=== PATIENT | male | born 1955 | race Caucasian/White ===

== ENCOUNTER 2016-09-02 10:42 | Inpatient (IN) | payer OTHER, MEDICAID ==
--- NOTE | 2016-09-02 11:25 | EDPHY ---
H & P Time Seen by Provider: 09/02/16 10:55 HPI/ROS: CHIEF COMPLAINT: Lower extremity swelling HISTORY OF PRESENT ILLNESS: The patient is a 60 year old male presenting with bilateral lower extremity swelling for the past 2 weeks. Over the past week he reports drainage from both lower extremities. The patient states the swelling in his legs is because he is being "poisoned with chloride" where he lives. He takes psychiatric medications. The patient also complains of sciatica. He denies chest pain, shortness of breath, palpitations. No known history of CHF. Patient denies known history of SC, CAD, DVT or PE. No fever, chills, vomiting, diarrhea, urinary complaints, headache, lightheadedness. REVIEW OF SYSTEMS: Aside from elements discussed in the HPI, a comprehensive 10-point review of systems was reviewed and is negative. PAST MEDICAL HISTORY: Schizoaffective, Atrial fibrillation, HTN, Gout, CKD, DVT , Nephritic syndrome SOCIAL HISTORY: Cigarette smoker. Resides at [place]. VITAL SIGNS: Reviewed by me GENERAL: Obese, resting comfortably in no respiratory distress. HEENT: Atraumatic. Eyes: No icterus, no injection. Mouth: dry mucous membranes. No erythema or lesions. Neck: supple with no adenopathy. LUNGS: Course breath sounds, scattered rhonchi. CARDIAC: Irregularly irregular, no rubs, or gallops. ABDOMEN: Obese, nondistended. Nontender. BACK: No CVA tenderness. EXTREMITIES: Massive amount of swelling to the knees bilaterally, with erythema , weeping and drainage, left worse than right. NEURO: Alert and oriented x3. NESBITT x 4, grossly nonfocal. SKIN: Warm, dry. PSYCHIATRIC: Normal mentation, no agitation. Portions of this note were transcribed by a medical secretary. I personally performed a history, physical exam, medical decision making, and confirmed accuracy of information the transcribed note. Source: Patient Constitutional: Initial Vital Signs Heart Rate 130 H 09/02/16 10:42 Respiratory Rate 18 09/02/16 10:42 Blood Pressure 120/87 H 09/02/16 10:42 O2 Sat (%) 91 L 09/02/16 10:42 O2 Delivery Mode Room Air Allergies/Adverse Reactions: amoxapine [From Asendin] Allergy (Verified 09/02/16 11:03) fluphenazine enanthate [From Prolixin] Allergy (Verified 09/02/16 11:03) fluphenazine HCl [From Prolixin] Allergy (Verified 09/02/16 11:03) haloperidol [From Haldol] Allergy (Verified 09/02/16 11:03) haloperidol lactate [From Haldol] Allergy (Verified 09/02/16 11:03) thioridazine HCl [From Mellaril] Allergy (Verified 09/02/16 11:03) trifluoperazine HCl [From Stelazine] Allergy (Verified 09/02/16 11:03) Home Medications: Medication Instructions Recorded Acetaminophen [Acetaminophen ER] 1,300 mg PO Q8 09/02/16 Acetaminophen [Tylenol 325mg (*)] 650 mg PO BID PRN 09/02/16 Albuterol Sulfate [ALBUTEROL 0.63 mg IH Q6HRS PRN 09/02/16 SULFATE] Allopurinol [Allopurinol 100 MG 100 mg PO BID 09/02/16 (*)] Bisacodyl [Dulcolax] 10 mg RC DAILY PRN 09/02/16 Cyanocobalamin [Vitamin B12 (*)] 1,000 mcg PO DAILY 09/02/16 Digoxin [Lanoxin 125 mcg (RX)] 125 mcg PO DAILY10 09/02/16 Diltiazem [Cardizem 60 MG (*)] 120 mg PO DAILY 09/02/16 Hydrocodone/Acetaminophen [Fitzpatrick 1 tab PO BID PRN 09/02/16 7.5-325 Tablet] Lactulose 20 gm PO DAILY PRN 09/02/16 Metoprolol Tartrate [Lopressor 50 50 mg PO BID 09/02/16 mg (*)] Morphine Sulfate [Morphine Sulfate 15 mg PO BID 09/02/16 ER] Sennosides/Docusate Sodium 2 each PO DAILY PRN 09/02/16 [Senna-Docusate Sodium Tablet] Warfarin Sodium [Coumadin 1MG (*)] 3.5 mg PO DAILY16 09/02/16 risperiDONE [Risperdal 1mg (*)] 4 mg PO DAILY 09/02/16 Medical Decision Making - Diagnostics EKG Interpretation: EKG interpreted by myself: atrial fibrillation. Rate: 89. See tracemaster for full report. Imaging: Study: X-ray of the chest was obtained. Results:Normal. No pneumonia. Images were interpreted by the radiologist, Dr. Lindsey. I viewed the images myself on the PACS system. ED Course/Re-evaluation: 61 year old with peripheral edema to the knees, weeping, and erythematous. Difficult to walk for several days. History hard to obtain from patient. Chart reveals afib, DVT history and coumadin use. Patient in afib. Denies CP or SOB. Lasix administered. Troponin neg but BNP 1810. Will need admission for treatment of his edema, potential cellulitis, and further treatment for CHF. 12:30 pm: I spoke to the hospitalist who accepts the patient for admission. Differential Diagnosis: Diff dx considered for patient presenting complaints included but was not limited to CHF, hyponatremia, lymphedema, cellulitis, DVT, deep space infection , hypoalbuminia, nephrotic syndrome, renal failure. Consult/Admit Bed Type: Dr Spencer, [facility] - Data Points Laboratory Results: Laboratory Results 09/02/16 11:10 09/02/16 11:10 Medications Given: Discontinued Medications Acetaminophen/Hydrocodone Bitart (Fitzpatrick 5/325) 1 tab PO EDNOW ONE Stop: 09/02/16 12:21 Last Admin: 09/02/16 12:24 Dose: 1 tab Diltiazem HCl (Cardizem Immediate Release) 30 mg PO ONCE ONE Stop: 09/03/16 00:24 Last Admin: 09/03/16 01:03 Dose: 30 mg Furosemide (Lasix Injection) 20 mg IVP EDNOW ONE Stop: 09/02/16 11:30 Last Admin: 09/02/16 12:15 Dose: 20 mg Hydromorphone HCl (Dilaudid) 0.4 mg IVP ONCE ONE Stop: 09/03/16 10:07 Last Admin: 09/03/16 10:19 Dose: 0.4 mg Hydromorphone HCl (Dilaudid) 0.5 mg IVP ONCE ONE Stop: 09/03/16 12:50 Last Admin: 09/03/16 17:20 Dose: 0.5 mg Hydromorphone HCl (Dilaudid) 0.5 mg IVP ONCE ONE Stop: 09/03/16 17:31 Last Admin: 09/03/16 20:10 Dose: Not Given Vancomycin HCl 1.25 gm/ (Dextrose) 250 mls @ 166.67 mls/hr IV Q12H KHALIDA PRN Reason: Protocol Stop: 10/02/16 15:59 Last Admin: 09/03/16 03:38 Dose: 250 mls Vancomycin HCl 1.5 gm/ (Dextrose) 250 mls @ 166.667 mls/hr IV Q12H [facility] Stop: 10/03/16 10:59 Last Admin: 09/04/16 10:53 Dose: 250 mls Departure - Departure Disposition: [facility] Acute Clinical Impression: Peripheral edema, CHF (congestive heart failure) Condition: Fair Report Scribed for: Wilma Anderson Report Scribed by: Ciara Ann Date of Report: 09/02/16 Time of Report: 11:27
[2016-09-02] MEDS ORDERED: FUROSEMIDE 20 MG/2 ML VIAL IVP ONE (11:29)
[2016-09-02 11:37] LABS: % IMMATURE GRANULYOCYTES 0.4 % (0.0-1.1); ABSOLUTE IMMATURE GRANULOCYTES 0.05 10^3/uL (0.00-0.10); ADD DIFF? NO; ADD MORPH? NO; ADD SCAN? NO; ATYPICAL LYMPHOCYTE FLAG 0 (0-99); FRAGMENT RBC FLAG 0 (0-99); HEMATOCRIT 40.8 % (40.0-51.0); HEMOGLOBIN 14.4 g/dL (13.7-17.5); LEFT SHIFT FLG 0 (0-99); LIPEMIA HEMOLYSIS FLAG 90 (0-99); MEAN CELL HEMOGLOBIN 33.8 pg (27.9-34.1); MEAN CELL HEMOGLOBIN CONCENTR. 35.3 g/dL (32.4-36.7); MEAN CELL VOLUME 95.8 fL (81.5-99.8); MEAN PLATELET VOLUME 9.2 fL (8.7-11.7); PLATELET CLUMPS FLAG 0 (0-99); PLATELET COUNT 315 10^3/uL (150-400); RED BLOOD CELL COUNT 4.26 10^6/uL (4.40-6.38); RED CELL DISTRIBUTION WIDTH 13.3 % (11.5-15.2)
[2016-09-02 11:45] LABS: ALANINE AMINOTRANSFERASE 27 IU/L (21-72); ALBUMIN 2.8 g/dL (3.5-5.0); ALKALINE PHOSPHATASE 79 IU/L (38-126); ANION GAP 10 mEq/L (8-16); ASPARTATE AMINOTRANSFERASE 17 IU/L (17-59); BILIRUBIN,TOTAL 0.7 mg/dL (0.1-1.4); BILIRUBIN-CONJUGATED 0.2 mg/dL (0.0-0.5); BILIRUBIN-UNCONJUGATED 0.5 mg/dL (0.0-1.1); CALCIUM 8.8 mg/dL (8.5-10.4); CARBON DIOXIDE 22 mEq/l (22-31); CHLORIDE 106 mEq/L (97-110); GLOMERULAR FILTRATION RATE > 60; GLUCOSE 139 mg/dL (70-100); POTASSIUM 4.4 mEq/L (3.5-5.2); SODIUM 138 mEq/L (134-144); TOTAL PROTEIN 6.2 g/dL (6.3-8.2)
[2016-09-02 11:57] LABS: TROPONIN I < 0.012 ng/mL (0-0.034)
--- NOTE | 2016-09-02 11:57 | DX ---
Chest, PA and Lateral History: Chest pain, leg edema COMPARISON: December 12, 2008, August 12, 2006 Findings: The patient is rotated toward the left. Patchy density overlying the medial right lower marybeth g, without a confirmatory abnormality on the lateral view could represent a lower lung zone infiltrat e or overlapping density related to soft tissue from the patient's breast. Heart size and pulmonary v ascularity are normal. The azygos vein is not dilated. There is no adenopathy or mass lesion. There i s no pleural effusion . Bones are unremarkable for age. Impression: 1. Equivocal right lower lobe infiltrate versus soft tissue overlap from the patient's ri ght breast. Consider obtaining a nonrotated PA chest or possibly chest CT for further evaluation. 2. No evidence for cardiac failure.
[2016-09-02] MEDS ORDERED: HYDROCODONE/APAP 5/325 TAB PO ONE (12:20)
--- NOTE | 2016-09-02 12:24 | DX ---
Portable Chest, 2 views, 12:10 History: Chest pain, leg edema, corrected for rotation Comparison: Prior PA exam at 11:13 earlier Findings: Prior right lower lung density has resolved and was consistent with overlapping density fro m the patient's right breast. There is no evidence for pneumonia. Impression: Normal. No pneumonia.
--- NOTE | 2016-09-02 13:03 | CPEKG ---
Heart Rate: 89 RR Interval: 674 QRSD Interval: 92 QT Interval: 360 QTC Interval: 439 QRS [place]: 76 T Wave [place]: -19 EKG Severity - ABNORMAL ECG - EKG Impression: ATRIAL FIBRILLATION, V-RATE 62-111 EKG Impression: LOW VOLTAGE IN FRONTAL LEADS EKG Impression: NONSPECIFIC T ABNORMALITIES, INFERIOR LEADS Electronically Signed By: Wilma Anderson 02-Sep-2016 15:10:35
[2016-09-02] MEDS ORDERED: ONDANSETRON DISINTEGRATING 4 MG TAB PO PRN (15:48)
[2016-09-02] MEDS ORDERED: ONDANSETRON 4 MG/2 ML VIAL IVP PRN (15:48)
[2016-09-02] MEDS ORDERED: SENNOSIDES/DOCUSATE SODIUM TAB PO PRN (15:50)
[2016-09-02] MEDS ORDERED: BISACODYL 10 MG SUPP PR PRN (15:50)
[2016-09-02] MEDS ORDERED: HYDROCODONE/APAP 10/325 TAB PO PRN (16:08)
[2016-09-02] MEDS ORDERED: ALBUTEROL 60 PUFFS/8 GM MDI IH PRN (16:30)
[2016-09-02] MEDS ORDERED: LACTULOSE 20 GM/30 ML UDCUP PO PRN (16:30)
[2016-09-02 16:33] LABS: INR 2.54 (0.83-1.16); PROTIME(PATIENT) 27.6 SEC (12.0-15.0)
[2016-09-02] MEDS: WARFARIN SODIUM 1 MG TAB PO SCH (16:50)
[2016-09-02] MEDS: VANCOMYCIN 1.25 GM in D5W 250 ML IV SCH (16:50)
[2016-09-02] MEDS: HYDROCODONE/APAP 5/325 TAB PO PRN (17:10)
--- NOTE | 2016-09-02 17:40 | GHP ---
[f rep st] HISTORY AND PHYSICAL DATE OF ADMISSION: 09/02/2016 CHIEF COMPLAINT: Lower extremity swelling. HISTORY OF PRESENT ILLNESS: Mr. Wilcox is a 60-year-old male, who presented to the emergency room wit h bilateral lower extremity swelling for the past 2 weeks. He normally resides at [place] and [facility] over the last several weeks his swelling has become worse with increasing pain and inability to walk. Over the past week, he reports drainage from both lower extremities. He does feel that his l egs are swollen because he is "being poisoned with chloride" where he lives. He states that he is no t sure that he is being taken care of properly at [place]. He also complains of some lumbar and s ciatic pain. He denies any nausea, vomiting, diarrhea. Denies any fever, sweats, or night chills. D enies any dyspnea, shortness of breath, or chest pain. REVIEW OF SYSTEMS: Comprehensive 10-point review of systems is negative, other than noted in the HPI . PAST MEDICAL HISTORY: Difficult to obtain from the patient however, noted from the chart: 1. Schizoaffective disorder. 2. Atrial fibrillation. 3. Hypertension. 4. Gout. 5. Chronic kidney disease. 6. History of DVT. 7. Nephrotic syndrome. PAST SURGICAL HISTORY: Per the patient is none. SOCIAL HISTORY: The patient resides at [place]. He states that he smokes tobacco on a daily basi s, but denies any alcohol use. PHYSICAL EXAM: GENERAL: The patient is alert, up in the chair. VITAL SIGNS: Afebrile 36.8, pulse is 75, respiratory rate is 18, blood pressure is 126/86. He is saturating 91% on room air. HEENT: Normocephalic, atraumatic. Mucosal membranes are moist. Pupils equally round, reactive to light. C ARDIOVASCULAR: Irregular irregular. No gallop or murmur noted. GASTROINTESTINAL: Abdomen: Bowel sounds are positive. Soft. the patient is obese, nontender. BACK: There is no CVA tenderness. EXT REMITIES: Massive amount of swelling in the bilateral lower extremities up to the knee, as well as e rythema and drainage. The left leg is significantly more erythematous than the right leg. SKIN: Wa rm and dry to the touch, other than bilateral lower extremities. NEUROLOGICALLY: The patient is gr ossly intact. ALLERGIES: 1. Amoxapine. 2. Prolixin. 3. Haldol. 4. Mellaril. 5. Stelazine. HOME MEDICATIONS: Tylenol, albuterol, allopurinol, Dulcolax, calcium, vitamin B, digoxin, Cardizem, Tichnor, lactulose, Lopressor, morphine, Senokot, Coumadin, Robitussin, Risperdal. FAMILY HISTORY: Reviewed, but noncontributory. The patient tells me it is his birthday tomorrow. LABORATORY EVALUATION: White count 11.1. INR of 2.54 with a BUN of 32. BNP of 1800. RADIOLOGICAL STUDIES: Chest x-ray is normal with no pneumonia noted. ASSESSMENT AND PLAN: Mr. Wilcox is a 60-year-old male, who has a history of schizoaffective disorder and resides at [place]. He presented emergency room with complaints of bilateral lower extremity swelling. He has been evaluated and diagnosed with: 1. Bilateral lower extremity swelling: This is an acute on chronic condition for Mr. Wilcox. He has received diuresis in the emergency room, but will require more aggressive IV diuresis during this ho spitalization. Wound Care will consult on the patient, as well as educating him to elevate his lower extremities whenever possible. We will continue to evaluate his underlying condition. 2. Left lower extremity cellulitis: I have initiated the patient on IV vancomycin at the time of ad mission. He does reside at a [facility] facility. Will continue his vancomycin with further in tervention and recommendations to be made. 3. History of atrial fibrillation: The patient does appear to be rate controlled. He is anticoagula irving with Coumadin. His INR is 2.54. We will continue his anticoagulation as previously prescribed. DISPOSITION: The patient will return to [place] once his condition has improved and he is able to ambulate with decreased edema. I have discussed the patient's care with Dr. aSlly Spencer. She sam l assume the patient's care on 09/03/2016 with further recommendations and treatment to be made. Mr. Wilcox has been admitted to inpatient status given the need for ongoing hospital care. /[id number]/MODL
[2016-09-02] MEDS: morphINE SR 15 MG TAB PO SCH (21:13)
[2016-09-02] MEDS: METOPROLOL TARTRATE 50 MG TAB PO SCH (21:14)
[2016-09-02] MEDS: ALLOPURINOL 100 MG TAB PO SCH (21:15)
[2016-09-02] MEDS ORDERED: NON-FORMULARY NEW DRUG (Acetaminophen [Acetaminophen Er] 1,300 MG) PO SCH (22:00)
[2016-09-03] MEDS: HYDROCODONE/APAP 5/325 TAB PO PRN ×3 (00:16→21:46)
[2016-09-03] MEDS ORDERED: DILTIAZEM 60 MG TAB PO ONE (00:23)
[2016-09-03] MEDS: VANCOMYCIN 1.25 GM in D5W 250 ML IV SCH (03:38)
[2016-09-03 05:46] LABS: % IMMATURE GRANULYOCYTES 0.4 % (0.0-1.1); ABSOLUTE IMMATURE GRANULOCYTES 0.05 10^3/uL (0.00-0.10); ADD DIFF? NO; ADD MORPH? NO; ADD SCAN? NO; ATYPICAL LYMPHOCYTE FLAG 20 (0-99); FRAGMENT RBC FLAG 0 (0-99); HEMATOCRIT 36.2 % (40.0-51.0); HEMOGLOBIN 12.9 g/dL (13.7-17.5); LEFT SHIFT FLG 0 (0-99); LIPEMIA HEMOLYSIS FLAG 90 (0-99); MEAN CELL HEMOGLOBIN 34.2 pg (27.9-34.1); MEAN CELL HEMOGLOBIN CONCENTR. 35.6 g/dL (32.4-36.7); MEAN PLATELET VOLUME 9.9 fL (8.7-11.7); PLATELET CLUMPS FLAG 10 (0-99); PLATELET COUNT 278 10^3/uL (150-400); RED BLOOD CELL COUNT 3.77 10^6/uL (4.40-6.38); RED CELL DISTRIBUTION WIDTH 13.1 % (11.5-15.2)
[2016-09-03 06:07] LABS: INR 2.9 (0.83-1.16); PROTIME(PATIENT) 30.7 SEC (12.0-15.0)
[2016-09-03 06:16] LABS: ANION GAP 8 mEq/L (8-16); CALCIUM 8.3 mg/dL (8.5-10.4); CARBON DIOXIDE 22 mEq/l (22-31); CHLORIDE 104 mEq/L (97-110); GLOMERULAR FILTRATION RATE > 60; GLUCOSE 131 mg/dL (70-100); MAGNESIUM 1.9 mg/dL (1.6-2.3); POTASSIUM 4.5 mEq/L (3.5-5.2); SODIUM 134 mEq/L (134-144)
[2016-09-03] MEDS: FUROSEMIDE 40 MG/4 ML VIAL IVP SCH (07:49)
[2016-09-03] MEDS: METOPROLOL TARTRATE 50 MG TAB PO SCH ×2 (07:49→20:15)
[2016-09-03] MEDS: DILTIAZEM CD 180 MG CAP PO SCH (07:49)
[2016-09-03] MEDS: CYANO/VITAMIN B12 1000 MCG TAB PO SCH (08:01)
[2016-09-03] MEDS: ALLOPURINOL 100 MG TAB PO SCH ×2 (08:01→20:16)
[2016-09-03] MEDS: morphINE SR 15 MG TAB PO SCH ×2 (08:01→20:16)
[2016-09-03] MEDS: risperiDONE 1 MG TAB PO SCH (08:03)
[2016-09-03] MEDS ORDERED: ENOXAPARIN 30 MG/0.3 ML SYR SC SCH (09:00)
[2016-09-03] MEDS ORDERED: DILTIAZEM 60 MG TAB PO SCH (09:00)
--- NOTE | 2016-09-03 10:04 | HOSPPROG ---
Hospitalist Progress Note Assessment/Plan: B/L LE edema - certainly some chronic, severe venous stasis issues, wound care following. PT/OT. LLE cellulitis - Certainly underlying venous stasis +/- superinfection. There are some areas of fluctuance on anterior tibial region and dorsal surface of his left foot. Will check ext CT to r/o abscess or hematoma, would culture sent. Add on CRP. Pharmacy to dose Vanc. Will request ID consult. A fib with RVR - Anticoagulated on coumadin, INR therapeutic. Will ask pharmacy to dose Coumadin. He required additional dose of Diltiazem overnight for rate control. Cont Cardizem, Metoprolol, Digoxin. Can add additional dilt dose if needed for rate control. Schizoaffective - mood stable. Cont risperdal. Hypertension - BP a bit elevated this am likely secondary to acute pain, cont home meds. Full code Dispo - cont inpt Subjective: Pt reported a lot of pain this am as we removed his LE dressings. It's [birth year] birthday. No fevers/chills. No CP or SOB. HR a bit rapid this am though denies palpitations. Objective: Vital Signs Temp Pulse Resp BP Pulse Ox 36.8 C 120 H 20 154/87 H 90 L 09/03/16 07:09 09/03/16 07:49 09/03/16 07:09 09/03/16 07:49 09/03/16 07:09 Laboratory Results 09/03/16 04:53 09/03/16 04:53 09/02/16 09/03/16 09/04/16 05:59 05:59 05:59 Intake Total 400 Balance 400 PT 30.7 SEC (12.0-15.0) H 09/03/16 04:53 INR 2.90 (0.83-1.16) H 09/03/16 04:53 - Physical Exam Constitutional: no apparent distress Eyes: PERRL Ears, Nose, Mouth, Throat: moist mucous membranes Cardiovascular: irregularly irregular Respiratory: no respiratory distress, clear to auscultation Gastrointestinal: normoactive bowel sounds, soft, non-tender abdomen Skin: other (b/l LE venous stasis changes with denuded skin LLE and large vesicle dorsal surface of left foot) Neurologic: AAOx3 Psychiatric: interacting appropriately ICD10 Worksheet Patient Problems: Problems Problem Status Diagnosed CHF (congestive heart failure) Acute Peripheral edema Acute
[2016-09-03] MEDS ORDERED: HYDROmorphONE/DILAUDID 1 MG/ML SYR IVP ONE ×3 (10:06→17:30)
[2016-09-03] MEDS ORDERED: HYDROmorphONE/DILAUDID 2 MG/ML SYR ONE (10:12)
[2016-09-03] MEDS: VANCOMYCIN 1.5 GM in D5W 250 ML IV SCH ×2 (11:03→23:14)
[2016-09-03] MEDS: DIGOXIN 125 MCG TAB PO SCH (11:06)
--- NOTE | 2016-09-03 13:34 | WOCRNPDOC ---
WOCRMaria Esther Advanced Assessment Note - Skin Integrity Problem, Advanced Assess Left Foot Venous Stasis Ulcer Dressing Type: Abdominal Pads, Kerlix Dressing Description: Saturated Exudate Amount: Moderate Exudate Characteristic(s): Serosanguinous Integumentary Issue Intervention: Dressing Changed Aria Wound Tissue: Macerated, Lipodermatosclerosis, Hemosiderin Staining, Venous Dermatitis, Hair Loss Site Odor: Slight, Pungent Site Measurement - Head-to-Toe Length X Width X Depth (cm): 7x10x0.1 Extremity Temperature: Warm Skin Integrity Problem Comment: Left dorsal foot: 1/2 intact serous filled blister, 1/2 de roofed partial thickness wound with smooth tissue. Dried yellow crust covers opening just proximal to the phalanges and then the blister extends proximally for several cm's. Cleaned with puracyn cleanser that was soaked on wound for 5 min. Covered with mepilex transfer, ABD and then wrapped with miguel. Right Foot Venous Stasis Ulcer Dressing Type: Open to Air Dressing Description: Intact Exudate Amount: Scant Exudate Characteristic(s): Serosanguinous Integumentary Issue Intervention: Dressing Applied, Conservative Sharp Bedside Debridement (of non viable de roofed blister skin.) Wound Bed Constitution: De-roofed Serous Blister Site Measurement - Head-to-Toe Length X Width X Depth (cm): 5.5x6.5x0.1 Extremity Temperature: Warm Skin Integrity Problem Comment: Right dorsal foot: 100% de roofed blister that reveals a partial thickness wound with smooth tissue. Cleaned with puracyn cleanser that was soaked on wound for 5 min. Covered with mepilex transfer, ABD and then wrapped with miguel. Tubigrip F applied for medium compression of calf circumference of 50 cm. Left Lower Leg Venous Stasis Ulcer Dressing Type: Abdominal Pads, Kerlix Dressing Description: Intact, Shadowed Exudate Amount: Excessive Exudate Characteristic(s): Serosanguinous Integumentary Issue Intervention: Dressing Changed Aria Wound Tissue: Swollen, Lipodermatosclerosis, Hemosiderin Staining, Venous Dermatitis, Hair Loss, Crusted, Painful/Tender Aria Wound Swelling: Severe Wound Bed Color: Red, Yellow, Simpson Wound Bed Constitution: Granulation Tissue (50%), Adhered Slough (25%), Loose Slough (25%) Wound Edges: Irregular Site Odor: Slight, Moderate Site Measurement - Head-to-Toe Length X Width X Depth (cm): Wound is circumferential: [id number] Extremity Temperature: Warm Skin Integrity Problem Comment: Tissue under wound is fluctuant. Calf circumference is 39 cm. Cleaned with puracyn cleanser that was soaked on wound for 5 min. Covered with Acticoat 3 contact layer (note this may make the wound bed appear more simpson), Mepilex Transfer, then ABD and then wrapped with miguel. Tubigrip E was applied for medium compression. Please remove bilateral tubigrips at night. Right Lower Leg Venous Stasis Ulcer Dressing Type: Open to Air Aria Wound Tissue: Hemosiderin Staining, Venous Dermatitis, Xerotic, Hair Loss, Crusted Aria Wound Swelling: Moderate Wound Bed Color: Carlin Wound Bed Constitution: Granulation Tissue Wound Edges: Irregular Site Measurement - Head-to-Toe Length X Width X Depth (cm): 2x1x0 x 3 Extremity Temperature: Warm Skin Integrity Problem Comment: Small partial thickness openings in posterior gaiter area. Covered with ABD and miguel and placed under compression with tubigrip.
[2016-09-03] MEDS: WARFARIN SODIUM 1 MG TAB PO SCH (15:55)
--- NOTE | 2016-09-03 16:00 | GCON ---
[f rep st] CONSULTATION INFECTIOUS DISEASE CONSULTATION DATE OF CONSULTATION: 09/03/2016 REFERRING PHYSICIAN: Sally Spencer MD REASON FOR CONSULTATION: Left lower extremity cellulitis. CHIEF COMPLAINT: Left lower extremity swelling and redness. HISTORY OF PRESENT ILLNESS: This is a 61-year-old male with a past medical history signifi cant for atrial fibrillation, schizoaffective disorder, hypertension, gout, who presented to the [facility] room with bilateral lower extremity swelling for the past 2 weeks. He apparently has had wounds to his lower extremities that have not had good attention to wound care. He does have complaints of pain involving the lower extremities bilaterally, more particularly so on the left side. He is also c omplaining of some sciatic pain down the right leg as well. He denies any fevers or shaking chills. Sherman perez is a poor historian, so history is mostly obtained from the medical records and the other providers in his care at this time. Low-grade temperature of 37.2. He has been in rapid atrial fibrillation si wae admission. He came in with an elevated white blood cell count with a left shift. He was started e mpirically on vancomycin for left lower extremity cellulitis. Infectious Disease is now consulted for further evaluation and opinion. REVIEW OF SYSTEMS: GENERAL: Denies any fever, shaking chills. HEAD: No headaches. EYES: No change in vision. ENT: No sore throat, difficulty swallowing, ear pain or ear drainage. CARDIOVASCULAR: Denies any chest pain or rapid heartbeat. RESPIRATORY: Denies any shortness of breath, cough or sputum prod uction. ABDOMEN: Denies any nausea, vomiting, abdominal pain, diarrhea. GENITOURINARY: Denies any dys uria. MUSCULOSKELETAL: Denies any joint pains, but does complain of sciatic pain down his right leg. He complains of left leg pain as well, and some chronic back pain. NEURO: Denies any numbness or ting ling of his lower extremities loss of bowel or bladder control. SKIN: As above. Rest of 10-point revi ew of systems essentially negative, except for above. PAST MEDICAL HISTORY: Significant for atrial fibrillation, hypertension, gout, chronic kidney diseas e, history of DVTs, nephrotic syndrome, schizoaffective disorder. PAST SURGICAL HISTORY: None. SOCIAL HISTORY: He resides at [place]. He is a smoker. Denies alcohol intake. ALLERGIES: Amoxapine, fluphenazine, haloperidol, thioridazine, trifluoperazine. FAMILY HISTORY: Patient could not recall. MEDICATIONS: Per MAR. PHYSICAL EXAMINATION: VITAL SIGNS: Temperature 37.2, pulse is 104, respiratory rate is 20, blood pre ssure 128/71, saturation 92% on room air. GENERAL: Patient is resting in bed, in no acute respiratory distress, awake and alert. He is occasionally disoriented and rambles on about feeling that somebody was trying to poison him. HEENT: Head is normocephalic, atraumatic. Eyes, no conjunctival injection. No petechiae noted. Oropharynx is clear. CARDIOVASCULAR: S1, S2. Regular rate and rhythm. No murmurs appreciated. RESPIRATORY: Clear to auscultation anteriorly. No obvious rhonchi or wheezing appreciat ed. ABDOMEN: Positive bowel sounds in all 4 quadrants. Soft, nontender, nondistended. No organomegaly appreciated. MUSCULOSKELETAL: No obvious joint effusions. EXTREMITIES/SKIN: He has lower extremity e alfredo bilaterally with good wrinkling effect at present. The nurses had put Phuc wraps on and apparentl y was much more swollen yesterday. He has bilateral venous stasis dermatitis appreciated. The left lo wer extremity shows much more erythema, more acute erythema, particularly over the foot and primarily of the lower leg. There is a large superficial skin wound located on the left lower extremity as wel l small blister-like area over the left dorsum of the foot. There is some overlying slough appreciate d. The skin is tender to the touch. The leg is tender to touch with palpation. There again is edema. The right lower extremity has a superficial skin tear with a clean base over the right dorsum of the foot. LABS: White blood cell count is 11.8, hemoglobin 12.9, platelets are 278, neutrophil count 79%. Coag s: INR 2.9. Sodium 134, potassium 4.5, chloride 104, bicarb 22, BUN 31, creatinine 1.3. LFTs done yes terday were within the normal range. C-reactive protein 156.6. Microbiology: Wound swabs, 2+ polys, n o organisms. No blood cultures done. Chest x-ray, no evidence of pneumonia. ASSESSMENT: Left lower extremity cellulitis with chronic wounds. PLAN: No previous microbiologic data to guide therapy. We agree with empiric treatment with vancomyc in for now. Needs ongoing elevation of the lower extremities or compression wraps to help reduce the lower extremity edema. Agree with wound care consultation for aggressive wound care management at thi s point in time. Agree with CT evaluation to rule out any fluid collections within the left lower ext remity that may be of benefit for an incision and drainage. Check vancomycin trough prior to the 4th dose. Thank you very much for providing this opportunity to care for your patient in consultation. /[id number]/MODL
[2016-09-03] MEDS: LORazepam 0.5 MG TAB PO PRN (17:12)
[2016-09-04] MEDS: HYDROCODONE/APAP 5/325 TAB PO PRN ×3 (04:45→17:03)
[2016-09-04 05:24] LABS: % IMMATURE GRANULYOCYTES 0.7 % (0.0-1.1); ADD DIFF? NO; ADD MORPH? NO; ADD SCAN? NO; ATYPICAL LYMPHOCYTE FLAG 40 (0-99); FRAGMENT RBC FLAG 0 (0-99); HEMATOCRIT 40.2 % (40.0-51.0); LEFT SHIFT FLG 10 (0-99); LIPEMIA HEMOLYSIS FLAG 90 (0-99); MEAN CELL HEMOGLOBIN 33.8 pg (27.9-34.1); MEAN CELL HEMOGLOBIN CONCENTR. 34.8 g/dL (32.4-36.7); MEAN CELL VOLUME 97.1 fL (81.5-99.8); MEAN PLATELET VOLUME 9.1 fL (8.7-11.7); PLATELET CLUMPS FLAG 0 (0-99); PLATELET COUNT 302 10^3/uL (150-400); RED BLOOD CELL COUNT 4.14 10^6/uL (4.40-6.38); RED CELL DISTRIBUTION WIDTH 13.3 % (11.5-15.2)
[2016-09-04] MEDS: risperiDONE 1 MG TAB PO SCH (08:01)
[2016-09-04] MEDS: morphINE SR 15 MG TAB PO SCH ×2 (08:02→21:11)
[2016-09-04] MEDS: CYANO/VITAMIN B12 1000 MCG TAB PO SCH (08:02)
[2016-09-04] MEDS: DILTIAZEM CD 180 MG CAP PO SCH (08:02)
[2016-09-04] MEDS: FUROSEMIDE 40 MG/4 ML VIAL IVP SCH (08:02)
[2016-09-04] MEDS: ALLOPURINOL 100 MG TAB PO SCH ×2 (08:02→21:11)
[2016-09-04] MEDS: METOPROLOL TARTRATE 50 MG TAB PO SCH ×2 (08:02→21:11)
--- NOTE | 2016-09-04 09:50 | HOSPPROG ---
Hospitalist Progress Note Assessment/Plan: B/L LE edema - certainly some chronic, severe venous stasis issues, wound care following. PT/OT. LLE cellulitis - Certainly underlying venous stasis +/- superinfection. There are some areas of fluctuance on anterior tibial region and dorsal surface of his left foot. Will check ext CT to r/o abscess or hematoma, would culture sent. Pharmacy to dose Vanc. ID following. A fib with RVR - Anticoagulated on coumadin, INR therapeutic. Will ask pharmacy to dose Coumadin. Cont Cardizem, Metoprolol, Digoxin. Schizoaffective - mood stable. Cont risperdal. Hypertension - cont home meds. Full code Dispo - cont inpt Subjective: Feels tired VSS Still in Afib, rate controlled Imaging pending O: - Physical Exam Constitutional: no apparent distress Eyes: PERRL Ears, Nose, Mouth, Throat: moist mucous membranes Cardiovascular: irregularly irregular Respiratory: no respiratory distress, clear to auscultation Gastrointestinal: normoactive bowel sounds, soft, non-tender abdomen Skin: other (b/l LE venous stasis changes with denuded skin LLE and large vesicle dorsal surface of left foot) Neurologic: AAOx3 Psychiatric: interacting appropriately Labs: Reviewed, ok Objective: Vital Signs Temp Pulse Resp BP Pulse Ox 36.6 C 108 H 20 130/79 H 92 09/04/16 08:00 09/04/16 08:00 09/04/16 08:00 09/04/16 08:00 09/04/16 08:00 Microbiology 09/03/16 10:45 Gram Stain - Final Leg - Swab Laboratory Results 09/04/16 04:52 09/03/16 04:53 09/03/16 09/04/16 09/05/16 05:59 05:59 05:59 Intake Total 400 1850 Output Total 400 Balance 400 1450 PT 30.7 SEC (12.0-15.0) H 09/03/16 04:53 INR 2.90 (0.83-1.16) H 09/03/16 04:53 ICD10 Worksheet Patient Problems: Problems Problem Status Diagnosed CHF (congestive heart failure) Acute Peripheral edema Acute
--- NOTE | 2016-09-04 10:35 | PCMIDPN ---
Assessment/Plan: Extensive wounds LE, L>R likely severe venous insufficiency with superimposed cellulitis, massive drainage and foul smell today, increased WBC, continued low grade temp --planning CT scan today --coordinate with wound care --Wound culture today showing non lactose fermenting and lactose fermenting gram -negative yasemin. Non lactose fermenting suggestive of Pseudomonas, will DC vancomycin and start high-dose cefepime for pseudomonal coverage at 2 g IV Q 8 --may need surgical consult Medications Vancomycin 1.5 g IV Q 12 Microbiology Wound culture: 2+ GNR NLF, 2+ GNR LF Subjective: This all started because they were poisoning me with chloride pain L leg slightly improved slightly less malaise today Objective: Vital Signs Temp Pulse Resp BP Pulse Ox 36.6 C 108 H 20 130/79 H 92 09/04/16 08:00 09/04/16 08:00 09/04/16 08:00 09/04/16 08:00 09/04/16 08:00 Microbiology 09/03/16 10:45 Gram Stain - Final Leg - Swab Laboratory Results 09/04/16 04:52 09/03/16 04:53 09/03/16 09/04/16 09/05/16 05:59 05:59 05:59 Intake Total 400 1850 Output Total 400 Balance 400 1450 C-Reactive Protein 156.6 mg/L (<10.0) H 09/03/16 04:53 - Physical Exam General Appearance: alert, no apparent distress EENT: pale conjunctiva, No scleral icterus Respiratory: No accessory muscle use Extremities: inflammation, swelling, necrosis, other (Lower extremity with marked drainage, foul odor, significant debris circumferentially, mild tenderness to palpation, underlying purplish erythema) Abdomen: soft Skin: other (See extremity exam) Neuro/Psych: alert, normal mood/affect, other (Odd affect) - Time Spent With Patient Time Spent with Patient: greater than 25 minutes Time Spent with Patient: Greater than 25 minutes spent on this patients care, greater than 50% of time spent counseling, educating, and coordinating care regarding the above mentioned plan. ICD10 Worksheet Patient Problems: Problems Problem Status Diagnosed CHF (congestive heart failure) Acute Peripheral edema Acute
[2016-09-04] MEDS: DIGOXIN 125 MCG TAB PO SCH (10:53)
[2016-09-04] MEDS: VANCOMYCIN 1.5 GM in D5W 250 ML IV SCH (10:53)
[2016-09-04 11:44] LABS: INR 2.63 (0.83-1.16); PROTIME(PATIENT) 28.4 SEC (12.0-15.0)
--- NOTE | 2016-09-04 12:49 | WOCRNPDOC ---
WOCRN Advanced Assessment Note - Skin Integrity Problem, Advanced Assess Left Foot Venous Stasis Ulcer Dressing Type: Open to Air Exudate Amount: Minimal Exudate Color: Clear Exudate Characteristic(s): Serous Integumentary Issue Intervention: Dressing Changed Aria Wound Tissue: Erythema, Swollen, Venous Dermatitis Aria Wound Swelling: Moderate Wound Bed Color: Yellow Wound Bed Constitution: Smooth Tissue, Adhered Slough, Intact Serous Filled Blister Skin Integrity Problem Comment: Blister on dorsal aspect of L foot remains intact. Distal to the blister is an area of dried, adhered slough. Entire LLE continues to be edematous, w/ erythema throughout, significant venous dermatitis noted. Continue w/ exisiting dressing changes, w/ Mepilex Transfer and ABD to help manage exudate. Left Lower Leg Venous Stasis Ulcer Dressing Type: Open to Air (Dressing removed prior to assesment) Exudate Amount: Moderate Exudate Color: Clear, Yellow Exudate Characteristic(s): Clear, Liquid, Serous Integumentary Issue Intervention: Dressing Changed, Mechanical Debridement Aria Wound Tissue: Erythema, Raw, Swollen, Weeping, Venous Dermatitis Aria Wound Swelling: Moderate Wound Bed Color: Red, Yellow Wound Bed Constitution: Smooth Tissue, Adhered Slough, Loose Slough Wound Edges: Irregular Site Odor: None Skin Integrity Problem Comment: Contacted by youth services librarianAMARIS Anand and Dr. Collins because existing dressing was saturated. Upon assessment, silver contact layer placed by on 09/03 w/ orders not to remove was no longer place. Patient's LLE continues to be highly exudative, consistent w/ venous stasis. I was able to remove a significant amount of loose slough from the wound, which was coming off in sheets. The remaining slough is well-adhered. Changed order to Therahoney sheet to help manage exudate and facilitate debridement. Continue w/ Transfer and Tegaderm Absorbent and ABDs to absorb exudate. Right Lower Leg Venous Stasis Ulcer Dressing Type: Open to Air Exudate Amount: Scant Exudate Color: Clear Exudate Characteristic(s): Serous Aria Wound Tissue: Erythema, Swollen, Venous Dermatitis Aria Wound Swelling: Moderate Wound Bed Color: Red, Yellow Wound Bed Constitution: Smooth Tissue, Adhered Slough Wound Edges: Irregular Site Odor: Slight Skin Integrity Problem Comment: Previously intact, scattered lesions on posterior aspect of RLE beginning to weep and become exudative. Venous dermatitis noted throughout aria-wound skin. Advised youth services librarianAMARIS Anand to apply the same dressing as the R foot.
[2016-09-04] MEDS ORDERED: IOPAMIDOL (ISOVUE-300) 100 ML BTL IV ONE (13:26)
[2016-09-04] MEDS: WARFARIN SODIUM 1 MG TAB PO SCH (15:12)
[2016-09-04] MEDS: CEFEPIME HCL 2 GM in D5W 100 ML IV SCH ×2 (15:13→21:11)
--- NOTE | 2016-09-04 15:25 | CT ---
CT left lower extremity with contrast 1431 hours. HISTORY: Left lower extremity cellulitis. Evaluate for abscess or hematoma. Purulent fluid near ankle joint with diffuse swelling. TECHNIQUE: Spiral imaging was obtained from the level of the distal femur through the foot following the administration of 90 mL Isovue-300 IV contrast. Images were reconstructed down to 1 mm slice thic kness and reviewed in multiple planes. This reduction techniques were utilized. FINDINGS: Along the posterior medial aspect of the left knee there is a fluid collection compatible w ith a English's cyst that measures 4.8 x 4.7 x 3 cm in longitudinal, AP, and transverse dimensions. There is moderate cutaneous edema as well as subcutaneous edema from the level of the proximal calf i nto the foot. This is greatest involving the anterior lateral aspect of the distal calf to the level of the ankle as well as involving the ventral aspect of the forefoot. There is a collection associate d with the dermis where there is focal bulging representing a dermal collection that measures about 3 x 2 cm along the skin by about 0.9 cm in thickness. No underlying abscess collection is seen. There is no evidence of edema or enhancement of the musculature. Osseous structures are intact withou t erosion. Moderate to marked degenerative joint disease is noted involving the medial knee joint wit h associated endplate sclerosis and osteophyte formation. There is a small effusion in the suprapatel lar bursa. IMPRESSION: 1. Moderate cellulitis involving the left calf and foot with focal dermal fluid collection along the ventral aspect of the forefoot overlying the proximal second and third metatarsals. 2. No evidence of underlying subcutaneous or muscular abscess. 3. Moderate to marked degenerative changes medial knee joint with small effusion suprapatellar bursa as well as English's cyst. 4. No evidence for underlying osseous erosion or osteomyelitis.
[2016-09-05] MEDS: HYDROCODONE/APAP 5/325 TAB PO PRN ×2 (02:08→12:51)
[2016-09-05] MEDS: ACETAMINOPHEN 325 MG TAB PO PRN ×2 (04:50→14:01)
[2016-09-05 05:23] LABS: ABSOLUTE IMMATURE GRANULOCYTES 0.14 10^3/uL (0.00-0.10); ADD DIFF? NO; ADD MORPH? NO; ADD SCAN? NO; ATYPICAL LYMPHOCYTE FLAG 10 (0-99); FRAGMENT RBC FLAG 0 (0-99); HEMATOCRIT 35.6 % (40.0-51.0); HEMOGLOBIN 12.6 g/dL (13.7-17.5); LEFT SHIFT FLG 0 (0-99); LIPEMIA HEMOLYSIS FLAG 90 (0-99); MEAN CELL HEMOGLOBIN 33.9 pg (27.9-34.1); MEAN CELL HEMOGLOBIN CONCENTR. 35.4 g/dL (32.4-36.7); MEAN CELL VOLUME 95.7 fL (81.5-99.8); MEAN PLATELET VOLUME 9.4 fL (8.7-11.7); PLATELET CLUMPS FLAG 10 (0-99); PLATELET COUNT 294 10^3/uL (150-400); RED BLOOD CELL COUNT 3.72 10^6/uL (4.40-6.38); RED CELL DISTRIBUTION WIDTH 13.2 % (11.5-15.2)
[2016-09-05 05:50] LABS: ANION GAP 9 mEq/L (8-16); CARBON DIOXIDE 22 mEq/l (22-31); CHLORIDE 101 mEq/L (97-110); CREATININE 1.4 mg/dL (0.7-1.3); GLOMERULAR FILTRATION RATE 51; GLUCOSE 129 mg/dL (70-100); POTASSIUM 4.5 mEq/L (3.5-5.2); SODIUM 132 mEq/L (134-144)
[2016-09-05] MEDS: CEFEPIME HCL 2 GM in D5W 100 ML IV SCH ×3 (06:05→21:13)
[2016-09-05] MEDS: DILTIAZEM CD 180 MG CAP PO SCH (09:03)
[2016-09-05] MEDS: risperiDONE 1 MG TAB PO SCH (09:03)
[2016-09-05] MEDS: METOPROLOL TARTRATE 50 MG TAB PO SCH ×2 (09:04→21:12)
[2016-09-05] MEDS: ALLOPURINOL 100 MG TAB PO SCH ×2 (09:04→21:12)
[2016-09-05] MEDS: CYANO/VITAMIN B12 1000 MCG TAB PO SCH (09:04)
[2016-09-05] MEDS: morphINE SR 15 MG TAB PO SCH ×2 (09:09→21:13)
--- NOTE | 2016-09-05 10:01 | HOSPPROG ---
Hospitalist Progress Note Assessment/Plan: B/L LE edema - certainly some chronic, severe venous stasis issues, wound care following. PT/OT. LLE cellulitis - Certainly underlying venous stasis +/- superinfection. There are some areas of fluctuance on anterior tibial region and dorsal surface of his left foot. -CT Left Leg/Foot: no abscess or Osteomyelitis -CX's c/w Klebsiellay Pneumoniae and Proteus Mirabalis -ID following. On Cefepime A fib with RVR - Anticoagulated on coumadin, INR therapeutic. -pharmacy to dose Coumadin. -Cont Cardizem, Metoprolol, Digoxin. Schizoaffective - mood stable. Cont risperdal. Hypertension - cont home meds. DEDE- Likely intravascular depletion. Hold Lasix. Provide gentle IVF Full code Dispo - cont inpt Subjective: Feels tired VSS Still in Afib, rate controlled Cr elevated Studies: CT c/w focal dermal fluid collection along the ventral aspect of the forefoot overlying the proximal 2nd and 3rd Metatarsals (correlates to exam on admission, large vesicle dorsal surface of left foot). No abcess. No OM. O: - Physical Exam Constitutional: no apparent distress Eyes: PERRL Ears, Nose, Mouth, Throat: moist mucous membranes Cardiovascular: irregularly irregular Respiratory: no respiratory distress, clear to auscultation Gastrointestinal: normoactive bowel sounds, soft, non-tender abdomen Skin: other (b/l LE venous stasis changes with denuded skin LLE. Dressings in place bilaterally. Neurologic: AAOx3 Psychiatric: interacting appropriately Labs: Reviewed, Cr elevated. Objective: Vital Signs Temp Pulse Resp BP Pulse Ox 36.6 C 98 18 127/67 H 91 L 09/05/16 08:00 09/05/16 09:04 09/05/16 08:00 09/05/16 09:04 09/05/16 08:00 Microbiology 09/03/16 10:45 Gram Stain - Final Leg - Swab Laboratory Results 09/05/16 04:50 09/05/16 04:50 09/04/16 09/05/16 09/06/16 05:59 05:59 05:59 Intake Total 1850 200 Output Total 400 200 Balance 1450 0 PT 28.4 SEC (12.0-15.0) H 09/04/16 10:50 INR 2.63 (0.83-1.16) H 09/04/16 10:50 ICD10 Worksheet Patient Problems: Problems Problem Status Diagnosed CHF (congestive heart failure) Acute Peripheral edema Acute
[2016-09-05] MEDS: DIGOXIN 125 MCG TAB PO SCH (10:45)
[2016-09-05] MEDS: NS 1,000 ML IV SCH (11:20)
--- NOTE | 2016-09-05 14:41 | PCMIDPN ---
Assessment/Plan: Assessment: Bilateral lower extremity cellulitis left greater than right. Secondary to underlying poorly managed venous insufficiency. Patient's underlying psychiatric disorder also complicates the management. Gram-negative rods found in wound culture. Currently covered with cefepime. Plan: 1. Continue empiric cefepime. 2. Reassess the appearance of the legs daily. Subjective: Patient resting comfortably in his hospital chair. Legs are wrapped. No fevers or chills. Objective: Cefepime #1 Vital Signs Temp Pulse Resp BP Pulse Ox 36.6 C 82 16 125/70 H 93 09/05/16 11:33 09/05/16 11:33 09/05/16 11:33 09/05/16 11:33 09/05/16 11:33 Microbiology 09/03/16 10:45 Gram Stain - Final Leg - Swab Laboratory Results 09/05/16 04:50 09/05/16 04:50 09/04/16 09/05/16 09/06/16 05:59 05:59 05:59 Intake Total 1850 200 Output Total 400 200 650 Balance 1450 0 -650 C-Reactive Protein 156.6 mg/L (<10.0) H 09/03/16 04:53 - Physical Exam General Appearance: WD/WN, alert, non-toxic Respiratory: lungs clear, normal breath sounds, No respiratory distress Cardiac/Chest: regular rate, rhythm, No tachycardia Extremities: non-tender, pedal edema, erythema, No normal inspection Skin: normal color, warm/dry, No rash Neuro/Psych: alert, normal mood/affect, oriented x 3 ICD10 Worksheet Patient Problems: Problems Problem Status Diagnosed CHF (congestive heart failure) Acute Peripheral edema Acute
[2016-09-05] MEDS: WARFARIN SODIUM 1 MG TAB PO SCH (17:07)
[2016-09-06] MEDS: HYDROCODONE/APAP 5/325 TAB PO PRN ×4 (01:23→23:40)
[2016-09-06] MEDS: NS 1,000 ML IV SCH ×2 (01:24→13:46)
[2016-09-06 05:04] LABS: ABSOLUTE IMMATURE GRANULOCYTES 0.09 10^3/uL (0.00-0.10); ADD DIFF? NO; ADD MORPH? NO; ADD SCAN? NO; ATYPICAL LYMPHOCYTE FLAG 40 (0-99); FRAGMENT RBC FLAG 0 (0-99); HEMATOCRIT 33.9 % (40.0-51.0); HEMOGLOBIN 11.4 g/dL (13.7-17.5); LEFT SHIFT FLG 0 (0-99); LIPEMIA HEMOLYSIS FLAG 80 (0-99); MEAN CELL HEMOGLOBIN CONCENTR. 33.6 g/dL (32.4-36.7); MEAN CELL VOLUME 98.3 fL (81.5-99.8); MEAN PLATELET VOLUME 8.9 fL (8.7-11.7); PLATELET CLUMPS FLAG 0 (0-99); PLATELET COUNT 291 10^3/uL (150-400); RED BLOOD CELL COUNT 3.45 10^6/uL (4.40-6.38); RED CELL DISTRIBUTION WIDTH 13.4 % (11.5-15.2)
[2016-09-06 05:16] LABS: INR 2.96 (0.83-1.16); PROTIME(PATIENT) 31.2 SEC (12.0-15.0)
[2016-09-06 05:19] LABS: ANION GAP 5 mEq/L (8-16); CARBON DIOXIDE 23 mEq/l (22-31); CHLORIDE 107 mEq/L (97-110); CREATININE 1.3 mg/dL (0.7-1.3); GLOMERULAR FILTRATION RATE 56; GLUCOSE 117 mg/dL (70-100); MAGNESIUM 2.2 mg/dL (1.6-2.3); POTASSIUM 4.6 mEq/L (3.5-5.2); SODIUM 135 mEq/L (134-144)
[2016-09-06] MEDS: CEFEPIME HCL 2 GM in D5W 100 ML IV SCH ×3 (06:06→22:42)
[2016-09-06] MEDS: METOPROLOL TARTRATE 50 MG TAB PO SCH ×2 (08:10→21:23)
[2016-09-06] MEDS: ALLOPURINOL 100 MG TAB PO SCH ×2 (08:10→21:22)
[2016-09-06] MEDS: risperiDONE 1 MG TAB PO SCH (08:11)
[2016-09-06] MEDS: CYANO/VITAMIN B12 1000 MCG TAB PO SCH (08:11)
[2016-09-06] MEDS: morphINE SR 15 MG TAB PO SCH ×2 (09:43→21:23)
[2016-09-06] MEDS: DIGOXIN 125 MCG TAB PO SCH (09:43)
[2016-09-06] MEDS: DILTIAZEM CD 180 MG CAP PO SCH (09:43)
--- NOTE | 2016-09-06 11:49 | HOSPPROG ---
Hospitalist Progress Note Assessment/Plan: B/L LE edema - certainly some chronic, severe venous stasis issues, wound care following. PT/OT. LLE cellulitis - Certainly underlying venous stasis +/- superinfection. There are some areas of fluctuance on anterior tibial region and dorsal surface of his left foot. -CT Left Leg/Foot: no abscess or Osteomyelitis -CX's c/w Klebsiellay Pneumoniae and Proteus Mirabalis -ID following. On Cefepime A fib with RVR - Anticoagulated on coumadin, INR therapeutic. -pharmacy to dose Coumadin. -Cont Cardizem, Metoprolol, Digoxin. Schizoaffective - mood stable. Cont risperdal. Hypertension - cont home meds. DEDE- improved. No Lasix. Full code Dispo - cont inpt PLAN: CONTINUE IV ABX ID FOLLOWING CONT WOUND CARE PT/OT Subjective: Feels better VSS Still in Afib, rate controlled Cr is better. O: - Physical Exam Constitutional: no apparent distress Eyes: PERRL Ears, Nose, Mouth, Throat: moist mucous membranes Cardiovascular: irregularly irregular Respiratory: no respiratory distress, clear to auscultation Gastrointestinal: normoactive bowel sounds, soft, non-tender abdomen Skin: other (b/l LE venous stasis changes with denuded skin LLE. Dressings in place bilaterally. Neurologic: AAOx3 Psychiatric: interacting appropriately Labs: Reviewed Objective: Vital Signs Temp Pulse Resp BP Pulse Ox 36.6 C 80 16 124/74 H 95 09/06/16 11:03 09/06/16 11:03 09/06/16 11:03 09/06/16 11:03 09/06/16 11:03 Microbiology 09/03/16 10:45 Gram Stain - Final Leg - Swab Laboratory Results 09/06/16 04:50 09/06/16 04:50 09/05/16 09/06/16 09/07/16 05:59 05:59 05:59 Intake Total 200 900 Output Total 200 880 150 Balance 0 20 -150 PT 31.2 SEC (12.0-15.0) H 09/06/16 04:50 INR 2.96 (0.83-1.16) H 09/06/16 04:50 ICD10 Worksheet Patient Problems: Problems Problem Status Diagnosed CHF (congestive heart failure) Acute Peripheral edema Acute
--- NOTE | 2016-09-06 16:16 | PCMIDPN ---
Assessment/Plan: Assessment: Bilateral lower extremity cellulitis left greater than right. Secondary to underlying poorly managed venous insufficiency. Patient's underlying psychiatric disorder also complicates the management. Klebsiella, Proteus and a non lactose fermenting gram-negative yasemin found in wound culture. Currently covered with cefepime which demonstrable E covers the Klebsiella and Proteus by sensitivity panel. The non lactose fermenting gram-negative yasemin is not identified as of today. Plan: 1. Continue empiric cefepime. 2. Reassess the appearance of the legs daily. Subjective: Patient is resting in his hospital room. He is sitting up in a chair. He has his legs elevated mildly. No new complaints. Objective: Cefepime #2 Vital Signs Temp Pulse Resp BP Pulse Ox 36.7 C 79 19 125/64 H 95 09/06/16 15:22 09/06/16 15:22 09/06/16 15:22 09/06/16 15:22 09/06/16 15:22 Microbiology 09/03/16 10:45 Gram Stain - Final Leg - Swab Laboratory Results 09/06/16 04:50 09/06/16 04:50 09/05/16 09/06/16 09/07/16 05:59 05:59 05:59 Intake Total 200 900 Output Total 200 880 150 Balance 0 20 -150 C-Reactive Protein 156.6 mg/L (<10.0) H 09/03/16 04:53 - Physical Exam General Appearance: WD/WN, alert, no apparent distress Respiratory: lungs clear, normal breath sounds, No respiratory distress Cardiac/Chest: regular rate, rhythm, No tachycardia Extremities: non-tender, swelling, No normal inspection (Significant brawny edema of bilateral lower extremities. No proximal erythema seen above the stockings.), No erythema Skin: normal color, warm/dry, No rash Neuro/Psych: alert, normal mood/affect, oriented x 3 ICD10 Worksheet Patient Problems: Problems Problem Status Diagnosed CHF (congestive heart failure) Acute Peripheral edema Acute
[2016-09-06] MEDS: WARFARIN SODIUM 1 MG TAB PO SCH (17:45)
[2016-09-07] MEDS: ACETAMINOPHEN 325 MG TAB PO PRN (02:11)
[2016-09-07] MEDS: LORazepam 0.5 MG TAB PO PRN (02:11)
[2016-09-07] MEDS: CEFEPIME HCL 2 GM in D5W 100 ML IV SCH ×3 (05:15→21:03)
[2016-09-07] MEDS: NS 1,000 ML IV SCH (05:16)
[2016-09-07 05:43] LABS: % IMMATURE GRANULYOCYTES 0.9 % (0.0-1.1); ABSOLUTE IMMATURE GRANULOCYTES 0.09 10^3/uL (0.00-0.10); ADD DIFF? NO; ADD MORPH? NO; ADD SCAN? NO; ATYPICAL LYMPHOCYTE FLAG 20 (0-99); FRAGMENT RBC FLAG 0 (0-99); HEMATOCRIT 32.5 % (40.0-51.0); HEMOGLOBIN 11.1 g/dL (13.7-17.5); LEFT SHIFT FLG 0 (0-99); LIPEMIA HEMOLYSIS FLAG 90 (0-99); MEAN CELL HEMOGLOBIN 33.4 pg (27.9-34.1); MEAN CELL HEMOGLOBIN CONCENTR. 34.2 g/dL (32.4-36.7); MEAN CELL VOLUME 97.9 fL (81.5-99.8); MEAN PLATELET VOLUME 9.3 fL (8.7-11.7); PLATELET CLUMPS FLAG 0 (0-99); PLATELET COUNT 284 10^3/uL (150-400); RED BLOOD CELL COUNT 3.32 10^6/uL (4.40-6.38); RED CELL DISTRIBUTION WIDTH 13.3 % (11.5-15.2)
[2016-09-07 05:54] LABS: INR 3.02 (0.83-1.16); PROTIME(PATIENT) 31.7 SEC (12.0-15.0)
[2016-09-07 06:08] LABS: ANION GAP 5 mEq/L (8-16); CALCIUM 7.9 mg/dL (8.5-10.4); CARBON DIOXIDE 23 mEq/l (22-31); CHLORIDE 106 mEq/L (97-110); CREATININE 1.3 mg/dL (0.7-1.3); GLOMERULAR FILTRATION RATE 56; GLUCOSE 106 mg/dL (70-100); SODIUM 134 mEq/L (134-144)
[2016-09-07] MEDS: HYDROCODONE/APAP 5/325 TAB PO PRN ×2 (06:48→13:57)
--- NOTE | 2016-09-07 07:49 | PCMIDPN ---
Assessment/Plan: 1. Bilateral lower extremity cellulitis, left greater than right: Patient states he will allow me to unwrap his legs tomorrow. Await identification and susceptibilities of non lactose fermenting Gram-negative yasemin , but in the meantime will continue high-dose cefepime as is. No new recommendations. Disposition unclear. Subjective: Tells me that he slept all night in the chair given difficulties with his sciatica. Prefers that I do not unwrap his legs today and tells me you can do it tomorrow. Denies diarrhea on antibiotics. No rash, nausea vomiting or other. Objective: Cefepime 2 g IV q.8 hours day 3. (Was on vancomycin) Afebrile Vital Signs Temp Pulse Resp BP Pulse Ox 36.6 C 86 19 126/72 H 95 09/07/16 04:37 09/07/16 04:00 09/07/16 04:00 09/07/16 04:00 09/07/16 04:00 Microbiology 09/03/16 10:45 Gram Stain - Final Leg - Swab Laboratory Results 09/07/16 04:32 09/07/16 04:32 09/06/16 09/07/16 09/08/16 05:59 05:59 05:59 Intake Total 900 Output Total 880 600 Balance 20 -600 C-Reactive Protein 156.6 mg/L (<10.0) H 09/03/16 04:53 September 03 le+ Klebsiella pneumoniae 2+ Proteus mirabilis 1+ non fermenting gram-negative yasemin - Physical Exam General Appearance: alert, no apparent distress Skin: other (Bilateral lower extremities are wrapped, but through the Kerlix I can see that he has significant venous stasis changes. He also has onychomycosis bilaterally. Would not allow me to unwrap them entirely. No other rashes. Peripheral IV right hand looks fine.) ICD10 Worksheet Patient Problems: Problems Problem Status Diagnosed CHF (congestive heart failure) Acute Peripheral edema Acute
[2016-09-07] MEDS: morphINE SR 15 MG TAB PO SCH ×2 (08:10→20:27)
[2016-09-07] MEDS: METOPROLOL TARTRATE 50 MG TAB PO SCH ×2 (08:11→20:27)
[2016-09-07] MEDS: ALLOPURINOL 100 MG TAB PO SCH ×2 (08:11→20:27)
[2016-09-07] MEDS: CYANO/VITAMIN B12 1000 MCG TAB PO SCH (08:11)
[2016-09-07] MEDS: DILTIAZEM CD 180 MG CAP PO SCH (08:11)
[2016-09-07] MEDS: risperiDONE 1 MG TAB PO SCH (08:15)
[2016-09-07] MEDS: DIGOXIN 125 MCG TAB PO SCH (10:07)
[2016-09-07] MEDS: WARFARIN SODIUM 3 MG TAB PO SCH (16:28)
--- NOTE | 2016-09-07 17:01 | HOSPPROG ---
Hospitalist Progress Note Assessment/Plan: Assessment: 59-year-old male presents with acute bilateral lower extremity cellulitis in the setting of severe venous stasis Plan 1. Bilateral lower extremity cellulitis. Acute, polymicrobial, culture demonstrating Klebsiella, Pseudomonas, Proteus with various resistance patterns -Infectious Disease consultation appreciated, continue IV cefepime given that this is the Wound agent which all the organisms have sensitivity -there continues to be weeping from the affected extremities -by lateral wound care appreciated 2. Chronic venous stasis. Severe, bilateral, holding Lasix given acute kidney injury 3. Permanent atrial fibrillation. Chronically systemically anticoagulated on Coumadin, INR therapeutic, remains in atrial fibrillation on EKG, personally interpreted -continue diltiazem, metoprolol, digoxin 4. Acute kidney injury. Most likely secondary to hypovolemia in the setting of acute infection, serum creatinine level improving -serum creatinine level currently not at baseline, continue holding diuretic 5. Chronic hypertension. Continue home medications minus his diuretic 6. Schizoaffective disorder. Chronic, continue on Risperdal, will require care at [facility] at time of discharge Diet. Regular Prophylaxis. High risk patient, currently on systemic anticoagulation Code. Full Disposition. Anticipated discharge is uncertain at this time, pending clinical stabilization of conditions outlined above Subjective: Patient is declining to have his bandages removed today Objective: Vital Signs Temp Pulse Resp BP Pulse Ox 36.7 C 78 18 119/76 91 L 09/07/16 15:46 09/07/16 15:46 09/07/16 15:46 09/07/16 15:46 09/07/16 15:46 Microbiology 09/03/16 10:45 Gram Stain - Final Leg - Swab Wound Culture - Final Klebsiella Pneumoniae Ssp Pneu Proteus Mirabilis Pseudomonas Aeruginosa Laboratory Results 09/07/16 04:32 09/07/16 04:32 09/06/16 09/07/16 09/08/16 05:59 05:59 05:59 Intake Total 900 450 Output Total 880 600 500 Balance 20 -600 -50 PT 31.7 SEC (12.0-15.0) H 09/07/16 04:32 INR 3.02 (0.83-1.16) H 09/07/16 04:32 - Physical Exam Constitutional: no apparent distress, not in pain, chronically ill appearing, No uncomfortable Cardiovascular: systolic murmur (1/6 systolic murmur at the sternum), irregularly irregular, edema (2+ bilateral lower extremity edema), No tachycardia Respiratory: no respiratory distress, no rales or rhonchi, clear to auscultation Gastrointestinal: normoactive bowel sounds, soft, non-tender abdomen, no palpable masses Skin: other (Flaking losing abrasions bilateral lower extremities with erythema) Neurologic: AAOx3, No sensation intact bilaterally Psychiatric: not anxious, not encephalopathic, thought process linear, flat affect, No agitated ICD10 Worksheet Patient Problems: Problems Problem Status Diagnosed CHF (congestive heart failure) Acute Peripheral edema Acute
[2016-09-08] MEDS: CEFEPIME HCL 2 GM in D5W 100 ML IV SCH ×3 (05:39→21:00)
[2016-09-08 05:42] LABS: % IMMATURE GRANULYOCYTES 1.1 % (0.0-1.1); ABSOLUTE IMMATURE GRANULOCYTES 0.11 10^3/uL (0.00-0.10); ADD DIFF? NO; ADD MORPH? NO; ADD SCAN? NO; ATYPICAL LYMPHOCYTE FLAG 20 (0-99); FRAGMENT RBC FLAG 0 (0-99); HEMOGLOBIN 11.5 g/dL (13.7-17.5); LEFT SHIFT FLG 10 (0-99); LIPEMIA HEMOLYSIS FLAG 90 (0-99); MEAN CELL HEMOGLOBIN 34.1 pg (27.9-34.1); MEAN CELL HEMOGLOBIN CONCENTR. 34.8 g/dL (32.4-36.7); MEAN CELL VOLUME 97.9 fL (81.5-99.8); MEAN PLATELET VOLUME 9.1 fL (8.7-11.7); PLATELET CLUMPS FLAG 0 (0-99); PLATELET COUNT 307 10^3/uL (150-400); RED BLOOD CELL COUNT 3.37 10^6/uL (4.40-6.38); RED CELL DISTRIBUTION WIDTH 13.3 % (11.5-15.2)
[2016-09-08 06:18] LABS: ANION GAP 4 mEq/L (8-16); CALCIUM 8.3 mg/dL (8.5-10.4); CARBON DIOXIDE 23 mEq/l (22-31); CHLORIDE 108 mEq/L (97-110); CREATININE 1.2 mg/dL (0.7-1.3); GLOMERULAR FILTRATION RATE > 60; GLUCOSE 109 mg/dL (70-100); POTASSIUM 4.9 mEq/L (3.5-5.2); SODIUM 135 mEq/L (134-144)
--- NOTE | 2016-09-08 08:15 | PCMIDPN ---
Assessment/Plan: 1. Bilateral lower extremity cellulitis, left greater than right: The patient was a bit irritable this morning, so I was still unable to see his legs without all of the dressings. I was able to peer underneath the gauze, and clearly there is some improvement. He will need a course of IV therapy, likely 10-14 days, and ongoing wound care will be paramount. Hopefully he will let me see his wounds later today when there unwrapped. 09/08/16 08:12 Subjective: Irritable this morning. Tells me I just woke up, I need a break. Is not ready to go back to [facility], and upset about the fact that someone told him he needed to leave the hospital. No diarrhea. Still difficult for him to ambulate. Objective: Cefepime 2 g IV q.8 hours day 4. T-max 37.1degrees Vital Signs Temp Pulse Resp BP Pulse Ox 37.1 C 90 14 128/78 H 90 L 09/08/16 04:00 09/08/16 04:00 09/08/16 04:00 09/08/16 04:00 09/08/16 04:00 Microbiology 09/03/16 10:45 Gram Stain - Final Leg - Swab Wound Culture - Final Klebsiella Pneumoniae Ssp Pneu Proteus Mirabilis Pseudomonas Aeruginosa Laboratory Results 09/08/16 04:44 09/08/16 04:44 09/07/16 09/08/16 09/09/16 05:59 05:59 05:59 Intake Total 450 Output Total 600 500 Balance -600 -50 C-Reactive Protein 156.6 mg/L (<10.0) H 09/03/16 04:53 Leg: Klebsiella pneumoniae, Proteus, and 1+ Pseudomonas aeruginosa sensitive to cefepime - Physical Exam General Appearance: no apparent distress, other EENT: poor dentition, other (Dry mucous membranes) Respiratory: coarse breath sounds Extremities: other (Both of his lower extremities are wrapped. Chronic venous stasis changes noted. Toes and feet are edematous, with onychomycosis, and skin sloughing throughout. I was able to view some of the wounds on the dorsum of his feet, which look okay.) ICD10 Worksheet Patient Problems: Problems Problem Status Diagnosed CHF (congestive heart failure) Acute Peripheral edema Acute
[2016-09-08] MEDS: morphINE SR 15 MG TAB PO SCH ×2 (09:18→20:59)
[2016-09-08] MEDS: DILTIAZEM CD 180 MG CAP PO SCH (09:18)
[2016-09-08] MEDS: ALLOPURINOL 100 MG TAB PO SCH ×2 (09:18→21:00)
[2016-09-08] MEDS: METOPROLOL TARTRATE 50 MG TAB PO SCH ×2 (09:18→21:02)
[2016-09-08] MEDS: risperiDONE 1 MG TAB PO SCH (09:18)
[2016-09-08] MEDS: FUROSEMIDE 20 MG TAB PO SCH ×2 (09:18→14:23)
[2016-09-08] MEDS: CYANO/VITAMIN B12 1000 MCG TAB PO SCH (09:19)
[2016-09-08] MEDS: DIGOXIN 125 MCG TAB PO SCH (10:50)
[2016-09-08] MEDS: HYDROCODONE/APAP 5/325 TAB PO PRN ×2 (14:22→20:59)
--- NOTE | 2016-09-08 14:53 | HOSPPROG ---
Hospitalist Progress Note Assessment/Plan: Assessment: 59-year-old male presents with acute bilateral lower extremity cellulitis in the setting of severe venous stasis Plan 1. Bilateral lower extremity cellulitis. Acute, polymicrobial, culture demonstrating Klebsiella, Pseudomonas, Proteus with various resistance patterns -Infectious Disease consultation appreciated, continue IV cefepime given that this is the one agent to which all the organisms have sensitivity -there continues to be weeping from the affected extremities -bilateral wound care appreciated -cont outpt IV Abx for 10-14 days, PICC line will be needed 2. Chronic venous stasis. Severe, bilateral, reinitiated lasix 3. Permanent atrial fibrillation. Chronically systemically anticoagulated on Coumadin, INR therapeutic, remains in atrial fibrillation on EKG, personally interpreted -continue diltiazem, metoprolol, digoxin 4. Acute kidney injury. Most likely secondary to hypovolemia in the setting of acute infection, serum creatinine level improving -reintroduced lasix 5. Chronic hypertension. Continue home medications 6. Schizoaffective disorder. Chronic, continue on Risperdal, will require care at [place] at time of discharge Diet. Regular Prophylaxis. High risk patient, currently on systemic anticoagulation Code. Full Disposition. Anticipated discharge is 09/09 vs. 09/10, pending clinical stabilization of conditions outlined above Subjective: Patient has yet to urinate since receiving dose of Lasix Objective: Vital Signs Temp Pulse Resp BP Pulse Ox 36.5 C 88 12 140/83 H 92 09/08/16 11:24 09/08/16 11:24 09/08/16 11:24 09/08/16 11:24 09/08/16 11:24 Microbiology 09/03/16 10:45 Gram Stain - Final Leg - Swab Wound Culture - Final Klebsiella Pneumoniae Ssp Pneu Proteus Mirabilis Pseudomonas Aeruginosa Laboratory Results 09/08/16 04:44 09/08/16 04:44 09/07/16 09/08/16 09/09/16 05:59 05:59 05:59 Intake Total 450 Output Total 600 500 Balance -600 -50 PT 31.7 SEC (12.0-15.0) H 09/07/16 04:32 INR 3.02 (0.83-1.16) H 09/07/16 04:32 - Pending Discharge Pending Discharge Within 24 Hours: Yes Pending Discharge Date: 09/09/16 Pending Discharge Time: 11:00 - Physical Exam Constitutional: no apparent distress, not in pain, chronically ill appearing, obese, No uncomfortable Cardiovascular: regular rate and rhythym, no murmur, rub, or gallop, edema (2+ bilateral lower extremities), No irregularly irregular, No tachycardia Respiratory: no respiratory distress, no rales or rhonchi, clear to auscultation Gastrointestinal: normoactive bowel sounds, soft, non-tender abdomen, no palpable masses Skin: other (Erythema over the bilateral distal feet around the dorsum with ulcerations and dry flaking skin as well as crusted lesions) Neurologic: AAOx3, No sensation intact bilaterally (Reduced sensation bilateral plantar surfaces of his feet), No weakness (Motor strength 5/5 bilateral lower extremities) Psychiatric: not anxious, not encephalopathic, flat affect, No agitated ICD10 Worksheet Patient Problems: Problems Problem Status Diagnosed CHF (congestive heart failure) Acute Peripheral edema Acute
[2016-09-08] MEDS: WARFARIN SODIUM 3 MG TAB PO SCH (16:01)
[2016-09-09] MEDS: CEFEPIME HCL 2 GM in D5W 100 ML IV SCH ×3 (05:13→22:34)
[2016-09-09 05:25] LABS: % IMMATURE GRANULYOCYTES 2.4 % (0.0-1.1); ABSOLUTE IMMATURE GRANULOCYTES 0.22 10^3/uL (0.00-0.10); ADD DIFF? NO; ADD MORPH? NO; ADD SCAN? NO; ATYPICAL LYMPHOCYTE FLAG 20 (0-99); FRAGMENT RBC FLAG 0 (0-99); HEMATOCRIT 36.6 % (40.0-51.0); HEMOGLOBIN 12.5 g/dL (13.7-17.5); LEFT SHIFT FLG 20 (0-99); LIPEMIA HEMOLYSIS FLAG 90 (0-99); MEAN CELL HEMOGLOBIN 33.4 pg (27.9-34.1); MEAN CELL HEMOGLOBIN CONCENTR. 34.2 g/dL (32.4-36.7); MEAN CELL VOLUME 97.9 fL (81.5-99.8); MEAN PLATELET VOLUME 9.2 fL (8.7-11.7); PLATELET CLUMPS FLAG 0 (0-99); PLATELET COUNT 342 10^3/uL (150-400); RED BLOOD CELL COUNT 3.74 10^6/uL (4.40-6.38); RED CELL DISTRIBUTION WIDTH 13.4 % (11.5-15.2)
[2016-09-09 05:42] LABS: ANION GAP 8 mEq/L (8-16); CALCIUM 8.5 mg/dL (8.5-10.4); CARBON DIOXIDE 22 mEq/l (22-31); CHLORIDE 105 mEq/L (97-110); CREATININE 1.2 mg/dL (0.7-1.3); GLOMERULAR FILTRATION RATE > 60; GLUCOSE 127 mg/dL (70-100); POTASSIUM 4.6 mEq/L (3.5-5.2); SODIUM 135 mEq/L (134-144)
[2016-09-09 05:47] LABS: INR 2.39 (0.83-1.16); PROTIME(PATIENT) 26.3 SEC (12.0-15.0)
[2016-09-09] MEDS: morphINE SR 15 MG TAB PO SCH ×2 (08:47→20:43)
[2016-09-09] MEDS: risperiDONE 1 MG TAB PO SCH (08:47)
[2016-09-09] MEDS: CYANO/VITAMIN B12 1000 MCG TAB PO SCH (08:47)
[2016-09-09] MEDS: DILTIAZEM CD 180 MG CAP PO SCH (08:48)
[2016-09-09] MEDS: METOPROLOL TARTRATE 50 MG TAB PO SCH ×2 (08:48→20:43)
[2016-09-09] MEDS: FUROSEMIDE 20 MG TAB PO SCH ×2 (08:48→14:29)
[2016-09-09] MEDS: ALLOPURINOL 100 MG TAB PO SCH ×2 (08:48→20:43)
--- NOTE | 2016-09-09 10:36 | WOCRNPDOC ---
WOCRN Advanced Assessment Note - Skin Integrity Problem, Advanced Assess Left Foot Venous Stasis Ulcer Dressing Type: Open to Air Skin Integrity Problem Comment: Blister and much of the erythema has resolved. No dressing necessary. Continue compression. Right Foot Venous Stasis Ulcer Dressing Type: Endoform Dressing Description: Clean/Dry, Intact Wound Edges: Epithelizing Site Measurement - Head-to-Toe Length X Width X Depth (cm): 5.5x6.5x0.1 Skin Integrity Problem Comment: Healing well. Covered endoform that was applied Friday with hydrofera blue ready and wrapped with miguel. Endoform is integrating well. Left Lower Leg Venous Stasis Ulcer Dressing Type: Honey Sheet Dressing Description: Intact, Shadowed Exudate Amount: Moderate Exudate Color: Yellow Exudate Characteristic(s): Serous Integumentary Issue Intervention: Dressing Removed Aria Wound Tissue: Erythema, Macerated (mild), Scaly, Hemosiderin Staining, Venous Dermatitis Wound Bed Color: [place], Yellow Wound Bed Constitution: Granulation Tissue, Smooth Tissue Wound Edges: Epithelizing, Attached Site Measurement - Head-to-Toe Length X Width X Depth (cm): [id number] Skin Integrity Problem Comment: Marked improvement since last week. Wound bed showing signs of epithelialization. Continue with compression. Will update dressing orders. Kika RN in room. She applied atractain aria wound and cleaned legs. Left calf cirucumference: 47.5, right: 47. Apply tubigrip E to bilateral lower legs during the day. Right Lower Leg Venous Stasis Ulcer Aria Wound Tissue: Hemosiderin Staining, Venous Dermatitis Skin Integrity Problem Comment: Not draining anymore. Mostly healed. Kika cleaned with waschloth bilateral lower legs and applied atractain. Continue with compression.
[2016-09-09] MEDS: DIGOXIN 125 MCG TAB PO SCH (11:37)
[2016-09-09] MEDS: HYDROCODONE/APAP 5/325 TAB PO PRN ×2 (11:37→20:43)
--- NOTE | 2016-09-09 11:47 | PCMIDPN ---
Assessment/Plan: Assessment/Plan: * Bilateral lower extremity cellulitis with underlying venous insufficiency: Polymicrobial cultures which may represent colonization rather than true pathogens. Clinically improved with cefepime and local wound care. Plan 10 days total of cefepime with anticipated stop date of 09/14/16. senior living facility would like PICC line rather than peripheral IV to complete therapy. Therefore will place PICC line today. 09/09/16 11:45 Subjective: Patient states legs are significantly improved. Plans for possible return to [place] tomorrow. Objective: Vital Signs Temp Pulse Resp BP Pulse Ox 36.5 C 100 16 151/91 H 93 09/09/16 07:47 09/09/16 07:47 09/09/16 07:47 09/09/16 07:47 09/09/16 07:47 Laboratory Results 09/09/16 04:30 09/09/16 04:30 09/08/16 09/09/16 09/10/16 05:59 05:59 05:59 Intake Total 450 Output Total 500 325 Balance -50 -325 C-Reactive Protein 156.6 mg/L (<10.0) H 09/03/16 04:53 Cefepime # 5 - Physical Exam General Appearance: alert, no apparent distress EENT: pharynx normal, No scleral icterus Cardiac/Chest: irregularly irregular Extremities: inflammation (Bilateral lower extremity venous insufficiency changes which are significantly worse on left versus right; mild erythema above venous insufficiency on left) Abdomen: non-tender, No distended Skin: rash (Small patch of irregular erythema mid left thigh) ICD10 Worksheet Patient Problems: Problems Problem Status Diagnosed CHF (congestive heart failure) Acute Peripheral edema Acute
[2016-09-09] MEDS ORDERED: ALTEPLASE 2 MG VIAL IVP PRN (11:52)
--- NOTE | 2016-09-09 11:52 | PDIAF ---
- Diagnosis Diagnosis: Bilateral lower extremity cellulitis Code Status: Full Code - Medication Management Discharge Medications: Medications to Continue on Transfer Acetaminophen [Acetaminophen ER] 1,300 mg PO Q8 09/02/16 [Last Taken Unknown] Acetaminophen [Tylenol 325mg (*)] 650 mg PO BID PRN 09/02/16 [Last Taken Unknown ] Albuterol Sulfate [ALBUTEROL SULFATE] 0.63 mg IH Q6HRS PRN 09/02/16 [Last Taken Unknown] Allopurinol [Allopurinol 100 MG (*)] 100 mg PO BID 09/02/16 [Last Taken Unknown] Bisacodyl [Dulcolax] 10 mg RC DAILY PRN 09/02/16 [Last Taken Unknown] Cyanocobalamin [Vitamin B12 (*)] 1,000 mcg PO DAILY 09/02/16 [Last Taken Unknown ] Digoxin [Lanoxin 125 mcg (RX)] 125 mcg PO DAILY10 09/02/16 [Last Taken Unknown] Diltiazem [Cardizem 60 MG (*)] 120 mg PO DAILY 09/02/16 [Last Taken Unknown] Hydrocodone/Acetaminophen [[place] 7.5-325 Tablet] 1 tab PO BID PRN 09/02/16 [ Last Taken Unknown] Lactulose 20 gm PO DAILY PRN 09/02/16 [Last Taken Unknown] Metoprolol Tartrate [Lopressor 50 mg (*)] 50 mg PO BID 09/02/16 [Last Taken Unknown] Morphine Sulfate [Morphine Sulfate ER] 15 mg PO BID 09/02/16 [Last Taken Unknown ] Sennosides/Docusate Sodium [Senna-Docusate Sodium Tablet] 2 each PO DAILY PRN [Last Taken Unknown] Warfarin Sodium [Coumadin 1MG (*)] 3.5 mg PO DAILY16 09/02/16 [Last Taken Unknown] risperiDONE [Risperdal 1mg (*)] 4 mg PO DAILY 09/02/16 [Last Taken Unknown] Correction Antibiotics: Cefepime 2 g IV q.8 hours Preflight Mechanic Antibiotic Stop Date: 09/14/16 Discharge Medications: Refer to the Discharge Home Medication list for PRN reason. PICC Care - Routine: Yes - Follow Up Care Current Providers and Referrals: NONE *PRIMARY CARE P,. [Primary Care Provider] - As per Instructions
--- NOTE | 2016-09-09 14:42 | HOSPPROG ---
Hospitalist Progress Note Assessment/Plan: Assessment: 59-year-old male presents with acute bilateral lower extremity cellulitis in the setting of severe venous stasis Plan 1. Bilateral lower extremity cellulitis. Acute, polymicrobial, culture demonstrating Klebsiella, Pseudomonas, Proteus with various resistance patterns -continue IV cefepime given that this is the one agent to which all the organisms have sensitivity -there continues to be weeping from the affected extremities, although the reported erythema seems to have improved -bilateral wound care appreciated -discussed with Dr. Ralph, recommended cont outpt IV Abx for 10 days, PICC line ordered 2. Chronic venous stasis. Severe, bilateral, increased Lasix to 40 mg twice daily 3. Permanent atrial fibrillation. Chronically systemically anticoagulated on Coumadin, INR therapeutic, remains in atrial fibrillation on EKG, personally interpreted -continue diltiazem, metoprolol, digoxin 4. Acute kidney injury. Most likely secondary to hypovolemia in the setting of acute infection, serum creatinine level improving -monitor serum creatinine level, urine output, daily weights with increased dosage of Lasix today 5. Chronic hypertension. Continue home medications 6. Schizoaffective disorder. Chronic, continue on Risperdal, will require care at [place] at time of discharge Diet. Regular Prophylaxis. High risk patient, currently on systemic anticoagulation Code. Full Disposition. Anticipated discharge is 09/10, pending no worsening of renal function with dose increase of Lasix Subjective: Patient reports that the people at [place] were trying to poison him Objective: Vital Signs Temp Pulse Resp BP Pulse Ox 36.4 C 98 16 134/71 H 94 09/09/16 12:00 09/09/16 12:00 09/09/16 12:00 09/09/16 12:00 09/09/16 12:00 Laboratory Results 09/09/16 04:30 09/09/16 04:30 09/08/16 09/09/16 09/10/16 05:59 05:59 05:59 Intake Total 450 500 Output Total 500 825 Balance -50 -325 PT 26.3 SEC (12.0-15.0) H 09/09/16 04:30 INR 2.39 (0.83-1.16) H 09/09/16 04:30 - Pending Discharge Pending Discharge Within 24 Hours: Yes Pending Discharge Date: 09/10/16 Pending Discharge Time: 11:00 - Physical Exam Constitutional: no apparent distress, not in pain, chronically ill appearing, obese Cardiovascular: no murmur, rub, or gallop, irregularly irregular, edema (2+ bilateral lower extremity edema), No tachycardia Respiratory: no respiratory distress, no rales or rhonchi, clear to auscultation Gastrointestinal: normoactive bowel sounds, soft, non-tender abdomen, no palpable masses, other (Obese abdomen) Skin: other (Non healed ulcerations on his bilateral lower extremities with weeping particular present on the anterior aspect of his left garza, very minimal erythema around the wounds, mostly stasis dermatitis and hyperpigmentation from chronic edema) Neurologic: AAOx3, No sensation intact bilaterally (Paresthesias in the bilateral plantar surfaces), No weakness (Motor 5/5 bilateral lower extremity) Psychiatric: interacting appropriately, not encephalopathic, anxious, No agitated ICD10 Worksheet Patient Problems: Problems Problem Status Diagnosed CHF (congestive heart failure) Acute Peripheral edema Acute
[2016-09-09] MEDS: WARFARIN SODIUM 3 MG TAB PO SCH (16:59)
--- NOTE | 2016-09-09 20:01 | IR ---
Imaging Guided Peripherally Inserted Central Catheter History: Cellulitis of the legs. Technique: Following informed consent, the right arm was prepped and draped in sterile fashion. All e lements of maximal sterile barrier technique including cap, mask, sterile gown, sterile gloves, large sterile sheet, hand hygiene, and 2% chlorhexidine for cutaneous antisepsis, followed. Ultrasound tra nsducer was placed in sterile sleeve and sterile coupling gel was used. Ultrasound evaluation of pote ntial access sites was performed. After successfully identifying a patent vessel of adequate size, 1% Xylocaine was used for local anesthetic. Ultrasound guidance was used to puncture the basilic vein with a 21-gauge needle. 0.018 measuring wire was passed centrally under fluoroscopic control. A skin dmitry with scalpel blade was followed by removing the access needle. A 4.5 Micronesian peel-away sheath was followed by a 4 Micronesian single-lumen central catheter, trimmed to 50 cm length. The tip of the cathet er was positioned centrally and the guidewire removed. AP fluoroscopic spot image was obtained in ins piration. The catheter irrigated easily. The hub of the catheter was secured to the skin using a Stat Lock adhesive device, and a sterile dressing was applied. Fluoroscopy time in minutes: 0.2 . Estimated exposure in mGy: 3.1 . Findings: The tip of the central catheter terminates at the junction of the superior vena cava and th e right atrium. Impression: 4 Micronesian single-lumen central catheter peripherally inserted central catheter is ready to use. - - - - - - - - - - - - - - - - - - - - - - - - - - - - - - - - - - - - - - - - - (Cross-cutting measures: Current medications were listed in the medical record, including all known prescriptions, [id number] medications, herbal medications, and nutritional supplements. The pat iemita is a current smoker. He was advised to quit. )
[2016-09-10] MEDS: CEFEPIME HCL 2 GM in D5W 100 ML IV SCH ×2 (05:10→13:46)
[2016-09-10 05:27] LABS: % IMMATURE GRANULYOCYTES 1.6 % (0.0-1.1); ABSOLUTE IMMATURE GRANULOCYTES 0.16 10^3/uL (0.00-0.10); ADD DIFF? NO; ADD MORPH? NO; ADD SCAN? NO; ATYPICAL LYMPHOCYTE FLAG 30 (0-99); FRAGMENT RBC FLAG 0 (0-99); HEMATOCRIT 35.2 % (40.0-51.0); LEFT SHIFT FLG 10 (0-99); LIPEMIA HEMOLYSIS FLAG 90 (0-99); MEAN CELL HEMOGLOBIN 33.3 pg (27.9-34.1); MEAN CELL HEMOGLOBIN CONCENTR. 34.1 g/dL (32.4-36.7); MEAN CELL VOLUME 97.8 fL (81.5-99.8); PLATELET CLUMPS FLAG 0 (0-99); PLATELET COUNT 327 10^3/uL (150-400); RED CELL DISTRIBUTION WIDTH 13.2 % (11.5-15.2)
[2016-09-10 05:32] LABS: INR 2.5 (0.83-1.16); PROTIME(PATIENT) 27.3 SEC (12.0-15.0)
[2016-09-10 05:47] LABS: ANION GAP 5 mEq/L (8-16); CALCIUM 8.5 mg/dL (8.5-10.4); CARBON DIOXIDE 28 mEq/l (22-31); CHLORIDE 105 mEq/L (97-110); CREATININE 1.3 mg/dL (0.7-1.3); GLOMERULAR FILTRATION RATE 56; GLUCOSE 109 mg/dL (70-100); POTASSIUM 4.5 mEq/L (3.5-5.2); SODIUM 138 mEq/L (134-144)
[2016-09-10 08:10] VITALS: BP 132/87; PULSE 91; RESP 19; TEMP 98.3; O2SAT 91
--- NOTE | 2016-09-10 08:47 | PDIAF ---
- Diagnosis Diagnosis: Bilateral lower extremity cellulitis Code Status: Full Code - Medication Management Discharge Medications: Medications to Continue on Transfer Acetaminophen [ACETAMINOPHEN ER] 1,300 mg PO Q8 09/02/16 [Last Taken Unknown] Acetaminophen [Tylenol 325mg (*)] 650 mg PO BID PRN 09/02/16 [Last Taken Unknown ] Albuterol Sulfate [ALBUTEROL SULFATE] 0.63 mg IH Q6HRS PRN 09/02/16 [Last Taken Unknown] Allopurinol [Allopurinol 100 MG (*)] 100 mg PO BID 09/02/16 [Last Taken Unknown] Bisacodyl [Dulcolax] 10 mg RC DAILY PRN 09/02/16 [Last Taken Unknown] Cyanocobalamin [Vitamin B12 (*)] 1,000 mcg PO DAILY 09/02/16 [Last Taken Unknown ] Digoxin [Lanoxin 125 mcg (RX)] 125 mcg PO DAILY10 09/02/16 [Last Taken Unknown] Hydrocodone/Acetaminophen [[place] 7.5-325 Tablet] 1 tab PO BID PRN 09/02/16 [ Last Taken Unknown] Lactulose 20 gm PO DAILY PRN 09/02/16 [Last Taken Unknown] Metoprolol Tartrate [Lopressor 50 mg (*)] 50 mg PO BID 09/02/16 [Last Taken Unknown] Morphine Sulfate [Morphine Sulfate ER] 15 mg PO BID 09/02/16 [Last Taken Unknown ] Sennosides/Docusate Sodium [Senna-Docusate Sodium Tablet] 2 each PO DAILY PRN [Last Taken Unknown] Warfarin Sodium [Coumadin 1MG (*)] 3.5 mg PO DAILY16 09/02/16 [Last Taken Unknown] risperiDONE [Risperdal 1mg (*)] 4 mg PO DAILY 09/02/16 [Last Taken Unknown] Cefepime HCl [Maxipime] 2 gm IV Q8HRS #14 vial 09/10/16 [Last Taken Unknown] Diltiazem Cd [Cardizem ER Q24hr] 180 mg PO DAILY cap 09/10/16 [Last Taken Unknown] Furosemide [Lasix 20 MG (*)] 20 mg PO BID@0900,1500 #60 tab 09/10/16 [Last Taken Unknown] Fpc Antibiotics: Cefepime 2 g IV q.8 hours Picking Machine Operator Antibiotic Stop Date: 09/14/16 Discharge Medications: Refer to the Discharge Home Medication list for PRN reason. PICC Care - Routine: Yes - Orders Services needed: Registered Nurse Diet Recommendation: cardiac -low fat low salt Weigh Patient: weekly Wood: Not applicable Wound Care Instructions: Please follow up within 1 week of discharge with outpatient wound healing center: [phone] for continued management of your wounds. Place tubigrips to bilateral lower legs. Remeasure at least once per week to ensure continued proper sizing. Remove bilateral tubigrips each NOC AND replace every morning from ball of foot to 1 inch below knee, before patient gets out of bed or lowers his legs. Tubigrip E to bilateral lower legs. Change OUTER dressings to left lower leg daily and PRN if saturated: Remove Kerlix and ABD. Leave on Mepilex transfer (white foamy sheet) and green contact layer on until 09/13. If it is totally soaked may replace transfer but definitely do not remove the very bottom green sheet until Friday. On Friday 2/ 3 take everything down. Clean lower legs (bilateral) with foaming soap and scrub clean with washcloth. Apply atractain lotion and then: 1. Cover lower leg wound with a contact layer and then a super absorbant like tegaderm absorbant. Wrap with kerlix and then apply tubigrip. Change dressings to right dorsal foot every 4 days and prn. 1. Clean with wound cleanser or ns and gauze. 2. Apply atractain cream pj wound and up to below the knee everywhere there isnt an open wound. 3. Cover with hydrofera blue ready placed writing side up. 4. Secure with [facility]. - Labs/Radiology BMP Date: 09/16/16 PT/INR Date: 09/16/16 Call or Fax Lab and Imaging Results to: Dr. Maier and PCP - Follow Up Care Current Providers and Referrals: NONE *PRIMARY CARE P,. [Primary Care Provider] - As per Instructions Wilfredo Maier MD [Medical Doctor] -
[2016-09-10] MEDS: ALLOPURINOL 100 MG TAB PO SCH (08:55)
[2016-09-10] MEDS: morphINE SR 15 MG TAB PO SCH (08:55)
[2016-09-10] MEDS: DILTIAZEM CD 180 MG CAP PO SCH (08:55)
[2016-09-10] MEDS: METOPROLOL TARTRATE 50 MG TAB PO SCH (08:55)
[2016-09-10] MEDS: FUROSEMIDE 20 MG TAB PO SCH ×2 (08:55→15:44)
[2016-09-10] MEDS: CYANO/VITAMIN B12 1000 MCG TAB PO SCH (08:55)
[2016-09-10] MEDS: risperiDONE 1 MG TAB PO SCH (08:55)
--- NOTE | 2016-09-10 10:11 | PDDCSUM ---
Discharge Summary Discharge Summary: DISCHARGE SUMMARY FOLLOW-UP ITEMS: Wound Care Clinic DATE OF ADMISSION: 09/02/16 DATE OF DISCHARGE: 09/10/16 DISCHARGE DIAGNOSES: 1. Acute polymicrobial bilateral lower extremity cellulitis 2. Severe chronic venous stasis 3. Permanent atrial fibrillation 4. Acute kidney injury 5. Chronic hypertension 6. Chronic schizoaffective disorder CONSULTATIONS: Infectious Disease PROCEDURES / IMAGING: Extremity CT demonstrating no evidence of soft tissue abscess, PICC line insertion CHIEF COMPLAINT: Bilateral lower extremity edema SUBJECTIVE: Patient reports he is feeling well and he would like to sleep PHYSICAL EXAM ON DISCHARGE: Systolic blood pressure 120, HR 90, Afeb, sat well on room air, bilat 2+ LE edema, stasis dermatitis, open wounds, AAOx3, crusting on legs, reduced sensation bilat plantar surfaces LABS ON DISCHARGE: White blood cell count 10,200, Cr 1.3, INR 2.5 HOSPITAL COURSE BY PROBLEM: 1. Acute polymicrobial bilateral lower extremity cellulitis. Culture demonstrating Klebsiella, Pseudomonas, Proteus with various resistant patterns. It is unclear whether these are colonizer or true stent of his lower extremity cellulitis, will treat empirically with cefepime. Patient will receive a total of 10 days of antibiotic therapy. He also received wound care for his lower extremities and will be seen in the Wound Care Clinic in the short term. 2. Severe chronic venous stasis. Bilateral lower extremity edema, placed on Lasix 20 mg twice daily with outpatient chemistry panel. 3. Permanent atrial fibrillation. Chronically systemically anticoagulated with Coumadin, INR therapeutic, continue diltiazem, metoprolol, digoxin. 4. Acute kidney injury. Most likely secondary to hypovolemia in the setting of acute infection. Patient's serum creatinine level peaked at 1.4, has down trended. Repeat level next week in the setting of ongoing Lasix use. 5. Chronic hypertension. Continue home patient medications. 6. Chronic schizoaffective disorder. Continue on Risperdal, continue care at [place]. DISCHARGE MEDICATIONS: Please see official discharge medication reconciliation sheet in chart , cefepime 2 g q.8 hours IV through 09/14/2016. DISCHARGE INSTRUCTIONS: Patient to follow up with the Wound Care Clinic TIME SPENT: Greater than 30 minutes were spent on direct patient care, as well as discharge planning and preparation.
[2016-09-10] MEDS: DIGOXIN 125 MCG TAB PO SCH (11:14)
[2016-09-10] MEDS: WARFARIN SODIUM 3 MG TAB PO SCH (15:44)
[2016-09-10] MEDS: HYDROCODONE/APAP 5/325 TAB PO PRN (15:46)
== END 2016-09-10 16:30 | DRG 603 ==
LOC: EDUNIT# → F3E 14:32
PROVIDERS: ADMIT Hospitalist; ATTEND Internal Medicine
PROC: 02HV33Z Insertion of Infusion Device into Superior Vena Cava, Percutaneous Approach (ICD-10-PCS; principal; 2016-09-09)
DX: L03.116 Cellulitis of left lower limb (principal); L03.115 Cellulitis of right lower limb; B96.1 Klebsiella pneumoniae [K. pneumoniae] as the cause of diseases classified elsewhere; B96.4 Proteus (mirabilis) (morganii) as the cause of diseases classified elsewhere; I87.2 Venous insufficiency (chronic) (peripheral); I48.2 Chronic atrial fibrillation; N17.9 Acute kidney failure, unspecified; I12.9 Hypertensive chronic kidney disease with stage 1 through stage 4 chronic kidney disease, or unspecified chronic kidney disease; N18.9 Chronic kidney disease, unspecified; M10.9 Gout, unspecified; F20.9 Schizophrenia, unspecified; F17.210 Nicotine dependence, cigarettes, uncomplicated
CPT/HCPCS: 96374; 97162-GP; 97166-GO; 97535-GO; C1751; G8978-GP-CK; G8979-GP-CI; G8987-GO-CJ; G8988-GO-CI; J0692; J1170; J3370; Q9967

== ENCOUNTER 2017-02-17 10:21 | Inpatient (IN) | payer OTHER, MEDICAID ==
--- NOTE | 2017-02-17 10:31 | EDPHY ---
H & P Time Seen by Provider: 02/17/17 10:30 - Medical/Surgical History Hx Asthma: No Hx Chronic Respiratory Disease: Yes Hx Diabetes: No Hx Cardiac Disease: Yes Hx Renal Disease: No Hx Cirrhosis: No Hx Alcoholism: No Hx HIV/AIDS: No Hx Splenectomy or Spleen Trauma: No Other PMH: Schizoaffective DO, Afib, HTN, Gout, Chronic Kidney Disease, DVT, Nephritic syndrome - Social History Smoking Status: Current every day smoker Constitutional: Initial Vital Signs Temperature (C) 36.3 C 02/17/17 10:31 Heart Rate 109 H 02/17/17 10:31 Respiratory Rate 18 02/17/17 10:31 Blood Pressure 134/75 H 02/17/17 10:31 O2 Sat (%) 93 02/17/17 10:31 O2 Delivery Mode Room Air Allergies/Adverse Reactions: amoxapine [From Asendin] Allergy (Verified 09/02/16 11:03) fluphenazine enanthate [From Prolixin] Allergy (Verified 09/02/16 11:03) fluphenazine HCl [From Prolixin] Allergy (Verified 09/02/16 11:03) haloperidol [From Haldol] Allergy (Verified 09/02/16 11:03) haloperidol lactate [From Haldol] Allergy (Verified 09/02/16 11:03) thioridazine HCl [From Mellaril] Allergy (Verified 09/02/16 11:03) trifluoperazine HCl [From Stelazine] Allergy (Verified 09/02/16 11:03) Home Medications: Medication Instructions Recorded Acetaminophen [Tylenol 325mg (*)] 650 mg PO Q8 PRN 09/02/16 Allopurinol [Allopurinol 100 MG 100 mg PO BID 09/02/16 (*)] Cyanocobalamin [Vitamin B12 (*)] 1,000 mcg PO DAILY 09/02/16 Digoxin [Lanoxin 125 mcg (RX)] 125 mcg PO DAILY10 09/02/16 Hydrocodone/Acetaminophen [[place] 1 tab PO BID PRN 09/02/16 7.5-325 Tablet] Metoprolol Tartrate [Lopressor 50 50 mg PO BID 09/02/16 mg (*)] Warfarin Sodium [Coumadin 1MG (*)] 3.5 mg PO MOWEFR@2100 09/02/16 Diltiazem Cd [Cardizem ER Q24hr] 180 mg PO DAILY cap 09/10/16 Furosemide [Lasix] 40 mg PO BID 02/17/17 Risperidone 2 mg PO DAILY 02/17/17 Sennosides [Senokot 8.6mg (OTC)] 1 each PO HS 02/17/17 Warfarin Sodium [Coumadin 3MG (*)] 3 mg PO SUTUTHSA@2100 02/17/17 morphINE SR [Ms Contin/Oramorph 15 15 mg PO BID 02/17/17 mg (*)] risperiDONE [Risperidone] 3 mg PO HS 02/17/17 Medical Decision Making - Diagnostics Imaging Results: Imaging Impressions Extremity Venous Study 02/17/17 10:37 Impression: 1. Technically limited evaluation of the lower extremities, as above-detailed. 2. There is "slow flow" seen throughout the visualized left leg veins, but no konstantin DVT is identified in either lower extremity. 3. There is a mildly complex 4.8 cm English's cyst in the posterior medial left popliteal fossa. Findings were discussed with Tory in the ED, who will convey the information to Wilfredo Reina MD at 12:09 PM, on 02/17/2017. Imaging: Discussed imaging studies w/ call center assistant Radiologist ED Course/Re-evaluation: CHIEF COMPLAINT: Leg edema and cramping HISTORY OF PRESENT ILLNESS: The patient is an anticoagulated 61 y/o male arriving via EMS complaining of worsening leg edema, redness, and cramping over the last two days. He is unable to tell me the cause of his underlying edema, but thinks he was "poisoned." Per [facility] paperwork, he has a history that incudes schizoaffective disorder, atrial fibrillation, kidney disease, hypertension, gout, peripheral vascular disease, DVT, cellulitis, and edema. EMS reported that staff has been attempting to get the patient to come into the hospital for months, but he has been resistant. He was admitted 09/02/16 for similar symptoms. He is a poor historian due to his schizophrenia. REVIEW OF SYSTEMS: A 10 point review of systems was performed and is negative with the exception of the elements mentioned in the history of present illness. PHYSICAL EXAM: HR, BP, O2 Sat, RR. Temp noted General Appearance: Alert, well hydrated, appropriate, and chronically-ill appearing. Head: Atraumatic without scalp tenderness or obvious injury Eyes: Pupils equal, round, reactive to light and accommodation, EOMI, no trauma , no injection. Nose: Atraumatic, no rhinorrhea, clear. Throat: Mucus membranes moist. Neck: Supple, nontender, no lymphadenopathy. Respiratory: No retractions, no distress, no wheezes, and no accessory muscle use. Lungs are clear to auscultation bilaterally. Cardiovascular: Regular rate and rhythm, no murmurs, rubs, or gallops. Gastrointestinal: Abdomen is soft, nontender, non-distended, no masses, no rebound, no guarding, no peritoneal signs. Musculoskeletal: Monstrously edematous and cellulitic legs bilaterally with weeping, blisters, skin sloughing. Normal active ROM of all extremities. Neurological: Alert, appropriate, and interactive. Nonfocal neuro exam. Skin: No rashes, good turgor, no nodules on palpation. Past medical history: schizoaffective disorder, atrial fibrillation (Coumadin), kidney disease, hypertension, gout, peripheral gout disease, DVT (4-5 years ago) , cellulitis, edema, dysphagia, weakness Past surgical history: denies Family history: noncontributory Social history: Lives at [facility]. Heavy smoker. Prior medical records reviewed including admission 09/02/16 for similar symptoms. DIAGNOSTICS/PROCEDURES/CRITICAL CARE TIME: Bilateral lower extremity US: very limited study due to cellulitis and edema, but no definitive DVT DIFFERENTIAL DIAGNOSIS: The differential diagnosis for the patient's leg swelling included but was not limited to hypoalbuminemia, congestive heart failure, cor pulmonale, venous stasis, trauma, and DVT. MEDICAL DECISION MAKING: This is a chronically-ill appearing 61 y/o male who presents with apparent chronic severe lower leg edema and peripheral vascular disease with overlying cellulitis. Plan for IV, labs, extremity ultrasounds, and antibiotics for cellulitis. 2mg IV Ancef administered. Patient will require admission for management. 1042: Spoke with hospitalist service. Dr. Workman accepts admission. US results are quite limited, but radiologist does not see definitive DVT. Patient is already anticoagulated on Coumadin. - Data Points Laboratory Results: Laboratory Results 02/17/17 10:28 02/17/17 10:28 07/10/17 07/10/17 07/10/17 10:36 10:28 10:28 WBC 38.16 10^3/uL H 10^3/uL (3.80-9.50) RBC 4.53 10^6/uL 10^6/uL (4.40-6.38) Hgb 15.3 g/dL g/dL (13.7-17.5) Hct 42.5 % % (40.0-51.0) MCV 93.8 fL fL (81.5-99.8) MCH 33.8 pg pg (27.9-34.1) MCHC 36.0 g/dL g/dL (32.4-36.7) RDW 14.4 % % (11.5-15.2) Plt Count 278 10^3/uL 10^3/uL (150-400) MPV 10.2 fL fL (8.7-11.7) Neut % (Auto) Not Reported Lymph % (Auto) Not Reported [place] % (Auto) Not Reported Eos % (Auto) Not Reported Baso % (Auto) Not Reported Nucleat RBC Rel Count 0.1 % % (0.0-0.2) Absolute Neuts (auto) Not Reported Absolute Lymphs (auto) Not Reported Absolute Monos (auto) Not Reported Absolute Eos (auto) Not Reported Absolute Basos (auto) Not Reported Absolute Nucleated RBC 0.05 10^3/uL H 10^3/uL (0-0.01) Immature Gran % Not Reported Seg Neutrophils % 91 % % Band Neutrophils % 5 % % Lymphocytes % 3 % % Monocytes % 1 % % Immature Gran # Not Reported Absolute Seg Neuts 34.73 10^/uL H 10^/uL (1.70-6.50) Absolute Band Neuts 1.91 10^3/uL H 10^3/uL (0.00-0.70) Absolute Lymphocytes 1.14 10^3/uL 10^3/uL (1.00-3.00) Absolute Monocytes 0.38 10^3/uL 10^3/uL (0.30-0.80) Nucleated RBCs 1 /100 WBC H /100 WBC (0-0) Platelet Estimate ADEQUATE (ADEQ) Polychromasia 1+ H Smear Review By Pending PT 31.0 SEC H SEC (12.0-15.0) INR 2.94 H (0.83-1.16) APTT 48.6 SEC H SEC (23.0-38.0) Sodium 125 mEq/L L mEq/L (134-144) Potassium 5.4 mEq/L H mEq/L (3.5-5.2) Chloride 89 mEq/L L mEq/L (97-110) Carbon Dioxide 13 mEq/l L mEq/l (22-31) Anion Gap 23 mEq/L H mEq/L (8-16) BUN 81 mg/dL H mg/dL (7-23) Creatinine 3.4 mg/dL H mg/dL (0.7-1.3) Estimated GFR 18 Glucose 152 mg/dL H mg/dL (70-100) Calcium 8.9 mg/dL mg/dL (8.5-10.4) TSH Specimen Hemolysis 137 Digoxin 02/17/17 10:06 WBC RBC Hgb Hct MCV MCH MCHC RDW Plt Count MPV Neut % (Auto) Lymph % (Auto) [place] % (Auto) Eos % (Auto) Baso % (Auto) Nucleat RBC Rel Count Absolute Neuts (auto) Absolute Lymphs (auto) Absolute Monos (auto) Absolute Eos (auto) Absolute Basos (auto) Absolute Nucleated RBC Immature Gran % Seg Neutrophils % Band Neutrophils % Lymphocytes % Monocytes % Immature Gran # Absolute Seg Neuts Absolute Band Neuts Absolute Lymphocytes Absolute Monocytes Nucleated RBCs Platelet Estimate Polychromasia Smear Review By PT INR APTT Sodium Potassium Chloride Carbon Dioxide Anion Gap BUN Creatinine Estimated GFR Glucose Calcium TSH 2.250 uIU/mL uIU/mL (0.465-4.680) Specimen Hemolysis Digoxin 1.5 ng/mL ng/mL (0.8-2.0) Medications Given: Discontinued Medications Hydrocodone Bitart/Acetaminophen ([place] 5/325) 2 tab PO EDNOW ONE Stop: 02/17/17 10:38 Last Admin: 02/17/17 10:50 Dose: 2 tab Cefazolin Sodium/Dextrose (Ancef 2 Gm (Premix)) 100 mls @ 200 mls/hr IV EDNOW ONE PRN Reason: Protocol Stop: 02/17/17 11:08 Last Admin: 02/17/17 10:54 Dose: 100 mls Departure - Departure Disposition: [facility] Acute Clinical Impression: Peripheral edema, Cellulitis and abscess of leg, bilateral Condition: Fair Report Scribed for: Wilfredo Reina Report Scribed by: Tory Jang Date of Report: 02/17/17 Time of Report: 10:43
[2017-02-17] MEDS ORDERED: HYDROCODONE/APAP 5/325 TAB PO ONE (10:37)
[2017-02-17] MEDS ORDERED: ceFAZolin 2 GM/DEXTROSE 100 ML IV ONE (10:39)
[2017-02-17 10:41] LABS: ABSOLUTE NRBC COUNT 0.05 10^3/uL (0-0.01); ADD DIFF? YES; ADD MORPH? NO; ATYPICAL LYMPHOCYTE FLAG 0 (0-99); FRAGMENT RBC FLAG 0 (0-99); HEMATOCRIT 42.5 % (40.0-51.0); HEMOGLOBIN 15.3 g/dL (13.7-17.5); LEFT SHIFT FLG 70 (0-99); LIPEMIA HEMOLYSIS FLAG 90 (0-99); MEAN CELL HEMOGLOBIN 33.8 pg (27.9-34.1); MEAN CELL VOLUME 93.8 fL (81.5-99.8); MEAN PLATELET VOLUME 10.2 fL (8.7-11.7); NRBC-AUTO% 0.1 % (0.0-0.2); PLATELET CLUMPS FLAG 0 (0-99); PLATELET COUNT 278 10^3/uL (150-400); RED BLOOD CELL COUNT 4.53 10^6/uL (4.40-6.38); RED CELL DISTRIBUTION WIDTH 14.4 % (11.5-15.2)
[2017-02-17 10:44] LABS: ADD SCAN? NO
[2017-02-17 10:51] LABS: ANION GAP 23 mEq/L (8-16); CALCIUM 8.9 mg/dL (8.5-10.4); CARBON DIOXIDE 13 mEq/l (22-31); CHLORIDE 89 mEq/L (97-110); CREATININE 3.4 mg/dL (0.7-1.3); GLOMERULAR FILTRATION RATE 18; GLUCOSE 152 mg/dL (70-100); POTASSIUM 5.4 mEq/L (3.5-5.2); SODIUM 125 mEq/L (134-144); SPECIMEN HEMOLYSIS 137
[2017-02-17 10:52] LABS: INR 2.94 (0.83-1.16)
[2017-02-17 10:53] LABS: APTT 48.6 SEC (23.0-38.0)
[2017-02-17] MEDS ORDERED: ONDANSETRON DISINTEGRATING 4 MG TAB PO PRN (11:31)
[2017-02-17] MEDS ORDERED: ONDANSETRON 4 MG/2 ML VIAL IVP PRN (11:31)
[2017-02-17] MEDS ORDERED: ACETAMINOPHEN 325 MG TAB PO PRN ×2 (11:31→12:40)
[2017-02-17 11:56] LABS: DIGOXIN 1.5 ng/mL (0.8-2.0)
[2017-02-17 12:15] LABS: PLATELET ESTIMATE ADEQUATE (ADEQ)
[2017-02-17 12:16] LABS: POLYCHROMASIA 1+
[2017-02-17] MEDS ORDERED: ACETAMINOPHEN PO PRN (12:40)
[2017-02-17] MEDS ORDERED: HYDROCODONE PO PRN (12:40)
[2017-02-17] MEDS ORDERED: ALTEPLASE 2 MG VIAL IVP PRN (12:53)
--- NOTE | 2017-02-17 13:58 | GHP ---
[f rep st] HISTORY AND PHYSICAL DATE OF ADMISSION: 02/17/2017 CHIEF COMPLAINT: Leg pain. HPI: Mr. Wilcox is a 61-year-old with chronic schizophrenia and long-term care at [facility]. He al so has chronic lymph edema, atrial fibrillation and chronic kidney disease with a history of nephrot ic syndrome. He was recently admitted to the hospital in August with severe cellulitis. This ende d up having polymicrobial cultures including Klebsiella, Proteus and Pseudomonas. He ended up compl eting a course of IV antibiotics on cefepime, and per his history he has done well with improvement in his erythema and pain in his left lower extremity. He did well up until a week ago. His Lasix w as discontinued. Two days ago he developed increasing swelling and erythema on his right lower extr emity. He had some blistering and resultant open sores since that time. He denies any significant fevers or chills. He has noted decreased urination recently. He denies any headache, vision, heari ng, or speech changes. He has had no chest pain, shortness of breath, or cough. No abdominal compl aints, nausea, vomiting. No changes in his BMs. He has had slightly worsening of his lower extremi ty edema, right greater than left. No other joint pains, although he does have some pain in his lef t hamstring that has been present for about 10 or 20 minutes. REVIEW OF SYSTEMS: A 10-point review of systems was done including constitutional, eyes, HEENT, pul monary, cardiovascular, abdomen, , musculoskeletal, neurologic, and psychiatric, with pertinent po sitives present in HPI. PAST MEDICAL HISTORY: 1. Schizoaffective disorder, on chronic long-term care at [facility]. 2. Atrial fibrillation, on anticoagulation with Coumadin, on digoxin and Cardizem for rate control. 3. Hypertension. 4. Gout. 5. Chronic kidney disease with baseline creatinine around 1.2-1.3. 6. History of DVT. 7. Nephrotic syndrome. 8. Chronic lymphedema. 9. Previous history of cellulitis in August of 2016. PAST SURGICAL HISTORY: Unremarkable. SOCIAL HISTORY: He is in long-term care at [facility]. He smokes 2-3 packs per day without any alc ohol or recreational drug use. FAMILY HISTORY: Patient does not know his parents currently. CURRENT MEDICATIONS: Tylenol every 6 hours, allopurinol 100 twice daily, vitamin B12, digoxin 125 m cg daily, diltiazem 180 daily, Lasix 40 twice daily. This was a 5-day course starting yesterday. N orco 1 tablet twice daily as needed, metoprolol 50 twice daily, morphine 15 mg of OxyContin twice a day, risperidone 2 mg in the morning 3 mg at night, Sennoside and Coumadin 3.5 mg Friday, Friday, Friday, with 3 mg Friday, Friday, , Friday. ALLERGIES: To amoxapine, fluphenazine, Haldol, Mellaril and Stelazine. PHYSICAL EXAMINATION: VITAL SIGNS: He has been afebrile, heart rate 109, blood pressure 134/75, re spirations 18, he is 92% on room air. GENERAL: He is an obese 61-year-old in no obvious distress. He is alert. HEENT: Atraumatic. Pupils are equal. Extraocular movements intact. Mucous membran es are moist. Oropharynx is clear. He does have a lot of crusties under his eyelids. NECK: Suppl e. HEART: Regular tachycardiac. No obvious murmur. LUNGS: Diminished bilaterally with occasiona l rhonchi. ABDOMEN: Positive bowel sounds. Soft. No obvious tenderness. EXTREMITIES: Bilateral lower extremity edema, right greater than left. Right lower extremity has increased erythema up to his knee with a large skin tear on his anterior garza and a smaller blister on his medial garza. MUS CULOSKELETAL: No obvious joint deformities. No effusions. NEUROLOGIC: His speech is fluent. He is alert. He is moving all 4 extremities. PSYCHIATRIC: His mood so far is appropriate, although h e is somewhat paranoid and admits that he is sick because [facility] is poisoning him. LABORATORY DATA: CBC shows a white count of 38.1, hemoglobin 15.3, with a platelet count of 278. I NR is 2.94. Chemistry shows a sodium 125, BUN 81, with a creatinine 3.4, potassium 5.4, with a CO2 of 13, digoxin level is 1.5. ASSESSMENT AND PLAN: 61-year-old presents with 2 days of increasing lower extremity swelling and pa in with erythema. Likely cellulitis of his right lower extremity. He also has a number of metaboli c abnormalities. 1. Cellulitis, right lower extremity. Cellulitis with sepsis complicated by leukocytosis and tachy cardia. Previous cellulitis noted in August of this year, at which time cultures were polymicrobia l and he ended up on a course of IV cefepime. We do not see an obvious abscess or exudates noted. However, he does have some open wounds from skin tears and blisters. Plan will be to admit him to [facility] for IV antibiotics. We will start with vanco for presumed strep or staph, get Wound Car e involved, and I also consulted Infectious Disease. Patient has a significant leukocytosis from se psis. Will continue to monitor this. I also kriss blood cultures because of his leukocytosis. I wi ll not do further imaging at this time unless felt necessary by ID. 2. Acute on chronic renal failure. Creatinine is 3.4, with a baseline of 1.2-1.3. He does have a history of nephrotic syndrome, but I do not have any information about that. The plan will be to do a renal ultrasound. Will also check a PVR and place Wood if necessary. Will check urinalysis, ur ine micro and urine electrolytes with urine protein. Monitor this closely and consider nephrology c onsult if he does not have an obvious cause like urinary retention. His digoxin level was checked a nd was reasonable at 1.5. No other nephrotoxins noted, although he has recently been on Lasix, alth ough not a significantly high dose. 3. Atrial fibrillation. Anticoagulated with Coumadin with a therapeutic INR. Rate controlled with Cardizem and digoxin. He is mildly tachycardic, likely from sepsis. Will continue his Cardizem, h old his digoxin until his level gets down to 1, and then resume that with close monitoring given his renal failure. 4. History of nephrotic syndrome. Will check urine protein. Consider 24-hour urine. 5. Chronic lymphedema, likely cause of his cellulitis. Will have him elevate his legs, consider Ac e wrapping after Wound Care sees him. 6. Hypertension, currently stable. Will continue medications as above. 7. History of gout. Currently on twice daily allopurinol given his renal failure. We will hold th at until creatinine is stable and then could resume that at 100 mg daily. 8. DVT prophylaxis. Patient is anticoagulated with Coumadin. Will continue daily INRs. Copy requested to: Mercedes Newman /[id number]/MODL
[2017-02-17 14:14] LABS: COLOR AMBER; LEUKOCYTE ESTERASE,URINE NEGATIVE (NEGATIVE); NITRITE,URINE NEGATIVE (NEGATIVE)
[2017-02-17 14:17] LABS: BACTERIA TRACE /hpf (NONE SEEN); HYALINE CASTS 15-25 /lpf (0-1); MUCUS TRACE /lpf (NONE-1+); RBC,URINE 50-182 /hpf (0-3)
[2017-02-17] MEDS ORDERED: VANCOMYCIN HCL/NORMAL SALINE 250 ML IV SCH (15:00)
--- NOTE | 2017-02-17 15:12 | PCMIDPN ---
Assessment/Plan: Assessment/Plan: * Sepsis due to right lower extremity cellulitis: Clinical appearance most suggestive of beta-hemolytic streptococci with ruptured bulla and sharp margins. Prior history however of cellulitis associated with polymicrobial gram -negative shira including Pseudomonas in August. Given severity of illness, will treat empirically with vancomycin, cefepime, and clindamycin (targeting toxin production). Dosing adjusted for underlying acute on chronic renal insufficiency. Follow clinical exam over time, particularly 2nd toe which may ultimately require debridement. Elevate right lower extremity. Follow-up blood cultures and creatinine over time. Time spent, greater than 35 minutes, of which greater than half was spent in coordination of care related to sepsis in the setting of right lower extremity cellulitis. 02/17/17 15:09 02/17/17 15:12 Subjective: Prior medical history reviewed including care by our service in August at which point in time patient had bilateral lower extremity cellulitis superimposed on bilateral lower extremity venous insufficiency. Cultures at that time showed Klebsiella pneumoniae, Pseudomonas aeruginosa, and Proteus. History difficult to obtain from patient regarding current symptomatology including duration of erythema and blistering. Complains of pain over right lower extremity. Past medical, surgical, social, medications and allergies all reviewed today. Objective: Vital Signs Temp Pulse Resp BP Pulse Ox 36.8 C 109 H 22 H 135/94 H 95 02/17/17 13:55 02/17/17 13:55 02/17/17 13:55 02/17/17 13:55 02/17/17 13:55 02/16/17 02/17/17 02/18/17 05:59 05:59 05:59 Intake Total 100 Balance 100 - Physical Exam General Appearance: alert, other (Mild rigors present) EENT: dry mucous membranes, other (Thick crust on over right eyelids) Respiratory: lungs clear, No respiratory distress Neck: supple Cardiac/Chest: tachycardia, irregularly irregular Extremities: inflammation (Right lower extremity with 3+ edema from knee to foot ; bright red erythema present superiorly with sharp margin; several denuded bulla present; occasional intact bulla with serous fluid; mild tenderness throughout with overlying warmth present; 2nd toe with open ulceration with some superficial purulence but no expressible purulence or fluctuance; maceration between web spaces; ulceration with clean base also over left 2nd toe ) Abdomen: non-tender, No distended Lymphatic: other (Tender in lymphatic distribution of right lower extremity but no lymphangitis visible) ICD10 Worksheet Patient Problems: Problems Problem Status Onset Cellulitis and abscess of leg Acute Peripheral edema Acute CHF (congestive heart failure) Acute Peripheral edema Acute
[2017-02-17] MEDS: CEFEPIME HCL 1 GM in D5W 50 ML IV SCH (16:25)
[2017-02-17 16:26] LABS: RANDOM URINE PROTEIN 247 mg/dL (0-11)
--- NOTE | 2017-02-17 17:05 | WOCRNPDOC ---
WOCRN Advanced Assessment Note - Skin Integrity Problem, Advanced Assess Right Second Toe Dressing Type: Open to Air Aria Wound Tissue: Erythema, Swollen Aria Wound Swelling: Severe Wound Bed Color: Red, Yellow Wound Bed Constitution: Granulation Tissue (20%), Loose Slough (80%) Wound Edges: Attached Site Measurement - Head-to-Toe Length X Width X Depth (cm): 1.5x1.8x0.2 Skin Integrity Problem Comment: Full thickness wound. Plantar toes have cracks from excessive moisture and swelling. Left Fourth Toe Dressing Type: Open to Air Exudate Amount: Scant Exudate Characteristic(s): Serosanguinous Aria Wound Tissue: Macerated Aria Wound Swelling: Moderate Wound Bed Constitution: Smooth Tissue (50%), Adhered Slough, Loose Slough Wound Edges: Attached Site Measurement - Head-to-Toe Length X Width X Depth (cm): 2.1x1.8x0.1 Extremity Temperature: Cool Peripheral Edema Location & Description: 2+ pitting Skin Integrity Problem Comment: May have also been a blister that has deroofed. Right Anterior Lower Leg Blister Dressing Type: Open to Air Exudate Amount: Scant Exudate Characteristic(s): Serosanguinous Aria Wound Tissue: Erythema, Swollen, Lipodermatosclerosis, Venous Dermatitis, Shiny, Taught Aria Wound Swelling: Severe Wound Bed Color: [place] Wound Bed Constitution: Smooth Tissue, De-roofed Serous Blister Site Measurement - Head-to-Toe Length X Width X Depth (cm): 5.2x5.5x0.1 Right Posterior Lower Leg Blister Dressing Type: Open to Air Exudate Amount: Minimal Exudate Characteristic(s): Serous Aria Wound Tissue: Erythema, Hot, Swollen, Lipodermatosclerosis, Venous Dermatitis, Shiny, Taught, Xerotic Aria Wound Swelling: Severe Wound Bed Constitution: Intact Serous Filled Blister (50%), De-roofed Serous Blister (50%) Site Measurement - Head-to-Toe Length X Width X Depth (cm): 4.5x12x0.1 (where roof has come off of blister is 0.1 in depth). Measurement is for entire wound. Extremity Temperature: Cool Peripheral Edema Location & Description: 2+ pitting Bilat LE Skin Integrity Problem Comment: Partially de roofed and partial thickness wound. Patient with positive stemmers sign. Left calf circumference: 44, Right calf: 50 cm. Tubigrip G provided to RN. Wound care will round again 02/19. Right Lower Lateral Leg Dressing Type: Open to Air Exudate Amount: Moderate Exudate Characteristic(s): Serous Aria Wound Tissue: Erythema, Lipodermatosclerosis, Venous Dermatitis, Shiny, Taught, Xerotic Wound Bed Constitution: Smooth Tissue (50% where there is deroofed blister), Adhered Slough (50%) Site Measurement - Head-to-Toe Length X Width X Depth (cm): 9x5.5x0.3 Right Posterior Thigh Dressing Type: Open to Air Wound Bed Constitution: Granulation Tissue (50%), Adhered Slough (50%) Site Measurement - Head-to-Toe Length X Width X Depth (cm): 1x1x0.3 Skin Integrity Problem Comment: Older full thickness wound of unknow etiology. Bilateral Distal Sacrum Pressure Injury Dressing Type: Open to Air Aria Wound Tissue: Blanching Wound Bed Constitution: Intact Sanguineous Blister (on right), De-roofed Sanguineous blister (on left ) Site Measurement - Head-to-Toe Length X Width X Depth (cm): 1x1x0 on left, 1x1x0 on left Pressure Injury Stage: Deep Tissue Injury (DTI) Pressure Injury Present on Admit: Yes Skin Integrity Problem Comment: Deep Tissue Injury within an area that is surrounded by incontinence/moisture associated dermatitis. Not typical DTI locations, however the wounds do appear to be most consistent with deep tissue injuries in their presentation. They are fairly symmetrical, one on each buttock /lower sacrum. Susannah applied by Elaine Marie who was in room for assessment.
[2017-02-17] MEDS: CLINDAMYCIN 600 MG/DEXTROSE 50 ML IV SCH ×2 (18:55→21:46)
[2017-02-17] MEDS ORDERED: NS 1,000 ML IV ONE (19:25)
[2017-02-17 20:21] LABS: ADD DIFF? YES; ADD MORPH? NO; ATYPICAL LYMPHOCYTE FLAG 0 (0-99); FRAGMENT RBC FLAG 0 (0-99); HEMATOCRIT 36.1 % (40.0-51.0); HEMOGLOBIN 13.1 g/dL (13.7-17.5); LEFT SHIFT FLG 50 (0-99); LIPEMIA HEMOLYSIS FLAG 90 (0-99); MEAN CELL HEMOGLOBIN 33.3 pg (27.9-34.1); MEAN CELL HEMOGLOBIN CONCENTR. 36.3 g/dL (32.4-36.7); MEAN CELL VOLUME 91.9 fL (81.5-99.8); MEAN PLATELET VOLUME 10.2 fL (8.7-11.7); PLATELET CLUMPS FLAG 0 (0-99); PLATELET COUNT 245 10^3/uL (150-400); RED BLOOD CELL COUNT 3.93 10^6/uL (4.40-6.38); RED CELL DISTRIBUTION WIDTH 13.9 % (11.5-15.2)
[2017-02-17 20:24] LABS: ADD SCAN? NO
[2017-02-17 20:40] LABS: ANION GAP 14 mEq/L (8-16); CARBON DIOXIDE 18 mEq/l (22-31); CHLORIDE 92 mEq/L (97-110); CREATININE 2.9 mg/dL (0.7-1.3); GLOMERULAR FILTRATION RATE 22; GLUCOSE 143 mg/dL (70-100); POTASSIUM 4.1 mEq/L (3.5-5.2); SODIUM 124 mEq/L (134-144)
[2017-02-17] MEDS ORDERED: RISPERIDONE 3 MG PO SCH (21:00)
[2017-02-17 21:04] LABS: HYPOCHROMIA 1+; MACROCYTES 2+; PLATELET ESTIMATE ADEQUATE (ADEQ)
[2017-02-17] MEDS: morphINE SR 15 MG TAB PO SCH (21:47)
[2017-02-17] MEDS: SENNOSIDES 1 TAB PO SCH (21:47)
[2017-02-17] MEDS: METOPROLOL TARTRATE 50 MG TAB PO SCH (21:48)
[2017-02-17] MEDS: risperiDONE 2 MG TAB PO SCH (21:50)
[2017-02-17] MEDS: WARFARIN SODIUM 1 MG TAB PO SCH (21:51)
[2017-02-18 04:59] LABS: ADD DIFF? YES; ADD MORPH? NO; ATYPICAL LYMPHOCYTE FLAG 0 (0-99); FRAGMENT RBC FLAG 0 (0-99); HEMATOCRIT 33.5 % (40.0-51.0); HEMOGLOBIN 12.1 g/dL (13.7-17.5); LEFT SHIFT FLG 80 (0-99); LIPEMIA HEMOLYSIS FLAG 90 (0-99); MEAN CELL HEMOGLOBIN 33.4 pg (27.9-34.1); MEAN CELL HEMOGLOBIN CONCENTR. 36.1 g/dL (32.4-36.7); MEAN CELL VOLUME 92.5 fL (81.5-99.8); MEAN PLATELET VOLUME 10.1 fL (8.7-11.7); PLATELET CLUMPS FLAG 10 (0-99); PLATELET COUNT 219 10^3/uL (150-400); RED BLOOD CELL COUNT 3.62 10^6/uL (4.40-6.38); RED CELL DISTRIBUTION WIDTH 13.8 % (11.5-15.2)
[2017-02-18 05:26] LABS: ANION GAP 13 mEq/L (8-16); CALCIUM 7.9 mg/dL (8.5-10.4); CARBON DIOXIDE 18 mEq/l (22-31); CHLORIDE 99 mEq/L (97-110); CREATININE 2.5 mg/dL (0.7-1.3); GLOMERULAR FILTRATION RATE 26; GLUCOSE 141 mg/dL (70-100); MAGNESIUM 2.2 mg/dL (1.6-2.3); POTASSIUM 3.9 mEq/L (3.5-5.2); SODIUM 130 mEq/L (134-144)
[2017-02-18 05:31] LABS: ADD SCAN? NO
[2017-02-18 06:29] LABS: PLATELET ESTIMATE ADEQUATE (ADEQ)
[2017-02-18] MEDS: CLINDAMYCIN 600 MG/DEXTROSE 50 ML IV SCH ×3 (06:29→21:45)
[2017-02-18 06:30] LABS: MACROCYTES 1+; POLYCHROMASIA 1+
[2017-02-18] MEDS ORDERED: PHYTONADIONE 2.5 MG/2.5 ML ORAL UDL PO ONE (07:47)
--- NOTE | 2017-02-18 07:53 | HOSPPROG ---
Hospitalist Progress Note Assessment/Plan: Called to see patient for increasing oxygen requirement patient is somnolent but arousable and answers questions appropriately. He is not complaining of any shortness of breath. vital signs reviewed - mild tachycardia and fever overnight right leg is dressed but erythema is not extending past lower leg labs reviewed continue leukocytosis creatinine is little bit better plan - will check chest x-ray Objective: Vital Signs Temp Pulse Resp BP Pulse Ox 36.6 C 110 H 20 112/71 89 L 02/18/17 07:37 02/18/17 07:37 02/18/17 07:37 02/18/17 07:37 02/18/17 07:37 Laboratory Results 02/18/17 04:45 02/18/17 04:45 02/17/17 02/18/17 02/19/17 05:59 05:59 05:59 Intake Total 100 Output Total 1999 Balance -1900 PT 47.9 SEC (12.0-15.0) H D 02/18/17 04:45 INR 5.06 (0.83-1.16) H* 02/18/17 04:45 ICD10 Worksheet Patient Problems: Problems Problem Status Onset Cellulitis and abscess of leg Acute Peripheral edema Acute CHF (congestive heart failure) Acute Peripheral edema Acute
[2017-02-18] MEDS: morphINE SR 15 MG TAB PO SCH ×2 (07:56→20:39)
[2017-02-18] MEDS: CEFEPIME HCL 1 GM in D5W 50 ML IV SCH (07:56)
[2017-02-18] MEDS: DILTIAZEM CD 180 MG CAP PO SCH (07:56)
[2017-02-18] MEDS: risperiDONE 2 MG TAB PO SCH ×2 (07:56→20:38)
[2017-02-18] MEDS: METOPROLOL TARTRATE 50 MG TAB PO SCH ×2 (07:57→20:39)
[2017-02-18] MEDS: CYANO/VITAMIN B12 1000 MCG TAB PO SCH (07:57)
[2017-02-18] MEDS: NS 1,000 ML IV SCH ×2 (08:06→20:36)
--- NOTE | 2017-02-18 10:13 | HOSPPROG ---
Hospitalist Progress Note Assessment/Plan: 61-year-old with chronic schizoaffective disorder in long-term care at [facility] is admitted with severe cellulitis and sepsis. Overnight he had some increased oxygen needs but his cellulitis looks fairly stable. He has no new complaints today. # severe cellulitis right lower extremity in the setting of chronic lymphedema complicated by sepsis with leukocytosis and tachycardia. He has a normal lactate. He has a history of polymicrobial infections. Currently on broad- spectrum antibiotics per Infectious Disease will continue to monitor I suspect this will take a long time to resolve given the lymphedema. * Appreciate Infectious Disease consult * Continue antibiotics * Continue to monitor CBC will check C diff with any evidence of diarrhea # chronic lymphedema with possible pulmonary hypertension. Will check echocardiogram today. # acute on chronic renal failure with evidence of urinary retention on admission. Some improvement with hydration and David placement. Renal ultrasound reviewed as well as urinalysis * Continue David drainage will eventually need urology follow-up will likely need to go home on catheter * Monitor creatinine consider Nephrology consult if it does not improve significantly over the next 2 days # atrial fibrillation on anticoagulation with Coumadin complicated by elevated INR and mild tachycardia * Digoxin on hold due to the increased level with renal failure with. Will continue to monitor digital level in the a.m. and resume if level goes below 1 with close follow-up * Continue diltiazem * Coumadin on hold until INR less than 3.2. # acute respiratory failure, chest x-ray reviewed and no pneumonia. Very low risk for PE given therapeutic INR I suspect this is likely from COPD and will start duo nebs * Duo nebs daily * Oxygen as needed * Could consider prednisone if develops wheezing or worsening shortness of breath * Will add nicotine patch # probable COPD with ongoing tobacco use, see above # hypertension # gout # schizoaffective disorder, chronic and stable will likely return to [facility] for long-term care after hospitalization Disposition: Patient will likely need several days of hospitalization for improvement in his severe cellulitis and renal failure. Plan is to eventually return to [facility] with for long-term care Subjective: No specific complaints. Says his leg does not particularly hurt although he does have some pain. His main issue is he needs to go to the bathroom and is focused on that Objective: Vital Signs Temp Pulse Resp BP Pulse Ox 36.6 C 110 H 20 112/71 89 L 02/18/17 07:37 02/18/17 07:57 02/18/17 07:37 02/18/17 07:57 02/18/17 07:37 Laboratory Results 02/18/17 04:45 02/18/17 04:45 02/17/17 02/18/17 02/19/17 05:59 05:59 05:59 Intake Total 100 Output Total 1999 Balance -1900 PT 47.9 SEC (12.0-15.0) H D 02/18/17 04:45 INR 5.06 (0.83-1.16) H* 02/18/17 04:45 - Physical Exam Constitutional: chronically ill appearing, obese, unkempt Eyes: PERRL, anicteric sclera, EOMI Ears, Nose, Mouth, Throat: moist mucous membranes, ears appear normal Cardiovascular: irregularly irregular, tachycardia, No systolic murmur Respiratory: no respiratory distress, reduced air movement, bronchial breath sounds Gastrointestinal: normoactive bowel sounds, soft, non-tender abdomen Genitourinary: no bladder fullness, david in urethra Skin: warm, other (Erythema right lower extremity up to the knee with significant edema) Musculoskeletal: no muscle tenderness, asymmetric calves Neurologic: No facial droop Psychiatric: interacting appropriately, anxious, poor insight ICD10 Worksheet Patient Problems: Problems Problem Status Onset CHF (congestive heart failure) Acute Peripheral edema Acute Peripheral edema Acute Cellulitis and abscess of leg Acute
[2017-02-18] MEDS: IPRATROPIUM/ALBUTEROL 3 ML DEYVIAL IH SCH ×2 (11:38→17:36)
--- NOTE | 2017-02-18 13:14 | ECHO ---
[id number] + + [address] : : [place] [address] : : [phone] + Adult Echocardiographic Report + ------+ :Name: BOONE FOLEY KStudy Date: 02/18/2017 11:54 AM : : Hospital Admission Number: [id number] Justoo n: 378: :: 1955 Gender: Male Height: 67 in : :Age: 61 yrs Race: WH Weight: 249 lb : :Reason For Study: CHF : : BSA: 2.2 meters 2 : :History: CHF : + ------+ MMode/2D Measurements \T\ Calculations IVSd: 0.99 cm RVDd: 3.6 cm FS: 36.3 % Ao root diam: LVPWd: 0.85 cm LVIDd: 5.2 cm EDV(Teich): 3.5 cm LVIDs: 3.3 cm 130.4 ml ESV(Teich): 44.8 ml EF(Teich): 65.6 % LVLd ap4: 8.5 cm SV(MOD-sp4): EDV(MOD-sp4): 70.0 ml 128.0 ml LVLs ap4: 7.2 cm ESV(MOD-sp4): 58.0 ml EF(MOD-sp4): 54.7 % Normal Measurement Values: + + :LVIDd (3.5-5.7cm) IVSd (0.6-1.1cm) LVPWd (0.6-1.1cm) Aortic Root (2.0-3.7cm)Left Atrium (1.5-4.0cm): :LV Vol(d) (76-115ml) LV Vol(s) (29-48ml) Ejec Fraction (50-65%)PV Parish (0.6- 1.2m/s) TV Parish (0.4-1.0m/s) : :MV E Parish (0.8-1.0m/s)MV A Parish (0.3-1.0m/s)LVOT Parish (0.7-1.2m/s) Asc Ao Parish ( 0.9-1.8m/s) : + + Doppler Measurements \T\ Calculations MV E max parish: Ao V2 max: LV V1 max: PA V2 max: 86.9 cm/sec 139.6 cm/sec 106.6 cm/sec 86.9 cm/sec Ao max PG: LV V1 max PG: PA max P.8 mmHg 4.5 mmHg 3.0 mmHg TR max parish: 247.2 cm/sec TR max P.5 mmHg RAP systole: 10.0 mmHg RVSP(TR): 34.5 mmHg Left Ventricle The left ventricle is normal in size. There is normal left ventricular wall thickness. Left ventricular systolic function is low normal. Ejection Fraction = 50-55%. The left ventricular wall motion is normal. Right Ventricle The right ventricle is normal in size and function. Atria The left atrium is mildly dilated. The Left Atrial Volume is 35 ml/m2. Right atrial size is normal. Mitral Valve The mitral valve leaflets appear thickened, but open well. There is no mitral valve stenosis. There is mild mitral regurgitation. Tricuspid Valve The tricuspid valve is normal in structure and function. There is no tricuspid stenosis. There is mild tricuspid regurgitation. Right ventricular systolic pressure is 35mmHg. There is Doppler evidence for mild pulmonary hypertension. Aortic Valve The aortic valve is trileaflet. There is mild aortic valve calcification. There is no aortic stenosis. There is no aortic insufficiency. Pulmonic Valve The pulmonic valve is normal in structure and function. There is no pulmonic valvular regurgitation. Great Vessels The aortic root is normal size. Pericardium/Pleural There is no pericardial effusion. Conclusion A two-dimensional transthoracic echocardiogram with M-mode and Doppler was performed. NLeft ventricular systolic function is low normal. Ejection Fraction = 50-55%. The left ventricular wall motion is normal. The left atrium is mildly dilated. The Left Atrial Volume is 35 ml/m2. There is mild mitral regurgitation. There is mild tricuspid regurgitation. Right ventricular systolic pressure is 35mmHg. There is Doppler evidence for mild pulmonary hypertension. No prior echo Final Reading Physician: Dr rEika Ho electronically signed on 02/18/2017 01:12 PM Ordering Physician: Elaine Workman Performed By: Ashley Brown
--- NOTE | 2017-02-18 14:29 | PCMIDPN ---
Assessment/Plan: Assessment/Plan: 1. Sepsis secondary to RLE cellulitis: - Currently on broad antbx with vanco, cefepime, clinda. - wound care following. - blood cx pending - TTE pending - wbc still quite elevated. Creatinine at 2.5 (down form 3.4) - may need imaging of RLE if doesn't show improvement. meds vanco 1.5gm daily cefpime 1g anika clinda 600mg q8 Subjective: afebrile. less discomfort involving legs. denies sob, abd pain or diarrhea. Objective: Vital Signs Temp Pulse Resp BP Pulse Ox 36.9 C 91 18 129/59 H 91 L 02/18/17 12:00 02/18/17 12:00 02/18/17 12:00 02/18/17 12:00 02/18/17 12:00 Laboratory Results 02/18/17 04:45 02/18/17 04:45 02/17/17 02/18/17 02/19/17 05:59 05:59 05:59 Intake Total 100 Output Total 1999 650 Balance -1900 -650 - Physical Exam General Appearance: alert, no apparent distress Respiratory: lungs clear Cardiac/Chest: regular rate, rhythm Extremities: swelling Abdomen: normal bowel sounds, non-tender, soft, No distended Skin: erythema (RLE : significant erythema involving leg up to knee. 2nd toe with wound, maceration noted. tender to palpate. ) ICD10 Worksheet Patient Problems: Problems Problem Status Onset Cellulitis and abscess of leg Acute Peripheral edema Acute CHF (congestive heart failure) Acute Peripheral edema Acute
[2017-02-18] MEDS: VANCOMYCIN 1.5 GM in D5W 250 ML IV SCH (17:08)
[2017-02-18] MEDS: SENNOSIDES 1 TAB PO SCH (20:37)
[2017-02-18 21:25] LABS: PROTIME(PATIENT) 47.9 SEC (12.0-15.0)
[2017-02-18 21:27] LABS: INR 5.06 (0.83-1.16)
[2017-02-18] MEDS: WARFARIN SODIUM 3 MG TAB PO SCH (21:46)
[2017-02-19] MEDS: CLINDAMYCIN 600 MG/DEXTROSE 50 ML IV SCH ×3 (05:30→21:45)
[2017-02-19 06:08] LABS: ADD DIFF? YES; ADD MORPH? NO; ATYPICAL LYMPHOCYTE FLAG 0 (0-99); FRAGMENT RBC FLAG 0 (0-99); HEMATOCRIT 29.6 % (40.0-51.0); HEMOGLOBIN 10.6 g/dL (13.7-17.5); LIPEMIA HEMOLYSIS FLAG 90 (0-99); MEAN CELL HEMOGLOBIN CONCENTR. 35.8 g/dL (32.4-36.7); MEAN CELL VOLUME 92.2 fL (81.5-99.8); MEAN PLATELET VOLUME 10.3 fL (8.7-11.7); PLATELET CLUMPS FLAG 0 (0-99); PLATELET COUNT 240 10^3/uL (150-400); RED BLOOD CELL COUNT 3.21 10^6/uL (4.40-6.38); RED CELL DISTRIBUTION WIDTH 14.3 % (11.5-15.2)
[2017-02-19 06:12] LABS: PROTIME(PATIENT) 59.8 SEC (12.0-15.0)
[2017-02-19 06:19] LABS: ALANINE AMINOTRANSFERASE 28 IU/L (21-72); ALBUMIN 2.1 g/dL (3.5-5.0); ALKALINE PHOSPHATASE 91 IU/L (38-126); ANION GAP 7 mEq/L (8-16); ASPARTATE AMINOTRANSFERASE 41 IU/L (17-59); BILIRUBIN,TOTAL 0.8 mg/dL (0.1-1.4); CALCIUM 7.9 mg/dL (8.5-10.4); CARBON DIOXIDE 20 mEq/l (22-31); CHLORIDE 103 mEq/L (97-110); CREATININE 1.8 mg/dL (0.7-1.3); GLOMERULAR FILTRATION RATE 38; GLUCOSE 103 mg/dL (70-100); POTASSIUM 3.8 mEq/L (3.5-5.2); SODIUM 130 mEq/L (134-144)
[2017-02-19 06:20] LABS: ADD SCAN? NO; INR 6.67 (0.83-1.16); LEFT SHIFT FLG 110 (0-99)
[2017-02-19] MEDS: IPRATROPIUM/ALBUTEROL 3 ML DEYVIAL IH SCH ×4 (06:26→16:13)
[2017-02-19 06:44] LABS: PLATELET ESTIMATE ADEQUATE (ADEQ)
[2017-02-19 06:46] LABS: MACROCYTES 1+; TOXIC GRANULATION PRESENT
[2017-02-19] MEDS: CEFEPIME HCL 1 GM in D5W 50 ML IV SCH (08:47)
[2017-02-19] MEDS: risperiDONE 2 MG TAB PO SCH ×2 (08:49→21:45)
[2017-02-19] MEDS: DILTIAZEM CD 180 MG CAP PO SCH (08:49)
[2017-02-19] MEDS: METOPROLOL TARTRATE 50 MG TAB PO SCH ×2 (08:49→21:47)
[2017-02-19] MEDS: morphINE SR 15 MG TAB PO SCH ×2 (08:50→21:47)
[2017-02-19] MEDS: CYANO/VITAMIN B12 1000 MCG TAB PO SCH (08:50)
--- NOTE | 2017-02-19 11:35 | PCMIDPN ---
Assessment/Plan: Assessment/Plan: * Sepsis due to right lower extremity cellulitis: Overall cellulitis without significant interval change other than slightly less intense erythema and decreased edema. Remains with profound leukocytosis. Will proceed with MRI of right lower extremity to assess for abscess or osteomyelitis (2nd toe of particular concern). Will need to be noncontrast study with elevated creatinine. Continue empiric antibiotic therapy with vancomycin, cefepime, and clindamycin (toxin production). Vancomycin trough level was obtained after 1st dose and does not represent true trough. May be able to narrow therapy over next 24-48 hours. Findings and plan discussed with Vanessa Contreras NP today. 02/19/17 11:32 02/19/17 11:35 02/19/17 11:36 Subjective: Patient with persistent but less prominent leg pain. Objective: Vital Signs Temp Pulse Resp BP Pulse Ox 37.3 C 102 H 18 110/68 91 L 02/19/17 07:23 02/19/17 07:23 02/19/17 07:23 02/19/17 07:23 02/19/17 07:23 Laboratory Results 02/19/17 05:40 02/19/17 05:40 02/18/17 02/19/17 02/20/17 05:59 05:59 05:59 Intake Total 100 1590 Output Total 2000 2150 Balance -1900 -560 Vancomycin # 2 Cefepime # 2 Clindamycin # 2 Blood cultures x2 no growth Laboratory Tests 02/18/17 02/19/17 16:00 05:40 INR 6.67 H* Vancomycin Trough < 5.0 L - Physical Exam General Appearance: alert, no apparent distress EENT: No scleral icterus Respiratory: lungs clear, No respiratory distress Cardiac/Chest: tachycardia, irregularly irregular Extremities: inflammation (Right lower extremity with persistent erythema in similar distribution to prior; superficial ulcerations at sites of prior bulla; edema has decreased; ulceration over 2nd toe without purulent drainage) Abdomen: non-tender, No distended - Line/s RUE PICC Lines: No drainage, No erythema ICD10 Worksheet Patient Problems: Problems Problem Status Onset Cellulitis and abscess of leg Acute Peripheral edema Acute CHF (congestive heart failure) Acute Peripheral edema Acute
--- NOTE | 2017-02-19 13:31 | HOSPPROG ---
Hospitalist Progress Note Assessment/Plan: 61-year-old with chronic schizoaffective disorder in long-term care at [facility] is admitted with severe cellulitis and sepsis. This is my first encounter , chart reviewed. D/W Dr Ralph. # severe cellulitis right lower extremity in the setting of chronic lymphedema complicated by sepsis with leukocytosis and tachycardia. He has a normal lactate. He has a history of polymicrobial infections. Currently on broad- spectrum antibiotics per Infectious Disease will continue to monitor I suspect this will take a long time to resolve given the lymphedema. * Appreciate Infectious Disease consult * MRI with out to assume no abscess * Continue antibiotics * Continue to monitor CBC will check C diff with any evidence of diarrhea #Leukocytosis * significant * trending down with treatment * cont to follow * consider other etiol besides cellulits # chronic lymphedema with possible pulmonary hypertension. * ECHO EF 50% # acute on chronic renal failure with evidence of urinary retention on admission. Some improvement with hydration and David placement. Renal ultrasound reviewed * Continue David drainage will eventually need urology follow-up will likely need to go home on catheter * Creatinine improved likely related to david placement. consider Nephrology consult if it does not cont to be stable # atrial fibrillation on anticoagulation with Coumadin complicated by elevated INR and mild tachycardia * Digoxin on hold due to the increased level with renal failure. Will restart dig today given improvement in renal function. Dig level 1 today. * Continue diltiazem * Coumadin on hold until INR less than 3.2. * may need to give some vit k if conts to climb # acute respiratory failure, Very low risk for PE given therapeutic INR I suspect this is likely from COPD and will start duo nebs * Duo nebs daily * Oxygen as needed * Could consider prednisone if develops wheezing or worsening shortness of breath * nicotine patch # probable COPD with ongoing tobacco use, see above # hypertension # gout # schizoaffective disorder, chronic and stable will likely return to [facility] for long-term care after hospitalization Disposition: Patient will likely need several days of hospitalization for improvement in his severe cellulitis and renal failure. Plan is to eventually return to [facility] with for long-term care Subjective: Some pain and discomfort in leg. Feeling tired. Objective: Vital Signs Temp Pulse Resp BP Pulse Ox 36.6 C 102 H 18 120/62 90 L 02/19/17 12:00 02/19/17 07:23 02/19/17 12:00 02/19/17 12:00 02/19/17 12:00 Laboratory Results 02/19/17 05:40 02/19/17 05:40 02/18/17 02/19/17 02/20/17 05:59 05:59 05:59 Intake Total 100 1590 Output Total 1999 2150 Balance -1900 -560 PT 59.8 SEC (12.0-15.0) H D 02/19/17 05:40 INR 6.67 (0.83-1.16) H* 02/19/17 05:40 - Physical Exam Constitutional: chronically ill appearing, obese, uncomfortable Eyes: PERRL, anicteric sclera, EOMI Ears, Nose, Mouth, Throat: moist mucous membranes, hearing normal, ears appear normal Cardiovascular: irregularly irregular, edema, No JVD Respiratory: no respiratory distress, no rales or rhonchi, reduced air movement Gastrointestinal: normoactive bowel sounds, No tenderness, No ascites Genitourinary: david in urethra Skin: warm, no fluctuance, erythema, No mottled Musculoskeletal: pain with ROM, muscular tenderness, generalized weakness Psychiatric: interacting appropriately, not anxious, poor insight, poor judgement, poor memory ICD10 Worksheet Patient Problems: Problems Problem Status Onset CHF (congestive heart failure) Acute Peripheral edema Acute Peripheral edema Acute Cellulitis and abscess of leg Acute
[2017-02-19] MEDS: VANCOMYCIN 1.5 GM in D5W 250 ML IV SCH (15:36)
[2017-02-19] MEDS: DIGOXIN 125 MCG TAB PO SCH (15:41)
[2017-02-19 16:18] LABS: ANION GAP 11 mEq/L (8-16); CALCIUM 7.6 mg/dL (8.5-10.4); CARBON DIOXIDE 18 mEq/l (22-31); CHLORIDE 103 mEq/L (97-110); CREATININE 1.6 mg/dL (0.7-1.3); GLOMERULAR FILTRATION RATE 44; GLUCOSE 121 mg/dL (70-100); POTASSIUM 3.8 mEq/L (3.5-5.2); SODIUM 132 mEq/L (134-144)
[2017-02-19] MEDS: SENNOSIDES 1 TAB PO SCH (21:46)
[2017-02-19] MEDS ORDERED: IPRATROPIUM/ALBUTEROL 3 ML DEYVIAL IH PRN (22:03)
[2017-02-20] MEDS: CLINDAMYCIN 600 MG/DEXTROSE 50 ML IV SCH ×3 (06:00→21:28)
[2017-02-20 06:11] LABS: HEMOGLOBIN 10.3 g/dL (13.7-17.5); MEAN CELL HEMOGLOBIN 33.4 pg (27.9-34.1); MEAN CELL HEMOGLOBIN CONCENTR. 35.5 g/dL (32.4-36.7); MEAN CELL VOLUME 94.2 fL (81.5-99.8); RED BLOOD CELL COUNT 3.08 10^6/uL (4.40-6.38); RED CELL DISTRIBUTION WIDTH 14.6 % (11.5-15.2)
[2017-02-20 06:20] LABS: PROTIME(PATIENT) 56.7 SEC (12.0-15.0)
[2017-02-20 06:46] LABS: INR 6.32 (0.83-1.16)
[2017-02-20] MEDS: CEFEPIME HCL 1 GM in D5W 50 ML IV SCH (09:14)
[2017-02-20] MEDS: morphINE SR 15 MG TAB PO SCH ×2 (09:15→20:06)
[2017-02-20] MEDS: DIGOXIN 125 MCG TAB PO SCH (09:15)
[2017-02-20] MEDS: risperiDONE 2 MG TAB PO SCH ×2 (09:16→20:06)
[2017-02-20] MEDS: DILTIAZEM CD 180 MG CAP PO SCH (09:16)
[2017-02-20] MEDS: METOPROLOL TARTRATE 50 MG TAB PO SCH ×2 (09:16→20:05)
[2017-02-20] MEDS: CYANO/VITAMIN B12 1000 MCG TAB PO SCH (09:16)
--- NOTE | 2017-02-20 09:54 | WOCRNPDOC ---
WOCRN Advanced Assessment Note - Skin Integrity Problem, Advanced Assess Right Fourth Toe Dressing Type: Allevyn Life Aria Wound Tissue: Swollen Skin Integrity Problem Comment: Base of toe with small area of necrosis. This was mechanically debrided to clean tissue: 0.5x0.5x0.2. Soaked with puracyn antimicrobial wound irrigation. Left Fourth Toe Dressing Type: Iodoflex, Open to Air Exudate Amount: None Integumentary Issue Intervention: Dressing Changed Aria Wound Swelling: Moderate Wound Bed Constitution: Smooth Tissue Skin Integrity Problem Comment: Iodoflex that had been applied last night had turned white. It was adhered to a layer of necrosis over the wound. This was mechanically debrided to healthy tissue, with moderate sangenous drainage. Soaked with puracyn wound irrigation for 6 min. Puracyn wound gel applied to wound bed along with stimulen collagen. Covered with Enluxtra dressing and secured with tape. Mariya GLEZ in room for care. Wound care will round tomorrow. Right Anterior Lower Leg Blister Dressing Type: Open to Air Exudate Amount: Moderate Exudate Characteristic(s): Serous Integumentary Issue Intervention: Dressing Applied Aria Wound Tissue: Erythema, Hot, Scaly, Venous Dermatitis, Shiny Aria Wound Swelling: Severe Wound Bed Color: [place], Yellow Wound Bed Constitution: Smooth Tissue (60%), Adhered Slough (thin layer 40%), De -roofed Serous Blister Wound Edges: Attached Skin Integrity Problem Comment: Wound bed shiny and dry. Soaked with puracyn wound irrigation for 6 min. Puracyn wound gel applied to wound bed. Covered with mepilex transfer and then 1/2 of a chux. This was secured with kerlix. Mariya GLEZ in room for care. Wound care will round tomorrow. Optilock dressings that were ordered were getting overwhelmed and were being changed more than daily. Right Posterior Lower Leg Blister Dressing Type: Mepilex Transfer Dressing Description: Intact, Shadowed Exudate Amount: Moderate Exudate Characteristic(s): Serous Integumentary Issue Intervention: Dressing Changed Aria Wound Tissue: Erythema, Hot, Venous Dermatitis Aria Wound Swelling: Severe Wound Bed Color: [place] Wound Bed Constitution: Smooth Tissue, De-roofed Serous Blister Wound Edges: Attached Skin Integrity Problem Comment: Wound bed shiny and dry. Soaked with puracyn wound irrigation for 6 min. Puracyn wound gel applied to wound bed. Covered with mepilex transfer and then 1/2 of a chux. This was secured with kerlix. Mariya RN in room for care. Wound care will round tomorrow. Right Second Toe Dressing Type: Allevyn Life, Iodoflex Dressing Description: Clean/Dry, Intact Exudate Amount: Minimal Exudate Characteristic(s): Bloody Integumentary Issue Intervention: Dressing Changed Aria Wound Tissue: Erythema, Macerated, Scaly Wound Bed Color: Red Wound Bed Constitution: Granulation Tissue, Undermining (0.2 cm circumferentially) Wound Edges: Not Attached, Thick Skin Integrity Problem Comment: Wound edges mildly necrotic with slight undermining circumferentially. Iodoflex that was applied last night had turned white and also was adhered to a layer of necrosis. Wound mechanically debrided to granulation tissue, although it is non healthy friable granulation. Soaked with puracyn wound irrigation for 6 min. Puracyn wound gel applied to wound bed along with stimulen collagen. Covered with Enluxtra dressing and secured with tape. Mariya GLEZ in room for care. Wound care will round tomorrow. Right Lower Lateral Leg Dressing Type: Open to Air Exudate Amount: Moderate Exudate Characteristic(s): Serous Integumentary Issue Intervention: Dressing Applied Aria Wound Tissue: Erythema, Hot, Swollen, Venous Dermatitis, Shiny Aria Wound Swelling: Severe Wound Bed Constitution: Granulation Tissue (30%), Smooth Tissue (40%), Adhered Slough (thin layer 30%), De-roofed Serous Blister Skin Integrity Problem Comment: Deepest of right lower leg wounds. Full thickness in some areas. Wound bed shiny and dry. Soaked with puracyn wound irrigation for 6 min. Puracyn wound gel applied to wound bed. Covered with mepilex transfer and then 1/2 of a chux. This was secured with kerlix. Mariya GLEZ in room for care. Wound care will round tomorrow. Right Posterior Thigh Dressing Type: Allevyn Life Dressing Description: Clean/Dry, Intact Exudate Amount: None Integumentary Issue Intervention: Visualized Under Dressing Wound Bed Color: Black, Brown, Yellow Wound Bed Constitution: Mixed Loose & Adhered Slough/Eschar Skin Integrity Problem Comment: No concerns. Wound bed dry. Needs more moisture. Will update orders.
--- NOTE | 2017-02-20 12:43 | HOSPPROG ---
Hospitalist Progress Note Assessment/Plan: 61-year-old with chronic schizoaffective disorder in long-term care at [facility] is admitted with severe cellulitis and sepsis. # severe cellulitis right lower extremity in the setting of chronic lymphedema complicated by sepsis with leukocytosis and tachycardia. He has a normal lactate. He has a history of polymicrobial infections. Currently on broad- spectrum antibiotics per Infectious Disease will continue to monitor I suspect this will take a long time to resolve given the lymphedema. * Appreciate Infectious Disease consult * MRI shows fluid without abscess * Continue antibiotics * Continue to monitor CBC will check C diff with any evidence of diarrhea #Leukocytosis * significant * trending down with treatment * cont to follow * consider other etiol besides cellulitis # chronic lymphedema with possible pulmonary hypertension. * ECHO EF 50% # acute on chronic renal failure with evidence of urinary retention on admission. Some improvement with hydration and David placement. Renal ultrasound reviewed * Continue David drainage will eventually need urology follow-up will likely need to go home on catheter * Creatinine improved likely related to david placement. consider Nephrology consult if it does not cont to be stable # atrial fibrillation on anticoagulation with Coumadin complicated by elevated INR and mild tachycardia * Digoxin on hold due to the increased level with renal failure. Will restart dig today given improvement in renal function. Dig level 1 today. * Continue diltiazem * Coumadin on hold until INR less than 3.2. * may need to give some vit k if conts to climb # acute respiratory failure, Very low risk for PE given therapeutic INR I suspect this is likely from COPD and will start duo nebs * Duo nebs daily * Oxygen as needed * Could consider prednisone if develops wheezing or worsening shortness of breath * nicotine patch # probable COPD with ongoing tobacco use, see above # hypertension # gout # schizoaffective disorder, chronic and stable will likely return to [place] [facility] for long-term care after hospitalization Disposition: Patient will likely need several days of hospitalization for improvement in his severe cellulitis and renal failure. Plan is to eventually return to [place] with for long-term care Subjective: Tired. Some pain. Objective: Vital Signs Temp Pulse Resp BP Pulse Ox 36.8 C 74 20 120/70 89 L 02/20/17 08:00 02/20/17 08:00 02/20/17 08:00 02/20/17 08:00 02/20/17 08:00 Microbiology 02/17/17 13:59 Urine Culture - Final Urine,Clean Catch Laboratory Results 02/20/17 06:00 02/19/17 14:35 02/19/17 02/20/17 02/21/17 05:59 05:59 05:59 Intake Total 1590 550 Output Total 2150 1050 600 Balance -560 -500 -600 PT 56.7 SEC (12.0-15.0) H 02/20/17 06:00 INR 6.32 (0.83-1.16) H* 02/20/17 06:00 - Physical Exam Constitutional: chronically ill appearing, obese Eyes: PERRL, anicteric sclera Ears, Nose, Mouth, Throat: moist mucous membranes, hearing normal Cardiovascular: regular rate and rhythym, edema Respiratory: no respiratory distress, reduced air movement Gastrointestinal: No tenderness, No ascites Skin: warm, erythema Musculoskeletal: muscular tenderness, generalized weakness Psychiatric: not anxious, poor insight, poor judgement, poor memory ICD10 Worksheet Patient Problems: Problems Problem Status Onset CHF (congestive heart failure) Acute Peripheral edema Acute Peripheral edema Acute Cellulitis and abscess of leg Acute
[2017-02-20] MEDS: VANCOMYCIN 1.5 GM in D5W 250 ML IV SCH (15:50)
--- NOTE | 2017-02-20 18:39 | PCMIDPN ---
Assessment/Plan: Assessment: Sepsis secondary to right lower extremity cellulitis. Blood cultures remain negative. Leukocytosis persists however. Patient currently empirically managed on cefepime, clindamycin and vancomycin. Will continue this regimen until see signs of improvement. Plan: 1. Continue vancomycin, cefepime and clindamycin. 2. Upcoming vancomycin trough prior to next dose. 3. Follow laboratory values including leukocytosis. 4. Follow clinical appearance of right lower extremity. 02/20/17 19:24 02/20/17 19:24 02/20/17 19:25 Subjective: Patient is resting in his chair in his hospital room. He states he is doing horribly. He does not note any new fevers or chills however. He also appears to be tolerating his 3 antibiotics without issue. Objective: Vancomycin # 3 Cefepime # 3 Clindamycin # 3 Vital Signs Temp Pulse Resp BP Pulse Ox 37.1 C 94 20 108/65 96 02/20/17 16:00 02/20/17 16:00 02/20/17 16:00 02/20/17 16:00 02/20/17 16:00 Microbiology 02/17/17 13:59 Urine Culture - Final Urine,Clean Catch Laboratory Results 02/20/17 06:00 02/19/17 14:35 02/19/17 02/20/17 02/21/17 05:59 05:59 05:59 Intake Total 1590 550 Output Total 2150 1050 600 Balance -560 -500 -600 - Physical Exam General Appearance: WD/WN, alert, no apparent distress, toxic (Mild to moderate) Respiratory: crackles, coarse breath sounds, No lungs clear, No respiratory distress, No wheezing Cardiac/Chest: regular rate, rhythm, No tachycardia Extremities: calf tenderness, inflammation, swelling (Right lower extremity), erythema, No non-tender, No normal inspection Skin: normal color, warm/dry, No rash Neuro/Psych: alert, normal mood/affect, oriented x 3 ICD10 Worksheet Patient Problems: Problems Problem Status Onset Cellulitis and abscess of leg Acute Peripheral edema Acute CHF (congestive heart failure) Acute Peripheral edema Acute
[2017-02-20] MEDS: NS 1,000 ML IV SCH (20:40)
[2017-02-20] MEDS: SENNOSIDES 1 TAB PO SCH (20:40)
[2017-02-21] MEDS: CLINDAMYCIN 600 MG/DEXTROSE 50 ML IV SCH ×3 (05:06→22:05)
[2017-02-21 05:55] LABS: PROTIME(PATIENT) 55.8 SEC (12.0-15.0)
[2017-02-21 06:07] LABS: INR 6.12 (0.83-1.16)
[2017-02-21] MEDS: NS 1,000 ML IV SCH (07:04)
[2017-02-21] MEDS: CEFEPIME HCL 1 GM in D5W 50 ML IV SCH (09:26)
[2017-02-21] MEDS: risperiDONE 2 MG TAB PO SCH ×2 (09:37→22:05)
[2017-02-21] MEDS: CYANO/VITAMIN B12 1000 MCG TAB PO SCH (09:37)
[2017-02-21] MEDS: morphINE SR 15 MG TAB PO SCH ×2 (09:37→22:06)
[2017-02-21] MEDS: DILTIAZEM CD 180 MG CAP PO SCH (09:38)
[2017-02-21] MEDS: DIGOXIN 125 MCG TAB PO SCH (09:38)
[2017-02-21] MEDS: METOPROLOL TARTRATE 50 MG TAB PO SCH ×2 (09:38→22:06)
--- NOTE | 2017-02-21 13:28 | HOSPPROG ---
Hospitalist Progress Note Assessment/Plan: 61-year-old with chronic schizoaffective disorder in long-term care at [place] is admitted with severe cellulitis and sepsis. # severe cellulitis right lower extremity in the setting of chronic lymphedema complicated by sepsis with leukocytosis and tachycardia. He has a normal lactate. He has a history of polymicrobial infections. Currently on broad- spectrum antibiotics per Infectious Disease will continue to monitor I suspect this will take a long time to resolve given the lymphedema. * Appreciate Infectious Disease consult * MRI shows fluid without abscess * Continue antibiotics * Continue to monitor CBC will check C diff with any evidence of diarrhea #Leukocytosis * significant * trending down with treatment * cont to follow * consider other etiol besides cellulitis # chronic lymphedema with possible pulmonary hypertension. * ECHO EF 50% # acute on chronic renal failure with evidence of urinary retention on admission. Some improvement with hydration and David placement. Renal ultrasound reviewed * Continue David drainage will eventually need urology follow-up will likely need to go home on catheter * Creatinine improved likely related to david placement. consider Nephrology consult if it does not cont to be stable # atrial fibrillation on anticoagulation with Coumadin complicated by elevated INR and mild tachycardia * Digoxin on hold due to the increased level with renal failure. Will restart dig today given improvement in renal function. Dig level 1 today. * Continue diltiazem * Coumadin on hold until INR less than 3.2. * may need to give some vit k if conts to climb # acute respiratory failure, Very low risk for PE given therapeutic INR I suspect this is likely from COPD and will start duo nebs * Duo nebs daily * Oxygen as needed * Could consider prednisone if develops wheezing or worsening shortness of breath * nicotine patch # probable COPD with ongoing tobacco use, see above # hypertension # gout # schizoaffective disorder, chronic and stable will likely return to [place] for long-term care after hospitalization Disposition: Plan is to eventually return to [place] with for long-term care Subjective: No pain currently. Alert in bed. Objective: Vital Signs Temp Pulse Resp BP Pulse Ox 36.9 C 88 18 114/72 85 L 02/21/17 11:39 02/21/17 11:39 02/21/17 11:39 02/21/17 11:39 02/21/17 11:39 Laboratory Results 02/20/17 06:00 07/12/17 14:35 02/20/17 02/21/17 02/22/17 05:59 05:59 05:59 Intake Total 550 1243 Output Total 1050 2200 650 Balance -500 -957 -650 PT 55.8 SEC (12.0-15.0) H 02/21/17 04:35 INR 6.12 (0.83-1.16) H* 02/21/17 04:35 - Physical Exam Constitutional: chronically ill appearing, obese Eyes: PERRL, anicteric sclera Ears, Nose, Mouth, Throat: ears appear normal, dry mucous membranes Cardiovascular: edema, No JVD Respiratory: no respiratory distress, reduced air movement Gastrointestinal: No tenderness, No guarding Skin: warm, erythema, induration, pressure ulcer Musculoskeletal: pain with ROM, muscular tenderness, generalized weakness Neurologic: No AAOx3 Psychiatric: not anxious, poor insight, poor judgement, poor memory ICD10 Worksheet Patient Problems: Problems Problem Status Onset CHF (congestive heart failure) Acute Peripheral edema Acute Peripheral edema Acute Cellulitis and abscess of leg Acute
--- NOTE | 2017-02-21 14:27 | WOCRNPDOC ---
JESS Advanced Assessment Note - Skin Integrity Problem, Advanced Assess Left Heel Pressure Injury Dressing Type: Open to Air Exudate Amount: None Exudate Characteristic(s): None Aria Wound Tissue: Dry, Calloused Aria Wound Swelling: None Wound Bed Constitution: Intact Serous Filled Blister Site Odor: None Site Measurement - Head-to-Toe Length X Width X Depth (cm): 4.1cmx3.9cmx 0.4 cm (raised above skin level) Pressure Injury Stage: Stage 2 Pressure Injury Present on Admit: No Skin Integrity Problem Comment: Large, intact serous-filled blister noted to patient's L heel, consistent in appearance w/ a stage 2 pressure injury. While patient does have extensive edema to his bilateral lower extremities, as well as other blisters on his lower legs, the location of this blister over a bony prominence is indicative of an injury r/t pressure. Due to the highly exudative wounds on his lower extremities, placing him in an off-loading heel boot would most likely trap exudate and necessitate frequent cleaning of the boot. Instead , order placed to float patient's heels on a pillow at all times while in bed. Right Heel Pressure Injury Dressing Type: Open to Air Exudate Amount: None Exudate Characteristic(s): None Integumentary Issue Intervention: Dressing Applied Aria Wound Tissue: Dry, Calloused Aria Wound Swelling: None Wound Bed Constitution: Intact Serous Filled Blister Site Odor: None Site Measurement - Head-to-Toe Length X Width X Depth (cm): 4.2jhh5emj6.4cm ( raised above skin level) Pressure Injury Stage: Stage 2 Pressure Injury Present on Admit: No Skin Integrity Problem Comment: Large, intact blister noted to R heel, over a bony prominence, consistent in appearance with a stage 2 pressure injury. Patient is already on a low air loss, pressure-relieving support surface, but has had significant edema to his BLE which may be exacerbating and increasing the amount of pressure over this site. Will initiate protective foam dressing, as well as complete off-loading of heels using pillows. Report given to autocad designer Nina. Right Fourth Toe Other Dressing Type: Enluxtra dressing and Medipore Dressing Description: Clean/Dry, Intact Exudate Amount: Minimal Exudate Color: Reddish/Yellow Exudate Characteristic(s): Serosanguinous Integumentary Issue Intervention: Dressing Changed, Non-Silver Antimicrobial Gel Applied (Puracyn) Aria Wound Tissue: Erythema, Raw, Swollen Aria Wound Swelling: Moderate Wound Bed Color: Red Wound Bed Constitution: Smooth Tissue, Mixed Loose & Adhered Slough/Eschar Site Odor: None Skin Integrity Problem Comment: Thin rim of eschar on margins of wound, w/ mixed granulation/smooth tissue medially. Aria-wound tissues remain edematous and weepy. Will continue w/ current tx, and Enluxtra appears to be managing exudate well. Left Fourth Toe Other Dressing Type: Enluxtra foam dressing and Medipore Dressing Description: Intact Exudate Amount: Moderate Exudate Color: Reddish/Yellow Exudate Characteristic(s): Serosanguinous Integumentary Issue Intervention: Dressing Changed Aria Wound Tissue: Erythema, Raw, Swollen Aria Wound Swelling: Moderate Wound Bed Color: Red Wound Bed Constitution: Granulation Tissue Site Odor: None Skin Integrity Problem Comment: Granulation tissue noted throughout, w/ no apparent residual necrosis. Site cleansed w/ 5 minute Puracyn wound cleanser soak, followed by Puracyn gel and Enluxtra foam dressing. autocad designer Nina present and assisting. Right Anterior Lower Leg Blister Dressing Type: Mepilex Transfer Other Dressing Type: Chux wrapped around leg and secured Dressing Description: Saturated Exudate Amount: Excessive Exudate Color: Reddish/Yellow Exudate Characteristic(s): Liquid, Serosanguinous Integumentary Issue Intervention: Dressing Changed, Non-Silver Antimicrobial Gel Applied (Puracyn) Aria Wound Tissue: Erythema, Raw, Swollen, Weeping, Denuded, Venous Dermatitis Aria Wound Swelling: Severe Wound Bed Color: Red Wound Bed Constitution: Smooth Tissue, De-roofed Serous Blister Skin Integrity Problem Comment: Large de-roofed blister w/ loose yellow slough noted. This was easily removed w/ gauze and Puracyn cleanser during dressing change, revealing wound bed comprised of smooth, non-granulating tissue underneath. Aria-wound skin has +4 pitting edema, w/ significant venous dermatitis. Entire leg remains weepy and exudative, necessitating changes of the outer chux 2x/day. Will continue with current plan, as Transfer and chux are wicking the exudate away from skin. autocad designer Nina present and assisting. Right Posterior Lower Leg Blister Dressing Type: Mepilex Transfer Other Dressing Type: Chux Exudate Amount: Excessive Exudate Color: Reddish/Yellow Exudate Characteristic(s): Serosanguinous Integumentary Issue Intervention: Dressing Changed, Non-Silver Antimicrobial Gel Applied (Puracyn) Aria Wound Tissue: Erythema, Raw, Swollen, Weeping, Venous Dermatitis Aria Wound Swelling: Severe Wound Bed Color: Red, Yellow Wound Bed Constitution: Smooth Tissue, Mixed Loose & Adhered Slough/Eschar Wound Edges: Irregular Skin Integrity Problem Comment: Much more diffuse, poorly-defined wound margins on the posterior aspect of the leg, w/ adhered slough along the posterior edge and non-granulating smooth tissue throughout. Aria-wound skin is friable and peeling. Uncertain why patient continues to have such severely edematous extremity since admission. Will continue w/ highly absorptive dressings, and also w/ instructions to keep legs elevated when up in chair. Patient's legs are too heavy for recliner, and remain dependent when he is up in the chair. Discussed plan with autocad designer Nina to prop the recliner extension up using a chair or trash can, so that the extremities are elevated. Right Second Toe Dressing Type: Other Other Dressing Type: Enluxtra foam dressing and Medipore Dressing Description: Intact Exudate Amount: Minimal Exudate Color: Reddish/Yellow Exudate Characteristic(s): Serosanguinous Integumentary Issue Intervention: Dressing Changed, Non-Silver Antimicrobial Gel Applied (Puracyn) Aria Wound Tissue: Erythema, Swollen Aria Wound Swelling: Moderate Wound Bed Color: Red, Yellow Wound Bed Constitution: Smooth Tissue, Mixed Loose & Adhered Slough/Eschar Skin Integrity Problem Comment: Wound w/ slough medially, and non-granulating smooth tissue along margins. Aria-wound is both edematous and denuded. Applied skin prep x2 aria-wound to protect skin from moisture, and reapplied Enluxtra dressing, which is managing exudate well. Right Lower Lateral Leg Dressing Type: Mepilex Transfer, Other Other Dressing Type: Chux Dressing Description: Saturated Exudate Amount: Excessive Exudate Color: Reddish/Yellow Exudate Characteristic(s): Serosanguinous Integumentary Issue Intervention: Dressing Changed, Non-Silver Antimicrobial Gel Applied (Puracyn) Aria Wound Tissue: Erythema, Raw, Swollen, Weeping, Venous Dermatitis Aria Wound Swelling: Severe Wound Bed Color: Red Wound Bed Constitution: Smooth Tissue Wound Edges: Irregular Skin Integrity Problem Comment: Non-granulating smooth tissue throughout wound, w/ friable, irregular margins. Exudate managment continues to be an issue, w/ nursing changing chux x2 during the day. Trying to manage edema better by having patient elevate legs when up in chair, which he has not been doing due to their combined weight. Discussed plan of care w/ autocad designer Mariya.
[2017-02-21] MEDS: HYDROCODONE/APAP 10/325 TAB PO PRN ×2 (14:41→18:27)
[2017-02-21] MEDS: VANCOMYCIN 1.5 GM in D5W 250 ML IV SCH (14:43)
--- NOTE | 2017-02-21 19:07 | PCMIDPN ---
Assessment/Plan: Assessment/Plan: * Sepsis due to right lower extremity cellulitis: Slow improvement in cellulitis. Blood cultures remain no growth. Continue vancomycin, cefepime and clindamycin. Anticipate may be able to discontinue clindamycin tomorrow. Continue local wound care and elevation as feasible. Follow up CBC and BMP in a.m.. 02/21/17 19:06 Subjective: Patient complains of right lower extremity pain. Objective: Vital Signs Temp Pulse Resp BP Pulse Ox 36.8 C 74 16 106/56 L 95 02/21/17 15:55 02/21/17 15:55 02/21/17 15:55 02/21/17 15:55 02/21/17 15:55 Laboratory Results 02/20/17 06:00 02/19/17 14:35 02/20/17 02/21/17 02/22/17 05:59 05:59 05:59 Intake Total 550 1243 Output Total 1050 2200 650 Balance -500 -957 -650 Blood cultures x2 no growth Laboratory Tests 02/21/17 13:45 Vancomycin Trough 14.0 - Physical Exam General Appearance: alert, no apparent distress EENT: No scleral icterus, No thrush Extremities: inflammation (Right lower extremity with decreased edema and less intense erythema; multiple ulcerations present; tender and warm throughout) Abdomen: non-tender, No distended ICD10 Worksheet Patient Problems: Problems Problem Status Onset Cellulitis and abscess of leg Acute Peripheral edema Acute CHF (congestive heart failure) Acute Peripheral edema Acute
[2017-02-21] MEDS: SENNOSIDES 1 TAB PO SCH (22:05)
[2017-02-22] MEDS: HYDROCODONE/APAP 10/325 TAB PO PRN ×2 (05:14→09:27)
[2017-02-22] MEDS: CLINDAMYCIN 600 MG/DEXTROSE 50 ML IV SCH (05:14)
[2017-02-22 05:36] LABS: ANION GAP 7 mEq/L (8-16); CALCIUM 7.7 mg/dL (8.5-10.4); CARBON DIOXIDE 18 mEq/l (22-31); CHLORIDE 110 mEq/L (97-110); CREATININE 1.4 mg/dL (0.7-1.3); GLOMERULAR FILTRATION RATE 51; GLUCOSE 101 mg/dL (70-100); POTASSIUM 4.2 mEq/L (3.5-5.2); SODIUM 135 mEq/L (134-144)
[2017-02-22 05:42] LABS: ADD DIFF? YES; ADD MORPH? NO; ADD SCAN? NO; ATYPICAL LYMPHOCYTE FLAG 20 (0-99); FRAGMENT RBC FLAG 0 (0-99); HEMOGLOBIN 10.2 g/dL (13.7-17.5); LEFT SHIFT FLG 90 (0-99); LIPEMIA HEMOLYSIS FLAG 90 (0-99); MEAN CELL HEMOGLOBIN 33.4 pg (27.9-34.1); MEAN CELL HEMOGLOBIN CONCENTR. 35.2 g/dL (32.4-36.7); MEAN CELL VOLUME 95.1 fL (81.5-99.8); MEAN PLATELET VOLUME 10.2 fL (8.7-11.7); PLATELET CLUMPS FLAG 0 (0-99); PLATELET COUNT 287 10^3/uL (150-400); RED BLOOD CELL COUNT 3.05 10^6/uL (4.40-6.38); RED CELL DISTRIBUTION WIDTH 15.2 % (11.5-15.2)
[2017-02-22 05:52] LABS: PROTIME(PATIENT) 48.1 SEC (12.0-15.0)
[2017-02-22 06:00] LABS: INR 5.08 (0.83-1.16)
[2017-02-22 07:13] LABS: MACROCYTES 2+; PLATELET ESTIMATE ADEQUATE (ADEQ)
--- NOTE | 2017-02-22 09:02 | HOSPPROG ---
Hospitalist Progress Note Assessment/Plan: # LE cellulitis, severe - hx polymicrobial - cont vanc/cefepime/clinda (december dc soon) per ID - aggressive wound care # chronic lymphedema # mild pulm htn # severe sepsis (leukocytosis, fever) d/t cellulitis, resolving # acute on chronic renal failure - suspect pre-renal although had urinary retention but no hydronephrosis - almost resolved, baseline 1.2 # acute urinary retention - will attempt to dc david today; follow closely for retention, especially with DEDE on presentation # acute hypoxic resp failure - possible d/t COPD - cont nebs # suspected COPD # permanent a-fib with supratherapeutic INR - hold warfarin - cont metop, dilt and digoxin # hypertension # gout # schizoaffective disorder, chronic and stable will likely return to [place] for long-term care after hospitalization - risperdal Subjective: no N/V/D Objective: Vital Signs Temp Pulse Resp BP Pulse Ox 36.9 C 80 16 104/59 L 95 02/22/17 08:00 02/22/17 08:00 02/22/17 08:00 02/22/17 08:00 02/22/17 08:00 Laboratory Results 02/22/17 05:10 02/22/17 05:10 02/21/17 02/22/17 02/23/17 05:59 05:59 05:59 Intake Total 1243 Output Total 2200 1900 Balance -957 -1900 PT 48.1 SEC (12.0-15.0) H 02/22/17 05:10 INR 5.08 (0.83-1.16) H* 02/22/17 05:10 chart reviewed MRI reviewed US reviewed old ECG reviewed - Physical Exam Constitutional: chronically ill appearing Ears, Nose, Mouth, Throat: other (multiple pj-oral ulcers) Cardiovascular: regular rate and rhythym, no murmur, rub, or gallop Respiratory: no respiratory distress, no rales or rhonchi Gastrointestinal: normoactive bowel sounds, soft, non-tender abdomen, no palpable masses Musculoskeletal: other (R leg with edema, erythema, open blisters) ICD10 Worksheet Patient Problems: Problems Problem Status Onset Cellulitis and abscess of leg Acute Peripheral edema Acute CHF (congestive heart failure) Acute Peripheral edema Acute
[2017-02-22] MEDS: CEFEPIME HCL 1 GM in D5W 50 ML IV SCH (09:11)
[2017-02-22] MEDS: morphINE SR 15 MG TAB PO SCH ×2 (09:11→21:05)
[2017-02-22] MEDS: METOPROLOL TARTRATE 50 MG TAB PO SCH ×2 (09:11→21:05)
[2017-02-22] MEDS: DILTIAZEM CD 180 MG CAP PO SCH (09:24)
[2017-02-22] MEDS: risperiDONE 2 MG TAB PO SCH ×2 (09:24→21:06)
[2017-02-22] MEDS: CYANO/VITAMIN B12 1000 MCG TAB PO SCH (09:24)
[2017-02-22] MEDS: DIGOXIN 125 MCG TAB PO SCH (09:24)
--- NOTE | 2017-02-22 11:39 | PCMIDPN ---
Assessment/Plan: Assessment/Plan: * Sepsis due to right lower extremity cellulitis: Continued slow improvement in cellulitis with continued need for ongoing wound care. White blood cell count decreased today. Will discontinue clindamycin as likely have achieve maximal benefit. Continue vancomycin and cefepime. Increase cefepime to q.12 hours dosing based on improved renal function. 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 Will start oral acyclovir. 02/22/17 11:39 02/22/17 11:42 Subjective: Patient with persistent leg pain although less prominent. Objective: Vital Signs Temp Pulse Resp BP Pulse Ox 36.9 C 80 16 104/59 L 95 02/22/17 08:00 02/22/17 08:00 02/22/17 08:00 02/22/17 08:00 02/22/17 08:00 Laboratory Results 02/22/17 05:10 02/22/17 05:10 02/21/17 02/22/17 02/23/17 05:59 05:59 05:59 Intake Total 1243 240 Output Total 2200 1900 250 Balance -957 -1900 -10 Laboratory Tests 02/21/17 13:45 Vancomycin Trough 14.0 Vancomycin # 5 Cefepime # 5 Clindamycin # 5 Blood cultures x2 no growth - Physical Exam General Appearance: alert, no apparent distress EENT: other (Oral ulcerations over lower lip) Extremities: inflammation (Overall erythema more park in appearance; edema slightly decreased) Abdomen: non-tender, No distended ICD10 Worksheet Patient Problems: Problems Problem Status Onset Cellulitis and abscess of leg Acute Peripheral edema Acute CHF (congestive heart failure) Acute Peripheral edema Acute
[2017-02-22] MEDS: ACYCLOVIR 400 MG TAB PO SCH ×2 (12:36→21:05)
[2017-02-22] MEDS: VANCOMYCIN 1.5 GM in D5W 250 ML IV SCH (15:46)
[2017-02-22] MEDS: SENNOSIDES 1 TAB PO SCH (21:06)
[2017-02-23 06:38] LABS: INR 3.07 (0.83-1.16); PROTIME(PATIENT) 32.1 SEC (12.0-15.0)
[2017-02-23 06:57] LABS: ANION GAP 7 mEq/L (8-16); CALCIUM 7.6 mg/dL (8.5-10.4); CARBON DIOXIDE 18 mEq/l (22-31); CHLORIDE 110 mEq/L (97-110); CREATININE 1.4 mg/dL (0.7-1.3); GLOMERULAR FILTRATION RATE 51; GLUCOSE 99 mg/dL (70-100); POTASSIUM 4.3 mEq/L (3.5-5.2); SODIUM 135 mEq/L (134-144)
[2017-02-23] MEDS: CYANO/VITAMIN B12 1000 MCG TAB PO SCH (10:16)
[2017-02-23] MEDS: DILTIAZEM CD 180 MG CAP PO SCH (10:16)
[2017-02-23] MEDS: risperiDONE 2 MG TAB PO SCH ×2 (10:16→21:47)
[2017-02-23] MEDS: ACYCLOVIR 400 MG TAB PO SCH ×2 (10:16→21:47)
[2017-02-23] MEDS: METOPROLOL TARTRATE 50 MG TAB PO SCH ×2 (10:17→21:47)
[2017-02-23] MEDS: morphINE SR 15 MG TAB PO SCH ×2 (10:17→21:47)
[2017-02-23] MEDS: DIGOXIN 125 MCG TAB PO SCH (10:17)
--- NOTE | 2017-02-23 13:14 | HOSPPROG ---
Hospitalist Progress Note Assessment/Plan: # LE cellulitis, severe - hx polymicrobial cellulitis - cont vanc (cefepime and clinda dc'd) - aggressive wound care # chronic lymphedema - restart lasix today, follow renal function closely # mild pulm htn # severe sepsis (leukocytosis, fever) d/t cellulitis, resolving # acute on chronic renal failure - suspect pre-renal although had urinary retention but no hydronephrosis - almost resolved, baseline 1.2 # acute urinary retention - attempted to remove david, but replaced overnight - will likely have to dc with david and f/u urology # acute hypoxic resp failure - possible d/t COPD - cont nebs # suspected COPD # permanent a-fib with supratherapeutic INR - hold warfarin - cont metop, dilt and digoxin # hypertension # hyponatremia - reaolved # gout # schizoaffective disorder, chronic and stable will likely return to [place] for long-term care after hospitalization - risperdal Subjective: says his legs were painful earlier but better now Objective: Vital Signs Temp Pulse Resp BP Pulse Ox 36.9 C 79 14 99/58 L 97 02/23/17 12:00 02/23/17 12:00 02/23/17 12:00 02/23/17 12:00 02/23/17 12:00 Microbiology 02/17/17 14:00 Blood Culture - Final Blood 02/17/17 12:20 Blood Culture - Final Blood Laboratory Results 02/22/17 05:10 02/23/17 06:21 02/22/17 02/23/17 02/24/17 05:59 05:59 05:59 Intake Total 1190 Output Total 1900 355 Balance -1900 835 PT 32.1 SEC (12.0-15.0) H D 02/23/17 06:21 INR 3.07 (0.83-1.16) H 02/23/17 06:21 - Physical Exam Constitutional: no apparent distress, appears nourished Cardiovascular: regular rate and rhythym, no murmur, rub, or gallop, systolic murmur Respiratory: no respiratory distress, no rales or rhonchi, reduced air movement Musculoskeletal: other (R LE with gauze dressing, marked edema and erythema) ICD10 Worksheet Patient Problems: Problems Problem Status Onset CHF (congestive heart failure) Acute Peripheral edema Acute Peripheral edema Acute Cellulitis and abscess of leg Acute
[2017-02-23] MEDS: HYDROCODONE/APAP 10/325 TAB PO PRN (15:38)
[2017-02-23] MEDS: VANCOMYCIN 1.5 GM in D5W 250 ML IV SCH (15:38)
--- NOTE | 2017-02-23 16:07 | PCMIDPN ---
Assessment/Plan: Assessment/Plan: * Sepsis due to right lower extremity cellulitis: Cellulitis gradually resolving with slow course given extensive involvement and diffuse skin ulcerations as well as chronic venous insufficiency changes. Continue vancomycin and cefepime. Follow vancomycin levels over time in the setting of persistent renal insufficiency. 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 Improved with oral acyclovir. 02/23/17 16:03 Subjective: Patient with less right lower extremity pain. Oral ulcerations less painful. Objective: Vital Signs Temp Pulse Resp BP Pulse Ox 36.9 C 79 14 99/58 L 97 02/23/17 12:00 02/23/17 12:00 02/23/17 12:00 02/23/17 12:00 02/23/17 12:00 Microbiology 02/17/17 14:00 Blood Culture - Final Blood 02/17/17 12:20 Blood Culture - Final Blood Laboratory Results 02/22/17 05:10 02/23/17 06:21 02/22/17 02/23/17 02/24/17 05:59 05:59 05:59 Intake Total 1190 Output Total 1900 355 Balance -1900 835 Vancomycin # 6 Cefepime # 6 Acyclovir # 2 - Physical Exam General Appearance: alert, no apparent distress EENT: other (Oral ulcerations diffusely but less prominent) Extremities: inflammation (Right lower extremity with decreasing edema and less prominent erythema; extensive ulcerations at sites of prior bulla present; ulceration over dorsal aspect of 2nd toe without palpable bone) Abdomen: non-tender, No distended ICD10 Worksheet Patient Problems: Problems Problem Status Onset Cellulitis and abscess of leg Acute Peripheral edema Acute CHF (congestive heart failure) Acute Peripheral edema Acute
[2017-02-23] MEDS: CEFEPIME HCL 1 GM in D5W 50 ML IV SCH (21:45)
[2017-02-23] MEDS: WARFARIN SODIUM 3 MG TAB PO SCH (21:47)
[2017-02-23] MEDS: FUROSEMIDE 40 MG TAB PO SCH (21:48)
[2017-02-23] MEDS: SENNOSIDES 1 TAB PO SCH (21:48)
[2017-02-24 05:07] LABS: ADD DIFF? YES; ADD MORPH? NO; ADD SCAN? NO; ATYPICAL LYMPHOCYTE FLAG 20 (0-99); FRAGMENT RBC FLAG 0 (0-99); HEMATOCRIT 27.2 % (40.0-51.0); HEMOGLOBIN 9.3 g/dL (13.7-17.5); LEFT SHIFT FLG 40 (0-99); LIPEMIA HEMOLYSIS FLAG 90 (0-99); MEAN CELL HEMOGLOBIN CONCENTR. 34.2 g/dL (32.4-36.7); MEAN CELL VOLUME 96.5 fL (81.5-99.8); PLATELET CLUMPS FLAG 0 (0-99); PLATELET COUNT 324 10^3/uL (150-400); RED BLOOD CELL COUNT 2.82 10^6/uL (4.40-6.38); RED CELL DISTRIBUTION WIDTH 15.6 % (11.5-15.2)
[2017-02-24 05:17] LABS: INR 2.57 (0.83-1.16); PROTIME(PATIENT) 27.9 SEC (12.0-15.0)
[2017-02-24 05:21] LABS: ANION GAP 5 mEq/L (8-16); CALCIUM 7.4 mg/dL (8.5-10.4); CARBON DIOXIDE 19 mEq/l (22-31); CHLORIDE 110 mEq/L (97-110); CREATININE 1.3 mg/dL (0.7-1.3); GLOMERULAR FILTRATION RATE 56; GLUCOSE 98 mg/dL (70-100); POTASSIUM 4.5 mEq/L (3.5-5.2); SODIUM 134 mEq/L (134-144)
[2017-02-24 06:23] LABS: PLATELET ESTIMATE ADEQUATE (ADEQ)
[2017-02-24] MEDS: CEFEPIME HCL 1 GM in D5W 50 ML IV SCH ×2 (07:54→22:12)
[2017-02-24] MEDS: CYANO/VITAMIN B12 1000 MCG TAB PO SCH (07:54)
[2017-02-24] MEDS: METOPROLOL TARTRATE 50 MG TAB PO SCH ×2 (07:55→22:15)
[2017-02-24] MEDS: risperiDONE 2 MG TAB PO SCH ×2 (07:55→22:14)
[2017-02-24] MEDS: DILTIAZEM CD 180 MG CAP PO SCH (07:55)
[2017-02-24] MEDS: FUROSEMIDE 40 MG TAB PO SCH ×2 (07:55→22:15)
[2017-02-24] MEDS: ACYCLOVIR 400 MG TAB PO SCH ×2 (07:55→22:15)
[2017-02-24] MEDS: morphINE SR 15 MG TAB PO SCH ×2 (07:55→22:12)
--- NOTE | 2017-02-24 08:44 | HOSPPROG ---
Hospitalist Progress Note Assessment/Plan: Mr. Wilcox is a 61-year-old male with a history of chronic schizophrenia, chronic lymphedema, atrial fibrillation and chronic kidney disease. He presented to the emergency room due to increased swelling and erythema on his right lower extremity in. Today is my 1st encounter with the patient. Chart reviewed. # LE cellulitis, severe - hx polymicrobial cellulitis - cont vanc 02/18(cefepime and clinda dc'd) - aggressive wound care - has ongoing leukocytosis # chronic lymphedema/venous insufficiency - Lasix resumed - creatinine is 1.3 #oral HSV -on acyclovir # mild pulmonary htn # severe sepsis (leukocytosis, fever) d/t cellulitis, resolving # acute on chronic renal failure - suspect pre-renal although had urinary retention but no hydronephrosis - almost resolved, baseline 1.2 # acute urinary retention - attempted to remove david, but replaced overnight - will likely have to dc with david and f/u urology # acute hypoxic resp failure - possible d/t COPD - cont nebs # suspected COPD # permanent a-fib with supratherapeutic INR (elevated INR has resolved) _ Coumadin restarted yesterday. INR is 2.57 - cont metop, dilt and digoxin # hypertension -blood pressure is 112/52 # hyponatremia - resolved # gout # schizoaffective disorder, chronic and stable will likely return to [place] for long-term care after hospitalization - Risperdal Subjective: Marco Antonio wants to be left alone/ says his scrotum hurts, but doesn't want me to evaluate. Objective: Vital Signs Temp Pulse Resp BP Pulse Ox 36.6 C 88 18 112/52 L 96 02/24/17 07:31 02/24/17 07:31 02/24/17 07:31 02/24/17 07:31 02/24/17 07:31 Laboratory Results 02/24/17 04:40 02/24/17 04:40 02/23/17 02/24/17 02/25/17 05:59 05:59 05:59 Intake Total 1190 1810 Output Total 355 1675 Balance 835 135 PT 27.9 SEC (12.0-15.0) H 02/24/17 04:40 INR 2.57 (0.83-1.16) H 02/24/17 04:40 - Physical Exam Constitutional: chronically ill appearing, uncomfortable, unkempt Eyes: PERRL Ears, Nose, Mouth, Throat: hearing normal Cardiovascular: regular rate and rhythym Respiratory: no respiratory distress Gastrointestinal: normoactive bowel sounds Skin: warm, other (severe lower ext swelling/ right leg with dressings/ with some seepage of serous drainage) Neurologic: other (alert, slightly anxious) Psychiatric: not encephalopathic ICD10 Worksheet Patient Problems: Problems Problem Status Onset Cellulitis and abscess of leg Acute Peripheral edema Acute CHF (congestive heart failure) Acute Peripheral edema Acute
[2017-02-24] MEDS: DIGOXIN 125 MCG TAB PO SCH (09:20)
[2017-02-24] MEDS: HYDROCODONE/APAP 10/325 TAB PO PRN (09:20)
--- NOTE | 2017-02-24 12:51 | WOCRNPDOC ---
[facility] Advanced Assessment Note - Skin Integrity Problem, Advanced Assess Left Heel Pressure Injury Dressing Type: Allevyn Life Dressing Description: Not Intact Exudate Amount: None Exudate Characteristic(s): None Aria Wound Tissue: Dry, Calloused Aria Wound Swelling: None Wound Bed Color: Purple Wound Bed Constitution: Intact Sanguineous Blister Pressure Injury Stage: Deep Tissue Injury (DTI) Skin Integrity Problem Comment: Previously serous-filled blister is now sanguinous, indicating that wound is worsening and has evolved from a stage 2 to a suspected deep tissue injury. Due to patient's heavy lower extremities, off -loading heels continuously using pillows is proving ineffective. Order for off- loading heel boots initiated. Right Heel Pressure Injury Dressing Type: Allevyn Life Dressing Description: Not Intact Exudate Amount: None Exudate Characteristic(s): None Integumentary Issue Intervention: Dressing Applied Aria Wound Tissue: Dry, Calloused Aria Wound Swelling: None Wound Bed Color: Purple Wound Bed Constitution: Intact Sanguineous Blister Pressure Injury Stage: Deep Tissue Injury (DTI) Skin Integrity Problem Comment: Previously serous-filled blister is now sanguinous, indicating that wound is worsening and has evolved from a stage 2 to a suspected deep tissue injury. Due to patient's heavy lower extremities, off -loading heels continuously using pillows is proving ineffective. Order for off- loading heel boots initiated today, with special instructions to nursing to line the boot w/ a chux to help better manage exudate from lower leg. rv mechanic Anna present and assisting w/ assessment and dressing change. Right Posterior Thigh Dressing Type: Allevyn Life Dressing Description: Clean/Dry, Intact Exudate Amount: Scant Exudate Color: Reddish/Yellow Exudate Characteristic(s): Serosanguinous Integumentary Issue Intervention: Dressing Changed, Non-Silver Antimicrobial Gel Applied (Puracyn) Aria Wound Tissue: Blanching, Intact Aria Wound Swelling: None Wound Bed Color: Driggs, Red Wound Edges: Epithelizing Site Odor: None Site Measurement - Head-to-Toe Length X Width X Depth (cm): 0.5cmx0.4cmx0.1cm Skin Integrity Problem Comment: Driggs, epithelialized margins noted w/ small patch of red smooth tissue medially. Site almost completely healed. Aira-wound skin intact and blanching. Dressing reapplied per order by rv mechanic. Bilateral Distal Sacrum Pressure Injury Dressing Type: Allevyn Life Dressing Description: Intact Exudate Amount: None Exudate Characteristic(s): None Integumentary Issue Intervention: Dressing Changed Aria Wound Tissue: Blanching, Intact Aria Wound Swelling: None Site Measurement - Head-to-Toe Length X Width X Depth (cm): R: 0.8cmx0.4ppp3zv. L: 1cmx0.6zcj1hs Pressure Injury Stage: Deep Tissue Injury (DTI) (resolving) Skin Integrity Problem Comment: Two, discrete, purple/brown lesions on either side of patient's lower sacrum/upper buttocks, previously noted as suspected deep tissue injuries. Presently, both wounds are flat in appearance w/ no exudate noted. Blister documented previously has reabsorbed, and no fluctuance was noted. Dressings reapplied, and nursing should continue to off-load site using TAPS. rv mechanic Colette present and assisting.
[2017-02-24] MEDS: VANCOMYCIN 1.5 GM in D5W 250 ML IV SCH (15:16)
--- NOTE | 2017-02-24 16:27 | PCMIDPN ---
Assessment/Plan: Assessment: Sepsis secondary to right lower extremity cellulitis. Blood cultures remain negative. Leukocytosis much improved from admission. Patient currently empirically managed on cefepime and vancomycin. Clinical signs of improvement are evident. Will continue both antibiotics at this time. Plan: 1. Continue vancomycin and clindamycin. 2. Follow clinical appearance of right lower extremity. 3. 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 Subjective: Patient is resting in his hospital bed. He notes that his right lower extremity is less painful. He states he feels somewhat better although not normal yet. No fevers or chills. Objective: Vancomycin # 7 Cefepime # 7 Acyclovir # 3 Vital Signs Temp Pulse Resp BP Pulse Ox 36.9 C 80 18 89/42 L 91 L 02/24/17 11:57 02/24/17 11:57 02/24/17 11:57 02/24/17 11:57 02/24/17 11:57 Laboratory Results 02/24/17 04:40 02/24/17 04:40 02/23/17 02/24/17 02/25/17 05:59 05:59 05:59 Intake Total 1190 1810 320 Output Total 355 1675 850 Balance 835 135 -530 - Physical Exam General Appearance: WD/WN, alert, no apparent distress, obese, toxic (Mildly) Respiratory: lungs clear, normal breath sounds, No respiratory distress Cardiac/Chest: regular rate, rhythm, No tachycardia Extremities: inflammation, swelling, erythema, No non-tender, No normal inspection Skin: normal color, warm/dry, No rash Neuro/Psych: alert, normal mood/affect, oriented x 3 ICD10 Worksheet Patient Problems: Problems Problem Status Onset Cellulitis and abscess of leg Acute Peripheral edema Acute CHF (congestive heart failure) Acute Peripheral edema Acute
[2017-02-24] MEDS: SENNOSIDES 1 TAB PO SCH (22:13)
[2017-02-24] MEDS: WARFARIN SODIUM 1 MG TAB PO SCH (22:13)
[2017-02-25 06:06] LABS: INR 2.78 (0.83-1.16); PROTIME(PATIENT) 29.7 SEC (12.0-15.0)
[2017-02-25 06:24] LABS: ANION GAP 6 mEq/L (8-16); CALCIUM 7.6 mg/dL (8.5-10.4); CARBON DIOXIDE 21 mEq/l (22-31); CHLORIDE 109 mEq/L (97-110); CREATININE 1.4 mg/dL (0.7-1.3); GLOMERULAR FILTRATION RATE 51; GLUCOSE 93 mg/dL (70-100); POTASSIUM 4.4 mEq/L (3.5-5.2); SODIUM 136 mEq/L (134-144)
[2017-02-25] MEDS: CYANO/VITAMIN B12 1000 MCG TAB PO SCH (08:37)
[2017-02-25] MEDS: DILTIAZEM CD 180 MG CAP PO SCH (08:37)
[2017-02-25] MEDS: METOPROLOL TARTRATE 50 MG TAB PO SCH ×2 (08:37→20:29)
[2017-02-25] MEDS: ACYCLOVIR 400 MG TAB PO SCH ×2 (08:37→20:26)
[2017-02-25] MEDS: morphINE SR 15 MG TAB PO SCH ×2 (08:38→20:26)
[2017-02-25] MEDS: risperiDONE 2 MG TAB PO SCH ×2 (08:38→20:26)
[2017-02-25] MEDS: FUROSEMIDE 40 MG TAB PO SCH ×2 (08:38→20:26)
[2017-02-25] MEDS: CEFEPIME HCL 1 GM in D5W 50 ML IV SCH ×2 (08:41→20:30)
[2017-02-25] MEDS: DIGOXIN 125 MCG TAB PO SCH (10:56)
--- NOTE | 2017-02-25 12:11 | PCMIDPN ---
Assessment/Plan: Assessment/Plan: 1. Sepsis secondary to RLE cellulitis: - Currently on broad antbx with vanco, cefepime - wound care following. - blood cx ngtd. TTE: noted -MRI of LE noted - wbc trending down. creatinine at 1.4 noq - Clinically improving. -Vanco trough yesterday 18. Vanco dose recently changed from 1.5gm to 1.25gm daily. -Recheck labs in am. -Recheck vanco trough on Friday. 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 cefpime 1g q12- s/p clinda 600mg q8- 02/17-02/22/17 Subjective: Afebrile. less pain involving legs. denies sob. having some cough. denies abd pain. mouth sores with discomfort but improving. Objective: Vital Signs Temp Pulse Resp BP Pulse Ox 37.3 C 68 18 99/56 L 94 02/25/17 11:45 02/25/17 11:45 02/25/17 11:45 02/25/17 11:45 02/25/17 11:45 Laboratory Results 02/24/17 04:40 02/25/17 05:48 02/24/17 02/25/17 02/26/17 05:59 05:59 05:59 Intake Total 1810 920 Output Total 1675 2350 Balance 135 -1430 - Physical Exam General Appearance: alert, no apparent distress Respiratory: coarse breath sounds (mild) Cardiac/Chest: regular rate, rhythm Extremities: swelling Abdomen: normal bowel sounds, non-tender, soft, No distended Skin: other (LLE: marked improvement compared to last week. far less erythema overall. several superfical ulcerations noted on leg. 2nd toe ulceration present. ) ICD10 Worksheet Patient Problems: Problems Problem Status Onset Cellulitis and abscess of leg Acute Peripheral edema Acute CHF (congestive heart failure) Acute Peripheral edema Acute
--- NOTE | 2017-02-25 12:19 | HOSPPROG ---
Hospitalist Progress Note Assessment/Plan: Mr. Wilcox is a 61-year-old male with a history of chronic schizophrenia, chronic lymphedema, atrial fibrillation and chronic kidney disease. He presented to the emergency room due to increased swelling and erythema on his right lower extremity in. 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 INR is 2.78 - cont metop, dilt and digoxin -will ask pharmacy to dose since his #'s have been labile # hypertension -blood pressure is 141/69 # hyponatremia - Na is 130 # gout # schizoaffective disorder, chronic and stable will likely return to [place] for long-term care after hospitalization - Risperdal #LMWH: on coumadin Subjective: Marco Antonio says he has chronic pain/ wants to sleep. Objective: Vital Signs Temp Pulse Resp BP Pulse Ox 36.6 C 62 18 141/69 H 94 02/25/17 12:08 02/25/17 12:08 02/25/17 12:08 02/25/17 12:08 02/25/17 12:08 Laboratory Results 02/24/17 04:40 02/25/17 05:48 02/24/17 02/25/17 02/26/17 05:59 05:59 05:59 Intake Total 1810 920 Output Total 1675 2350 Balance 135 -1430 PT 29.7 SEC (12.0-15.0) H 02/25/17 05:48 INR 2.78 (0.83-1.16) H 02/25/17 05:48 - Physical Exam Constitutional: chronically ill appearing, obese, No not in pain Eyes: PERRL Ears, Nose, Mouth, Throat: hearing normal Cardiovascular: regular rate and rhythym Respiratory: no respiratory distress Gastrointestinal: normoactive bowel sounds Skin: other (PICC site clear, r lower ext with multiple skin breakdowns, red, warm,pitting edema. left leg with less swelling, has a few wrinkles on his foot area but cont to be very edematous) Musculoskeletal: generalized weakness Neurologic: AAOx3 Psychiatric: flat affect ICD10 Worksheet Patient Problems: Problems Problem Status Onset Cellulitis and abscess of leg Acute Peripheral edema Acute CHF (congestive heart failure) Acute Peripheral edema Acute
[2017-02-25] MEDS: HYDROCODONE/APAP 10/325 TAB PO PRN (13:06)
[2017-02-25] MEDS ORDERED: VANCOMYCIN 1.25 GM in D5W 250 ML IV SCH (15:00)
[2017-02-25] MEDS ORDERED: WARFARIN SODIUM 3 MG TAB PO ONE (16:00)
[2017-02-25] MEDS: SENNOSIDES 1 TAB PO SCH (20:26)
[2017-02-26 05:24] LABS: INR 2.76 (0.83-1.16); PROTIME(PATIENT) 29.5 SEC (12.0-15.0)
[2017-02-26 05:35] LABS: % IMMATURE GRANULYOCYTES 1.8 % (0.0-1.1); ABSOLUTE IMMATURE GRANULOCYTES 0.18 10^3/uL (0.00-0.10); ADD DIFF? NO; ADD MORPH? NO; ADD SCAN? NO; ATYPICAL LYMPHOCYTE FLAG 40 (0-99); FRAGMENT RBC FLAG 0 (0-99); HEMATOCRIT 25.7 % (40.0-51.0); HEMOGLOBIN 8.8 g/dL (13.7-17.5); LEFT SHIFT FLG 10 (0-99); LIPEMIA HEMOLYSIS FLAG 90 (0-99); MEAN CELL HEMOGLOBIN 33.5 pg (27.9-34.1); MEAN CELL HEMOGLOBIN CONCENTR. 34.2 g/dL (32.4-36.7); MEAN CELL VOLUME 97.7 fL (81.5-99.8); MEAN PLATELET VOLUME 9.7 fL (8.7-11.7); PLATELET CLUMPS FLAG 10 (0-99); PLATELET COUNT 318 10^3/uL (150-400); RED BLOOD CELL COUNT 2.63 10^6/uL (4.40-6.38); RED CELL DISTRIBUTION WIDTH 15.2 % (11.5-15.2)
[2017-02-26 06:03] LABS: ALANINE AMINOTRANSFERASE 36 IU/L (21-72); ALBUMIN 2.1 g/dL (3.5-5.0); ALKALINE PHOSPHATASE 69 IU/L (38-126); ANION GAP 7 mEq/L (8-16); ASPARTATE AMINOTRANSFERASE 31 IU/L (17-59); BILIRUBIN,TOTAL 0.7 mg/dL (0.1-1.4); CALCIUM 7.5 mg/dL (8.5-10.4); CARBON DIOXIDE 21 mEq/l (22-31); CHLORIDE 108 mEq/L (97-110); CREATININE 1.5 mg/dL (0.7-1.3); GLOMERULAR FILTRATION RATE 47; GLUCOSE 98 mg/dL (70-100); POTASSIUM 4.4 mEq/L (3.5-5.2); SODIUM 136 mEq/L (134-144); TOTAL PROTEIN 5.7 g/dL (6.3-8.2)
[2017-02-26] MEDS: HYDROCODONE/APAP 10/325 TAB PO PRN (06:43)
[2017-02-26] MEDS: CEFEPIME HCL 1 GM in D5W 50 ML IV SCH ×2 (09:47→20:11)
[2017-02-26] MEDS: DILTIAZEM CD 180 MG CAP PO SCH (09:48)
[2017-02-26] MEDS: METOPROLOL TARTRATE 50 MG TAB PO SCH ×2 (09:48→20:07)
[2017-02-26] MEDS: morphINE SR 15 MG TAB PO SCH ×2 (09:48→20:08)
[2017-02-26] MEDS: ACYCLOVIR 400 MG TAB PO SCH ×2 (09:48→20:07)
[2017-02-26] MEDS: CYANO/VITAMIN B12 1000 MCG TAB PO SCH (09:48)
[2017-02-26] MEDS: risperiDONE 2 MG TAB PO SCH ×2 (09:49→20:08)
[2017-02-26] MEDS: DIGOXIN 125 MCG TAB PO SCH (11:48)
--- NOTE | 2017-02-26 14:55 | PCMIDPN ---
Assessment/Plan: Assessment/Plan: * Sepsis due to right lower extremity cellulitis: Continues to show resolving cellulitis. Given elevated creatinine and now has received 9 days of vancomycin as well as overall appearance more suggestive of streptococci, will discontinue vancomycin ( likely to remain therapeutic for another day) and continue cefepime with anticipated 14 day course total of therapy ( 5 more days) . 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 Significantly improved with acyclovir. 02/26/17 14:52 02/26/17 14:55 Subjective: Less pain in lips and left leg. Objective: Vital Signs Temp Pulse Resp BP Pulse Ox 36.6 C 82 16 120/59 L 96 02/26/17 11:45 02/26/17 11:48 02/26/17 11:45 02/26/17 11:45 02/26/17 11:45 Laboratory Results 02/26/17 05:25 02/26/17 05:25 02/25/17 02/26/17 02/27/17 05:59 05:59 05:59 Intake Total 920 300 Output Total 2350 2500 Balance -1430 -2200 Vancomycin # 9 cefepime # 9 acyclovir # 4 Laboratory Tests 02/26/17 14:07 Vancomycin Trough 21.2 H* - Physical Exam General Appearance: alert, no apparent distress EENT: other (decreasing ulcerations over lips), No scleral icterus Cardiac/Chest: regular rate, rhythm Extremities: inflammation ( right lower extremity with significant decrease in intensity of erythema; ulcers with clean base; edema significantly decreased) - Line/s RUE PICC Lines: No drainage, No erythema ICD10 Worksheet Patient Problems: Problems Problem Status Onset Cellulitis and abscess of leg Acute Peripheral edema Acute CHF (congestive heart failure) Acute Peripheral edema Acute
--- NOTE | 2017-02-26 14:57 | PDIAF ---
- Diagnosis Diagnosis: right lower extremity cellulitis Code Status: Full Code - Medication Management Discharge Medications: Medications to Continue on Transfer Acetaminophen [Tylenol 325mg (*)] 650 mg PO Q8 PRN 09/02/16 [Last Taken 06:00] Allopurinol [Allopurinol 100 MG (*)] 100 mg PO BID 09/02/16 [Last Taken 09:00] Cyanocobalamin [Vitamin B12 (*)] 1,000 mcg PO DAILY 09/02/16 [Last Taken 08:00] Digoxin [Lanoxin 125 mcg (RX)] 125 mcg PO DAILY10 09/02/16 [Last Taken 02/17/17 10:00] Hydrocodone/Acetaminophen [[place] 7.5-325 Tablet] 1 tab PO BID PRN 09/02/16 [ Last Taken 02/15/17] Metoprolol Tartrate [Lopressor 50 mg (*)] 50 mg PO BID 09/02/16 [Last Taken 05/27 09:00] Warfarin Sodium [Coumadin 1MG (*)] 3.5 mg PO MOWEFR@209909/02/16 [Last Taken 21:00] Diltiazem Cd [Cardizem ER Q24hr] 180 mg PO DAILY cap 09/10/16 [Last Taken 02/17 08:00] Furosemide [Lasix] 40 mg PO BID 02/17/17 [Last Taken 02/17/17 09:00] Risperidone 2 mg PO DAILY 02/17/17 [Last Taken 02/17/17 08:00] Sennosides [Senokot 8.6mg (OTC)] 1 each PO HS 02/17/17 [Last Taken 02/16/17] Warfarin Sodium [Coumadin 3MG (*)] 3 mg PO SUTUTHSA@209902/17/17 [Last Taken 21:00] morphINE SR [Ms Contin/Oramorph 15 mg (*)] 15 mg PO BID 02/17/17 [Last Taken 05/27 09:00] risperiDONE [Risperidone] 3 mg PO HS 02/17/17 [Last Taken 02/16/17] Snf Antibiotics: cefepime 1 g IV q.12 hours [employer] Antibiotic Stop Date: 03/03/17 Discharge Medications: Refer to the Discharge Home Medication list for PRN reason. PICC Care - Routine: Yes - Labs/Radiology Creatinine Date: 03/03/17 Call or Fax Lab and Imaging Results to: Dr. Ralph, - Follow Up Care Current Providers and Referrals: Patient,NotPresent [Unknown] - As per Instructions
--- NOTE | 2017-02-26 15:32 | HOSPPROG ---
Hospitalist Progress Note Assessment/Plan: Mr. Wilcox is a 61-year-old male with a history of chronic schizophrenia, chronic lymphedema, atrial fibrillation and chronic kidney disease. He presented to the emergency room due to increased swelling and erythema on his right lower extremity in. Reviewed his care with Dr Ralph and will aim to dc tomorrow. 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 # mild pulmonary htn # severe sepsis (leukocytosis, fever) d/t cellulitis, resolving # acute on chronic renal failure - suspect pre-renal although had urinary retention but no hydronephrosis - creat is 1.5/ will hold lasix # acute urinary retention - attempted to remove david, but replaced - will likely have to dc with david and f/u urology # acute hypoxic resp failure - possible d/t COPD - resolved # suspected COPD # permanent a-fib with supratherapeutic INR (elevated INR has resolved) _ Coumadin restarted /INR is 2.76 - cont metop, dilt and digoxin -appreciate pharmacy dosing # hypertension -blood pressure is 120/59 # hyponatremia - Na is 136 # gout # schizoaffective disorder, chronic and stable will likely return to [place] for long-term care after hospitalization - Risperdal #LMWH: on coumadin #. dc likely tomorrow if holding stable/updated CM. Subjective: Marco Antonio is feeling better today, is tired. Objective: Vital Signs Temp Pulse Resp BP Pulse Ox 36.6 C 82 16 120/59 L 96 02/26/17 11:45 02/26/17 11:48 02/26/17 11:45 02/26/17 11:45 02/26/17 11:45 Laboratory Results 02/26/17 05:25 02/26/17 05:25 02/25/17 02/26/17 02/27/17 05:59 05:59 05:59 Intake Total 920 300 Output Total 2350 2500 Balance -1430 -2200 PT 29.5 SEC (12.0-15.0) H 02/26/17 04:32 INR 2.76 (0.83-1.16) H 02/26/17 04:32 - Physical Exam Constitutional: chronically ill appearing, obese, uncomfortable Eyes: PERRL Ears, Nose, Mouth, Throat: hearing normal Cardiovascular: regular rate and rhythym, edema (severe lower extremity edema/ ) Respiratory: no respiratory distress Gastrointestinal: normoactive bowel sounds Genitourinary: david in urethra Skin: other (less erythema and redness to right lower extremity), No warm (pale) Neurologic: AAOx3 Psychiatric: interacting appropriately, flat affect ICD10 Worksheet Patient Problems: Problems Problem Status Onset Cellulitis and abscess of leg Acute Peripheral edema Acute CHF (congestive heart failure) Acute Peripheral edema Acute
[2017-02-26] MEDS ORDERED: WARFARIN SODIUM 3 MG TAB PO ONE (16:00)
--- NOTE | 2017-02-26 16:58 | WOCRNPDOC ---
[facility]CR[facility] Advanced Assessment Note - Skin Integrity Problem, Advanced Assess Right Heel Pressure Injury Wound Bed Constitution: Granulation Tissue (15%), Smooth Tissue (35%), Unstable Eschar (40%) Site Measurement - Head-to-Toe Length X Width X Depth (cm): 10.5x7.5x0.2 Pressure Injury Stage: Unstageable (open area), Deep Tissue Injury (DTI) Pressure Injury Present on Admit: No Skin Integrity Problem Comment: Wound continues to worsen. Large open area on heel is surrounded proximally and laterally by a large DTI. Open area is evolving to eschar and now is an unstagable pressure injury. Surrounding intact skin is a deep tissue injury. Patient needs heel offloaded at all times aggressively. Offloading boots are to be on whether patient is in the chair or in the bed and must be strapped on so the foot does not migrate out. Heel needs to rest in the pocket of the boot so that there is no pressure on the heel. Reported to Adelaide arciniega rn, Layne GLEZ and Azeem GLEZ. Right Fourth Toe Dressing Type: Open to Air Exudate Amount: None Wound Bed Constitution: Granulation Tissue (50%), Adhered Slough (50%) Wound Edges: Attached Skin Integrity Problem Comment: Dry open wound. No concerns. Left Fourth Toe Other Dressing Type: Enluxtra Dressing Description: Clean/Dry, Intact Exudate Amount: Scant Exudate Characteristic(s): Bloody (initiated by dressing removal ) Integumentary Issue Intervention: Dressing Removed Wound Bed Constitution: Smooth Tissue (under the small open area of the wound which was not dried out), Dried Exudate (most of wound) Skin Integrity Problem Comment: Wound bed dry and adhered to enluxtra dressing. Wound orders updated and altered accordingly. Right Second Toe Dressing Type: Open to Air Exudate Amount: None Wound Bed Color: Black Wound Bed Constitution: Dried Exudate Skin Integrity Problem Comment: Wound completely dried out. No wound bed visible. Azeem GLEZ in room for care.
[2017-02-26] MEDS: SENNOSIDES 1 TAB PO SCH (20:07)
[2017-02-27 05:47] LABS: INR 2.85 (0.83-1.16); PROTIME(PATIENT) 30.3 SEC (12.0-15.0)
[2017-02-27 05:57] LABS: ANION GAP 7 mEq/L (8-16); CALCIUM 7.5 mg/dL (8.5-10.4); CARBON DIOXIDE 22 mEq/l (22-31); CHLORIDE 106 mEq/L (97-110); CREATININE 1.4 mg/dL (0.7-1.3); GLOMERULAR FILTRATION RATE 51; GLUCOSE 121 mg/dL (70-100); POTASSIUM 4.4 mEq/L (3.5-5.2); SODIUM 135 mEq/L (134-144)
[2017-02-27] MEDS: CYANO/VITAMIN B12 1000 MCG TAB PO SCH (08:14)
[2017-02-27] MEDS: DILTIAZEM CD 180 MG CAP PO SCH (08:14)
[2017-02-27] MEDS: ACYCLOVIR 400 MG TAB PO SCH (08:14)
[2017-02-27] MEDS: METOPROLOL TARTRATE 50 MG TAB PO SCH (08:14)
[2017-02-27] MEDS: risperiDONE 2 MG TAB PO SCH (08:14)
[2017-02-27] MEDS: morphINE SR 15 MG TAB PO SCH (08:14)
[2017-02-27] MEDS: CEFEPIME HCL 1 GM in D5W 50 ML IV SCH (08:15)
--- NOTE | 2017-02-27 09:23 | HOSPPROG ---
Hospitalist Progress Note Assessment/Plan: Mr. Wilcox is a 61-year-old male with a history of chronic schizophrenia, chronic lymphedema, atrial fibrillation and chronic kidney disease. He presented to the emergency room due to increased swelling and erythema on his right lower extremity in. Reviewed his care with Dr Ralph and will aim to dc tomorrow. 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 # mild pulmonary htn # severe sepsis (leukocytosis, fever) d/t cellulitis, resolving # acute on chronic renal failure - suspect pre-renal although had urinary retention but no hydronephrosis - creat is 1.4/ resume lasix # acute urinary retention - attempted to remove david, but replaced - will likely have to dc with david and f/u urology # acute hypoxic resp failure - possible d/t COPD - resolved # suspected COPD # permanent a-fib with supratherapeutic INR (elevated INR has resolved) _ Coumadin restarted /INR is 2.85 - cont metop, dilt and digoxin -appreciate pharmacy dosing # hypertension -blood pressure is 120/59 # hyponatremia - Na is 136 # gout # schizoaffective disorder, chronic and stable will likely return to [place] for long-term care after hospitalization - Risperdal #LMWH: on coumadin #. dc Subjective: Marco Antonio says he is feeling better today. Objective: Vital Signs Temp Pulse Resp BP Pulse Ox 37.6 C 85 18 112/72 98 02/27/17 07:44 02/27/17 07:44 02/27/17 07:44 02/27/17 07:44 02/27/17 07:44 Laboratory Results 02/26/17 05:25 02/27/17 05:25 02/26/17 02/27/17 02/28/17 05:59 05:59 05:59 Intake Total 300 1275 Output Total 2500 1950 Balance -2200 -675 PT 30.3 SEC (12.0-15.0) H 02/27/17 05:25 INR 2.85 (0.83-1.16) H 02/27/17 05:25 - Physical Exam Constitutional: chronically ill appearing, obese Eyes: PERRL Ears, Nose, Mouth, Throat: hearing normal, other (hsv on lower lip) Cardiovascular: edema (bilateral lower extremity) Respiratory: no respiratory distress Gastrointestinal: normoactive bowel sounds Genitourinary: david in urethra Skin: warm Musculoskeletal: generalized weakness Neurologic: AAOx3 Psychiatric: interacting appropriately, flat affect ICD10 Worksheet Patient Problems: Problems Problem Status Onset Cellulitis and abscess of leg Acute Peripheral edema Acute CHF (congestive heart failure) Acute Peripheral edema Acute
--- NOTE | 2017-02-27 09:31 | PDIAF ---
- Diagnosis Diagnosis: right lower extremity cellulitis, renal insufficiency Code Status: Full Code - Medication Management Discharge Medications: Medications to Continue on Transfer Acetaminophen [Tylenol 325mg (*)] 650 mg PO Q8 PRN 09/02/16 [Last Taken 06:00] Allopurinol [Allopurinol 100 MG (*)] 100 mg PO BID 09/02/16 [Last Taken 09:00] Cyanocobalamin [Vitamin B12 (*)] 1,000 mcg PO DAILY 09/02/16 [Last Taken 08:00] Digoxin [Lanoxin 125 mcg (RX)] 125 mcg PO DAILY10 09/02/16 [Last Taken 02/17/17 10:00] Hydrocodone/Acetaminophen [[place] 7.5-325 Tablet] 1 tab PO BID PRN 09/02/16 [ Last Taken 02/15/17] Metoprolol Tartrate [Lopressor 50 mg (*)] 50 mg PO BID 09/02/16 [Last Taken 05/27 09:00] Diltiazem Cd [Cardizem ER Q24hr] 180 mg PO DAILY cap 09/10/16 [Last Taken 02/17 08:00] Furosemide [Lasix 40 MG (*)] 40 mg PO BID 02/17/17 [Last Taken 02/17/17 09:00] Risperidone 2 mg PO DAILY 02/17/17 [Last Taken 02/17/17 08:00] Sennosides [Senokot] 1 each PO HS 02/17/17 [Last Taken 02/16/17] morphINE SR [Ms Contin/Oramorph 15 mg (*)] 15 mg PO BID 02/17/17 [Last Taken 05/27 09:00] risperiDONE [Risperidone] 3 mg PO HS 02/17/17 [Last Taken 02/16/17] Acyclovir [Zovirax 400 mg (*)] 400 mg PO BID tab 02/27/17 [Last Taken Unknown] Warfarin Sodium [Coumadin 1MG (*)] 1.5 mg PO DAILY16 #30 tab 02/27/17 [Last Taken Unknown] [facility]fp Antibiotics: cefepime 1 g IV q.12 hours [facility]fp Antibiotic Stop Date: 03/03/17 Discharge Medications: Refer to the Discharge Home Medication list for PRN reason. PICC Care - Routine: Yes - Orders Services needed: Registered Nurse, Physical Therapy, Occupational Therapy Diet Recommendation: no restrictions on diet Diet Texture: Regular Texture Diet David: Yes Wound Care Instructions: Please follow up within 3- 4 weeks of discharge with outpatient wound healing center if you continue to have issues with your wounds : You may reach them at [phone] for an appointment and continued management of your wounds. Please call them [email or web address] to schedule your appointment as they fill up quickly. If before that time you have any issues please follow up with your PCP. You have 2 pressure injuries (also known as a bedsore) on the very lowest part of your back (the sacrum.) To help heal these wounds and avoid further injury please do the followin.Reposition yourself frequently , at least every 15 minutes when sitting. We recommend sitting on an air cushion. Please never use a doughnut. 2.When youre in bed, try to rest on your side as much as possible, and change position every two hours (for example , turn or tilt from your right side toward your left).~ If you sleep on a sleep number or medical bed, keep the head of the bed below 30 degrees and keep all pressure off your low back for at least 5 minutes at least every two hours.~. 3.As needed, you may use Calazime, dimethicone moisture barrier cream , or any [id number] diaper rash cream to help prevent or treat a moisture- related rash to your bottom area and buttocks. Change dressings to right posterior thigh, left 4th toe and right second toe every MWF days and prn. 1. Clean with ns and gauze. 2. Skin prep pj wound. 3. Cut a piece of iodoflex to fit in wound bed. Remove the netting from one side of the iodoflex and place that side onto the wound bed. 4. Cover with Allevyn Life Additional: please note, Marco Antonio's coumadin dose has been decreased to 1.5 mg daily/ his INR has fluctuated with the antibiotics/his dose will need to be adjusted daily. Current INR is 2.85. Had some renal insufficiency and lasix had been held intermittently. In addition, david was left in due to retention. Needs f/u with urologist. - Labs/Radiology Creatinine Date: 07/24/17 (weekly) PT/INR Date: 02/28/17 (every 3 days till stable) Call or Fax Lab and Imaging Results to: Dr. Ralph, - Follow Up Care Current Providers and Referrals: Patient,NotPresent [Unknown] - As per Instructions
--- NOTE | 2017-02-27 10:28 | WOCRNPDOC ---
WOCRN Advanced Assessment Note - Skin Integrity Problem, Advanced Assess Left Heel Pressure Injury Dressing Type: Alginate, Tegaderm Film Dressing Description: Clean/Dry, Intact Exudate Amount: None Wound Bed Constitution: Intact Sanguineous Blister Site Measurement - Head-to-Toe Length X Width X Depth (cm): 9.5x8.5xraised blister Pressure Injury Stage: Deep Tissue Injury (DTI) Skin Integrity Problem Comment: Wound measures larger than previous assessment. Recovered with tegaderm absorbant after applying skin prep to blister. Offload aggressively. AMARIS Anand in room for care.
[2017-02-27] MEDS: DIGOXIN 125 MCG TAB PO SCH (11:09)
[2017-02-27 11:18] VITALS: BP 110/62; PULSE 73; RESP 16; TEMP 98.3; O2SAT 91
--- NOTE | 2017-02-27 20:50 | GDS ---
[f rep st] DISCHARGE SUMMARY DISCHARGE DIAGNOSES: 1. Right lower extremity cellulitis, severe. 2. Chronic lymphedema with venous insufficiency. 3. Oral herpes simplex virus. 4. Mild pulmonary hypertension. 5. Severe sepsis due to cellulitis, resolving. 6. Ykmxr-yx-rremauo renal failure. 7. Acute urinary retention. 8. Acute hypoxemic respiratory failure. 9. Suspected chronic obstructive pulmonary disease. 10. Permanent atrial fibrillation with a supratherapeutic INR on admission. 11. Hypertension. 12. Hyponatremia. 13. Gout. 14. Schizoaffective disorder. CONSULTATIONS: Dr. Christiano Ralph. BRIEF HISTORY: The patient is a 61-year-old gentleman with chronic schizophrenia in long-term care [place]. He has chronic lymphedema, atrial fibrillation, chronic kidney disease with a history of nephrotic syndrome. He had been admitted in this past August with severe cellulitis. This ended up being polymicrobial. He did well prior to his admission until approximately a week. His Lasix was discontinued and he developed increased swelling. He came into the emergency room for further evaluation. It was noted that he had significant cellulitis in his right lower extremity. He had sepsis with associated leukocytosis and tachycardia. He also had some renal failure. Creatinine was 3.4 with a baseline of 1.2 to 1.3. He was treated with fluids. He slowly improved throughout his stay. Today, he will be discharged back to [facility] [place] and his labs will be monitored. HOSPITAL COURSE: 1. Right lower extremity cellulitis that has been severe. He was treated with vancomycin and cefepime. He will be discharged on cefepime solo therapy. He will follow up with Dr. Ralph in the outpatient setting. Wound care as written out, detailed instructions for the care of his wound. 2. Chronic lymph edema, venous insufficiency. This improved with resuming his Lasix. It had been held intermittently during his stay because of his renal failure. This is improved. 3. Oral HSV, on acyclovir. 4. Mild pulmonary hypertension. 5. Severe sepsis, resolved. 6. [id number]-[id number] renal failure. His creatinine is 1.4, steadily improving. 7. Acute urinary retention. His Wood had to be replaced because he was unable to void. He will need followup with Urology. 8. Acute hypoxemic respiratory failure, likely due to COPD, resolved. 9. Suspected COPD. 10. Atrial fibrillation with a supratherapeutic INR on admission. His Coumadin had been held. On discharge, INR is 2.85. He is on a much lower dose than his baseline Coumadin. INR will need close monitoring. 11. Hypertension, stable. 12. Hyponatremia, most recent sodium is 135. 13. Gout, no complaints. 14. Schizoaffective disorder. Stable. He is on Risperdal. PENDING LABS AND TESTS: None. CONDITION AT DISCHARGE: Stable. Blood pressure is 112/72, heart rate is 85, respiratory rate is 18, O2 sats on 3 L are 98%, temperature 37.6 Celsius. MEDICATIONS AT DISCHARGE: Please see the EMR. DISCHARGE INSTRUCTIONS: This has been written out in detail on the inner agency form. Return to the hospital if he develops fever, chills, chest pain, or shortness of breath. Greater than 30 minutes discharging and coordinating care. /[id number]/MODL MTDD
== END 2017-02-27 14:02 | DRG 871 ==
LOC: EDUNIT# → F3E 13:13
PROVIDERS: ADMIT Internal Medicine; ATTEND Internal Medicine
PROC: 02HV33Z Insertion of Infusion Device into Superior Vena Cava, Percutaneous Approach (ICD-10-PCS; principal; 2017-02-17)
DX: A41.9 Sepsis, unspecified organism (principal); R65.20 Severe sepsis without septic shock; L03.115 Cellulitis of right lower limb; N17.9 Acute kidney failure, unspecified; J96.01 Acute respiratory failure with hypoxia; I89.0 Lymphedema, not elsewhere classified; I87.2 Venous insufficiency (chronic) (peripheral); J44.9 Chronic obstructive pulmonary disease, unspecified; F17.210 Nicotine dependence, cigarettes, uncomplicated; B00.2 Herpesviral gingivostomatitis and pharyngotonsillitis; I27.2 Other secondary pulmonary hypertension; N18.9 Chronic kidney disease, unspecified; L89.159 Pressure ulcer of sacral region, unspecified stage; L89.612 Pressure ulcer of right heel, stage 2; R33.9 Retention of urine, unspecified; E87.1 Hypo-osmolality and hyponatremia; I48.2 Chronic atrial fibrillation; I12.9 Hypertensive chronic kidney disease with stage 1 through stage 4 chronic kidney disease, or unspecified chronic kidney disease; M10.9 Gout, unspecified; F25.9 Schizoaffective disorder, unspecified; Z79.01 Long term (current) use of anticoagulants
CPT/HCPCS: 96365; 97116-GP; 97162-GP; 97166-GO; 97530-GO; 97530-GP; 97535-GO; C1751; G8978-GP-CM; G8979-GP-CJ; G8987-GO-CL; G8988-GO-CK; J0690; J0692; J2997; J3370

== ENCOUNTER 2017-03-23 19:44 | Inpatient (IN) | payer OTHER, MEDICAID ==
[2017-03-23] MEDS ORDERED: NS 1,000 ML IV ONE (20:22)
--- NOTE | 2017-03-23 20:30 | EDPHY ---
H & P Stated Complaint: Bed Sores Time Seen by Provider: 03/23/17 19:55 HPI/ROS: CHIEF COMPLAINT: Sacral decubitus ulcer HISTORY OF PRESENT ILLNESS: The patient is referred to the ED for evaluation of a sacral decubitus ulcer. The patient is stain at [facility]. He has a history of schizophrenia. The patient is being treated for bilateral lower extremity ulcers and cellulitis. The patient was hospitalized approximately 1 month ago at our institution. At that point time it does not appear the patient had a sacral decubitus ulcer. The patient has a history of chronic paranoid schizophrenia. He is a somewhat unreliable historian. The patient complains of chronic pain in his bilateral lower extremities from his chronic infection. The patient does complain of sacral and gluteal pain. He denies fever or vomiting. The patient does have a history of atrial fibrillation and is anticoagulated with Coumadin. He also has a history of nephrotic syndrome. The patient also has a history of Clostridium difficile REVIEW OF SYSTEMS: A comprehensive 10 point review of systems is otherwise negative aside from elements mentioned in the history of present illness. Source: Patient - Personal History Current Tetanus Diphtheria and Acellular Pertussis (TDAP): Unsure - Medical/Surgical History Hx Asthma: No Hx Chronic Respiratory Disease: Yes Hx Diabetes: No Hx Cardiac Disease: Yes Hx Renal Disease: No Hx Cirrhosis: No Hx Alcoholism: No Hx HIV/AIDS: No Hx Splenectomy or Spleen Trauma: No Other PMH: Schizoaffective DO, Afib, HTN, Gout, Chronic Kidney Disease, DVT, Nephritic syndrome - Social History Smoking Status: Current every day smoker - Physical Exam Exam: General Appearance: Deconditioned slightly obese male, disheveled Eyes: Pupils equal and round no pallor or injection ENT, Mouth: Poor dentition, dry mucous membranes Respiratory: There are no retractions, lungs are clear to auscultation Cardiovascular: Regular rate and rhythm Gastrointestinal: Abdomen is soft and nontender, no masses, bowel sounds normal Neurological: Alert and oriented x2, patient is able to move all 4 extremities , decreased strength noted in the bilateral lower extremities symmetric in nature Skin: Sacral decubiti ulcer with large central dark eschar, surrounding erythema and foul discharge Musculoskeletal: Neck is supple nontender Extremities: Bilateral lower extremities with significant edema, chronic wounds to right and left leg noted. Wound dressings were not taken down on his right left leg. Psychiatric: Flat affect, mental status consistent with his known schizophrenia Constitutional: Initial Vital Signs Temperature (C) 36.6 C 03/23/17 19:44 Heart Rate 90 03/23/17 19:44 Respiratory Rate 14 03/23/17 19:44 Blood Pressure 115/77 03/23/17 19:44 O2 Sat (%) 93 03/23/17 19:44 O2 Delivery Mode Room Air Allergies/Adverse Reactions: amoxapine [From Asendin] Allergy (Verified 09/02/16 11:03) fluphenazine enanthate [From Prolixin] Allergy (Verified 09/02/16 11:03) fluphenazine HCl [From Prolixin] Allergy (Verified 09/02/16 11:03) haloperidol [From Haldol] Allergy (Verified 09/02/16 11:03) haloperidol lactate [From Haldol] Allergy (Verified 09/02/16 11:03) thioridazine HCl [From Mellaril] Allergy (Verified 09/02/16 11:03) trifluoperazine HCl [From Stelazine] Allergy (Verified 09/02/16 11:03) Home Medications: Medication Instructions Recorded Hydrocodone/Acetaminophen [Colora 1 tab PO BID PRN 09/02/16 7.5-325 Tablet] Diltiazem Cd [Cardizem ER Q24hr] 180 mg PO DAILY cap 09/10/16 Furosemide [Lasix 40 MG (*)] 40 mg PO BID 02/17/17 Risperidone 2 mg PO DAILY 02/17/17 Sennosides [Senokot] 2 tab PO HS 02/17/17 morphINE SR [Ms Contin/Oramorph 15 15 mg PO BID 02/17/17 mg (*)] Acyclovir [Zovirax 400 mg (*)] 400 mg PO BID tab 02/27/17 Acetaminophen [Tylenol 325mg (*)] 650 mg PO Q8 PRN 03/23/17 Collagenase [Santyl (*)] 1 myrna TP DAILY 03/23/17 Herbals/Supplements -Info Only 1 ea PO DAILY 03/23/17 Magnesium Hydroxide/Al Hydrox 30 ml PO Q4H PRN 03/23/17 [Mylanta Liquid] Metoprolol Succinate Xr [Toprol Xl 100 mg PO DAILY 03/23/17 100 mg (*)] Metoprolol Succinate Xr [Toprol Xl 25 mg PO DAILY 03/23/17 25 mg (*)] Vancomycin [Vancomycin (*)] 125 mg PO QID 03/23/17 Warfarin Sodium [Coumadin 1MG (*)] 1.5 mg PO MWF@16 03/23/17 Warfarin Sodium [Coumadin 2.5MG 2.5 mg PO SUTUTHSA@16 03/23/17 (*)] guaiFENesin/DEXTROMETHORPHAN 10 ml PO Q4 PRN 03/23/17 [Robitussin Dm Oral Liquid (*)] risperiDONE [Risperdal] 4 mg PO HS 03/23/17 Medical Decision Making - Diagnostics EKG Interpretation: EKG: Complete interpretation has been separately recorded in the [facility] archive. Summary impression: Atrial fibrillation, rate 98 ED Course/Re-evaluation: The patient presents to the ED with a large sacral decubitus ulcer which he developed at his alf. The patient has chronic lower extremity edema and bilateral lower extremity cellulitis from his nephrotic syndrome. The patient is not febrile, tachypneic or hypotensive. Patient's sacral decubitus ulcer was inspected with Dr. Ethan Norman from General surgery. We were unable to obtain an IV secondary to the patient's nephrotic syndrome. A PICC line has been ordered. The patient will require admission to the hospital. The patient will require surgical debridement and admission to the hospital. Consultation was made with Dr. Neumann from the hospitalist service. He will admit the patient primarily. - Data Points Medications Given: Discontinued Medications Sodium Chloride (Ns) 1,000 mls @ 0 mls/hr IV EDNOW ONE; Wide Open PRN Reason: Protocol Stop: 03/23/17 20:23 Last Admin: 03/23/17 22:11 Dose: 1,000 mls Departure - Departure Disposition: [facility] Inpatient Acute Clinical Impression: Peripheral edema, Cellulitis and abscess of leg, Sacral decubitus ulcer, stage III, Schizophrenia, Atrial fibrillation Condition: Fair
--- NOTE | 2017-03-23 20:45 | CPEKG ---
Heart Rate: 98 RR Interval: 612 QRSD Interval: 86 QT Interval: 340 QTC Interval: 435 QRS Rosalie: 33 T Wave Rosalie: -46 EKG Severity - ABNORMAL ECG - EKG Impression: ATRIAL FIBRILLATION, V-RATE 64-134 EKG Impression: VENTRICULAR PREMATURE COMPLEX EKG Impression: CONSIDER POSTERIOR INFARCT Electronically Signed By: Scott Cabrera 23-Mar-2017 22:00:52
[2017-03-23] MEDS ORDERED: ONDANSETRON 4 MG/2 ML VIAL IVP PRN (21:00)
[2017-03-23] MEDS ORDERED: ONDANSETRON DISINTEGRATING 4 MG TAB PO PRN (21:00)
[2017-03-23] MEDS ORDERED: ACETAMINOPHEN 325 MG TAB PO PRN (21:00)
--- NOTE | 2017-03-23 21:13 | GCON ---
[f rep st] CONSULTATION Asked to see the patient by the emergency room physician in regard to a sacral decubitus ulcer. HISTORY OF PRESENT ILLNESS: This unfortunate 61-year-old male [facility]. He apparently was in the hospital approximately 4 weeks ago for heel ulcers. No evidence of a sacr al decubitus at that time. [facility] to a [facility]. Now presents with an eschar across the buttocks and sacral area the size of 2 hands, purulence emanating from the edge of the eschar and draining l iquid stool over and around this wound. PAST MEDICAL HISTORY: The patient has multiple medical problems including atrial fibrillation, for which he is on Coumadin. INR is pending at this time. Also, nephrotic syndrome and schizophrenia. ASSESSMENT: Large sacral decubitus ulcer with eschar. This will need operative debridement. He is not n.p.o. and INR is likely prolonged. It is not appropriate nor necessary to do this tonight veena rgently. He also has no IV access and apparently will need a PICC line. We will make him n.p.o. after midnight, and depending on his INR status, try to reverse him for debr idement of this large ulcer and then assessment for wound management. /[id number]/MODL
[2017-03-23] MEDS ORDERED: MAG HYDROX/AL HYDROX/SIMETH 30 ML UDCUP PO PRN (21:25)
[2017-03-23] MEDS ORDERED: GUAIFENESIN/DM 10 ML UDCUP PO PRN (21:25)
[2017-03-23] MEDS ORDERED: morphINE SR 15 MG TAB PO SCH (21:30)
--- NOTE | 2017-03-23 21:31 | PDGENHP ---
History and Physical - Chief Complaint Acute skin breakdown - History of Present Illness Primary Surgeon: Dr. Bolanos Primary ID: Dr. Ralph HPI: 61 yo M p/w acute worsening of chronic skin breakdown, located on his sacrum, characterized as deep pressure injury extending through multiple tissue layers. Onset of breakdown is reportedly (per SNF) is several weeks ago, and worsening was noted on date of presentation. Patient denies any pain in sacral area, thinks that the staff are overreacting and is paranoid that they are maliciously plotting against him. He launches into paranoid, rapid speech rather easily, but redirects just as quickly. He does endorse some associated pain located in his bilateral lower extremities with concomitant edema and weakness. His legs regularly receive pressure wrappings, and he has a david in place. He reports he has been taking all of his meds. He denies any changes in his abdominal symptoms, but these are challenging to elicit, as he reports that his insides have been poisoned. History Information - Allergies/Home Medication List Allergies/Adverse Reactions: amoxapine [From Asendin] Allergy (Verified 09/02/16 11:03) fluphenazine enanthate [From Prolixin] Allergy (Verified 09/02/16 11:03) fluphenazine HCl [From Prolixin] Allergy (Verified 09/02/16 11:03) haloperidol [From Haldol] Allergy (Verified 09/02/16 11:03) haloperidol lactate [From Haldol] Allergy (Verified 09/02/16 11:03) thioridazine HCl [From Mellaril] Allergy (Verified 09/02/16 11:03) trifluoperazine HCl [From Stelazine] Allergy (Verified 09/02/16 11:03) Home Medications: Hydrocodone/Acetaminophen [Shaniko 7.5-325 Tablet] 1 tab PO BID PRN 09/02/16 [ Last Taken 02/15/17] Furosemide [Lasix 40 MG (*)] 40 mg PO BID 02/17/17 [Last Taken 03/23/17 08:00] Risperidone 2 mg PO DAILY 02/17/17 [Last Taken 03/23/17 08:00] Sennosides [Senokot] 2 tab PO HS 02/17/17 [Last Taken 02/16/17] morphINE SR [Ms Contin/Oramorph 15 mg (*)] 15 mg PO BID 02/17/17 [Last Taken 08:00] Acetaminophen [Tylenol 325mg (*)] 650 mg PO Q8 PRN 03/23/17 [Last Taken Unknown] Collagenase [Santyl (*)] 1 myrna TP DAILY 03/23/17 [Last Taken 03/23/17 08:00] Herbals/Supplements -Info Only 1 ea PO DAILY 03/23/17 [Last Taken Unknown] Magnesium Hydroxide/Al Hydrox [Mylanta Liquid] 30 ml PO Q4H PRN 03/23/17 [Last Taken Unknown] Metoprolol Succinate Xr [Toprol Xl 100 mg (*)] 100 mg PO DAILY 03/23/17 [Last Taken 03/23/17 08:00] Metoprolol Succinate Xr [Toprol Xl 25 mg (*)] 25 mg PO DAILY 03/23/17 [Last Taken 03/23/17 08:00] Vancomycin [Vancomycin (*)] 125 mg PO QID 03/23/17 [Last Taken Unknown] Warfarin Sodium [Coumadin 1MG (*)] 1.5 mg PO MWF@16 03/23/17 [Last Taken Unknown ] Warfarin Sodium [Coumadin 2.5MG (*)] 2.5 mg PO SUTUTHSA@16 03/23/17 [Last Taken Unknown] guaiFENesin/DEXTROMETHORPHAN [Robitussin Dm Oral Liquid (*)] 10 ml PO Q4 PRN [Last Taken Unknown] risperiDONE [Risperdal] 4 mg PO DAILY 03/23/17 [Last Taken 03/23/17 08:00] I have personally reviewed and updated: family history, medical history, social history, surgical history - Past Medical History Additional medical history: Schizophrenia, paranoid. Chronic lower extremitis wounds w/ hx of polymicrobial cellulitis. CDiff, unknown dx date. Nephrotic Syndrome w/ CKD stage III. Gout. Anemia of CKD. Permanent Afib. HTN. Hx DVT - Surgical History Reports: no pertinent surgical hx - Family History Additional family history: Patient does not know his family's medical hx - Social History Smoking Status: Current every day smoker Alcohol Use: None Drug Use: None Additional social history: Resident of [facility] Review of Systems ROS: 10pt was reviewed & negative except for what was stated in HPI & below Cardiac: Reports: edema Genitourinary: Reports: other (retention) Skin: Reports: other (sacral skin breakdown) Physical Exam Temp Pulse Resp BP Pulse Ox 36.3 C 98 14 105/74 96 03/23/17 21:01 03/23/17 21:01 03/23/17 21:01 03/23/17 21:01 03/23/17 21:01 Constitutional: no apparent distress, not in pain, chronically ill appearing, obese, unkempt, No uncomfortable Eyes: PERRL, anicteric sclera, EOMI Ears, Nose, Mouth, Throat: moist mucous membranes, hearing normal, ears appear normal, no oral mucosal ulcers Cardiovascular: irregularly irregular, tachycardia (intermittently), edema (2+ bilat LE), No systolic murmur Respiratory: no rales or rhonchi, clear to auscultation, other (intermittently coughing s/p eating turkey sandwich) Gastrointestinal: normoactive bowel sounds, tenderness (mild to mod depth palpation diffusely throughout), No guarding, No distension Genitourinary: david in urethra (with keith urine) Skin: other (scattered abrasions on bilat hands/upper ext, no erythema extending beyond leg wrappings) Neurologic: AAOx3, weakness (motor 4/5 bilat LE), facial droop (mild L mouth), No sensation intact bilaterally (paresthesias bilat toes) Psychiatric: not anxious, not encephalopathic, flat affect, other (easily weaves into delusional, paranoid thought process, but redirectible), No agitated Lab Data & Imaging Review Visualized and Interpreted EKG results: Yes EKG additional interpertation: Afib w/o STD Assessment & Plan Assessment: 61 yo M p/w acute worsening of sacral pressure injury Plan: # Pressure Injury. Acute, sacral, further w/u indicated. D/w Dr. Cabrera, who reports it erodes through several tissue layers and is likely unstageable, and reports that Dr. 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 Monitor for RVR on tele, cont dilt/metop in AM - hold warfarin pre-op - no bridging indicated - repeat INR in AM, and post-op restart # Cdiff. Unclear infxn date, cont qid dosing Vanco PO until further information obtained # Schizophrenia. Chronic, paranoid, not decompensated - brother Toney is [facility] ([phone]) and should be contacted for all medical decisions - cont home Rx # Chronic pain w/ continuous opiate dependency. Cont home pain Rx # CKD Stage III. Nephrotic syndrome w/ chronic edema - get Cr / lytes - monitor I/O/weights - cont home lasix to avoid worsening edema # Anemia. Chronic, 2/2 CKD - check Hgb, monitor post-op Diet. Cardiac, then NPO PPx. High risk, hold pharm, check INR, restart coumadin post-op Code. Full Dispo. ADD uncertain, anticipated LOS > 48hrs warranting inpatient admission status for reasonable medical necessity including deep tissue wound requiring surgical debridement and assessment in setting of high-risk co-morbid conditions.
[2017-03-23 22:42] LABS: % IMMATURE GRANULYOCYTES 1.2 % (0.0-1.1); ABSOLUTE IMMATURE GRANULOCYTES 0.18 10^3/uL (0.00-0.10); ADD DIFF? NO; ADD MORPH? NO; ADD SCAN? NO; ATYPICAL LYMPHOCYTE FLAG 0 (0-99); FRAGMENT RBC FLAG 0 (0-99); HEMATOCRIT 26.7 % (40.0-51.0); HEMOGLOBIN 8.6 g/dL (13.7-17.5); LEFT SHIFT FLG 10 (0-99); LIPEMIA HEMOLYSIS FLAG 80 (0-99); MEAN CELL HEMOGLOBIN 30.4 pg (27.9-34.1); MEAN CELL HEMOGLOBIN CONCENTR. 32.2 g/dL (32.4-36.7); MEAN CELL VOLUME 94.3 fL (81.5-99.8); MEAN PLATELET VOLUME 9.2 fL (8.7-11.7); PLATELET CLUMPS FLAG 30 (0-99); PLATELET COUNT 390 10^3/uL (150-400); RED BLOOD CELL COUNT 2.83 10^6/uL (4.40-6.38); RED CELL DISTRIBUTION WIDTH 14.5 % (11.5-15.2)
[2017-03-23 22:52] LABS: APTT 65.6 SEC (23.0-38.0)
[2017-03-23 22:53] LABS: ANION GAP 7 mEq/L (8-16); CALCIUM 7.6 mg/dL (8.5-10.4); CARBON DIOXIDE 26 mEq/l (22-31); CHLORIDE 95 mEq/L (97-110); CREATININE 1.3 mg/dL (0.7-1.3); GLOMERULAR FILTRATION RATE 56; GLUCOSE 167 mg/dL (70-100); POTASSIUM 3.4 mEq/L (3.5-5.2); SODIUM 128 mEq/L (134-144)
[2017-03-23 23:16] LABS: PROTIME(PATIENT) 48.3 SEC (12.0-15.0)
[2017-03-23 23:32] LABS: INR 5.11 (0.83-1.16)
[2017-03-24] MEDS: VANCOMYCIN 125 MG/2.5 ML UDL PO SCH ×5 (00:56→22:03)
[2017-03-24] MEDS: morphINE SR 15 MG TAB PO SCH ×3 (00:56→22:02)
[2017-03-24] MEDS: risperiDONE 2 MG TAB PO SCH ×2 (00:56→09:12)
[2017-03-24 05:15] LABS: % IMMATURE GRANULYOCYTES 1.4 % (0.0-1.1); ABSOLUTE IMMATURE GRANULOCYTES 0.17 10^3/uL (0.00-0.10); ADD DIFF? NO; ADD MORPH? NO; ADD SCAN? NO; ATYPICAL LYMPHOCYTE FLAG 0 (0-99); FRAGMENT RBC FLAG 0 (0-99); HEMATOCRIT 22.2 % (40.0-51.0); HEMOGLOBIN 7.4 g/dL (13.7-17.5); LEFT SHIFT FLG 10 (0-99); LIPEMIA HEMOLYSIS FLAG 80 (0-99); MEAN CELL HEMOGLOBIN 31.4 pg (27.9-34.1); MEAN CELL HEMOGLOBIN CONCENTR. 33.3 g/dL (32.4-36.7); MEAN CELL VOLUME 94.1 fL (81.5-99.8); MEAN PLATELET VOLUME 8.9 fL (8.7-11.7); PLATELET CLUMPS FLAG 0 (0-99); PLATELET COUNT 335 10^3/uL (150-400); RED BLOOD CELL COUNT 2.36 10^6/uL (4.40-6.38); RED CELL DISTRIBUTION WIDTH 14.6 % (11.5-15.2)
[2017-03-24 05:32] LABS: INR 4.6 (0.83-1.16); PROTIME(PATIENT) 44.4 SEC (12.0-15.0)
[2017-03-24 05:35] LABS: ALANINE AMINOTRANSFERASE 28 IU/L (21-72); ALKALINE PHOSPHATASE 68 IU/L (38-126); ANION GAP 4 mEq/L (8-16); ASPARTATE AMINOTRANSFERASE 34 IU/L (17-59); BILIRUBIN,TOTAL 0.5 mg/dL (0.1-1.4); CALCIUM 7.1 mg/dL (8.5-10.4); CARBON DIOXIDE 27 mEq/l (22-31); CHLORIDE 98 mEq/L (97-110); CREATININE 1.3 mg/dL (0.7-1.3); GLOMERULAR FILTRATION RATE 56; GLUCOSE 95 mg/dL (70-100); MAGNESIUM 1.7 mg/dL (1.6-2.3); POTASSIUM 3.1 mEq/L (3.5-5.2); SODIUM 129 mEq/L (134-144); TOTAL PROTEIN 5.6 g/dL (6.3-8.2)
[2017-03-24] MEDS ORDERED: PROTOCOL POTASSIUM 1 DOSE MISC PRN (08:47)
[2017-03-24] MEDS ORDERED: FUROSEMIDE 40 MG TAB PO SCH (09:00)
[2017-03-24] MEDS ORDERED: Herbals/Supplements -Info Only PO SCH (09:00)
[2017-03-24] MEDS ORDERED: POTASSIUM CL 10 MEQ TAB PO ONE (09:03)
[2017-03-24] MEDS: ACYCLOVIR 400 MG TAB PO SCH ×2 (09:12→22:02)
--- NOTE | 2017-03-24 09:22 | HOSPPROG ---
Hospitalist Progress Note Assessment/Plan: Chronic pressure ulcer - Unstageable, will require debridement. Discussed with surgery, will do bedside debridement of eschar and when INR drifts down, proceed with deeper debridement in OR. FFP ordered to keep on hold in the event he bleeds during bedside debridement. Temp of 101 last night, ?infection. -I&D per surgery, obtain deep cultures when he goes to OR -ID consulted regarding initiation of atbx -wound care following A fib - Rate controlled on Metoprolol and Dilt. Supratherapeutic INR, still 4.6 this am. No bleeding. Letting INR drift down, FFP on hold as above. H/O C diff - Pos C diff / per [facility] -cont po vanc Hyponatremia - ?hypovolemia, checking urine Na and urine osm for further evaluation -NS at 75 / hr for now Chronic lymphedema - holding Lasix for now as appears a bit dry, favoring gentle IVF's, monitor. Chronic LE wounds with h/o polymicrobial cellulitis - completed 14 days of Cefepime earlier this month. -ID to see -cont wound care CKD with nephrotic syndrome - Cr at baseline Anemia of CKD - normocytic. hgb trended down to 7.4 from 8.6 after IVF's on admission -with elevated INR, check hemoccult stool and iron studies Hypertension - BP lowish this am, holding BP meds Schizophrenia - behaviorally controlled, cont outpt meds DVT PPLX - pharm c/i 2/2 elevated INR, SCD's Full code Dispo - cont inpt Subjective: Pt doing okay. Denies pain. States he is non-ambulatory at baseline. Up in wheelchair occassionally. +temp 101 overnight. Objective: Vital Signs Temp Pulse Resp BP Pulse Ox 36.7 C 91 18 100/50 L 94 03/24/17 09:11 03/24/17 09:11 03/24/17 09:11 03/24/17 09:11 03/24/17 09:11 Laboratory Results 03/24/17 05:00 03/24/17 05:00 03/23/17 03/24/17 03/25/17 05:59 05:59 05:59 Intake Total 2200 Output Total 1300 Balance 900 PT 44.4 SEC (12.0-15.0) H 03/24/17 05:00 INR 4.60 (0.83-1.16) H 03/24/17 05:00 - Physical Exam Constitutional: no apparent distress Eyes: PERRL Ears, Nose, Mouth, Throat: moist mucous membranes Cardiovascular: regular rate and rhythym Respiratory: no respiratory distress, clear to auscultation Gastrointestinal: normoactive bowel sounds, soft, non-tender abdomen Skin: other (multiple LE wounds with black eschar, deep sacral wound with black eschar and surrounding erythema) Musculoskeletal: generalized weakness Psychiatric: other (delusional) ICD10 Worksheet Patient Problems: Problems Problem Status Onset Atrial fibrillation Acute Cellulitis and abscess of leg Acute Peripheral edema Acute Sacral decubitus ulcer, stage III Acute Schizophrenia Acute CHF (congestive heart failure) Acute Peripheral edema Acute
[2017-03-24] MEDS: METOPROLOL SUCCINATE XR 100 MG TAB PO SCH (09:35)
[2017-03-24] MEDS: DILTIAZEM CD 180 MG CAP PO SCH ×2 (09:35→10:26)
[2017-03-24] MEDS: METOPROLOL SUCCINATE XR 25 MG TAB PO SCH ×2 (09:36→13:14)
[2017-03-24] MEDS ORDERED: NS W/ 20 KCl/L 1,000 ML IV SCH (09:45)
--- NOTE | 2017-03-24 10:17 | SOAPPROG ---
SOAP Progress Note Assessment/Plan: Assessment:no buttock complaints. large, mature eschar noted without erythema. large portion elevated centrally. will plan for eschar excision at bedside - ok with elevated INR. if bleeding occurs, can reverse. further deep debridement can be completed later as warranted. Plan: 03/24/17 10:15 Objective: Vital Signs Temp Pulse Resp BP Pulse Ox 36.7 C 91 18 100/50 L 94 03/24/17 09:11 03/24/17 09:11 03/24/17 09:11 03/24/17 09:11 03/24/17 09:11 Laboratory Results 03/24/17 05:00 03/24/17 05:00 03/23/17 03/24/17 03/25/17 05:59 05:59 05:59 Intake Total 2200 Output Total 1300 Balance 900 PT 44.4 SEC (12.0-15.0) H 03/24/17 05:00 INR 4.60 (0.83-1.16) H 03/24/17 05:00 ICD10 Worksheet Patient Problems: Problems Problem Status Onset Atrial fibrillation Acute Cellulitis and abscess of leg Acute Peripheral edema Acute Sacral decubitus ulcer, stage III Acute Schizophrenia Acute CHF (congestive heart failure) Acute Peripheral edema Acute
[2017-03-24] MEDS: HYDROCODONE/APAP 5/325 TAB PO PRN (10:30)
[2017-03-24 13:03] LABS: % SATURATION 7 % (20-55); TOTAL IRON BINDING CAPACITY 175 ug/dL (260-490)
--- NOTE | 2017-03-24 13:05 | WOCRNPDOC ---
JESS Advanced Assessment Note - Skin Integrity Problem, Advanced Assess Sacrum Pressure Injury Dressing Type: Open to Air Exudate Amount: Moderate Exudate Characteristic(s): Purulent Aria Wound Tissue: Erythema (circumferential to wound to 2 cm ) Wound Bed Color: Black, Brown, [place], Yellow Wound Bed Constitution: Smooth Tissue (5%), Tunneling, Undermining, Subcutaneous Fat, Loose Slough (10%), Unstable Eschar (85%) Site Odor: Very Strong, Foul Site Measurement - Head-to-Toe Length X Width X Depth (cm): L Ischial Tuberosity /Sacrum: [id number], Right Ischial Tuberosity/Sacrum: 14.7x12x5.5 Pressure Injury Stage: Stage 4 Pressure Injury Present on Admit: Yes Skin Integrity Problem Comment: Large necrotic areas on bilateral ischium/ sacrum. Stage 4. Recommend OR debridement and vac placement. Dr. Saleh to consult. Suggest packing with kelix moistended in 1/4 strength Dakins BID. Would benefit from referral to [facility] for Advanced Tissue wound closure with Dr. Denis for discharge planning purposes. Discussed with RNailyn Landis. AMARIS Monkie in room and assisted with care. Please note that wound care will sign off at this time. Please consult Dr. Saleh for wound care orders and recommendations. Please reconsult prn per Dr. Saleh's request. Thank you for your consultation. Left Posterior Lower Leg Dressing Type: Coban, Kerlix Dressing Description: Clean/Dry, Intact Exudate Amount: Scant Exudate Characteristic(s): Bloody Integumentary Issue Intervention: Dressing Removed Aria Wound Tissue: Hemosiderin Staining, Venous Dermatitis, Xerotic Aria Wound Swelling: None Wound Bed Color: Black, Red Wound Bed Constitution: Smooth Tissue (50% Blood blister), Unstable Eschar (50%) Site Measurement - Head-to-Toe Length X Width X Depth (cm): 3.2x2.x0.1 Left Heel Pressure Injury Dressing Type: Coban, Kerlix Wound Bed Constitution: Stable Eschar Site Measurement - Head-to-Toe Length X Width X Depth (cm): 1.5x2.5xeschar Pressure Injury Stage: Unstageable Pressure Injury Present on Admit: Yes Skin Integrity Problem Comment: [place] with betadine BID. Keep heels offloaded at all times in offloading boots. Right Heel Pressure Injury Dressing Type: Coban, Kerlix Wound Bed Constitution: Stable Eschar Site Measurement - Head-to-Toe Length X Width X Depth (cm): [id number] Pressure Injury Stage: Unstageable Pressure Injury Present on Admit: Yes Skin Integrity Problem Comment: [place] with betadine BID. Keep heels offloaded at all times in offloading boots. Right Posterior Lower Leg Dressing Type: Coban, Kerlix Dressing Description: Clean/Dry, Intact Integumentary Issue Intervention: Dressing Removed Aria Wound Tissue: Hemosiderin Staining, Venous Dermatitis Wound Bed Constitution: Smooth Tissue Site Measurement - Head-to-Toe Length X Width X Depth (cm): 3x2.5x0.1 Skin Integrity Problem Comment: Area with raised smooth tissue in the middle. Asked RN to bring to the attention of Dr. Saleh. Right Lower Lateral Leg Dressing Type: Coban, Kerlix Dressing Description: Clean/Dry, Intact Integumentary Issue Intervention: Dressing Removed Aria Wound Tissue: Hemosiderin Staining, Venous Dermatitis Wound Bed Constitution: Smooth Tissue (25%), Unstable Eschar (25%) Pressure Injury Stage: Deep Tissue Injury (DTI) (50% of the middle of this wound is a deep tissue injury. ) Pressure Injury Present on Admit: Yes Skin Integrity Problem Comment: Deep Tissue injury that is evolving. Right 3rd and 4th toes Dressing Type: Open to Air Wound Bed Constitution: Dried Exudate Site Measurement - Head-to-Toe Length X Width X Depth (cm): 4th: 1.1x0.9xdried drainage, 3rd: 1.2x0.5xdried drainage. Right Lateral Ankle Dressing Type: Coban, Kerlix Wound Bed Constitution: Unstable Eschar Site Measurement - Head-to-Toe Length X Width X Depth (cm): 0.5x0.5x0 Skin Integrity Problem Comment: Overlying unstable eschar mechanically removed exposing a clean partial thickness wound. No concerns.
[2017-03-24] MEDS: COLLAGENASE 30 GM OINTMENT TP SCH (13:19)
--- NOTE | 2017-03-24 14:23 | PCMIDPN ---
Assessment/Plan: Assessment: Sacral and bilateral buttock decubitus ulcers-severe necrosis. This is likely due to underlying schizoaffective disorder and inability or unwillingness to move. Patient does need to go to the operative theater for debridement. Will plan on covering with broad-spectrum antibiotics following deep cultures. At this point the patient does not appear toxic and will not empirically cover until debridement is complete. Plan: 1. Hold off on antibiotics until deep tissue samples are taken and surgery. 2. Once tissue samples are taken suspect empiric Zosyn coverage is reasonable. 03/24/17 18:46 03/24/17 18:47 Subjective: Patient is resting in his hospital bed. He is covered head-to-toe by a blanket. He removes the blanket to discuss with me when I enter the room and identify myself. He explains in detail about his body guards and his need to stay at [facility] for over a year. He also explains that Mercedes Newman is giving him "queer medicine". He then states he does not feel that Mercedes Newman is taking very good care of him. Objective: P.o. Vanco #2 Vital Signs Temp Pulse Resp BP Pulse Ox 36.7 C 99 18 105/84 H 94 03/24/17 09:11 03/24/17 13:14 03/24/17 09:11 03/24/17 13:14 03/24/17 09:11 Laboratory Results 03/24/17 05:00 03/24/17 05:00 03/23/17 03/24/17 03/25/17 05:59 05:59 05:59 Intake Total 2200 Output Total 1300 Balance 900 - Physical Exam General Appearance: WD/WN, alert, no apparent distress, non-toxic Respiratory: lungs clear, normal breath sounds, No respiratory distress Cardiac/Chest: regular rate, rhythm, No tachycardia Skin: normal color, warm/dry, decubitus Neuro/Psych: alert, oriented x 3, No normal mood/affect (Slightly elevated with abnormal thoughts) ICD10 Worksheet Patient Problems: Problems Problem Status Onset Atrial fibrillation Acute Cellulitis and abscess of leg Acute Clostridium difficile infection Acute ~03/19/17 Peripheral edema Acute Sacral decubitus ulcer, stage III Acute Schizophrenia Acute CHF (congestive heart failure) Acute Peripheral edema Acute
[2017-03-24] MEDS: oxyCODONE IR 5 MG TAB PO PRN (17:30)
[2017-03-24 18:12] LABS: POTASSIUM 3.7 mEq/L (3.5-5.2)
[2017-03-24] MEDS: SENNOSIDES 1 TAB PO SCH (22:02)
[2017-03-25] MEDS ORDERED: POTASSIUM CL 10 MEQ TAB PO ONE ×2 (01:14→07:51)
[2017-03-25] MEDS: risperiDONE 2 MG TAB PO SCH ×3 (02:07→21:36)
[2017-03-25] MEDS: VANCOMYCIN 125 MG/2.5 ML UDL PO SCH ×4 (05:14→21:36)
[2017-03-25 05:21] LABS: % IMMATURE GRANULYOCYTES 1.4 % (0.0-1.1); ABSOLUTE IMMATURE GRANULOCYTES 0.15 10^3/uL (0.00-0.10); ADD DIFF? NO; ADD MORPH? NO; ADD SCAN? NO; ATYPICAL LYMPHOCYTE FLAG 0 (0-99); FRAGMENT RBC FLAG 0 (0-99); HEMATOCRIT 21.9 % (40.0-51.0); HEMOGLOBIN 7.1 g/dL (13.7-17.5); LEFT SHIFT FLG 10 (0-99); LIPEMIA HEMOLYSIS FLAG 80 (0-99); MEAN CELL HEMOGLOBIN CONCENTR. 32.4 g/dL (32.4-36.7); MEAN CELL VOLUME 95.6 fL (81.5-99.8); MEAN PLATELET VOLUME 8.5 fL (8.7-11.7); PLATELET CLUMPS FLAG 0 (0-99); PLATELET COUNT 304 10^3/uL (150-400); RED BLOOD CELL COUNT 2.29 10^6/uL (4.40-6.38); RED CELL DISTRIBUTION WIDTH 14.8 % (11.5-15.2)
[2017-03-25 05:36] LABS: ANION GAP 4 mEq/L (8-16); CALCIUM 7.3 mg/dL (8.5-10.4); CARBON DIOXIDE 27 mEq/l (22-31); CHLORIDE 102 mEq/L (97-110); CREATININE 1.1 mg/dL (0.7-1.3); GLOMERULAR FILTRATION RATE > 60; GLUCOSE 109 mg/dL (70-100); POTASSIUM 3.8 mEq/L (3.5-5.2); SODIUM 133 mEq/L (134-144)
[2017-03-25 05:37] LABS: INR 3.64 (0.83-1.16); PROTIME(PATIENT) 36.8 SEC (12.0-15.0)
[2017-03-25] MEDS: METOPROLOL SUCCINATE XR 25 MG TAB PO SCH (08:53)
[2017-03-25] MEDS: DILTIAZEM CD 180 MG CAP PO SCH (08:53)
[2017-03-25] MEDS: ACYCLOVIR 400 MG TAB PO SCH ×2 (08:53→23:21)
[2017-03-25] MEDS: METOPROLOL SUCCINATE XR 100 MG TAB PO SCH (08:53)
[2017-03-25] MEDS: morphINE SR 15 MG TAB PO SCH ×2 (08:54→21:23)
[2017-03-25] MEDS: SODIUM HYPOCHLORITE (DAKINS 1/4 STR) 120 ML BTL TP SCH (11:00)
--- NOTE | 2017-03-25 11:23 | HOSPPROG ---
Hospitalist Progress Note Assessment/Plan: Chronic sacral pressure ulcer - Unstageable, eschar debrided yesterday by Dr. Saleh at bedside, wound now saturated with stool. Needs operative debridement and wound vac. Will re-consult surgery. Needs INR reversed. NPO now for probable operative intervention later today. I'm concerned he'll develop sepsis with stool contamination in wound. Stool is formed, likely not amenable to rectal tube. -I&D per surgery, obtain deep cultures when he goes to OR -ID following, awaiting cultures prior to initiating atbx as he remains clinically stable -If he spikes fever or decompensates, start broad spectrum atbx -wound care following A fib - Rate controlled on Metoprolol and Dilt. Supratherapeutic INR, still >3 this am. No bleeding. Had been letting INR drift down, but will give FFP today prior to OR intervention, recheck INR this afternoon, needs to be <2. He is in NSR now. Likely doesn't need bridging therapy. Will resume Coumadin 24 hrs post-op when ok with surgery. H/O C diff - Pos C diff 8/9 per [place] -cont po vanc Hyponatremia - Likely hypovolemic with low urine Na. Improved with NS overnight. Chronic lymphedema - holding Lasix for now as appears a bit dry, favoring gentle IVF's, monitor. Chronic LE wounds with h/o polymicrobial cellulitis - completed 14 days of Cefepime earlier this month. -ID on board -cont wound care CKD with nephrotic syndrome - Cr at baseline Anemia of CKD - normocytic, Fe studies c/w ACD, serum iron low. hgb trended down to 7.1 from 8.6, possibly some dilutional component with IVF's on admission. No e/o bleeding. -will start oral iron -heme stools pending -at some point he'll warrant a colonoscopy, outpt Hypertension - BP stable, cont current regimen. Schizophrenia - behaviorally controlled, cont outpt meds DVT PPLX - pharm c/i 2/2 elevated INR, SCD's Full code Dispo - cont inpt Subjective: Pt resting comfortably. He is mostly bed-bound. No fevers. No pain. Objective: Vital Signs Temp Pulse Resp BP Pulse Ox 36.5 C 75 20 114/61 95 03/25/17 07:24 03/25/17 07:24 03/25/17 07:24 03/25/17 07:24 03/25/17 07:24 Laboratory Results 03/25/17 05:06 03/25/17 05:06 03/24/17 03/25/17 03/26/17 05:59 05:59 05:59 Intake Total 2200 400 240 Output Total 1300 1000 Balance 900 -600 240 PT 36.8 SEC (12.0-15.0) H 03/25/17 05:06 INR 3.64 (0.83-1.16) H 03/25/17 05:06 - Physical Exam Constitutional: no apparent distress Eyes: PERRL Ears, Nose, Mouth, Throat: moist mucous membranes Cardiovascular: regular rate and rhythym Respiratory: no respiratory distress Skin: other (very deep, extensive sacral pressure ulcer palpates to bone, with some erythema and induration surrounding residual eschar) Musculoskeletal: full muscle strength Neurologic: AAOx3 Psychiatric: poor insight ICD10 Worksheet Patient Problems: Problems Problem Status Onset Atrial fibrillation Acute Cellulitis and abscess of leg Acute Clostridium difficile infection Acute ~03/19/17 Peripheral edema Acute Sacral decubitus ulcer, stage III Acute Schizophrenia Acute CHF (congestive heart failure) Acute Peripheral edema Acute
--- NOTE | 2017-03-25 11:30 | PCMIDPN ---
Assessment/Plan: Assessment/Plan: 1. Sacral decubitus, bl buttocks ulcers with eschar: - s/p bedside debridement yesterday. now area is covered in stool - REcommend OR debridement with obtaining of cultures. pt will need wound vac given risk for ongoing stool contamination. -wbc down, afebrile. blood cx ngtd -Will continue to hold antbx until debridement/cultures done. - CAre coordinated with hospitalist team who has coordinated with surgery - care coordinated with wound care team Subjective: Afebrile. . c/o pain involving legs. only mild pain involving sacrum.. loose mushy stools Objective: Vital Signs Temp Pulse Resp BP Pulse Ox 36.5 C 75 20 114/61 95 03/25/17 07:24 03/25/17 07:24 03/25/17 07:24 03/25/17 07:24 03/25/17 07:24 Laboratory Results 03/25/17 05:06 03/25/17 05:06 03/24/17 03/25/17 03/26/17 05:59 05:59 05:59 Intake Total 2200 400 240 Output Total 1300 1000 Balance 900 -600 240 - Physical Exam General Appearance: alert, no apparent distress Extremities: swelling (LE) Skin: other (chronic venous stasis dermatitis of bilateral LE's. sacrum: moderate sized debrided area covered in stool. other moderate aera of eschar with surrounding induration/erythema. large area of involvement overall) ICD10 Worksheet Patient Problems: Problems Problem Status Onset Atrial fibrillation Acute Cellulitis and abscess of leg Acute Clostridium difficile infection Acute ~03/19/17 Peripheral edema Acute Sacral decubitus ulcer, stage III Acute Schizophrenia Acute CHF (congestive heart failure) Acute Peripheral edema Acute
[2017-03-25] MEDS: NS W/ 20 KCl/L 1,000 ML IV SCH (11:58)
[2017-03-25] MEDS: COLLAGENASE 30 GM OINTMENT TP SCH (12:08)
--- NOTE | 2017-03-25 12:32 | GOP ---
[f rep st] OPERATIVE REPORT DATE OF OPERATION: 03/24/2017 SURGEON: Eron Saleh MD ANESTHESIA: None. PREOPERATIVE DIAGNOSIS: Full-thickness sacral decubitus ulcer. POSTOPERATIVE DIAGNOSIS: Full-thickness sacral decubitus ulcer. PROCEDURE PERFORMED: Debridement of sacral decubitus ulcer. DESCRIPTION OF PROCEDURE: Bilateral buttocks were noted to have large foul smelling eschars coursing toward the rectal canal. The right buttock measured approximately 15 cm x 10 cm. The left buttock measured approximately 13 cm x 8 cm. Using sharp dissection, the mature eschar was completely debrided through the subcutaneous tissues down to the areas of goopy subcutaneous residual tissue. No abscess cavities were identified. Minimal bleeding occurred. The remaining wound was left open to allow for further granulation to take place. Patient will require future debridement as this wound continues to declare itself. /[id number]/MODL MTDD
[2017-03-25] MEDS: FERROUS SULFATE 325 MG TAB PO SCH ×2 (12:54→23:22)
[2017-03-25 14:40] LABS: INR 3.15 (0.83-1.16); PROTIME(PATIENT) 32.8 SEC (12.0-15.0)
--- NOTE | 2017-03-25 14:41 | WOCRNPDOC ---
WOCRN Advanced Assessment Note - Skin Integrity Problem, Advanced Assess Sacrum Pressure Injury Dressing Type: ABD Pad, Kerlix (packing) Dressing Description: Soiled (w/ stool) Exudate Amount: Moderate Exudate Characteristic(s): Serosanguinous Integumentary Issue Intervention: Dressing Changed Aria Wound Tissue: Erythema, Indurated Aria Wound Swelling: Moderate Wound Bed Color: Black, Red, Yellow Wound Bed Constitution: Tunneling, Undermining, Subcutaneous Fat (20%), Adhered Slough (20%), Unstable Eschar (60%) Wound Edges: Irregular Site Odor: Foul Site Measurement - Head-to-Toe Length X Width X Depth (cm): L Ischial Tuberosity /Sacrum: [id number], Right Ischial Tuberosity/Sacrum: 14.7x12x5.5 Pressure Injury Present on Admit: Yes (Documented in H&P) Skin Integrity Problem Comment: Large, full-thickness stage 4 pressure injury noted, extending from sacrum down across bilateral buttocks and ischium. Upon assessment today, dressing was soiled and stool was observed in the wound. Dr. Saleh debrided this wound at the bedside on 03/24. Eschar/slough remains extensive throughout the wound bed, with areas of tunneling noted in the subcutaneous fat , particularly on the R buttock/ischium. Induration and erythema observed in the immediate aria-wound tissues, much more pronounced on the proximal L sacrum. Site assessed w/ Drs. Spencer and Dean, as well as wound RN Roselyn Agustin. Concensus was that, given the size and extent of this wound, patient would benefit from debridement in the OR. On-call trauma surgeon Brayan Collado was contacted and updated about the situation. In the interim, patient's wound was cleansed w/ wound cleanser, wounds were filled w/ Kerlix rolled gauze moistened w/ 1/4 strength Daikins solution, and covered w/ ABD pads. Staff RNs Lesli and Edith present and assisting. Wound care will continue to follow patient, and round again on Monday 03/26.
[2017-03-25] MEDS: oxyCODONE IR 5 MG TAB PO PRN (16:23)
[2017-03-25 18:20] LABS: INR 2.68 (0.83-1.16); PROTIME(PATIENT) 28.8 SEC (12.0-15.0)
[2017-03-25] MEDS ORDERED: PHYTONADIONE 2.5 MG/2.5 ML ORAL UDL PO ONE (18:28)
--- NOTE | 2017-03-25 18:28 | SOAPPROG ---
SOAP Progress Note Assessment/Plan: Assessment/Plan: - 61yo M c schizoaffective disorder and large curt sacral decub - After assessing patients ulcer this AM feel that he needs debridement. Attempted to lower INR to reasonable level throughout the day but was unsuccessful. Discussed with Dr Spencer, will give addl 2.5 vit K tonight in addition to previous FFP. Will hopefully have more reasonable INR tomorrow to proceed safely as the patient is not currently displaying signs of sepsis and is medically stable. OK to eat tonight, NPO at [place]. Discussed with Dr Spencer 03/25/17 18:26 Subjective: Denies pain Objective: Vital Signs Temp Pulse Resp BP Pulse Ox 36.6 C 86 18 100/55 L 96 03/25/17 17:34 03/25/17 17:34 03/25/17 17:34 03/25/17 17:34 03/25/17 17:34 Laboratory Results 03/25/17 05:06 03/25/17 05:06 03/24/17 03/25/17 03/26/17 05:59 05:59 05:59 Intake Total 2200 400 240 Output Total 1300 1000 500 Balance 900 -600 -260 PT 28.8 SEC (12.0-15.0) H 03/25/17 17:55 INR 2.68 (0.83-1.16) H 03/25/17 17:55 ICD10 Worksheet Patient Problems: Problems Problem Status Onset Atrial fibrillation Acute Cellulitis and abscess of leg Acute Clostridium difficile infection Acute ~03/19/17 Peripheral edema Acute Sacral decubitus ulcer, stage III Acute Schizophrenia Acute CHF (congestive heart failure) Acute Peripheral edema Acute
[2017-03-25] MEDS: SENNOSIDES 1 TAB PO SCH (23:22)
[2017-03-26] MEDS: HYDROCODONE/APAP 5/325 TAB PO PRN (01:09)
[2017-03-26] MEDS: VANCOMYCIN 125 MG/2.5 ML UDL PO SCH ×4 (05:26→21:46)
[2017-03-26] MEDS: NS W/ 20 KCl/L 1,000 ML IV SCH (05:26)
[2017-03-26] MEDS: oxyCODONE IR 5 MG TAB PO PRN ×3 (05:43→21:49)
[2017-03-26 06:10] LABS: ANION GAP 8 mEq/L (8-16); CALCIUM 7.4 mg/dL (8.5-10.4); CARBON DIOXIDE 25 mEq/l (22-31); CHLORIDE 104 mEq/L (97-110); GLOMERULAR FILTRATION RATE > 60; GLUCOSE 97 mg/dL (70-100); POTASSIUM 4.1 mEq/L (3.5-5.2); SODIUM 137 mEq/L (134-144)
[2017-03-26 06:29] LABS: % IMMATURE GRANULYOCYTES 0.7 % (0.0-1.1); ABSOLUTE IMMATURE GRANULOCYTES 0.04 10^3/uL (0.00-0.10); ADD DIFF? NO; ADD MORPH? NO; ADD SCAN? NO; ATYPICAL LYMPHOCYTE FLAG 0 (0-99); FRAGMENT RBC FLAG 0 (0-99); HEMATOCRIT 36.3 % (40.0-51.0); HEMOGLOBIN 11.8 g/dL (13.7-17.5); LEFT SHIFT FLG 0 (0-99); LIPEMIA HEMOLYSIS FLAG 80 (0-99); MEAN CELL HEMOGLOBIN 30.6 pg (27.9-34.1); MEAN CELL HEMOGLOBIN CONCENTR. 32.5 g/dL (32.4-36.7); MEAN PLATELET VOLUME 8.5 fL (8.7-11.7); PLATELET CLUMPS FLAG 20 (0-99); PLATELET COUNT 194 10^3/uL (150-400); RED BLOOD CELL COUNT 3.86 10^6/uL (4.40-6.38); RED CELL DISTRIBUTION WIDTH 14.7 % (11.5-15.2)
[2017-03-26 06:42] LABS: APTT 29.2 SEC (23.0-38.0); INR 1.94 (0.83-1.16); PROTIME(PATIENT) 22.3 SEC (12.0-15.0)
[2017-03-26 08:22] LABS: HEMATOCRIT 21.7 % (40.0-51.0); HEMOGLOBIN 7.1 g/dL (13.7-17.5)
[2017-03-26] MEDS ORDERED: IOPAMIDOL (ISOVUE-300) 100 ML BTL ONE (08:49)
--- NOTE | 2017-03-26 08:53 | HOSPPROG ---
Hospitalist Progress Note Assessment/Plan: Chronic sacral pressure ulcer - Stage 4. No signs of sepsis. Excisional debridement today in OR by Dr. Higgins. INR down to 1.9, further FFP per surgery. May need rectal tube vs ostomy. Some concern we won't be able to obtain seal on wound vac. -CT pelvis today -Operative debridement per surgery, obtain deep cultures when he goes to OR -ID following, awaiting cultures prior to initiating atbx as he remains clinically stable -If he spikes fever or decompensates, start broad spectrum atbx -wound care following A fib - Rate controlled on Metoprolol and Dilt. INR 1.9 this am s/p 2 u FFP and 5 mg po Vit K. No bleeding. Does not need bridging therapy. -Resume Coumadin 24 hrs post-op when ok with surgery. H/O C diff - Pos C diff 03/19 per [place] -cont po vanc Hyponatremia - Likely hypovolemic, normalized with NS Chronic lymphedema - holding Lasix for now as has appeared dry, favoring gentle IVF's, monitor. -Likely resume Lasix post-op as anticipate more IVF's pj-operatively Chronic LE wounds with h/o polymicrobial cellulitis - completed 14 days of Cefepime earlier this month. -ID on board -cont wound care CKD with nephrotic syndrome - Cr at baseline Anemia of CKD - normocytic, Fe studies c/w ACD, serum iron low. hgb trending down to 7.1 from 8.6 in setting of elevated INR. No obvious bleeding, though heme positive stool -will start oral iron -may require further GI evaluation / c-scope Hypertension - BP stable, cont current regimen. Schizophrenia - paranoid though behaviorally controlled, cont outpt meds DVT PPLX - pharm c/i 2/2 elevated INR, SCD's Full code Dispo - cont inpt Subjective: Pt feels well this am. No pain. No CP or SOB. No fevers. He is NPO for the OR. Objective: Vital Signs Temp Pulse Resp BP Pulse Ox 37 C 88 14 125/63 H 95 03/26/17 00:00 03/26/17 08:00 03/26/17 08:00 03/26/17 08:00 03/26/17 08:00 Laboratory Results 03/26/17 08:13 03/26/17 05:36 03/25/17 03/26/17 03/27/17 05:59 05:59 05:59 Intake Total 400 740 Output Total 1000 1150 Balance -600 -410 PT 22.3 SEC (12.0-15.0) H 03/26/17 06:05 INR 1.94 (0.83-1.16) H 03/26/17 06:05 - Physical Exam Constitutional: no apparent distress Eyes: PERRL Ears, Nose, Mouth, Throat: moist mucous membranes Cardiovascular: regular rate and rhythym Respiratory: no respiratory distress Gastrointestinal: normoactive bowel sounds, soft, non-tender abdomen Skin: warm, other (chronic b/l LE wounds with eschar, sacral ulcer visualized yesterday) Neurologic: AAOx3 Psychiatric: interacting appropriately, poor insight, poor judgement ICD10 Worksheet Patient Problems: Problems Problem Status Onset Atrial fibrillation Acute Cellulitis and abscess of leg Acute Clostridium difficile infection Acute ~03/19/17 Peripheral edema Acute Sacral decubitus ulcer, stage III Acute Schizophrenia Acute CHF (congestive heart failure) Acute Peripheral edema Acute
--- NOTE | 2017-03-26 09:15 | PDCONSULT ---
[employer] Technician Note: Trauma/Acute Care Surgical Consult-FU Mr. Wilcox is currently being transported to CT for a pelvic CT to assess the deep soft tissues/bone prior to surgery. His Hgb is 7.1 and his INR is >1.9. I have recommended transfusing 2 units PRBC and 2 units FFP prior to surgery and he is agreeable. He does not appear to be in distress. He has multiple medical problems per Dr. Spencer's note/ ASA III-IV and is at higher risk of surgical/anesthetic complications, but needs debridement of necrotic tissue from his chronic gluteal/sacral decubiti. Kavitha Higgins MD, FACS
[2017-03-26] MEDS: METOPROLOL SUCCINATE XR 25 MG TAB PO SCH (10:52)
[2017-03-26] MEDS: METOPROLOL SUCCINATE XR 100 MG TAB PO SCH (10:52)
[2017-03-26] MEDS: morphINE SR 15 MG TAB PO SCH ×2 (10:53→21:06)
[2017-03-26] MEDS: DILTIAZEM CD 180 MG CAP PO SCH (10:53)
[2017-03-26] MEDS ORDERED: BACITRACIN 50,000 UNITS/10 ML SYR IRR ONE (13:52)
[2017-03-26] MEDS ORDERED: BUPIVACAINE 0.5% 30 ML SDV ONE (13:52)
[2017-03-26] MEDS ORDERED: POLYMYXIN B SULFATE 500,000 UNIT/10 ML SYR IRR ONE (13:52)
[2017-03-26] MEDS ORDERED: LIDOCAINE 1% 2 ML INJ ONE (13:56)
[2017-03-26] MEDS ORDERED: fentaNYL 100 MCG/2 ML INJ ONE ×4 (14:03→18:30)
[2017-03-26] MEDS ORDERED: PROPOFOL/EMULSION 500 MG/50 ML BOTTLE IV ONE (14:03)
--- NOTE | 2017-03-26 14:07 | PDANEPAE ---
ANE History of Present Illness here for I and D sacral decub ANE Past Medical History - Cardiovascular History Hx Hypertension: Yes Hx Arrhythmias: Yes Hx Chest Pain: No Hx Coronary Artery / Peripheral Vascular Disease: No Hx CHF / Valvular Disease: No Hx Palpitations: No Cardiovascular History Comment: perm afib rate controlled - Pulmonary History Hx COPD: No Hx Asthma/Reactive Airway Disease: No Hx Recent Upper Respiratory Infection: No Hx Oxygen in Use at Home: No Hx Sleep Apnea: No Sleep Apnea Screening Result - Last Documented: Positive - Endocrine History Hx Diabetes: No Hypothyroid: No Hyperthyroid: No Obesity: no - Renal History Hx Renal Disorders: Yes Renal History Comment: CKD - Neurological & Psychiatric Hx Hx Neurological and Psychiatric Disorders: Yes Neurological / Psychiatric History Comment: schizophrenia - Other Health History Other Health History: DVT - Chronic Pain History Chronic Pain: No ANE Review of Systems Review of systems is: negative - Exercise capacity Exercise capacity: <4 METS ANE Patient History - Allergies Allergies/Adverse Reactions: amoxapine [From Asendin] Allergy (Verified 09/02/16 11:03) fluphenazine enanthate [From Prolixin] Allergy (Verified 09/02/16 11:03) fluphenazine HCl [From Prolixin] Allergy (Verified 09/02/16 11:03) haloperidol [From Haldol] Allergy (Verified 09/02/16 11:03) haloperidol lactate [From Haldol] Allergy (Verified 09/02/16 11:03) thioridazine HCl [From Mellaril] Allergy (Verified 09/02/16 11:03) trifluoperazine HCl [From Stelazine] Allergy (Verified 09/02/16 11:03) - Home Medications Home Medications: Hydrocodone/Acetaminophen [[place] 7.5-325 Tablet] 1 tab PO BID PRN 09/02/16 [ Last Taken 02/15/17] Furosemide [Lasix 40 MG (*)] 40 mg PO BID 02/17/17 [Last Taken 03/23/17 17:00] Risperidone 2 mg PO DAILY 02/17/17 [Last Taken 03/23/17 08:00] Sennosides [Senokot] 2 tab PO HS 02/17/17 [Last Taken 02/16/17] morphINE SR [Ms Contin/Oramorph 15 mg (*)] 15 mg PO BID 02/17/17 [Last Taken 08:00] Acetaminophen [Tylenol 325mg (*)] 650 mg PO Q8 PRN 03/23/17 [Last Taken 14:00] Collagenase [Santyl (*)] 1 myrna TP DAILY 03/23/17 [Last Taken 03/23/17 08:00] Herbals/Supplements -Info Only 1 ea PO DAILY 03/23/17 [Last Taken Unknown] Magnesium Hydroxide/Al Hydrox [Mylanta Liquid] 30 ml PO Q4H PRN 03/23/17 [Last Taken Unknown] Metoprolol Succinate Xr [Toprol Xl 100 mg (*)] 100 mg PO DAILY 03/23/17 [Last Taken 03/23/17 08:00] Metoprolol Succinate Xr [Toprol Xl 25 mg (*)] 25 mg PO DAILY 03/23/17 [Last Taken 03/23/17 08:00] Vancomycin [Vancomycin (*)] 125 mg PO QID 03/23/17 [Last Taken 03/23/17 17:00] Warfarin Sodium [Coumadin 1MG (*)] 1.5 mg PO MWF@16 03/23/17 [Last Taken 16:00] Warfarin Sodium [Coumadin 2.5MG (*)] 2.5 mg PO SUTUTHSA@16 03/23/17 [Last Taken 03/22/17 16:00] guaiFENesin/DEXTROMETHORPHAN [Robitussin Dm Oral Liquid (*)] 10 ml PO Q4 PRN [Last Taken Unknown] risperiDONE [Risperdal] 4 mg PO HS 03/23/17 [Last Taken 03/22/17 21:00] - NPO status NPO Since - Liquids (Date): 03/25/17 NPO Since - Liquids (Time): 10:00 NPO Since - Solids (Date): 03/25/17 NPO Since - Solids (Time): 10:00 - Smoking Hx Smoking Status: Current every day smoker - Alcohol Use Alcohol Use: None ANE Labs/Vital Signs - Labs Result Diagrams: 03/26/17 08:13 03/26/17 05:36 - Vital Signs Blood Pressure: 125/63 Heart Rate: 88 Respiratory Rate: 14 O2 Sat (%): 95 Height: 195.58 cm Weight: 108 kg ANE Physical Exam - Airway Neck exam: FROM Mallampati Score: Class 2 Mouth exam: normal dental/mouth exam, poor dentition - Pulmonary Pulmonary: no respiratory distress - Cardiovascular Cardiovascular: irregularly irregular - ASA Status ASA Status: III ANE Anesthesia Plan Anesthesia Plan: general endotracheal anesthesia
--- NOTE | 2017-03-26 14:26 | GCON ---
[f rep st] CONSULTATION CRITICAL CARE CONSULT DATE OF CONSULTATION: 03/26/2017 HISTORY OF PRESENT ILLNESS: The patient is a 61-year-old male with a history of significant psychia tric disorders, including paranoid schizophrenia and bipolar disorder, who is a permanent resident a [facility]. He also has a history of nephrotic syndrome with substantial lower extremity edema, and multiple episodes of cellulitis and decubitus ulcers. He was admitted o n 03/23 with worsening ulcer after several weeks of antibiotics. He was found to have a very large decubitus and sacral ulcer that underwent debridement by Dr. Saleh on 03/24. He was seen by wound car e on 03/25, where the wound itself was in various stages, but mostly stage IV, and was quite soiled with stool, that has been sometimes liquid and sometimes pasty. Earlier today he had a second debri tom by Dr. Higgins. A CT scan was performed that did not show any involvement of the bone. Antibio tics have been held under infectious disease guideline, since he has not really been septic over thi s period of time. He appears to be fairly stable at the time my evaluation, had few, if any complai nts. REVIEW OF SYSTEMS: Otherwise negative. PAST MEDICAL HISTORY: 1. Chronic lower extremity cellulitis with severe venous stasis changes, chronic lower extremity ed garcia. 2. Sacral decubiti, as described above. 3. Recent C difficile colitis. 4. Necrotic syndrome. 5. Chronic kidney disease stage 3. 6. Gout. 7. Anemia of chronic disease. 8. Atrial fibrillation. 9. Hypertension. 10. Deep vein thrombosis. 11. Paranoid schizophrenia. 12. Bipolar disorder. PAST SURGICAL HISTORY: No previous past surgical history that I am aware of. SOCIAL HISTORY: He is a chronic and ongoing smoker. No alcohol or recreational drug use. FAMILY HISTORY: Includes bipolar disorder and diabetes. MEDICATIONS: At this time include Wrens, acyclovir, Cardizem, iron, Lasix, Robitussin, metoprolol, MS Contin, Zofran, Risperdal, Senokot, oral vancomycin for presumed C difficile. PHYSICAL EXAMINATION: VITAL SIGNS: He was afebrile. His blood pressure 125/63, heart rate of 88, respirations 14, oxygen saturation 95% on 2 L. GENERAL: He was awake and able to speak in full sen tences without using accessory muscles for breathing, and no apparent distress. HEENT: Pupils equa lly round, reactive to light. Nonicteric and noninjected. Mucous membranes are moist without eryth garcia or exudate. NECK: Supple without adenopathy or jugular vein distention. LUNGS: Breath sounds were clear to auscultation bilaterally without wheezes, rubs, or rales. HEART: Had an irregular r hythm, but no obvious murmur. ABDOMEN: Soft, nontender, nondistended, without hepatosplenomegaly. EXTREMITIES: Showed 3+ bilateral edema with severe venous stasis changes in both lower extremities , but they were both warm. His large wound on his buttocks was not evaluated by me today. NEUROLOG ICAL: Nonfocal, including cranial nerves, deep tendon reflexes. OBJECTIVE DATA: Includes a white count of 11.9, and hematocrit of 22, and platelets of 335, that wa s 2 days ago. Sodium was 129 two days ago, and is 137 now. Basic metabolic panel is otherwise unre markable, save for creatinine 1.0. /[id number]/MODL
[2017-03-26] MEDS ORDERED: NALOXONE HCL 0.4 MG/ML INJ IVP PRN (14:56)
[2017-03-26] MEDS ORDERED: cefOXitin SODIUM 1 GM in D5W 50 ML IV ONE (15:15)
[2017-03-26] MEDS: FERROUS SULFATE 325 MG TAB PO SCH ×2 (15:46→21:06)
[2017-03-26] MEDS: ACYCLOVIR 400 MG TAB PO SCH ×2 (15:46→21:05)
[2017-03-26] MEDS: risperiDONE 2 MG TAB PO SCH ×2 (15:46→21:05)
[2017-03-26] MEDS: SODIUM HYPOCHLORITE (DAKINS 1/4 STR) 120 ML BTL TP SCH ×3 (15:46→21:40)
[2017-03-26] MEDS ORDERED: BUPIVACAINE 0.25% 30 ML SDV ONE (16:36)
[2017-03-26] MEDS ORDERED: SUGAMMADEX SODIUM 200 MG/2 ML VIAL IVP ONE ×3 (17:00)
--- NOTE | 2017-03-26 17:22 | PCMIDPN ---
Assessment/Plan: Assessment: Sacral and bilateral buttock decubitus ulcers-severe necrosis. This is likely due to underlying schizoaffective disorder and inability or unwillingness to move. Patient has been to the operating room for debridement once and will go again later. Holding off antimicrobial therapy at present although will start treatment empirically today. Will use Zosyn 4.5 g IV q.8 hours. Leukocytosis resolved after debridement. Plan: 1. Start Zosyn 4.5 g IV q.8 hours. 2. Follow results from 2nd visit to the operating room. 3. Follow clinical course. 03/26/17 17:22 Subjective: Patient is resting in his hospital bed. No new issues. No fevers or chills. Objective: No antibiotics Vital Signs Temp Pulse Resp BP Pulse Ox 37 C 88 14 125/63 H 95 03/26/17 00:00 03/26/17 14:13 03/26/17 14:13 03/26/17 14:13 03/26/17 14:13 Laboratory Results 03/26/17 08:13 03/26/17 05:36 03/25/17 03/26/17 03/27/17 05:59 05:59 05:59 Intake Total 400 740 Output Total 1000 1150 Balance -600 -410 - Physical Exam General Appearance: WD/WN, alert, no apparent distress, non-toxic Respiratory: lungs clear, normal breath sounds Cardiac/Chest: regular rate, rhythm, No tachycardia Skin: normal color, warm/dry, other (Sacral area not visualized.), No rash Neuro/Psych: alert, normal mood/affect ICD10 Worksheet Patient Problems: Problems Problem Status Onset Clostridium difficile infection Acute ~03/19/17 CHF (congestive heart failure) Acute Peripheral edema Acute Peripheral edema Acute Cellulitis and abscess of leg Acute Sacral decubitus ulcer, stage III Acute Schizophrenia Acute Atrial fibrillation Acute
--- NOTE | 2017-03-26 17:37 | POSTOPPROG ---
Post Op Note Date of Operation: 03/26/17 Surgeon: Stuart Higgins (, FACS) Anesthesiologist: Aldo Garber MD Anesthesia: GET(General Endotracheal) Pre-op Diagnosis: bilateral stage III gluteal decubiti with deep intramuscular abscesses Procedure: debridement skin, subutaneous fat, muscle + drainage bilateral deep gluteal Inf/Abcess present in the surg proc area at time of surgery?: Yes Depth: Deep Incisional (Fascial) EBL: 200ml Specimen(s): culture deep right gluteal abscess/bilateral decubitus ulcer resection submitted for permanent section.
[2017-03-26] MEDS ORDERED: PIPERACILLIN/TAZO 4.5 GM/DEX 100 ML IV SCH (18:00)
[2017-03-26] MEDS ORDERED: oxyCODONE IR 5 MG TAB ONE (18:15)
[2017-03-26] MEDS ORDERED: HYDROmorphONE/DILAUDID 1 MG/ML SYR ONE (18:30)
[2017-03-26] MEDS: HYDROmorphONE/DILAUDID 1 MG/ML SYR IVP PRN ×4 (18:32→19:25)
[2017-03-26] MEDS: fentaNYL 100 MCG/2 ML INJ IVP PRN ×2 (18:33→19:00)
[2017-03-26] MEDS: COLLAGENASE 30 GM OINTMENT TP SCH (20:34)
[2017-03-26] MEDS: SENNOSIDES 1 TAB PO SCH (21:06)
[2017-03-26] MEDS: PIPERACILLIN/TAZO 4.5 GM/DEX 100 ML IV SCH (21:10)
[2017-03-26 21:43] LABS: HEMOGLOBIN 9.2 g/dL (13.7-17.5)
[2017-03-26 21:48] LABS: POTASSIUM 4.2 mEq/L (3.5-5.2)
[2017-03-27] MEDS: HYDROmorphONE/DILAUDID 1 MG/ML SYR IVP PRN ×5 (00:41→11:35)
--- NOTE | 2017-03-27 02:48 | GOP ---
[f rep st] OPERATIVE REPORT DATE OF OPERATION: 03/26/2017 SURGEON: Stuart Higgins MD, [facility] ANESTHESIOLOGIST: Aldo Garber MD. PREOPERATIVE DIAGNOSIS: 1. Bilateral, stage III, gluteal decubital ulcers. 2. Bilateral, deep gluteal, intramuscular abscesses. 3. Fecal incontinence with Clostridium difficile colitis. 4. Chronic schizoaffective disorder. POSTOPERATIVE DIAGNOSIS: 1. Bilateral, stage III, gluteal decubital ulcers. 2. Bilateral, deep gluteal, intramuscular abscesses. 3. Fecal incontinence with Clostridium difficile colitis. 4. Chronic schizoaffective disorder. PROCEDURE PERFORMED: 1. Full-thickness excision of skin, subcutaneous tissue, and muscle, bilateral gluteal decubitus ulcers. 2. Bilateral, deep, intramuscular, gluteal abscess drainage. 3. Diverting loop colostomy (sigmoid). FINDINGS: Large, bilateral, gluteal, decubitus ulcers measuring approximately 20 x 30 cm on either side, surrounding the anus anteriorly and posteriorly. Intact midline sacral skin. No evidence of osteomyelitis on preoperative CT or obvious extension into the periosteum of the coccyx or sacrum. Uncomplicated loop colostomy creation. INDICATIONS: Patient is a 61-year-old male, who has a chronic schizoaffective disorder, was admitted on 03/23/2017, to [facility] for management of bilateral, gluteal, decubitus ulcers that have been developing over the past month. The patient was chronically anticoagulated for atrial fibrillation and came in with a high INR, and this took several days to correct with vitamin K and fresh frozen plasma. Prior to surgery, he had 2 units of packed red blood cells for a hemoglobin of 7.1, and a pelvic CT was performed to rule out extension into the coccyx, sacrum, or osseous pelvis. The patient had moderate fecal incontinence and soilage of his wound on a daily basis, and a diverting colostomy was recommended on a temporary basis until the decubitus ulcers were healed. DESCRIPTION OF PROCEDURE: After informed consent was obtained, the patient was brought to the operating room and placed under general anesthesia, and positioned prone, carefully padding all pressure points. Before proceeding, a time-out and identification of the patient was performed. The perigluteal area was prepped with Betadine and draped in a sterile fashion. The right side was excised first. A full-thickness excision was performed, primarily with electrocautery. Larger vessels were cauterized for hemostasis. The skin was necrotic on both sides of the midline, over the gluteus area, and extending down to the ischial area, but sparing the perianal skin and the midline sacral skin. As the excision was deepened, it was clear that the inferomedial aspect of the gluteus muscle was ischemic, and this was excised, draining multiple small microabscesses in the process. A culture was obtained from the right side and submitted for aerobes and anaerobes. After the tissue was excised to healthy, viable-appearing tissue, the specimen was submitted for permanent section. The wound was packed with a lap sponge while we proceeded with the opposite side. The patient's left side was somewhat larger than the right side, but extended approximately to the same depth into the deep medial and inferior gluteus musculature, with multiple microabscesses drained in the subfascial plane. There was no particularly foul odor associated with this, interestingly. After the tissue was excised full thickness and submitted for permanent section, the wounds were inspected for hemostasis, which was secured with cautery. The skin edges appeared viable, and the midline sacral skin and perianal skin were intact. The wound was then packed with 0.25% Dakin solution- soaked Kerlix sponges and ABD pads, and the patient was then returned to a supine position in preparation for diverting colostomy. The arms were extended to approximately 45 degrees, limited by the patient's shoulders, and the abdomen was prepped and draped in usual fashion. A second time-out was performed, and we proceeded with diverting colostomy as follows. The planned surgical site was infiltrated with 0.25% Marcaine plain, 22 cc. A transverse incision was made in the left lower quadrant. Dissection was carried out through skin, subcutaneous tissues, and anterior fascia. A plane of dissection was entered slightly lateral to the rectus sheath, and the lateral third of the rectus muscle was incised. The posterior sheath was incised, perineum was incised, peritoneal cavity was entered. The sigmoid colon was brought up as a loop, and a small defect created in the mesentery. A 16-Tajik red rubber Rodríguez catheter was used as a bridge. The colon was sutured to the peritoneum and fascia with interrupted 2-0 Vicryl sutures, closing off the defect at the fascia level with 0 PDS suture. The medial and lateral aspects of the incisions were closed with 2-0 Vicryl sutures, again, supporting the edge of the colon to prevent retraction. The skin was then closed on either side with domitila for a distance of approximately 1.5 cm. The colostomy was matured by incising the colon transversely and suturing the mucosa to the subdermal tissues circumferentially with interrupted 3-0 chromic suture. The bridge was left intact, and a stomal appliance was fashioned and placed around the newly created ostomy. The patient was returned extubated to the recovery room in satisfactory condition. Needle, sponge, and instrument counts were correct. Estimated blood loss 200 mL, primarily from the gluteal resection site. FINDINGS: Approximately 20 x 30 x 6 to 8 cm deep decubitus ulcers on both gluteal areas. Sparing of the midline sacral skin and perianal skin. Extension anteriorly to just below the base of the scrotum, but without evidence of Rick gangrene or extension into the anterior pelvis. Excision of the skin, subcutaneous tissues in medial and inferior aspects of the gluteus muscles to healthy bleeding tissue. Evidence of ischemic necrosis of the deep muscle. Multiple small micro-abscesses drained bilaterally in the submuscular plane. Culture submitted from the right side for aerobes and anaerobes to direct subsequent antimicrobial therapy. Wound packed with Kerlix soaked with 0.25% Dakin solution. Inability to apply wound VAC due to anatomic constraints. Diverting colostomy performed to prevent ongoing fecal soilage of these large, complex, wounds. COMPLICATIONS: None. /[id number]/MODL MTDD
[2017-03-27] MEDS: oxyCODONE IR 5 MG TAB PO PRN ×2 (03:31→21:00)
[2017-03-27] MEDS: VANCOMYCIN 125 MG/2.5 ML UDL PO SCH ×4 (06:19→21:04)
[2017-03-27] MEDS: PIPERACILLIN/TAZO 4.5 GM/DEX 100 ML IV SCH ×3 (06:20→17:46)
[2017-03-27 06:44] LABS: % IMMATURE GRANULYOCYTES 0.7 % (0.0-1.1); ABSOLUTE IMMATURE GRANULOCYTES 0.09 10^3/uL (0.00-0.10); ADD DIFF? NO; ADD MORPH? NO; ADD SCAN? NO; ATYPICAL LYMPHOCYTE FLAG 20 (0-99); FRAGMENT RBC FLAG 0 (0-99); HEMATOCRIT 25.4 % (40.0-51.0); HEMOGLOBIN 8.2 g/dL (13.7-17.5); LEFT SHIFT FLG 0 (0-99); LIPEMIA HEMOLYSIS FLAG 80 (0-99); MEAN CELL HEMOGLOBIN 30.6 pg (27.9-34.1); MEAN CELL HEMOGLOBIN CONCENTR. 32.3 g/dL (32.4-36.7); MEAN CELL VOLUME 94.8 fL (81.5-99.8); MEAN PLATELET VOLUME 8.7 fL (8.7-11.7); PLATELET CLUMPS FLAG 0 (0-99); PLATELET COUNT 320 10^3/uL (150-400); RED BLOOD CELL COUNT 2.68 10^6/uL (4.40-6.38); RED CELL DISTRIBUTION WIDTH 15.4 % (11.5-15.2)
[2017-03-27 06:53] LABS: INR 1.53 (0.83-1.16); PROTIME(PATIENT) 18.4 SEC (12.0-15.0)
[2017-03-27 07:09] LABS: ANION GAP 7 mEq/L (8-16); CALCIUM 7.7 mg/dL (8.5-10.4); CARBON DIOXIDE 26 mEq/l (22-31); CHLORIDE 104 mEq/L (97-110); GLOMERULAR FILTRATION RATE > 60; GLUCOSE 113 mg/dL (70-100); POTASSIUM 4.6 mEq/L (3.5-5.2); SODIUM 137 mEq/L (134-144)
--- NOTE | 2017-03-27 09:16 | HOSPPROG ---
Hospitalist Progress Note Assessment/Plan: Chronic sacral pressure ulcer - Stage 4. No signs of sepsis. Excisional debridement at bedside 03/[address] Saleh followed by OR 03/[address] Higgins. Diverting colostomy placed as unlikely to maintain wound vac seal with pj- anal extension of large ulcer and concern for fecal contamination. No e/o osteo on pelvic CT. BCx's NGTD. Intra-operative Cx's pending. This will be difficult to fully resolve as pt mostly bed bound, suspect secondary to chronic lymphedema and mental health issues. -Cont Zosyn per ID -follow culture data -wound care following -Appreciate surgical assistance A fib - Rate controlled on Metoprolol and Dilt. Presented with INR of 5 without bleeding. INR 1.5 this am s/p 5 mg oral Vit K and 4 u FFP. -Resume Coumadin 24 hrs post-op / when ok with surgery -closely follow hgb with resumption of anti-coagulation, some concern for slow blood loss, see below -He does not need bridging with Chads-vasc of 1 C diff - Positive C diff 03/19 per [place] -cont po vanc Hyponatremia - Likely hypovolemic, possibly related to high Lasix dosing as outpt, normalized with NS -follow Chronic lymphedema - Lasix held for several days as pt appeared dry. Volume status better today. IVF's stopped. -resume Lasix at lower dose (home dose 40 mg BID) Chronic LE wounds with h/o polymicrobial cellulitis - completed 14 days of Cefepime earlier this month. -ID on board -cont wound care CKD with nephrotic syndrome - Cr at baseline Anemia - ?blood loss. Normocytic. Fe studies c/w ACD, serum iron low. Hgb trended down to 7.1 from 8.6 in setting of elevated INR. No vomiting, BRBPR or melena, though heme positive stool. S/P 2 units prbc's, hgb >8 this am. Note hgb was 11-12 in 08/2016 and has been down-trending. -started oral iron -may require further GI evaluation though now has diverting colostomy -discussed with GI, could do EGD if hgb continues to trend down with resumption of coumadin -will add PPI for now Hypertension - BP stable, cont current regimen. Schizophrenia - paranoid though behaviorally controlled, cont outpt meds DVT PPLX - pharm c/i 2/2 elevated INR on arrival and SCD's placed. INR now sub- therapeutic. Consider pplx Lovenox tomorrow if INR still low but defer today given <24 hrs post-op. Cont SCD's for now. Full code Dispo - cont inpt Subjective: Pt c/o abdominal discomfort around ostomy site. He will not allow me to touch his abdomen. He is eating and drinking, no N/V. No melena or BRBPR. No fevers. Objective: Vital Signs Temp Pulse Resp BP Pulse Ox 37.3 C 89 16 102/58 L 97 03/27/17 06:00 03/27/17 08:00 03/27/17 08:00 03/27/17 08:00 03/27/17 08:00 Microbiology 03/26/17 15:30 Gram Stain - Final Buttock - Tissue 03/26/17 15:30 Gram Stain - Final Buttock - Tissue 03/26/17 15:30 Gram Stain - Final Buttock - Tissue Laboratory Results 03/27/17 06:20 03/27/17 06:20 03/26/17 03/27/17 03/28/17 05:59 05:59 05:59 Intake Total 740 3095 Output Total 1150 1350 Balance -410 1745 PT 18.4 SEC (12.0-15.0) H 03/27/17 06:20 INR 1.53 (0.83-1.16) H 03/27/17 06:20 - Physical Exam Constitutional: no apparent distress Eyes: PERRL Ears, Nose, Mouth, Throat: moist mucous membranes Cardiovascular: irregularly irregular Respiratory: no respiratory distress, reduced air movement Gastrointestinal: other (pt refused abdominal exam, though no distention on visualization) Skin: warm, other (sacral pressure injury s/p debridement not visualized today, mult b/l LE wounds with eschar) Musculoskeletal: generalized weakness Neurologic: AAOx3 Psychiatric: interacting appropriately, poor insight ICD10 Worksheet Patient Problems: Problems Problem Status Onset Atrial fibrillation Acute Cellulitis and abscess of leg Acute Clostridium difficile infection Acute ~03/19/17 Peripheral edema Acute Sacral decubitus ulcer, stage III Acute Schizophrenia Acute CHF (congestive heart failure) Acute Peripheral edema Acute
--- NOTE | 2017-03-27 09:52 | PCMIDPN ---
Assessment/Plan: # Sacral and bilateral buttock decubitus ulcers-severe necrosis s/p debridement yesterday as well as diverting colostomy. Deep cultures were taken and Gram stain positive for GPRs and GNRs. Difficult assessment due to limited exam. WBC slightly elevated postoperatively which is not entirely unexpected. -- continue high dose Zosyn for Pseudomonas coverage and await cultures , creatinine stable today at 1.0 -- unclear duration of therapy at this point medications zosyn 4.5gm IV q6h microbiology 03/23 blood cultures ( 2) no growth today OR cultures as above Subjective: patient is screaming "do not touch me" throughout exam with multiple expletives Objective: Vital Signs Temp Pulse Resp BP Pulse Ox 37.3 C 89 16 102/58 L 97 03/27/17 06:00 03/27/17 08:00 03/27/17 08:00 03/27/17 08:00 03/27/17 08:00 Microbiology 03/26/17 15:30 Gram Stain - Final Buttock - Tissue 03/26/17 15:30 Gram Stain - Final Buttock - Tissue 03/26/17 15:30 Gram Stain - Final Buttock - Tissue Laboratory Results 03/27/17 06:20 03/27/17 06:20 03/26/17 03/27/17 03/28/17 05:59 05:59 05:59 Intake Total 740 3095 Output Total 1150 1350 Balance -410 1745 - Physical Exam General Appearance: alert, no apparent distress, other (poor hygeine) Respiratory: No accessory muscle use Abdomen: other (ostomy LLQ appears healthy with small amount stool in bag) Skin: No rash Neuro/Psych: alert, other (aggitated) - Line/s RUE PICC Lines: No drainage, No erythema ICD10 Worksheet Patient Problems: Problems Problem Status Onset Atrial fibrillation Acute Cellulitis and abscess of leg Acute Clostridium difficile infection Acute ~03/19/17 Peripheral edema Acute Sacral decubitus ulcer, stage III Acute Schizophrenia Acute CHF (congestive heart failure) Acute Peripheral edema Acute
[2017-03-27] MEDS: DILTIAZEM CD 180 MG CAP PO SCH (10:38)
[2017-03-27] MEDS: METOPROLOL SUCCINATE XR 25 MG TAB PO SCH (10:38)
--- NOTE | 2017-03-27 10:38 | SOAPPROG ---
SOAP Progress Note Assessment/Plan: Assessment: Plan: Subjective: pod 1 debridement of buttock necrosis and diverting colostomy.vss,af alert abd soft. colostomy pink with some stool dressings on sacral ad buttock wounds. wound eval today. Objective: Vital Signs Temp Pulse Resp BP Pulse Ox 37.3 C 89 16 102/58 L 97 03/27/17 06:00 03/27/17 08:00 03/27/17 08:00 03/27/17 08:00 03/27/17 08:00 Microbiology 03/26/17 15:30 Gram Stain - Final Buttock - Tissue 03/26/17 15:30 Gram Stain - Final Buttock - Tissue 03/26/17 15:30 Gram Stain - Final Buttock - Tissue Laboratory Results 03/27/17 06:20 03/27/17 06:20 03/26/17 03/27/17 03/28/17 05:59 05:59 05:59 Intake Total 740 3095 Output Total 1150 1350 Balance -410 1745 PT 18.4 SEC (12.0-15.0) H 03/27/17 06:20 INR 1.53 (0.83-1.16) H 03/27/17 06:20 ICD10 Worksheet Patient Problems: Problems Problem Status Onset Atrial fibrillation Acute Cellulitis and abscess of leg Acute Clostridium difficile infection Acute ~03/19/17 Peripheral edema Acute Sacral decubitus ulcer, stage III Acute Schizophrenia Acute CHF (congestive heart failure) Acute Peripheral edema Acute
[2017-03-27] MEDS: morphINE SR 15 MG TAB PO SCH ×2 (10:40→20:59)
[2017-03-27] MEDS: ACYCLOVIR 400 MG TAB PO SCH ×2 (10:42→20:59)
[2017-03-27] MEDS: HYDROCODONE/APAP 5/325 TAB PO PRN ×2 (10:59→16:01)
[2017-03-27] MEDS: risperiDONE 2 MG TAB PO SCH ×2 (11:01→21:00)
[2017-03-27] MEDS: METOPROLOL SUCCINATE XR 50 MG TAB PO SCH (11:03)
[2017-03-27] MEDS: FERROUS SULFATE 325 MG TAB PO SCH ×2 (11:03→20:59)
[2017-03-27] MEDS: SODIUM HYPOCHLORITE (DAKINS 1/4 STR) 120 ML BTL TP SCH (11:30)
--- NOTE | 2017-03-27 12:01 | HOSPPROG ---
Hospitalist Progress Note Assessment/Plan: B/L Gluteal pressure ulcers - Deep and extensive, stage 3 per surgery. No signs of sepsis. Excisional debridement at bedside 03/[address] Saleh followed by deeper debridement in OR 03/[address] Higgins. Diverting colostomy placed as unlikely to maintain wound vac seal with pj-anal extension of large ulcer and concern for fecal contamination. No e/o osteo on pelvic CT. BCx's NGTD. Intra -operative Cx's pending. This will be difficult to fully resolve as pt mostly bed bound, suspect secondary to chronic lymphedema and mental health issues. -Cont Zosyn per ID -follow culture data -wound care following -Appreciate surgical assistance A fib - Rate controlled on Metoprolol and Dilt. Presented with INR of 5 without bleeding. INR 1.5 this am s/p 5 mg oral Vit K and 4 u FFP. -Resume Coumadin this afternoon, ok with surgery -closely follow hgb with resumption of anti-coagulation, some concern for slow blood loss, see below -He does not need bridging with Chads-vasc of 1 C diff - Positive C diff 03/19 per [place] -cont po vanc Hyponatremia - Likely hypovolemic, possibly related to high Lasix dosing as outpt, normalized with NS -follow Chronic lymphedema - Lasix held for several days as pt appeared dry. Volume status better today. IVF's stopped. -resume Lasix at a lower dose (home dose 40 mg BID) Chronic LE wounds with h/o polymicrobial cellulitis - completed 14 days of Cefepime earlier this month. -ID on board -cont wound care CKD with nephrotic syndrome - Cr at baseline Anemia - ?blood loss. Normocytic. Fe studies c/w ACD, serum iron low. Hgb trended down to 7.1 from 8.6 in setting of elevated INR. No vomiting, BRBPR or melena, though heme positive stool. S/P 2 units prbc's, hgb >8 this am. Note hgb was 11-12 in 08/2016 and has been down-trending. -started oral iron -may require further GI evaluation though now has diverting colostomy -discussed with GI, could do EGD if hgb continues to trend down with resumption of coumadin -will add PPI for now Hypertension - BP stable, cont current regimen. Schizophrenia - paranoid though behaviorally controlled, cont outpt meds DVT PPLX - pharm c/i 2/2 elevated INR on arrival. INR now sub-therapeutic. Will give PPLX Lovenox until INR therapeutic, then dc. Full code Dispo - cont inpt Objective: Vital Signs Temp Pulse Resp BP Pulse Ox 37.6 C 102 H 24 H 115/75 91 L 03/27/17 10:24 03/27/17 10:24 03/27/17 10:24 03/27/17 10:24 03/27/17 10:24 Microbiology 03/26/17 15:30 Gram Stain - Final Buttock - Tissue 03/26/17 15:30 Gram Stain - Final Buttock - Tissue 03/26/17 15:30 Gram Stain - Final Buttock - Tissue Laboratory Results 03/27/17 06:20 03/27/17 06:20 03/26/17 03/27/17 03/28/17 05:59 05:59 05:59 Intake Total 740 3095 Output Total 1150 1350 Balance -410 1745 PT 18.4 SEC (12.0-15.0) H 03/27/17 06:20 INR 1.53 (0.83-1.16) H 03/27/17 06:20 ICD10 Worksheet Patient Problems: Problems Problem Status Onset Atrial fibrillation Acute Cellulitis and abscess of leg Acute Clostridium difficile infection Acute ~03/19/17 Peripheral edema Acute Sacral decubitus ulcer, stage III Acute Schizophrenia Acute CHF (congestive heart failure) Acute Peripheral edema Acute
[2017-03-27] MEDS: PANTOPRAZOLE SODIUM 40 MG TAB PO SCH (12:48)
[2017-03-27] MEDS: COLLAGENASE 30 GM OINTMENT TP SCH (12:51)
[2017-03-27] MEDS: METOPROLOL SUCCINATE XR 100 MG TAB PO SCH (12:53)
[2017-03-27] MEDS ORDERED: FUROSEMIDE 40 MG TAB PO SCH (15:00)
[2017-03-27 16:05] LABS: HEMATOCRIT 23.9 % (40.0-51.0); HEMOGLOBIN 7.9 g/dL (13.7-17.5)
--- NOTE | 2017-03-27 16:52 | WOCRNPDOC ---
[facility] Advanced Assessment Note - Skin Integrity Problem, Advanced Assess Right Ischial Tuberosity Pressure Injury Dressing Type: ABD Pad, Kerlix Dressing Description: Saturated Exudate Amount: Moderate Exudate Characteristic(s): Serosanguinous Integumentary Issue Intervention: Dressing Changed, Dressing Initialed & Dated Pj Wound Tissue: Erythema Pj Wound Swelling: None Wound Bed Color: Brown, Red, Yellow Wound Bed Constitution: Smooth Tissue, Muscle, Subcutaneous Fat Wound Edges: Attached Site Odor: None Site Measurement - Head-to-Toe Length X Width X Depth (cm): 16.5x11.4x7.9 ( right side lying) Pressure Injury Stage: Stage 4 Pressure Injury Present on Admit: Yes Skin Integrity Problem Comment: First dressing change post surgery. Extent and depth of wounds are remarkable and will require mutliple surgical interventions to repair. Of note technology trainer saw this patient on 02/24/17 and there were no open wounds on his sacrum/buttocks, however he did have a small resolving DTI. It took only 25 days for patient to develop these massive pressure injuries. Removed one piece of kerlix packing that had some greenish staining on it as well as the serosanguenous drainage. Wound was explored and no tunnels nor pockets were discovered. This wound is discrete from other wound and seperated by small amount of pj anal skin and tissue. Wound edges were prepped with skin prep, wound was packed with 1/4 strength Dakins soaked kerlix and then covered and secured with ABD's. Keila Faust and two student RN's were in room for care. This wound is a stage 4 pressure injury per NPAUP definitions with excision of ischemic gluteal muscle performed in OR. Left Ischial Tuberosity Pressure Injury Dressing Type: ABD Pad, Kerlix Dressing Description: Intact, Saturated Exudate Amount: Moderate Exudate Characteristic(s): Bloody, Serosanguinous Integumentary Issue Intervention: Dressing Changed, Dressing Initialed & Dated Pj Wound Tissue: Erythema Wound Bed Color: Red, Yellow Wound Bed Constitution: Tunneling (6 cm at 6 oclock - fascia/muscle directly palpable), Muscle, Subcutaneous Fat Site Odor: None Site Measurement - Head-to-Toe Length X Width X Depth (cm): [id number] (left side lying) Pressure Injury Stage: Stage 4 Pressure Injury Present on Admit: Yes Skin Integrity Problem Comment: Patient cooperative and kind during entire proceedure. Tolerated proceedure well with premedication with IV dilaudid. Removed one roll of kerlix packing from wound bed. Wound bed palpated and noted to extend toward the midline several cm with bone closely palpable but covered by a thin layer of tissue. The remainder of the wound bed is mostly firm, however there are some softer areas of fat present. Kerlix was moistened with 1/ 4 strength dakins and packed into tunnel and into wound bed. This was covered with ABD and then secured with tape after skin prep was applied pj wound. In the OR this wound had muscle debridement, with abcesses in the subfascial plane , and wound RN is able to feel bone close to the surface of the wound which also qualify this wound as a Stage 4 pressure injury.
[2017-03-27] MEDS ORDERED: WARFARIN SODIUM 5 MG TAB PO ONE (17:15)
[2017-03-27 18:30] LABS: POTASSIUM 4.5 mEq/L (3.5-5.2)
[2017-03-27] MEDS: SENNOSIDES 1 TAB PO SCH (20:58)
[2017-03-28] MEDS: HYDROmorphONE/DILAUDID 1 MG/ML SYR IVP PRN ×2 (00:12→01:32)
[2017-03-28] MEDS: SODIUM HYPOCHLORITE (DAKINS 1/4 STR) 120 ML BTL TP SCH ×2 (00:18→10:43)
[2017-03-28] MEDS: PIPERACILLIN/TAZO 4.5 GM/DEX 100 ML IV SCH ×4 (01:36→17:35)
[2017-03-28] MEDS: oxyCODONE IR 5 MG TAB PO PRN ×2 (01:39→17:53)
[2017-03-28 05:06] LABS: % IMMATURE GRANULYOCYTES 0.9 % (0.0-1.1); ABSOLUTE IMMATURE GRANULOCYTES 0.12 10^3/uL (0.00-0.10); ADD DIFF? NO; ADD MORPH? NO; ADD SCAN? NO; ATYPICAL LYMPHOCYTE FLAG 0 (0-99); FRAGMENT RBC FLAG 0 (0-99); HEMATOCRIT 23.6 % (40.0-51.0); HEMOGLOBIN 7.6 g/dL (13.7-17.5); LEFT SHIFT FLG 0 (0-99); LIPEMIA HEMOLYSIS FLAG 80 (0-99); MEAN CELL HEMOGLOBIN 30.5 pg (27.9-34.1); MEAN CELL HEMOGLOBIN CONCENTR. 32.2 g/dL (32.4-36.7); MEAN CELL VOLUME 94.8 fL (81.5-99.8); MEAN PLATELET VOLUME 8.8 fL (8.7-11.7); PLATELET CLUMPS FLAG 0 (0-99); PLATELET COUNT 303 10^3/uL (150-400); RED BLOOD CELL COUNT 2.49 10^6/uL (4.40-6.38); RED CELL DISTRIBUTION WIDTH 15.1 % (11.5-15.2)
[2017-03-28 05:18] LABS: INR 1.63 (0.83-1.16); PROTIME(PATIENT) 19.4 SEC (12.0-15.0)
[2017-03-28 05:22] LABS: ANION GAP 5 mEq/L (8-16); CALCIUM 7.7 mg/dL (8.5-10.4); CARBON DIOXIDE 27 mEq/l (22-31); CHLORIDE 102 mEq/L (97-110); CREATININE 1.3 mg/dL (0.7-1.3); GLOMERULAR FILTRATION RATE 56; GLUCOSE 101 mg/dL (70-100); POTASSIUM 4.3 mEq/L (3.5-5.2); SODIUM 134 mEq/L (134-144)
[2017-03-28] MEDS: VANCOMYCIN 125 MG/2.5 ML UDL PO SCH ×4 (05:58→20:16)
[2017-03-28] MEDS: HYDROCODONE/APAP 5/325 TAB PO PRN (06:10)
[2017-03-28] MEDS: morphINE SR 15 MG TAB PO SCH ×2 (09:42→20:16)
[2017-03-28] MEDS: METOPROLOL SUCCINATE XR 25 MG TAB PO SCH (09:42)
[2017-03-28] MEDS: METOPROLOL SUCCINATE XR 50 MG TAB PO SCH (09:43)
[2017-03-28] MEDS: PANTOPRAZOLE SODIUM 40 MG TAB PO SCH (09:44)
[2017-03-28] MEDS: FERROUS SULFATE 325 MG TAB PO SCH ×2 (09:44→20:16)
[2017-03-28] MEDS: ACYCLOVIR 400 MG TAB PO SCH ×2 (09:45→20:16)
[2017-03-28] MEDS: DILTIAZEM CD 180 MG CAP PO SCH (09:45)
[2017-03-28] MEDS: risperiDONE 2 MG TAB PO SCH ×2 (09:46→20:16)
[2017-03-28] MEDS: FUROSEMIDE 40 MG TAB PO SCH (11:29)
--- NOTE | 2017-03-28 13:02 | HOSPPROG ---
Hospitalist Progress Note Assessment/Plan: Hospitalist Progress Note Assessment/Plan: 61y male with wounds. First encounter, chart reviewed. D/W Dr Maier and Tj. Chronic B/L gluteal pressure ulcer - Stage 3. No signs of sepsis. Excisional debridement at bedside 03/[address] Saleh followed by OR 03/[address] Higgins. Diverting colostomy placed as unlikely to maintain wound vac seal with pj- anal extension of large ulcer and concern for fecal contamination. No e/o osteo on pelvic CT. BCx's NGTD. Intra-operative Cx's pending. This will be difficult to fully resolve as pt mostly bed bound, suspect secondary to chronic lymphedema and mental health issues. -Cont Zosyn per ID -follow culture data -wound care following -Appreciate surgical assistance A fib - Rate controlled on Metoprolol and Dilt. Presented with INR of 5 without bleeding. INR 1.63 this am s/p 5 mg oral Vit K and 4 u FFP. -Resumed Coumadin 24 hrs post-op -closely follow hgb with resumption of anti-coagulation, some concern for slow blood loss, see below -He does not need bridging with Chads-vasc of 1 C diff - Positive C diff 03/19 per [place] -cont po vanc Hyponatremia - Likely hypovolemic, possibly related to high Lasix dosing as outpt, normalized with NS -follow Chronic lymphedema - Lasix held for several days as pt appeared dry. Volume status better today. IVF's stopped. -resume Lasix at lower dose (home dose 40 mg BID) Chronic LE wounds with h/o polymicrobial cellulitis - completed 14 days of Cefepime earlier this month. -ID on board -cont wound care PNA -post op -decreased mobility -increased O2 needs -D/W Dr Maier, defer abx to ID CKD with nephrotic syndrome - Cr at baseline Anemia - ?blood loss. Normocytic. Fe studies c/w ACD, serum iron low. Hgb trended down to 7.1 from 8.6 in setting of elevated INR. No vomiting, BRBPR or melena, though heme positive stool. S/P 2 units prbc's, hgb >8 this am. Note hgb was 11-12 in 08/2016 and has been down-trending. -oral iron -may require further GI evaluation though now has diverting colostomy -GI, could do EGD if hgb continues to trend down with resumption of coumadin -PPI for now Hypertension - BP stable, cont current regimen. Schizophrenia - paranoid though behaviorally controlled, cont outpt meds DVT PPLX - pharm c/i 2/2 elevated INR on arrival and SCD's placed. INR now sub- therapeutic. Cont SCD's for now. Full code Dispo - cont inpt Subjective: Not feeling well. Having some pain. Objective: Vital Signs Temp Pulse Resp BP Pulse Ox 36.9 C 90 20 105/60 89 L 03/28/17 12:00 03/28/17 12:00 03/28/17 12:00 03/28/17 12:00 03/28/17 12:00 Microbiology 03/26/17 15:30 Gram Stain - Final Buttock - Tissue 03/26/17 15:30 Mycobacterial Smear (LEESA) - Final Buttock - Tissue 03/26/17 15:30 Gram Stain - Final Buttock - Tissue 03/26/17 15:30 Gram Stain - Final Buttock - Tissue 03/26/17 15:30 Mycobacterial Smear (LEESA) - Final Buttock - Tissue 03/26/17 15:30 Mycobacterial Smear (LEESA) - Final Buttock - Tissue Laboratory Results 03/28/17 04:50 03/28/17 04:50 03/27/17 03/28/17 03/29/17 05:59 05:59 05:59 Intake Total 3095 985 Output Total 1350 850 225 Balance 1745 135 -225 PT 19.4 SEC (12.0-15.0) H 03/28/17 04:50 INR 1.63 (0.83-1.16) H 03/28/17 04:50 - Physical Exam Constitutional: appears nourished, chronically ill appearing, uncomfortable Eyes: PERRL, anicteric sclera, EOMI Ears, Nose, Mouth, Throat: moist mucous membranes, hearing normal, ears appear normal Cardiovascular: No JVD, No tachycardia, No edema Respiratory: no respiratory distress, reduced air movement, rhonchi Gastrointestinal: tenderness, No ascites, No distension Skin: warm, erythema, pressure ulcer Musculoskeletal: no joint effusions, muscular tenderness, generalized weakness Psychiatric: not anxious, not encephalopathic, poor insight, poor judgement, poor memory ICD10 Worksheet Patient Problems: Problems Problem Status Onset Clostridium difficile infection Acute ~03/19/17 CHF (congestive heart failure) Acute Peripheral edema Acute Peripheral edema Acute Cellulitis and abscess of leg Acute Sacral decubitus ulcer, stage III Acute Schizophrenia Acute Atrial fibrillation Acute
[2017-03-28] MEDS: COLLAGENASE 30 GM OINTMENT TP SCH (14:43)
[2017-03-28] MEDS ORDERED: WARFARIN SODIUM 2.5 MG TAB PO ONE (16:00)
--- NOTE | 2017-03-28 16:06 | WOCRNPDOC ---
[facility] Advanced Assessment Note - Skin Integrity Problem, Advanced Assess Bilateral Lower Heel Pressure Injury Dressing Type: Open to Air (Betadine noted over both wounds) Exudate Amount: None Exudate Characteristic(s): None Aria Wound Tissue: Dry, Calloused Aria Wound Swelling: Mild Wound Bed Color: Black Wound Bed Constitution: Stable Eschar Pressure Injury Stage: Unstageable Pressure Injury Present on Admit: Yes Skin Integrity Problem Comment: Stable eschar noted over both heels, currently dry and intact. Aria-wound skin remains dry and calloused, w/ no additional breakdown. Nursing advised to continue painting heels w/ Povidone-Iodime BID to keep tissues dry. Off-loading continues w/ DAVID heels boots, and patient remains on Clinitron air-fluidized bed. Right Ischial Tuberosity Pressure Injury Dressing Type: ABD Pad, Kerlix (wet w/ Dakins) Dressing Description: Intact Exudate Amount: Minimal Exudate Color: Reddish/Yellow Exudate Characteristic(s): Serosanguinous Integumentary Issue Intervention: Dressing Changed Aria Wound Tissue: Blanching, Erythema, Indurated Aria Wound Swelling: Mild Wound Bed Color: Black, Red, Yellow Wound Bed Constitution: Granulation Tissue, Tunneling, Muscle, Subcutaneous Fat , Adhered Slough, Unstable Eschar Site Odor: None Site Measurement - Head-to-Toe Length X Width X Depth (cm): 16.5cmx11.4cmx7.9cm Pressure Injury Stage: Stage 4 Pressure Injury Present on Admit: Yes Skin Integrity Problem Comment: Wound assessed at bedside w/ ID physician and surgeon. This is a large, extensive pressure injury w/ exposed muscle and subcutaneous fat. The wound was surgically debrided on 03/26, and has since had [id number] dressing of Kerlix and Dakins, covered by ABDs. There remains some necrotic tissue in the wound bed, approximately 40%. Despite the size of this wound, there is very little aria-wound erythema or induration, and Dakins is managing odor well. At the time of surgical debridement, a diverting loop colostomy was placed, which has helped immensely to keep wounds clean. Given the extent of remaining necrosis and anatomical location of wound, current recommendation is to continue w/ Dakins [id number] BID. Wound vac may be an option down the line, but currently this author has concerns about remaining necrosis and maintaining an adequate seal on the vac. Wounds cleansed and re- packed w/ Kerlix and Dakins, folowed by ABD. Staff RNs Chante and Delfino assisting throughout. Left Ischial Tuberosity Pressure Injury Dressing Type: ABD Pad, Kerlix (w/ Dakins) Dressing Description: Intact Exudate Amount: Minimal Exudate Color: Reddish/Yellow Exudate Characteristic(s): Serosanguinous Integumentary Issue Intervention: Dressing Changed Aria Wound Tissue: Blanching, Erythema, Indurated Aria Wound Swelling: Mild Wound Bed Color: Black, Red, Yellow Wound Bed Constitution: Granulation Tissue, Tunneling, Undermining, Subcutaneous Fat, Adhered Slough, Unstable Eschar Site Odor: None Site Measurement - Head-to-Toe Length X Width X Depth (cm): [id number] Pressure Injury Stage: Stage 4 Pressure Injury Present on Admit: Yes Skin Integrity Problem Comment: Large, extensive stage 4 pressure injury extending from L sacrum to L ischium, w/ exposed muscle and subcutaneous fat. Wound comprised of approximately 50% necrotic tissue (mix of slough and eschar) , w/ granualtion noted medially and distally. There is undermining at 12 o'clock , 4cm, and there are small tunnels evident throughout wound bed down into fat. Recommend continuing w/ Dakins [id number] dressing to facilitate ongoing debridement of necrotic tissue and manage odor/infection. Site cleansed, and dressings reapplied. - Colostomy Assessment, Advanced Colostomy Stoma Colostomy Appliance Intact: No (stool leaking out of lateral aspect, under barrier.) Colostomy Appliance Currently in Use: Two Piece Flat, 2 3/4, Moldable Stoma Color: Red Stoma Turgor: Moist Stoma Shape: Irregular Stoma Height: Protruding Slightly Mucocutaneus Junction: Intact (intact domitila aria-stoma at 3 and 9 o'clock) Colostomy Effluent: Fecal, Pasty Colostomy Details: Loop (diverting) Peristomal Skin: Intact Colostomy Comment/Treatment Details: Ostomy appliance not intact, leaking stool under barrier during assessment. Appliance removed, and site cleansed w/ water and washcloth. The red rubber catheter serving as the bridge for the loop of bowel had come out the distal aspect and was sticking out. Dr. Collado was paged, and he returned to push the bridge back into place. Stoma is irregularly shaped, presently protruding minimally above skin level. Stool noted in bag, and from stomal os during appliance change. There are intact domitila securing aria-stomal skin at 3 and 9 o'clock, w/ no denudment or breakdown observed. New 2-piece pouching system applied. Nursing should continue to follow protocol for appliance changes q3 days. Patient verbalized awareness of ostomy, but c/o pain and said he did not want to look at the site at this time. Staff RNs Delfino and Chante geller.
--- NOTE | 2017-03-28 16:54 | PCMIDPN ---
Assessment/Plan: Assessment: Sacral and bilateral buttock decubitus ulcers-severe necrosis. This is likely due to underlying schizoaffective disorder and inability or unwillingness to move. Patient has been to the operating room for debridement once and will go again later. Holding off antimicrobial therapy at present although will start treatment empirically today. Will use Zosyn 4.5 g IV q. 6 hours. Leukocytosis resolved after debridement. Pneumonia on chest x-ray. Will also be covered by Zosyn. Plan: 1. Continue Zosyn 4.5 g IV q. 6 hours. 2. Follow clinical course. 03/26/17 17:22 03/28/17 17:07 Subjective: Patient is resting in his hospital bed. He has no new complaint. Getting wound dressings changed during this visit this morning. No fevers or chills. Objective: Zosyn #2 Vital Signs Temp Pulse Resp BP Pulse Ox 37.2 C 74 22 H 104/69 88 L 03/28/17 14:57 03/28/17 14:57 03/28/17 14:57 03/28/17 14:57 03/28/17 14:57 Microbiology 03/26/17 15:30 Gram Stain - Final Buttock - Tissue 03/26/17 15:30 Mycobacterial Smear (LEESA) - Final Buttock - Tissue 03/26/17 15:30 Gram Stain - Final Buttock - Tissue 03/26/17 15:30 Gram Stain - Final Buttock - Tissue 03/26/17 15:30 Mycobacterial Smear (LEESA) - Final Buttock - Tissue 03/26/17 15:30 Mycobacterial Smear (LEESA) - Final Buttock - Tissue Laboratory Results 03/28/17 04:50 03/28/17 04:50 03/27/17 03/28/17 03/29/17 05:59 05:59 05:59 Intake Total 3095 985 Output Total 2748 114 625 Balance 5389 135 -725 - Physical Exam General Appearance: WD/WN, alert, no apparent distress, non-toxic Respiratory: lungs clear, normal breath sounds, No respiratory distress Cardiac/Chest: regular rate, rhythm, No tachycardia Skin: normal color, warm/dry, other (Bilateral buttocks decubitus I. Deep. No bone showing.), No rash Neuro/Psych: alert, normal mood/affect, oriented x 3 ICD10 Worksheet Patient Problems: Problems Problem Status Onset Atrial fibrillation Acute Cellulitis and abscess of leg Acute Clostridium difficile infection Acute ~03/19/17 Peripheral edema Acute Sacral decubitus ulcer, stage III Acute Schizophrenia Acute CHF (congestive heart failure) Acute Peripheral edema Acute
[2017-03-28 19:17] LABS: POTASSIUM 4.2 mEq/L (3.5-5.2)
[2017-03-28] MEDS: SENNOSIDES 1 TAB PO SCH (20:15)
[2017-03-29] MEDS: HYDROmorphONE/DILAUDID 1 MG/ML SYR IVP PRN ×2 (00:40→19:32)
[2017-03-29] MEDS: PIPERACILLIN/TAZO 4.5 GM/DEX 100 ML IV SCH ×4 (00:41→19:27)
[2017-03-29] MEDS: SODIUM HYPOCHLORITE (DAKINS 1/4 STR) 120 ML BTL TP SCH ×2 (00:45→12:00)
[2017-03-29] MEDS: HYDROCODONE/APAP 5/325 TAB PO PRN (01:50)
[2017-03-29] MEDS: VANCOMYCIN 125 MG/2.5 ML UDL PO SCH ×4 (05:39→20:14)
[2017-03-29] MEDS: oxyCODONE IR 5 MG TAB PO PRN ×4 (05:41→22:31)
[2017-03-29 06:01] LABS: INR 1.89 (0.83-1.16); PROTIME(PATIENT) 21.8 SEC (12.0-15.0)
[2017-03-29 06:25] LABS: POTASSIUM 3.8 mEq/L (3.5-5.2)
--- NOTE | 2017-03-29 09:03 | SOAPPROG ---
[facility] Progress Note Assessment/Plan: Assessment/Plan: Mr Wilcox is a 61-year-old gentleman with baseline schizoaffective disorder with minimal ability/desire for ambulation. He remains bedbound on a Clinitron bed. He has multiple issues requiring inpatient hospitalization including bilateral stage IV decubitus/ischial ulcers. Diverting colostomy. C diff colitis precautions, pneumonia on chest x-ray being currently treated with Zosyn. Bilateral lower extremity edema with heels off loaded and treatment with Betadine paint. The patient complains of pain around his ostomy which is productive of brown stool. Overall unchanged in his clinical picture. Abdomen soft ostomy pink patent productive of stool Decubitus ulcers will be re-evaluated later on today with dressing changes Alert oriented to person, place and time Bilateral lower extremities with 2+ edema Continue Zosyn. Ongoing inpatient wound care. Will evaluate decubitus ulcers with dressing change later on today maintain on Clinitron bed for pressure offloading 03/29/17 09:00 Objective: Vital Signs Temp Pulse Resp BP Pulse Ox 36.8 C 104 H 16 115/70 92 03/29/17 08:00 03/29/17 08:00 03/29/17 08:00 03/29/17 08:00 03/29/17 08:00 Microbiology 03/26/17 15:30 Gram Stain - Final Buttock - Tissue 03/23/17 22:30 Blood Culture - Final Blood 03/23/17 22:15 Blood Culture - Final Blood 03/26/17 15:30 Gram Stain - Final Buttock - Tissue 03/26/17 15:30 Gram Stain - Final Buttock - Tissue 03/26/17 15:30 Mycobacterial Smear (LEESA) - Final Buttock - Tissue 03/26/17 15:30 Mycobacterial Smear (LEESA) - Final Buttock - Tissue 03/26/17 15:30 Mycobacterial Smear (LEESA) - Final Buttock - Tissue Laboratory Results 03/28/17 04:50 03/29/17 05:40 03/28/17 03/29/17 03/30/17 05:59 05:59 05:59 Intake Total 985 987 Output Total 191 2075 Balance 135 -1088 PT 21.8 SEC (12.0-15.0) H 03/29/17 05:40 INR 1.89 (0.83-1.16) H 03/29/17 05:40 ICD10 Worksheet Patient Problems: Problems Problem Status Onset Atrial fibrillation Acute Cellulitis and abscess of leg Acute Clostridium difficile infection Acute ~03/19/17 Peripheral edema Acute Sacral decubitus ulcer, stage III Acute Schizophrenia Acute CHF (congestive heart failure) Acute Peripheral edema Acute
--- NOTE | 2017-03-29 09:49 | HOSPPROG ---
Hospitalist Progress Note Assessment/Plan: 61y male admitted from [place] with wounds. PMH chronic skin wounds, recent hospital admit February for polymicrobial cellulitis, schizoaffective d/o. First encounter. Reviewed chart. Chronic B/L gluteal pressure ulcer - Stage 3. No signs of sepsis. Excisional debridement at bedside 03/[address] Saleh followed by OR 03/[address] Higgins. Diverting colostomy placed as unlikely to maintain wound vac seal with pj- anal extension of large ulcer and concern for fecal contamination. No e/o osteo on pelvic CT. BCx's NGTD. Intra-operative Cx showing multiple organisms. This will be difficult to fully resolve as pt mostly bed bound, suspect secondary to chronic lymphedema and mental health issues. -Cont Zosyn per ID -follow culture data -wound care following -Appreciate surgical assistance A fib - Rate controlled on Metoprolol and Dilt. Presented with INR of 5 without bleeding. INR 1.89 this am s/p 5 mg oral Vit K and 4 u FFP. -Resumed Coumadin 24 hrs post-op -H/H cont to decrease/ i U PRBC ordered for today -He does not need bridging with Chads-vasc of 1 (HTN) C diff - Positive C diff 03/19 per [place] -cont po vanc Hyponatremia - Likely hypovolemic, possibly related to high Lasix dosing as outpt, normalized with NS -follow Chronic lymphedema - Lasix held for several days as pt appeared dry. Volume status better today. IVF's stopped. -resume Lasix at lower dose (home dose 40 mg BID) now on 20 daily/ appears euvolemic in his feet Chronic LE wounds with h/o polymicrobial cellulitis - completed 14 days of Cefepime earlier this month. -ID on board -cont wound care PNA -post op -decreased mobility -increased O2 needs -D/W Dr Maier, defer abx to ID CKD with nephrotic syndrome - Cr at baseline Anemia - ?blood loss. Normocytic. Fe studies c/w ACD, serum iron low. Hgb trended down to 7.1 from 8.6 in setting of elevated INR. No vomiting, BRBPR or melena, though heme positive stool. S/P 2 units prbc's, hgb >8 this am. Note hgb was 11-12 in 08/2016 and has been down-trending. -oral iron -may require further GI evaluation though now has diverting colostomy -GI, could do EGD if hgb continues to trend down with resumption of coumadin -PPI for now Hypertension - BP stable, cont current regimen. Schizophrenia - paranoid though behaviorally controlled, cont outpt meds DVT PPLX - pharm c/i 2/2 elevated INR on arrival and SCD's placed. Full code Subjective: Reports abdominal pain. feels breathing is OK. Objective: Vital Signs Temp Pulse Resp BP Pulse Ox 98.3 F 104 H 16 115/70 92 03/29/17 08:00 03/29/17 08:00 03/29/17 08:00 03/29/17 08:00 03/29/17 08:00 Microbiology 03/26/17 15:30 Gram Stain - Final Buttock - Tissue 03/23/17 22:30 Blood Culture - Final Blood 03/23/17 22:15 Blood Culture - Final Blood 03/26/17 15:30 Gram Stain - Final Buttock - Tissue 03/26/17 15:30 Gram Stain - Final Buttock - Tissue 03/26/17 15:30 Mycobacterial Smear (LEESA) - Final Buttock - Tissue 03/26/17 15:30 Mycobacterial Smear (LEESA) - Final Buttock - Tissue 03/26/17 15:30 Mycobacterial Smear (LEESA) - Final Buttock - Tissue Laboratory Results 03/28/17 04:50 03/29/17 05:40 03/28/17 03/29/17 03/30/17 05:59 05:59 05:59 Intake Total 985 987 Output Total 850 2075 Balance 135 -1088 PT 21.8 SEC (12.0-15.0) H 03/29/17 05:40 INR 1.89 (0.83-1.16) H 03/29/17 05:40 - Physical Exam Constitutional: no apparent distress Eyes: anicteric sclera Cardiovascular: regular rate and rhythym, no murmur, rub, or gallop Respiratory: no respiratory distress Gastrointestinal: soft, non-tender abdomen Genitourinary: david in urethra Skin: other (wearing SCD/feet have healed eschar/appears euvolemic to dry) ICD10 Worksheet Patient Problems: Problems Problem Status Onset Atrial fibrillation Acute Cellulitis and abscess of leg Acute Clostridium difficile infection Acute ~03/19/17 Peripheral edema Acute Sacral decubitus ulcer, stage III Acute Schizophrenia Acute CHF (congestive heart failure) Acute Peripheral edema Acute
[2017-03-29] MEDS: risperiDONE 2 MG TAB PO SCH ×2 (09:53→20:14)
[2017-03-29] MEDS: ACYCLOVIR 400 MG TAB PO SCH ×2 (09:53→20:14)
[2017-03-29] MEDS: DILTIAZEM CD 180 MG CAP PO SCH ×2 (09:56→12:22)
[2017-03-29] MEDS: FERROUS SULFATE 325 MG TAB PO SCH ×2 (09:57→20:13)
[2017-03-29] MEDS: morphINE SR 15 MG TAB PO SCH ×2 (09:57→20:13)
[2017-03-29] MEDS: PANTOPRAZOLE SODIUM 40 MG TAB PO SCH (09:57)
[2017-03-29] MEDS ORDERED: POTASSIUM CL 10 MEQ TAB PO ONE (10:20)
[2017-03-29] MEDS: METOPROLOL SUCCINATE XR 50 MG TAB PO SCH (10:28)
[2017-03-29] MEDS: FUROSEMIDE 40 MG TAB PO SCH (10:28)
[2017-03-29] MEDS: METOPROLOL SUCCINATE XR 25 MG TAB PO SCH (10:44)
--- NOTE | 2017-03-29 10:46 | PCMIDPN ---
Assessment/Plan: Assessment: Sacral and bilateral buttock decubitus ulcers-severe necrosis. This is likely due to underlying schizoaffective disorder and inability or unwillingness to move. Patient has been to the operating room for debridement once and will go again later. Will continue to use Zosyn 4.5 g IV q. 6 hours. Leukocytosis resolved after debridement. Pneumonia on chest x-ray. Will also be covered by Zosyn. Plan: 1. Continue Zosyn 4.5 g IV q. 6 hours. 2. Follow clinical course. Subjective: Patient is resting in his hospital bed. Patient feels generally unwell. More complaints due to colostomy rather than large necrotic defects in the buttock area. Objective: Zosyn # 3 P.o. Vanco Vital Signs Temp Pulse Resp BP Pulse Ox 36.8 C 100 16 99/64 L 92 03/29/17 08:00 03/29/17 10:28 03/29/17 08:00 03/29/17 10:28 03/29/17 08:00 Microbiology 03/26/17 15:30 Gram Stain - Final Buttock - Tissue 03/23/17 22:30 Blood Culture - Final Blood 03/23/17 22:15 Blood Culture - Final Blood 03/26/17 15:30 Gram Stain - Final Buttock - Tissue 03/26/17 15:30 Gram Stain - Final Buttock - Tissue 03/26/17 15:30 Mycobacterial Smear (LEESA) - Final Buttock - Tissue 03/26/17 15:30 Mycobacterial Smear (LEESA) - Final Buttock - Tissue 03/26/17 15:30 Mycobacterial Smear (LEESA) - Final Buttock - Tissue Laboratory Results 03/28/17 04:50 03/29/17 05:40 03/28/17 03/29/17 03/30/17 05:59 05:59 05:59 Intake Total 98 987 Output Total 729 3845 Balance 135 -1088 - Physical Exam General Appearance: WD/WN, alert, no apparent distress, non-toxic Respiratory: lungs clear, normal breath sounds, No respiratory distress Cardiac/Chest: regular rate, rhythm, No tachycardia Skin: normal color, warm/dry, other (2 large nearly symmetric open wounds bilateral buttock area. Minimal surrounding erythema.), No rash Neuro/Psych: alert, oriented x 3 ICD10 Worksheet Patient Problems: Problems Problem Status Onset Atrial fibrillation Acute Cellulitis and abscess of leg Acute Clostridium difficile infection Acute ~03/19/17 Peripheral edema Acute Sacral decubitus ulcer, stage III Acute Schizophrenia Acute CHF (congestive heart failure) Acute Peripheral edema Acute
[2017-03-29] MEDS: COLLAGENASE 30 GM OINTMENT TP SCH (12:00)
[2017-03-29] MEDS ORDERED: WARFARIN SODIUM 2.5 MG TAB PO ONE (16:00)
[2017-03-29 18:29] LABS: POTASSIUM 4.2 mEq/L (3.5-5.2)
[2017-03-29] MEDS: SENNOSIDES 1 TAB PO SCH (20:14)
[2017-03-30] MEDS: PIPERACILLIN/TAZO 4.5 GM/DEX 100 ML IV SCH ×3 (00:02→11:08)
[2017-03-30] MEDS: HYDROmorphONE/DILAUDID 1 MG/ML SYR IVP PRN ×2 (00:02→11:09)
[2017-03-30] MEDS: SODIUM HYPOCHLORITE (DAKINS 1/4 STR) 120 ML BTL TP SCH ×2 (00:03→12:00)
[2017-03-30] MEDS: oxyCODONE IR 5 MG TAB PO PRN ×4 (02:23→17:05)
[2017-03-30 04:57] LABS: % IMMATURE GRANULYOCYTES 0.6 % (0.0-1.1); ABSOLUTE IMMATURE GRANULOCYTES 0.06 10^3/uL (0.00-0.10); ADD DIFF? NO; ADD MORPH? NO; ADD SCAN? NO; ATYPICAL LYMPHOCYTE FLAG 0 (0-99); FRAGMENT RBC FLAG 0 (0-99); HEMATOCRIT 22.9 % (40.0-51.0); HEMOGLOBIN 7.3 g/dL (13.7-17.5); LEFT SHIFT FLG 0 (0-99); LIPEMIA HEMOLYSIS FLAG 80 (0-99); MEAN CELL HEMOGLOBIN CONCENTR. 31.9 g/dL (32.4-36.7); MEAN CELL VOLUME 94.2 fL (81.5-99.8); MEAN PLATELET VOLUME 8.7 fL (8.7-11.7); PLATELET CLUMPS FLAG 10 (0-99); PLATELET COUNT 258 10^3/uL (150-400); RED BLOOD CELL COUNT 2.43 10^6/uL (4.40-6.38); RED CELL DISTRIBUTION WIDTH 15.1 % (11.5-15.2)
[2017-03-30 05:05] LABS: INR 2.42 (0.83-1.16); PROTIME(PATIENT) 26.6 SEC (12.0-15.0)
[2017-03-30 05:23] LABS: POTASSIUM 3.9 mEq/L (3.5-5.2)
[2017-03-30] MEDS: VANCOMYCIN 125 MG/2.5 ML UDL PO SCH ×4 (06:08→20:40)
[2017-03-30] MEDS: ALTEPLASE 2 MG VIAL IVP PRN ×2 (08:52→11:23)
--- NOTE | 2017-03-30 09:16 | PCMIDPN ---
Assessment/Plan: Assessment: Sacral and bilateral buttock decubitus ulcers-severe necrosis. This is likely due to underlying schizoaffective disorder and inability or unwillingness to move. Patient has been to the operating room for debridement once and will go again later. Given the polymicrobial culture showing ESBL E coli, Zosyn and carbapenem resistant Pseudomonas as well as VRE will discontinue Zosyn and start daptomycin and Levaquin empirically. Plan: 1. Discontinue Zosyn. 2. Start daptomycin 500 mg IV Q 24 hours. 3. Start Levaquin 750 mg IV Q 24 hours. 4.. Follow clinical course. 03/30/17 16:03 Subjective: Patient is resting in his [place] bed. He notes no new complaint. His ongoing complaint is abdominal pain at the site of his colostomy. No fevers or chills. Objective: Zosyn # 4 Vital Signs Temp Pulse Resp BP Pulse Ox 36.0 C 98 20 107/79 98 03/30/17 08:00 03/30/17 08:00 03/30/17 08:00 03/30/17 08:00 03/30/17 08:00 Microbiology 03/26/17 15:30 Gram Stain - Final Buttock - Tissue 03/26/17 15:30 Gram Stain - Final Buttock - Tissue 03/26/17 15:30 Mycobacterial Smear (LEESA) - Final Buttock - Tissue 03/26/17 15:30 Gram Stain - Final Buttock - Tissue 03/23/17 22:30 Blood Culture - Final Blood 03/23/17 22:15 Blood Culture - Final Blood Laboratory Results 03/30/17 04:45 03/30/17 04:45 03/29/17 03/30/17 03/31/17 05:59 05:59 05:59 Intake Total 987 900 Output Total 8633 2140 Balance -1088 -800 ICD10 Worksheet Patient Problems: Problems Problem Status Onset Clostridium difficile infection Acute ~03/19/17 CHF (congestive heart failure) Acute Peripheral edema Acute Peripheral edema Acute Cellulitis and abscess of leg Acute Sacral decubitus ulcer, stage III Acute Schizophrenia Acute Atrial fibrillation Acute
[2017-03-30] MEDS: DILTIAZEM CD 180 MG CAP PO SCH (09:28)
[2017-03-30] MEDS: morphINE SR 15 MG TAB PO SCH ×2 (09:28→20:39)
[2017-03-30] MEDS: FERROUS SULFATE 325 MG TAB PO SCH ×2 (09:29→20:40)
[2017-03-30] MEDS: ACYCLOVIR 400 MG TAB PO SCH ×2 (09:29→20:39)
[2017-03-30] MEDS: risperiDONE 2 MG TAB PO SCH ×2 (09:29→20:39)
[2017-03-30] MEDS: METOPROLOL SUCCINATE XR 25 MG TAB PO SCH (09:29)
--- NOTE | 2017-03-30 11:13 | HOSPPROG ---
Hospitalist Progress Note Assessment/Plan: 61y male admitted from [place] with wounds. PMH chronic skin wounds, recent hospital admit February for polymicrobial cellulitis, schizoaffective d/o. First encounter. Reviewed chart. Chronic B/L gluteal pressure ulcer - Stage 4. No signs of sepsis. Excisional debridement at bedside 03/[address] Saleh followed by OR 03/[address] Higgins. Diverting colostomy placed as unlikely to maintain wound vac seal with pj- anal extension of large ulcer and concern for fecal contamination. No e/o osteo on pelvic CT. BCx's NGTD. Intra-operative Cx showing multiple organisms. This will be difficult to fully resolve as pt mostly bed bound due to schizoaffective d/o suspect secondary to chronic lymphedema and mental health issues. -Cont Zosyn per ID -follow culture data -wound care following -Appreciate surgical assistance A fib - Rate controlled on Metoprolol and Dilt. -Resumed Coumadin 24 hrs post-op but will stop now as H/H continue to decrease -H/H cont to decrease/ will follow -[id number] of 1/ likely could just be on ASA once H/H stabilize C diff - Positive C diff 03/19 per [place] -cont po vanc Hyponatremia - Likely hypovolemic, possibly related to high Lasix dosing as outpt, normalized with NS -follow Chronic lymphedema - Lasix held for several days as pt appeared dry. Volume status better today. IVF's stopped. -holding in setting of hypotension and actually appears dry/euvolemic Chronic LE wounds with h/o polymicrobial cellulitis - completed 14 days of Cefepime earlier this month. -ID on board -cont wound care PNA -post op -decreased mobility -increased O2 needs -D/W Dr Maier, defer abx to ID CKD with nephrotic syndrome - Cr at baseline Anemia - ?blood loss. Normocytic. Fe studies c/w ACD, serum iron low. Hgb trended down to 7.1 from 8.6 in setting of elevated INR. No vomiting, BRBPR or melena, though heme positive stool. S/P 2 units prbc's, hgb >8 this am. Note hgb was 11-12 in 08/2016 and has been down-trending. -oral iron -may require further GI evaluation though now has diverting colostomy -GI, may need EGD if hgb continues to trend down/coumadin on hold for now -PPI for now Hypertension - BP stable, cont current regimen. - changed Metoprolol to 25 daily and holding 100 of Metoprolol/ bp looks ok Schizophrenia - paranoid though behaviorally controlled, cont outpt meds DVT PPLX - currently in stockings/warfarin being held Full code Subjective: Reports that he does not want to be touched as he is resting. Objective: Vital Signs Temp Pulse Resp BP Pulse Ox 96.8 F 98 20 107/79 98 03/30/17 08:00 03/30/17 08:00 03/30/17 08:00 03/30/17 08:00 03/30/17 08:00 Microbiology 03/26/17 15:30 Gram Stain - Final Buttock - Tissue 03/26/17 15:30 Gram Stain - Final Buttock - Tissue 03/26/17 15:30 Mycobacterial Smear (LEESA) - Final Buttock - Tissue 03/26/17 15:30 Gram Stain - Final Buttock - Tissue 03/23/17 22:30 Blood Culture - Final Blood 03/23/17 22:15 Blood Culture - Final Blood Laboratory Results 03/30/17 04:45 03/30/17 04:45 03/29/17 03/30/17 03/31/17 05:59 05:59 05:59 Intake Total 987 900 Output Total 2075 1700 Balance -1088 -800 PT 26.6 SEC (12.0-15.0) H 03/30/17 04:45 INR 2.42 (0.83-1.16) H 03/30/17 04:45 - Physical Exam Constitutional: no apparent distress, appears nourished Eyes: PERRL, anicteric sclera Ears, Nose, Mouth, Throat: moist mucous membranes, hearing normal Cardiovascular: regular rate and rhythym Skin: other (in SCD/feet appear dry/ no open wounds) ICD10 Worksheet Patient Problems: Problems Problem Status Onset Atrial fibrillation Acute Cellulitis and abscess of leg Acute Clostridium difficile infection Acute ~03/19/17 Peripheral edema Acute Sacral decubitus ulcer, stage III Acute Schizophrenia Acute CHF (congestive heart failure) Acute Peripheral edema Acute
[2017-03-30] MEDS: PANTOPRAZOLE SODIUM 40 MG TAB PO SCH (12:48)
[2017-03-30] MEDS ORDERED: POTASSIUM CL 10 MEQ TAB PO ONE (12:50)
[2017-03-30] MEDS: COLLAGENASE 30 GM OINTMENT TP SCH (12:52)
--- NOTE | 2017-03-30 15:16 | SOAPPROG ---
SOAP Progress Note Assessment/Plan: Assessment/Plan: - 61yo M c schizoaffective disorder and large curt sacral decub - Stoma beefy red, stool in appliance. red rubber in place - was present and assisted with the wound dressing change today; sacral decub wounds overall look about the same as they did on Friday, there are small areas on each side where there is some necrotic fat but this is fairly minimal given the size of the wounds. - Agree with Dr Stevens that we need a gameplan of what his intermediate goals are and what ultimately we are going to do with that area as going to the OR for a "simple debridement" with this patient requires a lot of pre-planning for work given his multiple medical issues and the fact that his INR will need to be addressed. 03/25/17 18:26 03/30/17 15:13 03/30/17 15:16 Subjective: c/o pain around the stoma, otherwise doing well Objective: Vital Signs Temp Pulse Resp BP Pulse Ox 36.4 C 91 18 119/89 H 98 03/30/17 11:55 03/30/17 11:55 03/30/17 11:55 03/30/17 11:55 03/30/17 11:55 Microbiology 03/26/17 15:30 Gram Stain - Final Buttock - Tissue 03/26/17 15:30 Gram Stain - Final Buttock - Tissue 03/26/17 15:30 Mycobacterial Smear (LEESA) - Final Buttock - Tissue 03/26/17 15:30 Gram Stain - Final Buttock - Tissue Laboratory Results 03/30/17 04:45 03/30/17 04:45 03/29/17 03/30/17 03/31/17 05:59 05:59 05:59 Intake Total 987 900 Output Total 4393 1700 Balance -1088 -800 PT 26.6 SEC (12.0-15.0) H 03/30/17 04:45 INR 2.42 (0.83-1.16) H 03/30/17 04:45 ICD10 Worksheet Patient Problems: Problems Problem Status Onset Atrial fibrillation Acute Cellulitis and abscess of leg Acute Clostridium difficile infection Acute ~03/19/17 Peripheral edema Acute Sacral decubitus ulcer, stage III Acute Schizophrenia Acute CHF (congestive heart failure) Acute Peripheral edema Acute
[2017-03-30] MEDS ORDERED: WARFARIN SODIUM 1 MG TAB PO ONE (16:00)
[2017-03-30] MEDS: DAPTOmycin 500 MG in NS 100 ML IV SCH (18:40)
[2017-03-30 18:42] LABS: POTASSIUM 4.1 mEq/L (3.5-5.2)
[2017-03-30] MEDS: SENNOSIDES 1 TAB PO SCH (20:40)
[2017-03-31] MEDS: oxyCODONE IR 5 MG TAB PO PRN ×2 (01:16→16:42)
[2017-03-31] MEDS: SODIUM HYPOCHLORITE (DAKINS 1/4 STR) 120 ML BTL TP SCH ×2 (01:17→09:08)
[2017-03-31] MEDS: VANCOMYCIN 125 MG/2.5 ML UDL PO SCH ×4 (05:58→20:22)
[2017-03-31 06:13] LABS: % IMMATURE GRANULYOCYTES 0.4 % (0.0-1.1); ABSOLUTE IMMATURE GRANULOCYTES 0.03 10^3/uL (0.00-0.10); ADD DIFF? NO; ADD MORPH? NO; ADD SCAN? NO; ATYPICAL LYMPHOCYTE FLAG 0 (0-99); FRAGMENT RBC FLAG 0 (0-99); HEMATOCRIT 23.6 % (40.0-51.0); HEMOGLOBIN 7.6 g/dL (13.7-17.5); LEFT SHIFT FLG 0 (0-99); LIPEMIA HEMOLYSIS FLAG 80 (0-99); MEAN CELL HEMOGLOBIN 30.3 pg (27.9-34.1); MEAN CELL HEMOGLOBIN CONCENTR. 32.2 g/dL (32.4-36.7); MEAN PLATELET VOLUME 8.6 fL (8.7-11.7); PLATELET CLUMPS FLAG 0 (0-99); PLATELET COUNT 281 10^3/uL (150-400); RED BLOOD CELL COUNT 2.51 10^6/uL (4.40-6.38)
[2017-03-31 06:29] LABS: ANION GAP 5 mEq/L (8-16); CALCIUM 7.5 mg/dL (8.5-10.4); CARBON DIOXIDE 26 mEq/l (22-31); CHLORIDE 101 mEq/L (97-110); CREATININE 1.2 mg/dL (0.7-1.3); GLOMERULAR FILTRATION RATE > 60; GLUCOSE 104 mg/dL (70-100); POTASSIUM 3.8 mEq/L (3.5-5.2); SODIUM 132 mEq/L (134-144)
[2017-03-31 06:45] LABS: INR 2.55 (0.83-1.16); PROTIME(PATIENT) 27.7 SEC (12.0-15.0)
--- NOTE | 2017-03-31 08:31 | HOSPPROG ---
Hospitalist Progress Note Assessment/Plan: 61y male admitted from [place] with wounds. H chronic skin wounds, recent hospital admit February for polymicrobial cellulitis, schizoaffective d/o. First encounter. Reviewed chart. * Sacral and bilateral buttock decubitus ulcers w severe necrosis. Stage IV. daptomycin and Levaquin blood cx no growth s/p debridement diverting colostomy placed due to fecal contamination poss wound vacs tomorrow w Dr Natarajan *bilateral stable heal ulcers with eschar/POA non stageable *Atrial fib On diltiazem and metoprolol had been on oral anticoagulation with an INR of 2.5 on hold for now * anemia hemoglobin and hematocrit have trended down has a positive stool occult blood screen will need further evaluation once his decubitus improves most consistent with iron deficiency anemia on oral iron has received 2 units of packed red blood cells on a PPI * Clostridium difficile. Positive on March 19 at [place] oral vancomycin * hyponatremia sodium is 132 * chronic lymphedema Lasix has been on hold due to hypotension and patient is euvolemic doesn't need to be resumed yet * chronic lower extremity wounds with history of polymicrobial cellulitis was treated with cefepime * hypertension metoprolol dose has been changed to 25 mg daily had been on 100 mg daily * schizophrenia history of paranoid. Well controlled on his medication this has led to his issues with the ulcers. Not getting oob, not moving * pneumonia per chest xray reading patient not coughing or has complaints of this * chronic kidney disease with history of nephrotic syndrome creatinine is 1.2 *Plan: get a repeat INR in a.m./ if elevated/ recommending FFP, recheck cbc and chemistry panel/ hopeful to sent to [facility] soon. Subjective: Ralf is c/o pain at ulcers on bilateral gluteus area/ dressing changes were being performed during my evaluation. Objective: Vital Signs Temp Pulse Resp BP Pulse Ox 37.3 C 98 20 124/83 H 92 03/31/17 08:00 03/31/17 08:00 03/31/17 08:00 03/31/17 08:00 03/31/17 08:00 Microbiology 03/26/17 15:30 Gram Stain - Final Buttock - Tissue 03/26/17 15:30 Gram Stain - Final Buttock - Tissue Laboratory Results 03/31/17 06:00 03/31/17 06:00 03/30/17 03/31/17 04/01/17 05:59 05:59 05:59 Intake Total 900 1440 Output Total 1700 1000 Balance -800 440 PT 27.7 SEC (12.0-15.0) H 03/31/17 06:25 INR 2.55 (0.83-1.16) H 03/31/17 06:25 - Physical Exam Constitutional: chronically ill appearing, uncomfortable, No not in pain Eyes: PERRL Ears, Nose, Mouth, Throat: hearing normal Respiratory: no respiratory distress Gastrointestinal: normoactive bowel sounds Skin: other (large extensive decubitus on the buttocks/ has some necrotic tissue around the edges, but rest of wound area red) Musculoskeletal: generalized weakness Psychiatric: interacting appropriately, flat affect ICD10 Worksheet Patient Problems: Problems Problem Status Onset Clostridium difficile infection Acute ~03/19/17 CHF (congestive heart failure) Acute Peripheral edema Acute Peripheral edema Acute Cellulitis and abscess of leg Acute Sacral decubitus ulcer, stage III Acute Schizophrenia Acute Atrial fibrillation Acute
[2017-03-31] MEDS: PANTOPRAZOLE SODIUM 40 MG TAB PO SCH (09:03)
[2017-03-31] MEDS: METOPROLOL SUCCINATE XR 25 MG TAB PO SCH (09:03)
[2017-03-31] MEDS: risperiDONE 2 MG TAB PO SCH ×2 (09:04→20:21)
[2017-03-31] MEDS: FERROUS SULFATE 325 MG TAB PO SCH ×2 (09:04→20:22)
[2017-03-31] MEDS: morphINE SR 15 MG TAB PO SCH ×2 (09:04→20:22)
[2017-03-31] MEDS: ACYCLOVIR 400 MG TAB PO SCH ×2 (09:04→21:11)
[2017-03-31] MEDS: DILTIAZEM CD 180 MG CAP PO SCH (09:04)
[2017-03-31] MEDS: COLLAGENASE 30 GM OINTMENT TP SCH (09:08)
--- NOTE | 2017-03-31 09:44 | SOAPPROG ---
SOAP Progress Note Assessment/Plan: Assessment: 61 yo male with schizoaffective disorder and large bilateral sacral decub and diverting ostomy Patient seen during decub wound dressing change. In lateral position with multiple people helping. C/o of stoma discomfort and not of decub pain per nurse. Will view stoma later today or in OR tomorrow. Small areas on each side where there is some necrotic fat but this is fairly minimal given the size of the wounds. Will take to OR tomorrow for further debridement and possible wound vac placement. Would vac may be difficult due to pt requiring frequent position changes INR 2.5 today Appreciate hospitalists Appreciate ID for abx recs Objective: Vital Signs Temp Pulse Resp BP Pulse Ox 37.3 C 98 20 124/83 H 92 03/31/17 08:00 03/31/17 08:00 03/31/17 08:00 03/31/17 08:00 03/31/17 08:00 Microbiology 03/26/17 15:30 Gram Stain - Final Buttock - Tissue 03/26/17 15:30 Gram Stain - Final Buttock - Tissue Laboratory Results 03/31/17 06:00 03/31/17 06:00 03/30/17 03/31/17 04/01/17 05:59 05:59 05:59 Intake Total 900 1440 240 Output Total 1700 1000 Balance -800 440 240 PT 27.7 SEC (12.0-15.0) H 03/31/17 06:25 INR 2.55 (0.83-1.16) H 03/31/17 06:25 ICD10 Worksheet Patient Problems: Problems Problem Status Onset Atrial fibrillation Acute Cellulitis and abscess of leg Acute Clostridium difficile infection Acute ~03/19/17 Peripheral edema Acute Sacral decubitus ulcer, stage III Acute Schizophrenia Acute CHF (congestive heart failure) Acute Peripheral edema Acute
--- NOTE | 2017-03-31 10:43 | WOCRNPDOC ---
JESS Advanced Assessment Note - Skin Integrity Problem, Advanced Assess Right Ischial Tuberosity Pressure Injury Dressing Type: ABD Pad, Kerlix (w/ Dakins) Dressing Description: Saturated Exudate Amount: Minimal Exudate Color: Reddish/Yellow Exudate Characteristic(s): Serosanguinous Integumentary Issue Intervention: Dressing Changed Aria Wound Tissue: Blanching, Erythema Aria Wound Swelling: Mild Wound Bed Color: Black, Red, Yellow Wound Bed Constitution: Undermining, Muscle, Subcutaneous Fat, Adhered Slough, Unstable Eschar Site Odor: Other Site Odor Comment: Dakins Site Measurement - Head-to-Toe Length X Width X Depth (cm): 16.5cmx11.4cmx7.9cm Pressure Injury Stage: Stage 4 Pressure Injury Present on Admit: Yes Skin Integrity Problem Comment: Assessed ischial wounds at the bedside w/ Dr. Natarajan, Dr. Spaulding, and SEBLE Elizalde this morning. There continues to be both necrotic fat and muscle in these wounds, though wound remains stable and relatively unchanged since previous assessment on Wednesday 03/28. Red, beefy granulation observed along wound margins. Dakins and Kerlix dressing effectively managing odor, and there is no aria-wound erythema or signs of infection present. Tentative plan is to take patient back to the OR again tomorrow 04/01 for further debridement of both R and L ischium/sacrum. Dr. Natarajan plans to place a wound vac post-debridement. Wound care will continue to follow these wounds, and will continue to work w/ discharge planning on a plan to [facility] for possible closure. Left Ischial Tuberosity Pressure Injury Dressing Type: ABD Pad, Kerlix (w/ Dakins) Dressing Description: Saturated Exudate Amount: Excessive Exudate Color: Red Exudate Characteristic(s): Bloody (copious konstantin blood from distal aspect of wound, pulsing) Integumentary Issue Intervention: Dressing Changed Aria Wound Tissue: Erythema, Indurated (mild, immediately aria-wound) Aria Wound Swelling: Mild Wound Bed Color: Black, Red, Yellow Wound Bed Constitution: Granulation Tissue, Tunneling, Undermining, Muscle, Adhered Slough, Unstable Eschar Site Odor: Other (Dakins) Site Odor Comment: Dakins Site Measurement - Head-to-Toe Length X Width X Depth (cm): [id number] Pressure Injury Stage: Stage 4 Pressure Injury Present on Admit: Yes Skin Integrity Problem Comment: Assessed ischial wounds at bedside w/ surgeon/ hospitalist. No significant changes in this wound since last assessment on Friday. There remains some necrotic muscle and fat, most notably in the proximal aspect of the wound bed. There is virtually no odor from these wounds due to Dakins, and surprisingly very little induration or erythema aria-wound. Per Dr. Natarajan, patient will go back to OR tomorrow 04/01 for further debridement and possible wound vac placement. Wounds packed w/ Kerlix and Dakins, and patient repositioned on his R side. Left Posterior Lower Leg Dressing Type: Allevyn Life Dressing Description: Shadowed Exudate Amount: Minimal Exudate Color: Reddish/Yellow Exudate Characteristic(s): Serosanguinous Integumentary Issue Intervention: Dressing Changed, Dressing Initialed & Dated Aria Wound Tissue: Swollen (+1 non-pitting), Hemosiderin Staining, Venous Dermatitis Aria Wound Swelling: None Wound Bed Color: Red, Yellow Wound Bed Constitution: Smooth Tissue (non-granulating), Adhered Slough Wound Edges: Irregular Site Odor: None Site Measurement - Head-to-Toe Length X Width X Depth (cm): 6cmx1.3cmx0.1cm Skin Integrity Problem Comment: Slough-filled wound noted to posterior aspect of L leg, appearance consistent w/ venous stasis. Wound bed comprised of 80% adhered slough medially, w/ 20% smooth, red tissue circumferentially. There is also a 0.5cmx0.5cm satellite wound immediately adjacent to this wound, which is also slough-filled. As the existing dressing was shadowed w/ exudate, a [place] HD layer was placed in wound bed to help better absorb exudate and autolytically debride slough. Wound care will continue to follow. Right Posterior Lower Leg Dressing Type: Allevyn Life Dressing Description: Intact Exudate Amount: Minimal Exudate Color: Reddish/Yellow Exudate Characteristic(s): Serosanguinous Integumentary Issue Intervention: Dressing Changed, Dressing Initialed & Dated Aria Wound Tissue: Swollen (+1 non-pitting edema), Hemosiderin Staining, Venous Dermatitis Aria Wound Swelling: Mild Wound Bed Constitution: Smooth Tissue (red, non-granulating) Site Odor: None Site Measurement - Head-to-Toe Length X Width X Depth (cm): 0.3cmx0.3cmx0.1cm Skin Integrity Problem Comment: Small, discrete venous stasis wound on posterior aspect of R leg, w/ very minimal exudate. This site is almost healed, epithelialized along margins. Will continue to keep covered w/ Allevyn Life dressing until completely healed. Right Lower Lateral Leg Dressing Type: Allevyn Life Dressing Description: Intact Exudate Amount: Scant Exudate Color: Reddish/Yellow Exudate Characteristic(s): Serosanguinous Integumentary Issue Intervention: Dressing Changed, Dressing Initialed & Dated Aria Wound Tissue: Swollen, Hemosiderin Staining, Venous Dermatitis Aria Wound Swelling: None Wound Bed Color: Red, Yellow Wound Bed Constitution: Smooth Tissue, Adhered Slough Wound Edges: Irregular Site Odor: None Site Measurement - Head-to-Toe Length X Width X Depth (cm): 1.6cmx1.8cmx0.1cm Skin Integrity Problem Comment: Slough-filled wound on lateral aspect of R leg, appearance consistent w/ venous stasis wounds. Wound bed comprised of 90% well- adhered slough medially, w/ a rim of smooth tissue circumferentially. Placed [place] HD fiber dressing in wound bed for absorption and autolysis. Wound care will continue to follow.
[2017-03-31] MEDS ORDERED: POTASSIUM CL 10 MEQ TAB PO ONE (11:11)
[2017-03-31] MEDS ORDERED: PHYTONADIONE 10 MG/ML AMP SC ONE (12:53)
[2017-03-31] MEDS ORDERED: NS 250 ML IV ONE (13:02)
[2017-03-31] MEDS ORDERED: FUROSEMIDE 20 MG/2 ML VIAL IVP ONE ×2 (13:04→17:00)
[2017-03-31 13:08] LABS: HEMATOCRIT 22.6 % (40.0-51.0); HEMOGLOBIN 7.4 g/dL (13.7-17.5)
[2017-03-31] MEDS ORDERED: PHYTONADIONE 2.5 MG/2.5 ML ORAL UDL PO ONE (13:15)
[2017-03-31] MEDS: DAPTOmycin 500 MG in NS 100 ML IV SCH (16:24)
[2017-03-31 18:36] LABS: POTASSIUM 4.1 mEq/L (3.5-5.2)
--- NOTE | 2017-03-31 18:41 | PCMIDPN ---
Assessment/Plan: Assessment/Plan: * Sacral/bilateral buttock decubitus ulcerations with concomitant severe necrosis: Bleeding from ulcerations earlier today requiring suture for cessation. Wounds not examined based on this finding. Tolerating daptomycin and levofloxacin which was initiated yesterday based on culture findings. Of note, this will not target all organisms with pseudomonal isolate being quinolone resistant. Will observe response without addition of aminoglycoside as this is only susceptible class for his pseudomonal isolate. 03/31/17 18:38 Subjective: Patient with bleeding from decubitus earlier today requiring transfer to Step- Down Unit and stitch placement for management of bleeding. No specific complaints this evening other than episodic abdominal discomfort. Objective: Vital Signs Temp Pulse Resp BP Pulse Ox 37.1 C 130 H 26 H 117/68 95 03/31/17 16:00 03/31/17 16:00 03/31/17 16:00 03/31/17 16:00 03/31/17 16:00 Microbiology 03/26/17 15:30 Gram Stain - Final Buttock - Tissue 03/26/17 15:30 Gram Stain - Final Buttock - Tissue 03/26/17 15:30 Gram Stain - Final Buttock - Tissue Laboratory Results 03/31/17 13:00 03/31/17 17:30 03/30/17 03/31/17 04/01/17 05:59 05:59 05:59 Intake Total 900 1440 990 Output Total 1700 1000 1300 Balance -800 440 -310 Daptomycin # 2 Levofloxacin # 2 Cultures from 03/26/2017 reviewed noting polymicrobial shira including VRE, ESBL producing E coli, and Pseudomonas aeruginosa Laboratory Tests 03/30/17 04:45 Creatine Kinase < 20 - Physical Exam General Appearance: alert, no apparent distress EENT: No scleral icterus, No thrush Abdomen: non-tender, No distended - Line/s RUE PICC Lines: No drainage, No erythema ICD10 Worksheet Patient Problems: Problems Problem Status Onset Atrial fibrillation Acute Cellulitis and abscess of leg Acute Clostridium difficile infection Acute ~03/19/17 Peripheral edema Acute Sacral decubitus ulcer, stage III Acute Schizophrenia Acute CHF (congestive heart failure) Acute Peripheral edema Acute
[2017-03-31] MEDS ORDERED: METOPROLOL TARTRATE 25 MG TAB PO ONE (20:19)
[2017-03-31] MEDS: SENNOSIDES 1 TAB PO SCH (20:22)
[2017-04-01] MEDS: SODIUM HYPOCHLORITE (DAKINS 1/4 STR) 120 ML BTL TP SCH ×3 (03:34→21:02)
[2017-04-01] MEDS: VANCOMYCIN 125 MG/2.5 ML UDL PO SCH ×4 (05:52→20:55)
[2017-04-01 06:02] LABS: % IMMATURE GRANULYOCYTES 0.7 % (0.0-1.1); ABSOLUTE IMMATURE GRANULOCYTES 0.07 10^3/uL (0.00-0.10); ADD DIFF? NO; ADD MORPH? NO; ADD SCAN? NO; ATYPICAL LYMPHOCYTE FLAG 0 (0-99); FRAGMENT RBC FLAG 0 (0-99); HEMATOCRIT 22.2 % (40.0-51.0); HEMOGLOBIN 7.3 g/dL (13.7-17.5); LEFT SHIFT FLG 0 (0-99); LIPEMIA HEMOLYSIS FLAG 80 (0-99); MEAN CELL HEMOGLOBIN 30.7 pg (27.9-34.1); MEAN CELL HEMOGLOBIN CONCENTR. 32.9 g/dL (32.4-36.7); MEAN CELL VOLUME 93.3 fL (81.5-99.8); MEAN PLATELET VOLUME 8.9 fL (8.7-11.7); PLATELET CLUMPS FLAG 10 (0-99); PLATELET COUNT 267 10^3/uL (150-400); RED BLOOD CELL COUNT 2.38 10^6/uL (4.40-6.38); RED CELL DISTRIBUTION WIDTH 15.2 % (11.5-15.2)
[2017-04-01 06:11] LABS: INR 1.64 (0.83-1.16); PROTIME(PATIENT) 19.5 SEC (12.0-15.0)
[2017-04-01 06:16] LABS: ANION GAP 5 mEq/L (8-16); CALCIUM 7.7 mg/dL (8.5-10.4); CARBON DIOXIDE 26 mEq/l (22-31); CHLORIDE 102 mEq/L (97-110); CREATININE 1.2 mg/dL (0.7-1.3); GLOMERULAR FILTRATION RATE > 60; GLUCOSE 107 mg/dL (70-100); POTASSIUM 3.9 mEq/L (3.5-5.2); SODIUM 133 mEq/L (134-144)
[2017-04-01] MEDS ORDERED: POTASSIUM CL 10 MEQ TAB PO ONE ×2 (08:20→21:57)
[2017-04-01] MEDS: COLLAGENASE 30 GM OINTMENT TP SCH (08:32)
[2017-04-01] MEDS: METOPROLOL SUCCINATE XR 25 MG TAB PO SCH (08:37)
[2017-04-01] MEDS: FERROUS SULFATE 325 MG TAB PO SCH ×2 (08:38→20:52)
[2017-04-01] MEDS: DILTIAZEM CD 180 MG CAP PO SCH (08:38)
[2017-04-01] MEDS: ACYCLOVIR 400 MG TAB PO SCH ×2 (08:38→20:52)
[2017-04-01] MEDS: PANTOPRAZOLE SODIUM 40 MG TAB PO SCH (08:38)
[2017-04-01] MEDS: oxyCODONE IR 5 MG TAB PO PRN (08:38)
[2017-04-01] MEDS: morphINE SR 15 MG TAB PO SCH ×2 (08:38→20:53)
[2017-04-01] MEDS: risperiDONE 2 MG TAB PO SCH ×3 (08:38→21:03)
[2017-04-01] MEDS ORDERED: FUROSEMIDE 20 MG/2 ML VIAL IVP ONE (08:47)
--- NOTE | 2017-04-01 08:47 | HOSPPROG ---
Hospitalist Progress Note Assessment/Plan: 61y male admitted from [place] with wounds. PMH chronic skin wounds, recent hospital admit February for polymicrobial cellulitis, schizoaffective d/o. * Sacral and bilateral buttock decubitus ulcers w severe necrosis. Stage IV. Polymicrobial daptomycin and Levaquin blood cx no growth s/p debridement diverting colostomy placed due to fecal contamination poss wound vacs today w Dr Natarajan *bilateral stable heal ulcers with eschar/POA non stageable *Atrial fib with intermittent RVR On diltiazem and metoprolol (metoprolol dose was decrease due to hypotension) had been on oral anticoagulation with an INR of 2.5 on hold for now * anemia/ acute blood loss had a bleeding area that was pulsatile yesterday and sutured by surgery was given a unit of prbc and 2 ffp/ as well as vitamin K will give another unit today / patient going to surgery has received a total of 3 prbc * Clostridium difficile. Positive on March 19 at [place] oral vancomycin * hyponatremia sodium is 133 * chronic lymphedema Lasix has been on hold due to hypotension and patient is euvolemic doesn't need to be resumed yet * chronic lower extremity wounds with history of polymicrobial cellulitis was treated with cefepime * hypertension metoprolol dose has been changed to 25 mg daily had been on 100 mg daily has had some hypotension during his stay * schizophrenia history of paranoid. Well controlled on his medication this has led to his issues with the ulcers. Not getting oob, not moving * pneumonia per chest xray reading patient not coughing or has complaints of this * chronic kidney disease with history of nephrotic syndrome creatinine is 1.2 *Plan: tx another unit of blood and check labs, will ask Palliative care to see / I am concerned about his prognosis, healing, and the ability to stay well due to his mental illness. Subjective: Marco Antonio wants to be left alone and sleep/says his pain overall is fine. Some pain at colostomy site. Objective: Vital Signs Temp Pulse Resp BP Pulse Ox 37.4 C 88 22 H 125/69 H 95 04/01/17 04:00 04/01/17 08:00 04/01/17 08:00 04/01/17 08:00 04/01/17 08:00 Microbiology 03/26/17 15:30 Gram Stain - Final Buttock - Tissue 03/26/17 15:30 Gram Stain - Final Buttock - Tissue 03/26/17 15:30 Gram Stain - Final Buttock - Tissue Laboratory Results 04/01/17 05:50 04/01/17 05:50 03/31/17 04/01/17 04/02/17 05:59 05:59 05:59 Intake Total 1440 1390 Output Total 1000 3600 Balance 440 -2210 PT 19.5 SEC (12.0-15.0) H D 04/01/17 05:50 INR 1.64 (0.83-1.16) H 04/01/17 05:50 - Physical Exam Constitutional: chronically ill appearing Eyes: PERRL Ears, Nose, Mouth, Throat: hearing normal Cardiovascular: irregularly irregular Respiratory: no respiratory distress, reduced air movement Gastrointestinal: normoactive bowel sounds Skin: warm Musculoskeletal: generalized weakness Neurologic: other (alert and oriented to himself, not very talkative this morning) Psychiatric: interacting appropriately, not anxious ICD10 Worksheet Patient Problems: Problems Problem Status Onset Atrial fibrillation Acute Cellulitis and abscess of leg Acute Clostridium difficile infection Acute ~03/19/17 ESBL (extended spectrum beta-lactamase) producing bacteria infection Acute ~ Peripheral edema Acute Sacral decubitus ulcer, stage III Acute Schizophrenia Acute VRE (vancomycin-resistant Enterococci) Acute ~03/26/17 CHF (congestive heart failure) Acute Peripheral edema Acute
--- NOTE | 2017-04-01 09:34 | PCMIDPN ---
Assessment/Plan: Assessment/Plan: 1. POlymicrobial Sacral decubitus, bl buttocks ulcers with eschar: - s/p debridement. - Cx with PsA, ESBL e. coli, VRE, Bacteroides, Providencia, Kleb - Potential carbapenem resistant PsA and carbapenemase producing ESBL E. coli -Currently on Dapto + levaquin with understanding that unable to cover all organisms adequately -Adequate wound care/debridements remains mainstay modality of treatment -For possible wound vac today - MOnitor LFt's/CPK while on Dapto. -Care coordinated with Rn 2. C. diff -positive 03/17/17 -on treatment dosing at present Meds Dapto 850mg daily- 04/01/17 (previously on 500mg from 03/30-04/01) -Levaquin 750mg daily- 03/30/17 vanco 125mg q6- 03/23/17 previously on zosyn Subjective: In step down unit due to bleeding from wound site yesterday. Did receive ffp. intermittent low grade temps. awake. pain under control. c/o discomfort related to diverting colostomy. denies sob. sacral wound packed. Objective: Vital Signs Temp Pulse Resp BP Pulse Ox 37.7 C 88 22 H 125/69 H 95 04/01/17 09:22 04/01/17 08:00 04/01/17 08:00 04/01/17 08:00 04/01/17 08:00 Microbiology 03/26/17 15:30 Gram Stain - Final Buttock - Tissue 03/26/17 15:30 Gram Stain - Final Buttock - Tissue 03/26/17 15:30 Gram Stain - Final Buttock - Tissue Laboratory Results 04/01/17 05:50 04/01/17 05:50 03/31/17 04/01/17 04/02/17 05:59 05:59 05:59 Intake Total 1440 1390 Output Total 1000 3600 Balance 440 -2210 - Physical Exam General Appearance: alert, no apparent distress Respiratory: lungs clear Cardiac/Chest: regular rate, rhythm Extremities: No swelling Abdomen: normal bowel sounds, non-tender, soft, other (colostomy), No distended Male Genitalia: david Skin: other (sacral wound not examined ) ICD10 Worksheet Patient Problems: Problems Problem Status Onset Atrial fibrillation Acute Cellulitis and abscess of leg Acute Clostridium difficile infection Acute ~03/19/17 ESBL (extended spectrum beta-lactamase) producing bacteria infection Acute ~ Palliative care encounter Acute Peripheral edema Acute Sacral decubitus ulcer, stage III Acute Schizophrenia Acute VRE (vancomycin-resistant Enterococci) Acute ~03/26/17 CHF (congestive heart failure) Acute Peripheral edema Acute
[2017-04-01] MEDS ORDERED: oxyCODONE IR 5 MG TAB PO PRN (11:05)
--- NOTE | 2017-04-01 13:29 | PDANEPAE ---
ANE History of Present Illness 61 year old male presents for chronic sacral wound debridement / wound vac. Patient's brother (Kayden ORTEGA was contacted for consent for anesthesia.) ANE Past Medical History - Cardiovascular History Hx Hypertension: Yes Hx Arrhythmias: Yes Hx Chest Pain: No Hx Coronary Artery / Peripheral Vascular Disease: No Hx CHF / Valvular Disease: No Hx Palpitations: No Cardiovascular History Comment: perm afib rate controlled - Pulmonary History Hx COPD: No Hx Asthma/Reactive Airway Disease: No Hx Recent Upper Respiratory Infection: No Hx Oxygen in Use at Home: No Hx Sleep Apnea: Yes Sleep Apnea Screening Result - Last Documented: Positive - Endocrine History Hx Diabetes: No Hypothyroid: No Hyperthyroid: No Obesity: no - Renal History Hx Renal Disorders: Yes Renal History Comment: CKD - Neurological & Psychiatric Hx Hx Neurological and Psychiatric Disorders: Yes Neurological / Psychiatric History Comment: schizophrenia - Other Health History Other Health History: DVT - Chronic Pain History Chronic Pain: No ANE Review of Systems - Exercise capacity Exercise capacity: unable to assess ANE Patient History - Allergies Allergies/Adverse Reactions: amoxapine [From Asendin] Allergy (Verified 09/02/16 11:03) fluphenazine enanthate [From Prolixin] Allergy (Verified 09/02/16 11:03) fluphenazine HCl [From Prolixin] Allergy (Verified 09/02/16 11:03) haloperidol [From Haldol] Allergy (Verified 09/02/16 11:03) haloperidol lactate [From Haldol] Allergy (Verified 09/02/16 11:03) thioridazine HCl [From Mellaril] Allergy (Verified 09/02/16 11:03) trifluoperazine HCl [From Stelazine] Allergy (Verified 09/02/16 11:03) - Home Medications Home medications: home medication list seen and reviewed Home Medications: Hydrocodone/Acetaminophen [[place] 7.5-325 Tablet] 1 tab PO BID PRN 09/02/16 [ Last Taken 02/15/17] Furosemide [Lasix 40 MG (*)] 40 mg PO BID 02/17/17 [Last Taken 03/23/17 17:00] Risperidone 2 mg PO DAILY 02/17/17 [Last Taken 03/23/17 08:00] Sennosides [Senokot] 2 tab PO HS 02/17/17 [Last Taken 02/16/17] morphINE SR [Ms Contin/Oramorph 15 mg (*)] 15 mg PO BID 02/17/17 [Last Taken 08:00] Acetaminophen [Tylenol 325mg (*)] 650 mg PO Q8 PRN 03/23/17 [Last Taken 14:00] Collagenase [Santyl (*)] 1 myrna TP DAILY 03/23/17 [Last Taken 03/23/17 08:00] Herbals/Supplements -Info Only 1 ea PO DAILY 03/23/17 [Last Taken Unknown] Magnesium Hydroxide/Al Hydrox [Mylanta Liquid] 30 ml PO Q4H PRN 03/23/17 [Last Taken Unknown] Metoprolol Succinate Xr [Toprol Xl 100 mg (*)] 100 mg PO DAILY 03/23/17 [Last Taken 03/23/17 08:00] Metoprolol Succinate Xr [Toprol Xl 25 mg (*)] 25 mg PO DAILY 03/23/17 [Last Taken 03/23/17 08:00] Vancomycin [Vancomycin (*)] 125 mg PO QID 03/23/17 [Last Taken 03/23/17 17:00] Warfarin Sodium [Coumadin 1MG (*)] 1.5 mg PO MWF@16 03/23/17 [Last Taken 16:00] Warfarin Sodium [Coumadin 2.5MG (*)] 2.5 mg PO SUTUTHSA@16 03/23/17 [Last Taken 03/22/17 16:00] guaiFENesin/DEXTROMETHORPHAN [Robitussin Dm Oral Liquid (*)] 10 ml PO Q4 PRN [Last Taken Unknown] risperiDONE [Risperdal] 4 mg PO HS 03/23/17 [Last Taken 03/22/17 21:00] - NPO status NPO Status: no food or drink >8 hours NPO Since - Liquids (Date): 04/01/17 NPO Since - Liquids (Time): 00:00 NPO Since - Solids (Date): 04/01/17 NPO Since - Solids (Time): 00:00 - Anes Hx Anes Hx: no prior problems - Smoking Hx Smoking Status: Current every day smoker - Alcohol Use Alcohol Use: None - Family Anes Hx Family Anes Hx: neg - N/A ANE Labs/Vital Signs - Labs Result Diagrams: 04/01/17 05:50 04/01/17 05:50 - Vital Signs Vital Signs: reviewed preoperatively; see RN documention for details Blood Pressure: 113/69 Heart Rate: 112 Respiratory Rate: 30 O2 Sat (%): 94 Height: 195.58 cm Weight: 108 kg ANE Physical Exam - Airway Mallampati Score: Class 1 Mouth exam: poor dentition - Pulmonary Pulmonary: no respiratory distress - Cardiovascular Cardiovascular: regular rate and rhythym - ASA Status ASA Status: III ANE Anesthesia Plan Anesthesia Plan: general endotracheal anesthesia
[2017-04-01] MEDS ORDERED: PROPOFOL 200 MG/20 ML VIAL ONE (14:02)
[2017-04-01] MEDS ORDERED: fentaNYL 100 MCG/2 ML INJ ONE (14:02)
[2017-04-01] MEDS ORDERED: ROCURONIUM 50 MG/5 ML VIAL ONE (14:06)
[2017-04-01] MEDS ORDERED: LIDOCAINE 2% 5 ML SDV ONE (14:06)
[2017-04-01] MEDS ORDERED: BUPIVACAINE 0.5% 30 ML SDV ONE (14:13)
[2017-04-01] MEDS ORDERED: ONDANSETRON 4 MG/2 ML VIAL ONE (14:56)
[2017-04-01] MEDS ORDERED: THROMBIN (BOVINE) 20,000 UNIT SPRAY TP ONE (14:56)
[2017-04-01] MEDS ORDERED: DEXAMETHASONE 4 MG/ML VIAL ONE (14:56)
[2017-04-01] MEDS ORDERED: PHENYLEPHRINE HCL 100 MCG/ML SYR ONE (15:06)
[2017-04-01] MEDS ORDERED: NALOXONE HCL 0.4 MG/ML INJ IVP PRN (15:10)
[2017-04-01] MEDS ORDERED: fentaNYL 100 MCG/2 ML INJ IVP PRN (15:10)
[2017-04-01] MEDS ORDERED: SUGAMMADEX SODIUM 200 MG/2 ML VIAL IVP ONE ×2 (15:31→15:32)
--- NOTE | 2017-04-01 15:32 | PDPCPN ---
Palliative Care Progress Note Assessment/Plan: Referring provider: Anita Spaulding Reason for consult: Complex medical decision making Symptom control HPI: Ralf Wilcox (Lenny) is a 61 yo male with PMH schizophrenia, recent LE infection admitted [facility] the [facility] for worsening of his sacral decub. Stage IV pressure ulcer on buttocks s/p debridement with complications of acute bleeding overnight needing transfer to step down. Also s/p colostomy to help with healing of sacral ulcer. Palliative care consulted for complex medical decision making. Spoke with Marco Antonio at the bedside this afternoon. He was able to state why he was in the hospital but does not understand the decisions for his medical care or repeat back the termite renewal inspector plan for his medical care. He states he enjoys reading at [employer] as well as the social activities they have going on there. He has been bed bound for the past 8-10 months but feels he will walk again but it might take 4-5 years. He likes to do his exercises and hopes to continue these. He understands his wounds are severe and will take a long time to heal. We started to talk about if he does not get better what that might mean to him and he stated "no i don't want to talk about that". Discussed with Mercedes Newman he is seen by a psychiatry once a month and have deemed him to be incompetent and his brother Toney is acting as his medical proxy. Assessment: Physical: - Pain: abdominal pain -Mscontin 15 mg BID - norco or oxy IR PRN - diarrhea: c diff- resolving - on antibiotics - monitor for constipation with opiates and start bowel regimen when c diff has been treated Emotional/psychological: Hx of schizophrenia: on risperidone Advanced Care Planning: Is patient decisional?: No Code Status: Full MD POA: Brother Toney is acting as proxy Plan: Brother and patient want to continue aggressive care with Full code. CM looking at LTAC at discharge. Subjective: I'm hoping to read some today Objective: Social History: Moved from [place] in 1973 for college. Brother lives in [place] and foster sister lives in [place]. Enjoys meditation and reading about eastern philosophy Medication list reviewed ROS: General: fatigue, weakness ENT: negative Resp: negative GI: abdominal pain, diarrhea : negative MS: negative Skin: pressure ulcer on sacrum as well as bilateral heels Neuro: negative Psych: poor insight Functional assessment: PPS: 40% Functional status: dependent on ADLs, IADLs Vital Signs Temp Pulse Resp BP Pulse Ox 3.8 C L 112 H 30 H 113/69 94 04/01/17 13:44 04/01/17 13:44 04/01/17 13:44 04/01/17 13:44 04/01/17 13:44 Microbiology 03/26/17 15:30 Mycobacterial Smear (LEESA) - Final Buttock - Tissue 03/26/17 15:30 Mycobacterial Smear (LEESA) - Final Buttock - Tissue 03/26/17 15:30 Mycobacterial Smear (LEESA) - Final Buttock - Tissue 03/26/17 15:30 Gram Stain - Final Buttock - Tissue 03/26/17 15:30 Gram Stain - Final Buttock - Tissue 03/26/17 15:30 Gram Stain - Final Buttock - Tissue Laboratory Results 04/01/17 05:50 04/01/17 05:50 03/31/17 04/01/17 04/02/17 05:59 05:59 05:59 Intake Total 1440 1390 Output Total 1000 3600 275 Balance 440 -2210 -275 PT 19.5 SEC (12.0-15.0) H D 04/01/17 05:50 INR 1.64 (0.83-1.16) H 04/01/17 05:50 Physical Exam - Physical Exam General Appearance: alert, no apparent distress Respiratory: No respiratory distress, No accessory muscle use Skin: normal color, warm/dry Extremities: pedal edema Neuro/Psych: alert, oriented x 3 ICD10 Worksheet Patient Problems: Problems Problem Status Onset Atrial fibrillation Acute Cellulitis and abscess of leg Acute Clostridium difficile infection Acute ~03/19/17 ESBL (extended spectrum beta-lactamase) producing bacteria infection Acute ~ Palliative care encounter Acute Peripheral edema Acute Sacral decubitus ulcer, stage III Acute Schizophrenia Acute VRE (vancomycin-resistant Enterococci) Acute ~03/26/17 CHF (congestive heart failure) Acute Peripheral edema Acute - ICD10 Problem Qualifiers (1) Palliative care encounter
[2017-04-01] MEDS ORDERED: ALBUTEROL 3 ML DEYVIAL IH ONE (16:03)
--- NOTE | 2017-04-01 16:15 | POSTOPPROG ---
Post Op Note Date of Operation: 04/01/17 Surgeon: Esa Natarajan Feather Duster Winder: Keila Carr Anesthesiologist: Eamon Chamberlain Anesthesia: GET(General Endotracheal) Pre-op Diagnosis: extensive sacral decubitus ulcers Post-op Diagnosis: same Procedure: excisional debridement of sacral decubiti c partial closure and wound vac Findings: down to healthy bleeding tissue, muscle exposed Inf/Abcess present in the surg proc area at time of surgery?: No EBL: 50-100 Complications: none Drains: Wound Vac
[2017-04-01] MEDS ORDERED: ALBUTEROL 3 ML DEYVIAL ONE (16:24)
[2017-04-01] MEDS: DAPTOMYCIN IV SCH (16:33)
[2017-04-01] MEDS: NS IV SCH (16:33)
--- NOTE | 2017-04-01 16:45 | POSTANESTH ---
Post Anesthetic Evaluation Cardiovascular Status: Normal, Stable Respiratory Status: Similar to Pre-op Cond., Tx Decrease in SpO2 Level of Consciousness/Mental Status: Can Participate in Eval Pain Control: Adequate, Prn Tx Ordered Nausea/Vomiting Control: Adequate, Prn Tx Ordered Complications Possibly Related to Anesthesia: None Noted
[2017-04-01 19:07] LABS: POTASSIUM 3.5 mEq/L (3.5-5.2)
[2017-04-01] MEDS: SENNOSIDES 1 TAB PO SCH (20:54)
[2017-04-02] MEDS: VANCOMYCIN 125 MG/2.5 ML UDL PO SCH ×2 (05:38→14:04)
[2017-04-02 05:50] LABS: % IMMATURE GRANULYOCYTES 0.6 % (0.0-1.1); ABSOLUTE IMMATURE GRANULOCYTES 0.07 10^3/uL (0.00-0.10); ADD DIFF? NO; ADD MORPH? NO; ADD SCAN? NO; ATYPICAL LYMPHOCYTE FLAG 10 (0-99); FRAGMENT RBC FLAG 0 (0-99); HEMATOCRIT 24.7 % (40.0-51.0); HEMOGLOBIN 8.1 g/dL (13.7-17.5); LEFT SHIFT FLG 0 (0-99); LIPEMIA HEMOLYSIS FLAG 80 (0-99); MEAN CELL HEMOGLOBIN 30.9 pg (27.9-34.1); MEAN CELL HEMOGLOBIN CONCENTR. 32.8 g/dL (32.4-36.7); MEAN CELL VOLUME 94.3 fL (81.5-99.8); PLATELET CLUMPS FLAG 10 (0-99); PLATELET COUNT 277 10^3/uL (150-400); RED BLOOD CELL COUNT 2.62 10^6/uL (4.40-6.38)
[2017-04-02 05:59] LABS: INR 1.5 (0.83-1.16); PROTIME(PATIENT) 18.1 SEC (12.0-15.0)
[2017-04-02 06:05] LABS: ALANINE AMINOTRANSFERASE 26 IU/L (21-72); ALBUMIN 2.3 g/dL (3.5-5.0); ALKALINE PHOSPHATASE 70 IU/L (38-126); ANION GAP 7 mEq/L (8-16); ASPARTATE AMINOTRANSFERASE 17 IU/L (17-59); BILIRUBIN,TOTAL 0.6 mg/dL (0.1-1.4); CARBON DIOXIDE 25 mEq/l (22-31); CHLORIDE 102 mEq/L (97-110); CREATININE 1.2 mg/dL (0.7-1.3); GLOMERULAR FILTRATION RATE > 60; GLUCOSE 131 mg/dL (70-100); MAGNESIUM 1.8 mg/dL (1.6-2.3); POTASSIUM 4.5 mEq/L (3.5-5.2); SODIUM 134 mEq/L (134-144); TOTAL PROTEIN 5.9 g/dL (6.3-8.2)
[2017-04-02] MEDS: risperiDONE 2 MG TAB PO SCH (08:44)
[2017-04-02] MEDS: PANTOPRAZOLE SODIUM 40 MG TAB PO SCH (08:44)
[2017-04-02] MEDS: DILTIAZEM CD 180 MG CAP PO SCH (08:44)
[2017-04-02] MEDS: METOPROLOL SUCCINATE XR 25 MG TAB PO SCH (08:45)
[2017-04-02] MEDS: NS IV SCH (08:45)
[2017-04-02] MEDS: FERROUS SULFATE 325 MG TAB PO SCH (08:45)
[2017-04-02] MEDS: morphINE SR 15 MG TAB PO SCH (08:45)
[2017-04-02] MEDS: DAPTOMYCIN IV SCH (08:45)
[2017-04-02] MEDS: ACYCLOVIR 400 MG TAB PO SCH (08:45)
--- NOTE | 2017-04-02 09:56 | SOAPPROG ---
SOAP Progress Note Assessment/Plan: Assessment: AFEBRILE/ WOUND VAC OK WITH MINIMAL DRAINAGE/ HCT 25 Plan:WOUND VAC CHANGE ON Friday04/02/17 09:54 Objective: Vital Signs Temp Pulse Resp BP Pulse Ox 36.3 C 73 16 118/61 98 04/02/17 04:00 04/02/17 07:55 04/02/17 07:55 04/02/17 07:55 04/02/17 07:55 Microbiology 03/26/17 15:30 Mycobacterial Smear (LEESA) - Final Buttock - Tissue 03/26/17 15:30 Mycobacterial Smear (LEESA) - Final Buttock - Tissue 03/26/17 15:30 Mycobacterial Smear (LEESA) - Final Buttock - Tissue 03/26/17 15:30 Gram Stain - Final Buttock - Tissue 03/26/17 15:30 Gram Stain - Final Buttock - Tissue 03/26/17 15:30 Gram Stain - Final Buttock - Tissue Laboratory Results 04/02/17 05:35 04/02/17 05:35 04/01/17 04/02/17 04/03/17 05:59 05:59 05:59 Intake Total 1390 1345 Output Total 3600 1810 Balance -2210 -465 PT 18.1 SEC (12.0-15.0) H 04/02/17 05:35 INR 1.50 (0.83-1.16) H 04/02/17 05:35 ICD10 Worksheet Patient Problems: Problems Problem Status Onset Atrial fibrillation Acute Cellulitis and abscess of leg Acute Clostridium difficile infection Acute ~03/19/17 ESBL (extended spectrum beta-lactamase) producing bacteria infection Acute ~ Palliative care encounter Acute Peripheral edema Acute Sacral decubitus ulcer, stage III Acute Schizophrenia Acute VRE (vancomycin-resistant Enterococci) Acute ~03/26/17 CHF (congestive heart failure) Acute Peripheral edema Acute
[2017-04-02] MEDS: SODIUM HYPOCHLORITE (DAKINS 1/4 STR) 120 ML BTL TP SCH (10:18)
[2017-04-02] MEDS: COLLAGENASE 30 GM OINTMENT TP SCH (10:18)
[2017-04-02 12:14] VITALS: BP 74/47; PULSE 66; RESP 25; TEMP 96.8; O2SAT 95
[2017-04-02] MEDS: ALTEPLASE 2 MG VIAL IVP PRN (14:05)
--- NOTE | 2017-04-02 15:26 | PCMIDPN ---
Assessment/Plan: # Sacral and bilateral buttock decubitus ulcers-severe necrosis s/p debridement yesterday as well as diverting colostomy. Wound is NOT down to bone and CT did not show evidence of bone involvement. Cx are polymicrobial. Current regiment gap is the PsA. Hopeful debridement will be adequate. No cellulitis throughout entire coures --plan 1 week antibiotics (see current regimen below) from last debridement here (04/01/17), stop date 04/08. May be able to consider something even shorter since extensive debridement. # Cdiff, pos test 03/17/2017 --plan continuation for a ~week after systemic antibiotics --contact precautions (also contact for VRE, ESBL and MDR PsA) medications zosyn 4.5gm IV q6h microbiology 03/23 blood cultures ( 2) no growth today Microbiology 03/26/17 15:30 Buttock - Tissue Gram Stain - Final 03/26/17 15:30 Buttock - Tissue Anaerobic Culture - Final Providencia Rettgeri Escherichia Coli Esbl Klebsiella Oxytoca Pseudomonas Aeruginosa, only S to aminoglycosides Enterococcus [facility] Medications Generic Name Dose Route Start Last Admin Trade Name Freq PRN Reason Stop Dose Admin Daptomycin 850 mg/ Sodium 117 mls @ 200 mls/hr 04/01/17 16:00 04/02/17 08:45 Chloride IV 05/01/17 15:59 117 mls DAILY KHALIDA Protocol Levofloxacin/Dextrose 150 mls @ 100 mls/hr 03/30/17 17:00 04/01/17 17:36 Levaquin 750 Mg (Premix) IV 04/29/17 16:59 150 mls Q24H KHALIDA Protocol Vancomycin HCl 125 mg 03/23/17 23:45 04/02/17 14:04 Vancocin Oral Liquid PO 04/22/17 23:44 125 mg QID KHALIDA Subjective: no c/o planning transfer to LTAC Objective: Vital Signs Temp Pulse Resp BP Pulse Ox 36.0 C 66 25 H 74/47 L 95 04/02/17 12:03 04/02/17 12:03 04/02/17 12:03 04/02/17 12:03 04/02/17 12:03 Microbiology 03/26/17 15:30 Gram Stain - Final Buttock - Tissue Anaerobic Culture - Final Pseudomonas Aeruginosa Escherichia Coli Esbl Enterococcus Faecium Vre Providencia Rettgeri 03/26/17 15:30 Gram Stain - Final Buttock - Tissue Anaerobic Culture - Final Providencia Rettgeri Escherichia Coli Esbl Klebsiella Oxytoca Pseudomonas Aeruginosa Enterococcus [facility] 03/26/17 15:30 Gram Stain - Final Buttock - Tissue Anaerobic Culture - Final Providencia Rettgeri Escherichia Coli Esbl Bacteroides Fragilis Enterococcus Faecium Vre Pseudomonas Aeruginosa 03/26/17 15:30 Mycobacterial Smear (LEESA) - Final Buttock - Tissue 03/26/17 15:30 Mycobacterial Smear (LEESA) - Final Buttock - Tissue 03/26/17 15:30 Mycobacterial Smear (LEESA) - Final Buttock - Tissue Laboratory Results 04/02/17 05:35 04/02/17 05:35 04/01/17 04/02/17 04/03/17 05:59 05:59 05:59 Intake Total 1390 1345 Output Total 3600 1810 Balance -4920 -041 - Physical Exam General Appearance: alert, no apparent distress Respiratory: No accessory muscle use Abdomen: other (Ostomy functioning with stool in bag) Back: other Skin: No rash Neuro/Psych: alert, other (cooperative) ICD10 Worksheet Patient Problems: Problems Problem Status Onset Atrial fibrillation Acute Cellulitis and abscess of leg Acute Clostridium difficile infection Acute ~03/19/17 ESBL (extended spectrum beta-lactamase) producing bacteria infection Acute ~ Palliative care encounter Acute Peripheral edema Acute Sacral decubitus ulcer, stage III Acute Schizophrenia Acute VRE (vancomycin-resistant Enterococci) Acute ~03/26/17 CHF (congestive heart failure) Acute Peripheral edema Acute
--- NOTE | 2017-04-02 15:38 | SOAPPROG ---
SOAP Progress Note Assessment/Plan: Assessment: Plan: Subjective: resting comfortably/wound vac in place after debridement yesterday/ Objective: Vital Signs Temp Pulse Resp BP Pulse Ox 36.0 C 66 25 H 74/47 L 95 04/02/17 12:03 04/02/17 12:03 04/02/17 12:03 04/02/17 12:03 04/02/17 12:03 Microbiology 03/26/17 15:30 Gram Stain - Final Buttock - Tissue Anaerobic Culture - Final Pseudomonas Aeruginosa Escherichia Coli Esbl Enterococcus Faecium Vre Providencia Rettgeri 03/26/17 15:30 Gram Stain - Final Buttock - Tissue Anaerobic Culture - Final Providencia Rettgeri Escherichia Coli Esbl Klebsiella Oxytoca Pseudomonas Aeruginosa Enterococcus [facility] 03/26/17 15:30 Gram Stain - Final Buttock - Tissue Anaerobic Culture - Final Providencia Rettgeri Escherichia Coli Esbl Bacteroides Fragilis Enterococcus Faecium Vre Pseudomonas Aeruginosa 03/26/17 15:30 Mycobacterial Smear (LEESA) - Final Buttock - Tissue 03/26/17 15:30 Mycobacterial Smear (LEESA) - Final Buttock - Tissue 03/26/17 15:30 Mycobacterial Smear (LEESA) - Final Buttock - Tissue Laboratory Results 04/02/17 05:35 04/02/17 05:35 04/01/17 04/02/17 04/03/17 05:59 05:59 05:59 Intake Total 1390 1345 Output Total 3600 1810 Balance -2210 -465 PT 18.1 SEC (12.0-15.0) H 04/02/17 05:35 INR 1.50 (0.83-1.16) H 04/02/17 05:35 Physical Exam - Physical Exam General Appearance: no apparent distress Abdomen: normal bowel sounds, soft, other (LLQ colostomy bridge removed/slight retraction of stoma-functional) Skin: other (posterior bilateral gluteal wounds covered with wound vac) ICD10 Worksheet Patient Problems: Problems Problem Status Onset Atrial fibrillation Acute Cellulitis and abscess of leg Acute Clostridium difficile infection Acute ~03/19/17 ESBL (extended spectrum beta-lactamase) producing bacteria infection Acute ~ Palliative care encounter Acute Peripheral edema Acute Sacral decubitus ulcer, stage III Acute Schizophrenia Acute VRE (vancomycin-resistant Enterococci) Acute ~08/16/17 CHF (congestive heart failure) Acute Peripheral edema Acute
--- NOTE | 2017-04-02 16:10 | WOCRNPDOC ---
JESS Advanced Assessment Note - Skin Integrity Problem, Advanced Assess Bilateral Buttock Surgical Wound/Incision Dressing Type: Black Vac Foam, Wound Vac Dressing Description: Clean/Dry, Intact Closure Description: Sutures Exudate Amount: Minimal Exudate Characteristic(s): Bloody Integumentary Issue Intervention: Dressing Reinforced Skin Integrity Problem Comment: Reinforced vac after realizing that wound had been partially closed in surgery. Originally was going to send patient to [facility] with moist to dry. After discussing new findings (of partial closure) with Wound RN Kamlesh at [facility] he requested vac stay on. Drape was reinforced and trac pad switched out. Vac working well with no leaks. Efren RN, Ramos GRIDER and Keila RN' s in room for care. Dr. Higgins and Dr. Collins visualized wounds. - Colostomy Assessment, Advanced Colostomy Stoma Colostomy Appliance Intact: No (Leaking under wafer) Colostomy Appliance Currently in Use: Two Piece Flat, 2 3/4, Moldable Stoma Color: Red Stoma Turgor: Moist, Bridge Present (removed today by dr. Higgins) Stoma Shape: Oval, Irregular Stoma Height: Recessed Mucocutaneus Junction: Seperating (at 12 oclock approx 0.4x0.4 cm) Colostomy Effluent: Fecal, Pasty Colostomy Details: Loop Peristomal Skin: Intact, Erythematic (around 2 oclock) Stomal Complications: Retraction Colostomy Comment/Treatment Details: [place] pj stomal removed (x6) from incision site. Area cleaned with water and washcloth. Faceplate and pouch replaced. Patient tender in area but cooperative. Dr. Higgins aware of mucocutaneous seperation. Keila Schwartz RN's and Ramos GRIDER in room for care.
--- NOTE | 2017-04-02 16:55 | PDIAF ---
- Diagnosis Code Status: Full Code - Medication Management Discharge Medications: Medications to Continue on Transfer Hydrocodone/Acetaminophen [[place] 7.5-325 Tablet] 1 tab PO BID PRN 09/02/16 [ Last Taken 02/15/17] Diltiazem Cd [Cardizem ER Q24hr] 180 mg PO DAILY cap 09/10/16 [Last Taken 03/23 08:00] Furosemide [Lasix 40 MG (*)] 40 mg PO BID 02/17/17 [Last Taken 03/23/17 17:00] Risperidone 2 mg PO DAILY 02/17/17 [Last Taken 03/23/17 08:00] Sennosides [Senokot] 2 tab PO HS 02/17/17 [Last Taken 02/16/17] morphINE SR [Ms Contin/Oramorph 15 mg (*)] 15 mg PO BID 02/17/17 [Last Taken 08:00] Acyclovir [Zovirax 400 mg (*)] 400 mg PO BID tab 02/27/17 [Last Taken 03/23/17 08:00] Acetaminophen [Tylenol 325mg (*)] 650 mg PO Q8 PRN 03/23/17 [Last Taken 14:00] Collagenase [Santyl (*)] 1 myrna TP DAILY 03/23/17 [Last Taken 03/23/17 08:00] Herbals/Supplements -Info Only 1 ea PO DAILY 03/23/17 [Last Taken Unknown] Magnesium Hydroxide/Al Hydrox [Mylanta Liquid] 30 ml PO Q4H PRN 03/23/17 [Last Taken Unknown] Metoprolol Succinate Xr [Toprol Xl 100 mg (*)] 100 mg PO DAILY 03/23/17 [Last Taken 03/23/17 08:00] Metoprolol Succinate Xr [Toprol Xl 25 mg (*)] 25 mg PO DAILY 03/23/17 [Last Taken 03/23/17 08:00] Vancomycin [Vancomycin (*)] 125 mg PO QID 03/23/17 [Last Taken 03/23/17 17:00] guaiFENesin/DEXTROMETHORPHAN [Robitussin Dm Oral Liquid (*)] 10 ml PO Q4 PRN [Last Taken Unknown] risperiDONE [Risperdal] 4 mg PO HS 03/23/17 [Last Taken 03/22/17 21:00] Alteplase [Cathflo Activase 2 mg (*)] 2 mg IVP PRN PRN #0 vial 04/02/17 [Last Taken Unknown] DAPTOmycin [Cubicin] 850 mg IV DAILY ml 04/02/17 [Last Taken Unknown] Ferrous Sulfate [Ferrous Sulf 325 MG (*)] 325 mg PO BID tab 04/02/17 [Last Taken Unknown] HYDROmorphone HCL [Dilaudid] 0.4 mg IVP Q1H PRN #0 syr 04/02/17 [Last Taken Unknown] Ondansetron Odt [Zofran Odt 4 mg (*)] 4 mg PO Q4HRS PRN #0 tab 04/02/17 [Last Taken Unknown] Pantoprazole Sodium [Protonix 40mg (*)] 40 mg PO DAILY tab 04/02/17 [Last Taken Unknown] Sodium Hypochlorite [Dakins 1/4 Strength] 0 ml TP BID btl 04/02/17 [Last Taken Unknown] levOFLOXACIN 750 MG/DEXTROSE [levAQUIN (PREMIX) (*)] 750 mg IV Q24H #0 bag 04/02 [Last Taken Unknown] oxyCODONE IR [Oxycodone Ir (*)] 5 - 10 mg PO Q4HRS PRN #0 tab 04/02/17 [Last Taken Unknown] [place] [employer] Antibiotics: Continue Daptomycin and Levofloxacin until 04/08/17. [place] [employer] Antibiotic Stop Date: 04/08/17 Discharge Medications: Refer to the Discharge Home Medication list for PRN reason. - Orders Services needed: Registered Nurse, Certified Software Quality Assurance Engineer, Physical Therapy, Occupational Therapy Diet Recommendation: sodium restricted Weigh Patient: weekly Additional: Continue oral vancomycin until 04/15/17. - Labs/Radiology BMP Date: 04/04/17 CBC Date: 04/04/17 - Follow Up Care Current Providers and Referrals: Patient,NotPresent [Unknown] - As per Instructions
--- NOTE | 2017-04-02 16:57 | PDDCSUM ---
Discharge Summary Discharge Summary: Dates of Service: 03/23-04/02/17 Discharge diagnosis: # sacral and bilateral buttock decubitus ulcers # bilateral heal pressure ulcers # a fib with RVR # acute blood loss anemia # C difficile colitis # hyponatremia # chronic lymphedema # chronic lower extremity wounds # HTN # schizophrenia # severe deconditioning/chronic bedbound state # ckd # aspiration pna Consultations: ID, general surgery, pulmonary Procedures performed: deep incisional debridement x 3, partial closure and wound vac placement 61y male admitted from [place] with wounds. PMH chronic skin wounds, recent hospital admit February for polymicrobial cellulitis, schizoaffective d/o. * Sacral and bilateral buttock decubitus ulcers w severe necrosis. Stage IV. Polymicrobial daptomycin and Levaquin until 04/08 per ID given extensive debridement *bilateral stable heal ulcers with eschar/POA non stageable *Atrial fib with intermittent RVR On diltiazem and metoprolol (metoprolol dose was decrease due to hypotension) had been on oral anticoagulation with an INR of 2.5 holding for now given acute blood loss as next--consider resuming in the future * anemia/ acute blood loss has received a total of 3 prbc, currently stable * Clostridium difficile. Positive on March 19 at [place] oral vancomycin until 1 week after completion of abx * hyponatremia stable * chronic lymphedema Lasix has been on hold due to hypotension and patient is euvolemic doesn't need to be resumed yet--would resume down the road if fluid begins to reaccumulate * chronic lower extremity wounds with history of polymicrobial cellulitis was treated with cefepime * hypertension metoprolol dose has been changed to 25 mg daily had been on 100 mg daily has had some hypotension during his stay * schizophrenia history of paranoid. Well controlled on his medication this has led to his issues with the ulcers. Not getting oob, not moving * pneumonia per chest xray reading patient not coughing or has complaints of this * chronic kidney disease with history of nephrotic syndrome creatinine is stable at 1.2 DC to LTAC > 35 minutes spent in dc of patient, more than half in coordination of care
--- NOTE | 2017-04-20 15:28 | GCON ---
[f rep st] CONSULTATION DATE OF CONSULTATION: 03/31/2017 HISTORY OF PRESENT ILLNESS: The patient is a 61-year-old male, with a severe schizoaffective disorde r. He has been lying immobile for some time at home, was brought in with giant decubiti of his butto cks involving both sides. He has had a diverting ostomy placed and wound debridements of these decub iti. I was consulted for wound evaluation and closure. ALLERGIES: Include Stelazine, Mellaril, Haldol, Prolixin, and Asendin. MEDICATIONS: Include [place], Lasix, risperidone, Senokot, MS Contin, Santyl, Toprol, vancomycin, Coum wes, Robitussin, and Risperdal. PAST MEDICAL HISTORY: Includes schizophrenia. He has had lower extremity wounds with polymicrobial cellulitis. He has had a history of Clostridium difficile, nephrotic syndrome with chronic kidney di sease, gout, atrial fibrillation, hypertension, anemia, and history of DVT. He has had no major surg ical procedures, other than on this admission, he has had a colostomy and decubitus debridement. FAMILY HISTORY: Unknown and noncontributory. REVIEW OF SYSTEMS: Largely unobtainable. He is a current smoker and seems to have no coronary arter y disease. A full 10-point review of system was completed as best as possible. PHYSICAL EXAMINATION: GENERAL: Reveals a cooperative, 61-year-old male, in no acute distress. HEAD /NECK: Reveals his pupils to be normal. He is nonicteric. There are no oral lesions. No adenopath y. NECK: Supple. There is no thyromegaly. CHEST: Symmetrical breath sounds. CARDIAC: Reveals i rregular rhythm consistent with AFib. No murmurs. ABDOMEN: Soft without masses. GENITALIA: Marisel l with a Wood catheter in place. NEUROLOGIC: Symmetrical and physiologic. PSYCHIATRIC: Reveals h im to be calm, alert, cooperative, with a flat affect. Some flight of ideas. SKIN: Reveals giant b ilateral decubitus ulcers of both buttocks over the sacrum. EXTREMITIES: Reveal full pulses. He winkler s some evidence of chronic venous stasis problems. IMPRESSION: Full-thickness giant decubiti of both buttocks. He will need further debridement and pa rtial closure, possible wound vacuum application. Risks and options have been fully discussed with t snow patient and his POA. /[id number]/MODL
--- NOTE | 2017-04-21 01:24 | GOP ---
[f rep st] OPERATIVE REPORT DATE OF OPERATION: SURGEON: Esa Natarajan MD KENNEL KEEPER: Keila Carr, PAC. ANESTHESIOLOGIST: Eamon Chamberlain MD. PREOPERATIVE DIAGNOSIS: Sacral decubitus. POSTOPERATIVE DIAGNOSIS: Sacral decubitus. PROCEDURE PERFORMED: Excisional debridement of sacral decubitus with advancement flap, partial closu re of the wound, and wound VAC placement. FINDINGS: The patient was found to have a 20 cm sacral decubitus, which had been previously debrided . Much of the wound was granulating well, although the center segment was still necrotic. ESTIMATED BLOOD LOSS: Less than 100 cc. He was taken recovery room in satisfactory condition with a wound VAC in place. DESCRIPTION OF PROCEDURE: Patient was taken to the operating room where he received satisfactory gen eral endotracheal anesthesia by Dr. Chamberlain. He was placed in the prone oscar-knife position, prepped and draped in the usual sterile fashion. Necrotic material from this large decubitus was sharply nona rided. Hemostasis was obtained with electrocautery. The wound was sprayed with some topical thrombi n. Several portions on the periphery of the decubitus could be advanced and closed. This was done b y elevating up skin and subcutaneous tissue flaps. These were advanced and closed with interrupted 2 Vicryl sutures and then skin domitila for the skin. This reduced his decubitus by at least 60% in si ze. This was done for 8-10 cm on both sides of the wound. Central portion of the wound was then cov ered with a wound VAC and dressed. He tolerated the procedure quite well. There were no complicatio ns. /[id number]/MODL
== END 2017-04-02 16:30 | DRG 981 ==
LOC: EDUNIT# → F2W 22:50 → F3E 03-24 17:03 → F2N 03-25 19:39 → F3E 03-27 10:14 → F2N 03-31 14:46
PROVIDERS: ADMIT Internal Medicine; ATTEND Internal Medicine
PROC: 0JB93ZX Excision of Buttock Subcutaneous Tissue and Fascia, Percutaneous Approach, Diagnostic (ICD-10-PCS; 2017-03-23)
PROC: 30233N1 Transfusion of Nonautologous Red Blood Cells into Peripheral Vein, Percutaneous Approach (ICD-10-PCS; 2017-03-23)
PROC: 30233K1 Transfusion of Nonautologous Frozen Plasma into Peripheral Vein, Percutaneous Approach (ICD-10-PCS; 2017-03-23)
PROC: 02HV33Z Insertion of Infusion Device into Superior Vena Cava, Percutaneous Approach (ICD-10-PCS; 2017-03-23)
PROC: 0Y9000Z Drainage of Right Buttock with Drainage Device, Open Approach (ICD-10-PCS; principal; 2017-03-26 14:30)
PROC: 0KBN0ZX Excision of Right Hip Muscle, Open Approach, Diagnostic (ICD-10-PCS; principal; 2017-03-26 14:30)
PROC: 0KBP0ZX Excision of Left Hip Muscle, Open Approach, Diagnostic (ICD-10-PCS; principal; 2017-03-26 14:30)
PROC: 0D1N0Z4 Bypass Sigmoid Colon to Cutaneous, Open Approach (ICD-10-PCS; principal; 2017-03-26 14:30)
PROC: 0Y9100Z Drainage of Left Buttock with Drainage Device, Open Approach (ICD-10-PCS; principal; 2017-03-26 14:30)
DX: I96 Gangrene, not elsewhere classified (principal); L89.313 Pressure ulcer of right buttock, stage 3; L89.314 Pressure ulcer of right buttock, stage 4; L89.323 Pressure ulcer of left buttock, stage 3; L89.324 Pressure ulcer of left buttock, stage 4; L89.154 Pressure ulcer of sacral region, stage 4; L89.610 Pressure ulcer of right heel, unstageable; L89.620 Pressure ulcer of left heel, unstageable; A04.7 Enterocolitis due to Clostridium difficile; J69.0 Pneumonitis due to inhalation of food and vomit; E87.1 Hypo-osmolality and hyponatremia; D62 Acute posthemorrhagic anemia; D63.1 Anemia in chronic kidney disease; I48.2 Chronic atrial fibrillation; I12.9 Hypertensive chronic kidney disease with stage 1 through stage 4 chronic kidney disease, or unspecified chronic kidney disease; N18.9 Chronic kidney disease, unspecified; I89.0 Lymphedema, not elsewhere classified; F20.0 Paranoid schizophrenia; Z86.718 Personal history of other venous thrombosis and embolism; F17.210 Nicotine dependence, cigarettes, uncomplicated; Z79.01 Long term (current) use of anticoagulants
CPT/HCPCS: 97110-GO; 97166-GO; C1751; G8987-GO-CM; G8988-GO-CM; J0697; J0878; J1100; J1170; J1940; J1956; J2370; J2405; J2543; J2704; J2997; J3010; P9016; P9017; Q9967

== ENCOUNTER 2017-07-23 14:01 | Inpatient (IN) | payer OTHER, MEDICAID ==
[2017-07-23] MEDS ORDERED: GASTROVIEW 30 ML UNIT PO ONE (14:21)
--- NOTE | 2017-07-23 14:21 | EDPHY ---
H & P Source: Patient Exam Limitations: No limitations - Medical/Surgical History Hx Asthma: No Hx Chronic Respiratory Disease: Yes Hx Diabetes: No Hx Cardiac Disease: Yes Hx Renal Disease: No Hx Cirrhosis: No Hx Alcoholism: No Hx HIV/AIDS: No Hx Splenectomy or Spleen Trauma: No Other PMH: Schizoaffective DO, Afib, HTN, Gout, Chronic Kidney Disease, DVT, Nephritic syndrome, dvt, smoking, ble cellulitis and pressure/stasis ulcers to bi-lat heels. anemia r/t ckd - Family History Significant Family History: No pertinent family hx - Social History Smoking Status: Current every day smoker Alcohol Use: Sober Drug Use: None Time Seen by Provider: 07/23/17 14:06 HPI/ROS: CHIEF COMPLAINT: Decubitus ulcer HISTORY OF PRESENT ILLNESS: The patient is a 61-year-old man who comes from [facility] where he lives for history of schizophrenia as well as stage IV decubitus ulcers which have most recently been treated in March with debridement. He also has a diverting colostomy in place and a Wood catheter. The doctor from the [facility] called today and stated that his ulcers had been doing well but that over the last several days he was refusing to get up out of his chair and today when they evaluated him they found a very deep wound to his right buttock [place] [id number]. He has been afebrile. The patient does not have complaints. He does have a history of atrial fibrillation and is on Coumadin. Also has a history of C diff colitis, neuropathy, peripheral vascular disease with bilateral heel pressure ulcers, chronic lymphedema and severe deconditioning as well as chronic kidney disease. When he was in the hospital in March he was treated with daptomycin and Levaquin. Patient does not have complaints. REVIEW OF SYSTEMS: Constitutional: denies: chills, fever, recent illness, recent injury EENTM: denies: blurred vision, double vision, nose congestion Respiratory: denies: cough, shortness of breath Cardiac: denies: chest pain, irregular heart rate, lightheadedness, palpitations Gastrointestinal/Abdominal: denies: abdominal pain, diarrhea, nausea, vomiting, blood streaked stools Genitourinary: denies: dysuria, frequency, hematuria, pain Musculoskeletal: denies: joint pain, muscle pain Skin: See HPI Neurological: denies: headache, numbness, paresthesia, tingling, dizziness, weakness Hematologic/Lymphatic: denies: blood clots, easy bleeding, easy bruising Immunologic/allergic: denies: HIV/AIDS, transplant EXAM: GENERAL: no acute distress. HEAD: Atraumatic, normocephalic. EYES: Pupils equal round and reactive to light, extraocular movements intact, sclera anicteric, conjunctiva are normal. ENT: TMs normal, nares patent, oropharynx clear without exudates. Moist mucous membranes. NECK: Normal range of motion, supple without lymphadenopathy or JVD. LUNGS: Breath sounds clear to auscultation bilaterally and equal. No wheezes rales or rhonchi. HEART: Regular rate and rhythm without murmurs, rubs or gallops. ABDOMEN: Soft, nontender, normoactive bowel sounds. No guarding, no rebound. No masses appreciated. Ostomy in place, leaking BACK: No CVA tenderness, no spinal tenderness, step-offs or deformities EXTREMITIES: Peripheral lower extremity edema and the darkening consistent with chronic venous insufficiency NEUROLOGICAL: Cranial nerves II through XII grossly intact. Normal speech, normal gait. 5/5 strength, normal movement in all extremities, normal sensation PSYCH: Normal mood, normal affect. SKIN: Healing decubitus ulcers, skin fold with drainage consistent possibly with fistula verses ulcer. Watery dark fluid draining. Erythema around groin, bilateral ulcers on heels dressed and clean. (Jose Manuel aDvis) Constitutional: Initial Vital Signs Temperature (C) 36.7 C 07/23/17 15:33 Heart Rate 92 07/23/17 15:33 Respiratory Rate 16 07/23/17 15:33 Blood Pressure 84/57 L 07/23/17 15:33 O2 Sat (%) 96 07/23/17 15:33 O2 Delivery Mode Room Air O2 (L/minute) 2 Allergies/Adverse Reactions: amoxapine [From Asendin] Allergy (Verified 07/23/17 15:39) fluphenazine enanthate [From Prolixin] Allergy (Verified 07/23/17 15:39) fluphenazine HCl [From Prolixin] Allergy (Verified 07/23/17 15:39) haloperidol [From Haldol] Allergy (Verified 07/23/17 15:39) haloperidol lactate [From Haldol] Allergy (Verified 07/23/17 15:39) thioridazine HCl [From Mellaril] Allergy (Verified 07/23/17 15:39) trifluoperazine HCl [From Stelazine] Allergy (Verified 07/23/17 15:39) Home Medications: Medication Instructions Recorded Diltiazem Cd [Cardizem ER Q24hr] 180 mg PO DAILY cap 09/10/16 Furosemide [Lasix 40 MG (*)] 40 mg PO BID 02/17/17 Risperidone 2 mg PO DAILY 02/17/17 Sennosides [Senokot] 2 tab PO HS 02/17/17 morphINE SR [Ms Contin/Oramorph 15 15 mg PO BID 02/17/17 mg (*)] Acetaminophen [Tylenol 325mg (*)] 650 mg PO Q8 PRN 03/23/17 Herbals/Supplements -Info Only 1 ea PO DAILY 03/23/17 Magnesium Hydroxide/Al Hydrox 30 ml PO Q4H PRN 03/23/17 [Mylanta Liquid] Metoprolol Succinate Xr [Toprol Xl 25 mg PO BID 03/23/17 25 mg (*)] guaiFENesin/DEXTROMETHORPHAN 10 ml PO Q4 PRN 03/23/17 [Robitussin Dm Oral Liquid (*)] risperiDONE [Risperdal] 4 mg PO HS 03/23/17 Ferrous Sulfate [Ferrous Sulf 325 325 mg PO BID tab 04/02/17 MG (*)] oxyCODONE IR [Oxycodone Ir (*)] 5 - 10 mg PO Q4HRS PRN #0 tab 04/02/17 Docusate Sodium [Colace 100 MG (*)] 100 mg PO DAILY PRN 07/23/17 Multivitamins [Multivitamin (*)] 1 each PO DAILY 07/23/17 Oxybutynin Chloride [Oxybutynin 5 mg PO DAILY 07/23/17 Chloride Er] Phenazopyridine HCl [Pyridium] 100 mg PO TID 07/23/17 Medical Decision Making ED Course/Re-evaluation: 1620: Informed by the ED RN that the patient refused CT scan. I tried to convince the pt to have the CT scan; pt refused. Blood pressure is 73/43, HR 100. I reviewed this pt's ED chart/course. Initial serum lactate elevated at 3. Meets criteria for severe sepsis. IV NS per the sepsis protocol initiated and a repeat lactate ordered. In review of this patient's ED chart, he has been hypotensive since he arrived. IV antibiotics already given. 1700: BP 100/61, HR 90 1740: Repeat lactate is 1.7, blood pressure 102/69. Will continue IV NS 150ml/ hr. Pt stable throughout the remainder of his ED course. (Michelle Goddard) 2:30 p.m. I discussed the case with Dr. Rangel Natarajan who will consult. He recommends admission to the medical service. The patient's blood pressure is low. He tells me that it is always low and that he does not feel different. 3:00 p.m. I discussed the case with Dr. Sona Roper who will admit to the medical service. Lab work and CT pending. Patient may be septic. (Jose Manuel Davis) Differential Diagnosis: Partial list of the Differential diagnosis considered include but were not limited to; decubitus ulcer, fistula, sepsis and although unlikely based on the history and physical exam, I also considered urinary tract infection, obstruction, abscess. . (Jose Manuel Davis) - Data Points Laboratory Results: Laboratory Results 07/23/17 15:00 07/23/17 15:00 Microbiology Results: MICROBIOLOGY 07/23/17 16:10 Urine,Clean Catch Urine Culture - Final Enterococcus Faecalis Pseudomonas Aeruginosa Pseudomonas Aeruginosa#2 Proteus Mirabilis 07/23/17 15:00 Blood Blood Culture - Preliminary 07/23/17 15:00 Blood Blood Culture - Preliminary Medications Given: Diltiazem HCl (Cardizem Er Q24hr) 180 mg PO DAILY KHALIDA Stop: 01/20/18 08:59 Last Admin: 07/25/17 08:59 Dose: 180 mg Ferrous Sulfate (Ferrous Sulfate) 325 mg PO BID KHALIDA Stop: 01/19/18 20:59 Last Admin: 07/25/17 08:59 Dose: 325 mg Sodium Chloride (1/2 Ns) 1,000 mls @ 75 mls/hr IV CONT KHALIDA Stop: 01/19/18 20:44 Last Admin: 07/23/17 21:27 Dose: 1,000 mls Daptomycin 540 mg/ Sodium (Chloride) 110.8 mls @ 200 mls/hr IV DAILY KHALIDA PRN Reason: Protocol Stop: 08/23/17 08:59 Last Admin: 07/25/17 09:07 Dose: 110.8 mls Metoprolol Succinate (Toprol Xl) 25 mg PO BID KHALIDA Stop: 01/19/18 20:59 Last Admin: 07/25/17 09:00 Dose: 25 mg Morphine Sulfate (Ms Contin/Oramorph) 15 mg PO BID KHALIDA Stop: 08/02/17 20:59 Last Admin: 07/25/17 08:59 Dose: 15 mg Oxybutynin Chloride (Ditropan Xl) 5 mg PO DAILY KHALIDA Stop: 01/20/18 08:59 Last Admin: 07/25/17 08:59 Dose: 5 mg Oxycodone HCl (Oxycodone Ir) 5 - 10 mg PO Q4HRS PRN PRN Reason: Pain, Severe Able to Take PO Stop: 08/02/17 20:40 Last Admin: 07/24/17 18:38 Dose: 5 mg Phenazopyridine HCl (Pyridium) 100 mg PO TID KHALIDA Stop: 01/19/18 21:59 Last Admin: 07/25/17 08:59 Dose: 100 mg Risperidone (Risperdal) 2 mg PO DAILY KHALIDA Stop: 01/20/18 08:59 Last Admin: 07/25/17 08:59 Dose: 2 mg Risperidone (Risperdal) 4 mg PO HS [facility] Stop: 01/19/18 20:59 Last Admin: 07/24/17 20:14 Dose: 4 mg Senna (Senokot) 2 tab PO HS [facility] Stop: 01/19/18 20:59 Last Admin: 07/24/17 20:49 Dose: Not Given Discontinued Medications Bupivacaine HCl/Epinephrine Bitart (Bupivacaine/Epi) Confirm Administered Dose 30 ml .ROUTE .STK-MED ONE Stop: 07/24/17 12:52 Last Admin: 07/24/17 14:10 Dose: 30 ml Diatrizoate Meglum/Diatrizoate Sod (Gastroview 66-10 Soln) 30 ml PO EDNOW ONE Stop: 07/23/17 14:22 Last Admin: 07/23/17 16:28 Dose: Not Given Diltiazem HCl (Cardizem 25 Mg/5 Ml Vial) 10 mg IVP ONCE ONE Stop: 07/24/17 01:31 Last Admin: 07/24/17 01:32 Dose: 10 mg Levofloxacin/Dextrose (Levaquin 750 Mg (Premix)) 150 mls @ 100 mls/hr IV EDNOW ONE PRN Reason: Protocol Stop: 07/23/17 15:47 Last Admin: 07/23/17 15:14 Dose: 150 mls Sodium Chloride (Ns) 2,800 mls @ 5,600 mls/hr 30 ml/kg infuse over 30 min ( 2800 ml) IV EDNOW ONE PRN Reason: Protocol Stop: 07/23/17 16:53 Last Admin: 07/23/17 16:33 Dose: 2,800 mls Sodium Chloride (Ns) 1,000 mls @ 0 mls/hr IV ONCE ONE; As Directed PRN Reason: Protocol Stop: 07/23/17 17:41 Last Admin: 07/23/17 18:38 Dose: Not Given Sodium Chloride (Ns) 500 mls @ 0 mls/hr IV ONCE ONE PRN Reason: Wide Open Stop: 07/23/17 23:06 Last Admin: 07/23/17 23:42 Dose: 500 mls Lactated Ringer's (Lr) 1,000 mls @ 0 mls/hr IV ONCE ONE PRN Reason: KVO Stop: 07/24/17 11:49 Last Admin: 07/24/17 13:03 Dose: 1,000 mls Oxycodone HCl (Oxycodone Ir) 10 mg PO Q4HRS PRN PRN Reason: Pain, Severe Able to Take PO Stop: 08/02/17 15:15 Last Admin: 07/23/17 15:17 Dose: 10 mg Potassium Chloride (Potassium Chloride Oral Liquid) 20 meq PO ONCE ONE Stop: 07/24/17 19:27 Last Admin: 07/24/17 20:14 Dose: 20 meq Thrombin (Thrombin-Jmi) Confirm Administered Dose 5,000 unit TP .STK-MED ONE Stop: 07/24/17 15:20 Last Admin: 07/24/17 14:20 Dose: 5,000 unit Departure - Departure Disposition: [facility] Inpatient Acute Clinical Impression: Decubitus skin ulcer, Severe sepsis Condition: Fair
[2017-07-23] MEDS ORDERED: oxyCODONE IR 5 MG TAB ONE (15:12)
[2017-07-23] MEDS ORDERED: oxyCODONE IR 5 MG TAB PO PRN (15:16)
[2017-07-23 15:25] LABS: PLATELET COUNT 290 10^3/uL (150-400)
[2017-07-23 15:45] LABS: INR 1.4 (0.83-1.16); PROTIME(PATIENT) 17.3 SEC (12.0-15.0)
[2017-07-23] MEDS ORDERED: IOPAMIDOL (ISOVUE-300) 100 ML BTL ONE (15:56)
[2017-07-23] MEDS ORDERED: NS 2,800 ML IV ONE (16:24)
[2017-07-23] MEDS ORDERED: NS 1,000 ML IV ONE (17:40)
[2017-07-23] MEDS ORDERED: ACETAMINOPHEN 325 MG TAB PO PRN ×2 (20:39→20:41)
[2017-07-23] MEDS ORDERED: ONDANSETRON 4 MG/2 ML VIAL IVP PRN (20:39)
[2017-07-23] MEDS ORDERED: ONDANSETRON DISINTEGRATING 4 MG TAB PO PRN (20:39)
[2017-07-23] MEDS ORDERED: GUAIFENESIN/DM 10 ML UDCUP PO PRN (20:41)
[2017-07-23] MEDS ORDERED: DOCUSATE SODIUM 100 MG CAP PO PRN (20:41)
[2017-07-23] MEDS ORDERED: 1/2 NS 1,000 ML IV SCH (20:45)
[2017-07-23] MEDS: PHENAZOPYRIDINE HCL 100 MG TAB PO SCH (21:30)
[2017-07-23] MEDS: risperiDONE 2 MG TAB PO SCH (21:31)
[2017-07-23] MEDS: FERROUS SULFATE 325 MG TAB PO SCH (21:31)
[2017-07-23] MEDS: morphINE SR 15 MG TAB PO SCH (21:31)
[2017-07-23] MEDS: SENNOSIDES 1 TAB PO SCH (21:31)
[2017-07-23] MEDS: METOPROLOL SUCCINATE XR 25 MG TAB PO SCH (21:31)
--- NOTE | 2017-07-23 21:54 | GHP ---
[f rep st] HISTORY AND PHYSICAL DATE OF ADMISSION: 07/23/2017 CHIEF COMPLAINT: Worsening decubitus ulcer. HISTORY OF PRESENT ILLNESS: This is a 61-year-old male who was discharged in March of this last yea r. He has a history of schizophrenia and is essentially bed-bound for on certain reasons and develop s decubitus ulcers. He had a significant ulcer requiring debridement and diverting colostomy in [facility]. This was polymicrobial in nature and actually had Pseudomonas with significant resistance, as we ll as ESBL E coli and Enterococcus. He was treated with antibiotics including Levaquin and daptomyci n, and debridement. Apparently this wound has healed pretty well, but then a few days ago, the [facility] staff noticed that they opened up again with some purulent drainage. The patient himself is not complaining of any pain or really has any other complaints. REVIEW OF SYSTEMS: A 10-point review of systems was obtained and, other than stated, is negative. PAST MEDICAL HISTORY: 1. Schizophrenia. 2. Essentially bed-bound with sacral decubitus ulcers, as well as ulcers of his heel. 3. History of atrial fibrillation with rapid ventricular response. 4. History of C difficile colitis. 5. Chronic lymphedema. 6. Hypertension. 7. Chronic kidney disease. 8. Previous history of aspiration pneumonia. 9. Gout. 10. History of DVT. 11. Nephrotic syndrome. MEDICATIONS: Reviewed. SOCIAL HISTORY: He does live in long-term care. He does smoke 2-3 packs of cigarettes per day. FAMILY HISTORY: Reviewed and noncontributory. PHYSICAL EXAMINATION: VITAL SIGNS: Afebrile, blood pressure is 77/54, has come up with a couple lit ers of fluid to 99/74, heart rate 113, oxygen saturation 93% on room air. GENERAL: The patient is w ell developed, in no apparent distress. HEENT: Nonicteric sclerae. Extraocular movements intact. Moist mucous membranes. NECK: Supple. No thyromegaly. LUNGS: Good effort. Clear to auscultation bilaterally. CARDIOVASCULAR: Regular rate and rhythm. No murmurs or gallops. ABDOMEN: Positive bowel sounds. Soft, nontender, nondistended. Colostomy is in place. EXTREMITIES: Significant lymp hedema with chronic venous stasis changes and bright red left lower extremity, without warmth. SACRU M: There is redness in the sacral area and a fairly large flapped opening in the sacrum. NEUROLOGIC : Alert and oriented x3. Moving all four extremities equally. PSYCH: Normal affect. LABORATORY DATA: White count elevated at 15, hemoglobin 10, platelets are 290. Sodium 130, potassiu m 3.7, BUN 41, creatinine 1.4. ASSESSMENT: This is a 61-year-old male who is bed-bound with worsening sacral decubitus ulcer. PLAN: 1. Sacral decubitus ulcer. Will have Wound Care see the patient in the morning. Will also get Infe ctious Disease to see him. Will start with Levaquin, although he does have significant Pseudomonas w ith resistance and extended-spectrum beta-lactamase Escherichia coli. The patient's blood pressure i s a little bit low, and lactate was high, but this corrected pretty rapidly with just some fluid. He is definitely not toxic-looking. Infectious Disease will consult in the morning and probably make c hanges in antibiotics. 2. History of atrial fibrillation. He does not seem to be on anticoagulation, according to his keerthi wen note. We will continue diltiazem and metoprolol. 3. Sepsis. The patient did meet criteria for sepsis. With the fluid boluses, lactate has normalize d. 4. Schizophrenia. Will continue his medications. The patient is also refusing CT scanning due to f eeling claustrophobic. 5. Deep venous thrombosis prophylaxis. Will start after making decision on any surgical debridement to be made tomorrow. /[id number]/MODL
[2017-07-23] MEDS ORDERED: NS 500 ML IV ONE (23:05)
--- NOTE | 2017-07-23 23:37 | CPEKG ---
Heart Rate: 137 RR Interval: 438 QRSD Interval: 88 QT Interval: 316 QTC Interval: 477 QRS [place]: 40 T Wave [place]: 25 EKG Severity - ABNORMAL ECG - EKG Impression: ATRIAL FIBRILLATION, V-RATE 85-183 EKG Impression: PAIRED VENTRICULAR PREMATURE COMPLEXES EKG Impression: LOW VOLTAGE IN FRONTAL LEADS EKG Impression: BORDERLINE PROLONGED QT INTERVAL Electronically Signed By: Francia Noel 24-Jul-2017 06:46:07
[2017-07-23] MEDS: oxyCODONE IR 5 MG TAB PO PRN (23:42)
[2017-07-24] MEDS ORDERED: DILTIAZEM 25 MG/5 ML VIAL IVP SCH (01:00)
[2017-07-24] MEDS ORDERED: DILTIAZEM 25 MG/5 ML VIAL IVP ONE (01:30)
[2017-07-24 05:19] LABS: PLATELET COUNT 259 10^3/uL (150-400)
--- NOTE | 2017-07-24 08:37 | PCMIDPN ---
Assessment/Plan: # Sepsis: multiple potential sources - definitely LLE cellulitis, unclear if tracking wound on sacrum driving infection, ?UTI --starting daptomycin 6mg/kg --monitor cultures #LLE cellulitis: portal likely pressure ulcer --start daptomycin #Full thickness B heal pressure ulcers: needs debridement, faint pulses #Stage 4 pressure ulcer sacrum with one area tracking 12cm with purulent appearing material, no surrounding cellulitis --debridement this afternoon #H/o MDR: VRE, ESBL E coli, MDR PsA --contact isolation # ARF Cr 1.4 to 1.1 meds levofloxacin 750mg IV x 1 micro 07/23 blood cx (2) Pending 07/23 ucx pending Care coordinated with Dr. Natarajan' team and wound healing RN Subjective: 61 yo male well known to ID and wound healing service who had known stage 4 sacral decub closed via Dr. Denis's Advanced Tissue Closure method at [place] this fall and was D/C'd from there back to [place] around May 16. Notable with extensive scarring on bilateral buttocks and pelvic area from previous multiple stage 4 pressure injuries but sent back to [facility] for evaluation last night. Almost lost #50 since last visit. Reportedly patient has not been compliant with offloading. Patient with minimal c/o this AM, does not have any idea why transferred to [facility] for eval. Objective: Vital Signs Temp Pulse Resp BP Pulse Ox 36.6 C 125 H 18 103/73 98 07/24/17 05:08 07/24/17 05:08 07/24/17 05:08 07/24/17 05:08 07/24/17 05:08 Laboratory Results 07/24/17 04:39 07/24/17 04:39 07/23/17 07/24/17 07/25/17 05:59 05:59 05:59 Intake Total 4300 Output Total 1000 Balance 3300 Gen: pleasant, no distress HEENT : poor dentition CV: Tachy Chest: shallow inspiratory effort, No crackles or wheezes Abd: ostomy LLQ ; soft NT +BS back:Sacral wound stage 4: Tunneling (12 cm at 12 oclock, purulence expressed from this area but no surrounding cellulitis); DTI: Left Sacrum: 2x1.5x0, DTI: Right Sacrum: 2.5x2x0. DTI middle sacrum: 1x1x0. Ext: Left Heel eschar: 3.3x2.7x0.4 cm associated with cellulitis mid ankle, dorsum of foot Right Heel Pressure Injury: 5x4.5x0.4(eschar) Known LE paralysis No rash other than cellulitis - Time Spent With Patient Time Spent with Patient: greater than 35 minutes Time Spent with Patient: Greater than 35 minutes spent on this patients care, greater than 50% of time spent counseling, educating, and coordinating care regarding the above mentioned plan. ICD10 Worksheet Patient Problems: Problems Problem Status Onset Decubitus skin ulcer Acute Atrial fibrillation Acute CHF (congestive heart failure) Acute Carbapenem-resistant bacterial infection Acute ~03/26/17 Cellulitis and abscess of leg Acute Clostridium difficile infection Acute ~03/19/17 ESBL (extended spectrum beta-lactamase) producing bacteria infection Acute ~ Palliative care encounter Acute Peripheral edema Acute Peripheral edema Acute Sacral decubitus ulcer, stage III Acute Schizophrenia Acute VRE (vancomycin-resistant Enterococci) Acute ~03/26/17
--- NOTE | 2017-07-24 09:37 | SOAPPROG ---
SOAP Progress Note Assessment/Plan: Assessment: SEEN LAST PM, 61 MALE SCHIZOPHRENIC WITH INFECTED TUNNELLING SACRAL DECUB/ ALSO CELLULITIS LLE WITH BILAT CALCANEAL PRESSURE SORES ADMITTED WITH SEPSIS LEGS HEADED FOR AMPUTATION SINCE PT DOESNT AMBULATE Plan:I&D AND DEBRIDEMENT PERIRECTAL AREA/ ART STUDIES 07/24/17 09:34 Objective: Vital Signs Temp Pulse Resp BP Pulse Ox 37.0 C 109 H 9 L 105/78 96 07/24/17 08:31 07/24/17 08:31 07/24/17 08:31 07/24/17 08:31 07/24/17 08:31 Laboratory Results 07/24/17 04:39 07/24/17 04:39 07/23/17 07/24/17 07/25/17 05:59 05:59 05:59 Intake Total 4300 Output Total 1000 Balance 3300 PT 17.3 SEC (12.0-15.0) H 07/23/17 15:00 INR 1.40 (0.83-1.16) H 07/23/17 15:00 ICD10 Worksheet Patient Problems: Problems Problem Status Onset Decubitus skin ulcer Acute Atrial fibrillation Acute CHF (congestive heart failure) Acute Carbapenem-resistant bacterial infection Acute ~03/26/17 Cellulitis and abscess of leg Acute Clostridium difficile infection Acute ~03/19/17 ESBL (extended spectrum beta-lactamase) producing bacteria infection Acute ~ Palliative care encounter Acute Peripheral edema Acute Peripheral edema Acute Sacral decubitus ulcer, stage III Acute Schizophrenia Acute VRE (vancomycin-resistant Enterococci) Acute ~03/26/17
--- NOTE | 2017-07-24 09:43 | WOCRNPDOC ---
JESS Advanced Assessment Note - Skin Integrity Problem, Advanced Assess Sacrum Pressure Injury Dressing Type: Open to Air Exudate Amount: Excessive Exudate Color: Reddish/Yellow Exudate Characteristic(s): Cloudy, Sanguinopurulent, Serosanguinous Aria Wound Tissue: Erythema Wound Bed Constitution: Tunneling (12 cm at 12 oclock) Site Measurement - Head-to-Toe Length X Width X Depth (cm): DTI: Left Sacrum: 2x1.5x0, DTI: Right Sacrum: 2.5x2x0. DTI middle sacrum: 1x1x0. Pressure Injury Stage: Stage 4 Pressure Injury Present on Admit: Yes Skin Integrity Problem Comment: Patient well know to this service, with extensive scarring on bilateral buttocks and pelvic area from previous multiple stage 4 pressure injuries. Patient was closed via Dr. Denis's Advanced Tissue Closure method at [facility] this fall and was D/C'd from there back to [place] around May 16. He now presents with 3 DTI's on this sacrum along with a deep tunneling wound in a fold of skin along inferior medial sacrum, which may have been near where his rectum was. The tunnel is soft and the tissue inside is loose/liquifying. As the Q tip is moved around approximately 100 ml of drainage was dischgarged and there is likely much more remaining inside. Left Heel Pressure Injury Dressing Type: Open to Air Exudate Amount: Minimal Exudate Characteristic(s): Serosanguinous Aria Wound Tissue: Erythema, Hot, Xerotic, Calloused Aria Wound Swelling: Moderate Wound Bed Constitution: Unstable Eschar Site Measurement - Head-to-Toe Length X Width X Depth (cm): 3.3x2.7x0.4 (eschar) Pressure Injury Stage: Unstageable Pressure Injury Present on Admit: Yes Skin Integrity Problem Comment: Foot with active cellulitis. Beebe heels with betadine BID. Right Heel Pressure Injury Dressing Type: Open to Air Exudate Amount: None Wound Bed Color: Black, Brown Wound Bed Constitution: Stable Eschar Site Measurement - Head-to-Toe Length X Width X Depth (cm): 5x4.5x0.4(eschar) Pressure Injury Stage: Unstageable Pressure Injury Present on Admit: Yes Right Second Toe Dressing Type: Open to Air Wound Bed Color: Brown, Red Wound Bed Constitution: Scab, Dried Exudate Site Measurement - Head-to-Toe Length X Width X Depth (cm): 1.6x0.9xscab Right Fourth Toe Dressing Type: Open to Air Wound Bed Constitution: Scab, Dried Exudate Site Measurement - Head-to-Toe Length X Width X Depth (cm): 0.9x0.7xscab
[2017-07-24] MEDS: PHENAZOPYRIDINE HCL 100 MG TAB PO SCH ×3 (10:07→20:14)
[2017-07-24] MEDS: DILTIAZEM CD 180 MG CAP PO SCH (10:08)
[2017-07-24] MEDS: risperiDONE 2 MG TAB PO SCH ×2 (10:08→20:14)
[2017-07-24] MEDS: OXYBUTYNIN 5 MG EXT REL TAB PO SCH (10:09)
[2017-07-24] MEDS: METOPROLOL SUCCINATE XR 25 MG TAB PO SCH ×3 (10:09→23:02)
[2017-07-24] MEDS: morphINE SR 15 MG TAB PO SCH ×2 (10:10→20:14)
[2017-07-24] MEDS: FERROUS SULFATE 325 MG TAB PO SCH ×2 (10:10→20:14)
[2017-07-24] MEDS ORDERED: LR 1,000 ML IV ONE (11:48)
[2017-07-24] MEDS ORDERED: BUPIVACAINE/EPI 0.5% 30 ML SDV ONE (12:51)
--- NOTE | 2017-07-24 12:52 | PDMN ---
Medical Necessity Medical necessity: est los>2mn for worsening sacral decubitus ulcer w/sepsis;, for ID consult and IV abx; comorbid schizophrenia, bed bound, htn, CKD; hx Pseudomonas w/resistance and ESBL e coli; per order and H&P 07/23/17
[2017-07-24] MEDS: DAPTOmycin 540 MG in NS 100 ML IV SCH (13:22)
--- NOTE | 2017-07-24 13:30 | PDANEPAE ---
ANE History of Present Illness 61 year old male w/ schizophrenia presents for pj-rectal abscess drainage. ANE Past Medical History - Cardiovascular History Hx Hypertension: Yes Hx Arrhythmias: Yes Hx Chest Pain: No Hx Coronary Artery / Peripheral Vascular Disease: No Hx CHF / Valvular Disease: No Hx Palpitations: No Cardiovascular History Comment: perm afib rate controlled - Pulmonary History Hx COPD: No Hx Asthma/Reactive Airway Disease: No Hx Recent Upper Respiratory Infection: No Hx Oxygen in Use at Home: No Hx Sleep Apnea: Yes Sleep Apnea Screening Result - Last Documented: Positive - Endocrine History Hx Diabetes: No Hypothyroid: No Hyperthyroid: No Obesity: no - Renal History Hx Renal Disorders: Yes Renal History Comment: CKD - Neurological & Psychiatric Hx Hx Neurological and Psychiatric Disorders: Yes Neurological / Psychiatric History Comment: schizophrenia - Other Health History Other Health History: DVT - Chronic Pain History Chronic Pain: Yes ANE Review of Systems Review of systems is: negative Review of Systems: - Exercise capacity Exercise capacity: <4 METS, unable to assess ANE Patient History - Allergies Allergies/Adverse Reactions: amoxapine [From Asendin] Allergy (Verified 07/23/17 15:39) fluphenazine enanthate [From Prolixin] Allergy (Verified 07/23/17 15:39) fluphenazine HCl [From Prolixin] Allergy (Verified 07/23/17 15:39) haloperidol [From Haldol] Allergy (Verified 07/23/17 15:39) haloperidol lactate [From Haldol] Allergy (Verified 07/23/17 15:39) thioridazine HCl [From Mellaril] Allergy (Verified 07/23/17 15:39) trifluoperazine HCl [From Stelazine] Allergy (Verified 07/23/17 15:39) - Home Medications Home medications: home medication list seen and reviewed Home Medications: Furosemide [Lasix 40 MG (*)] 40 mg PO BID 02/17/17 [Last Taken 07/23/17 09:00] Risperidone 2 mg PO DAILY 02/17/17 [Last Taken 07/23/17] Sennosides [Senokot] 2 tab PO HS 02/17/17 [Last Taken 02/16/17] morphINE SR [Ms Contin/Oramorph 15 mg (*)] 15 mg PO BID 02/17/17 [Last Taken 09:00] Acetaminophen [Tylenol 325mg (*)] 650 mg PO Q8 PRN 03/23/17 [Last Taken 14:00] Herbals/Supplements -Info Only 1 ea PO DAILY 03/23/17 [Last Taken Unknown] Magnesium Hydroxide/Al Hydrox [Mylanta Liquid] 30 ml PO Q4H PRN 03/23/17 [Last Taken Unknown] Metoprolol Succinate Xr [Toprol Xl 25 mg (*)] 25 mg PO BID 03/23/17 [Last Taken 07/23/17 09:00] guaiFENesin/DEXTROMETHORPHAN [Robitussin Dm Oral Liquid (*)] 10 ml PO Q4 PRN [Last Taken Unknown] risperiDONE [Risperdal] 4 mg PO HS 03/23/17 [Last Taken 07/22/17] Docusate Sodium [Colace 100 MG (*)] 100 mg PO DAILY PRN 07/23/17 [Last Taken Unknown] Multivitamins [Multivitamin (*)] 1 each PO DAILY 07/23/17 [Last Taken Unknown] Oxybutynin Chloride [Oxybutynin Chloride Er] 5 mg PO DAILY 07/23/17 [Last Taken 07/23/17] Phenazopyridine HCl [Pyridium] 100 mg PO TID 07/23/17 [Last Taken Unknown] - NPO status NPO Status: no food or drink >8 hours NPO Since - Liquids (Date): 07/24/17 NPO Since - Liquids (Time): 00:00 NPO Since - Solids (Date): 07/24/17 NPO Since - Solids (Time): 00:00 - Anes Hx Anes Hx: no prior problems - Alcohol Use Alcohol Use: Sober ANE Labs/Vital Signs - Labs Result Diagrams: 07/24/17 04:39 07/24/17 04:39 - Vital Signs Vital Signs: reviewed preoperatively; see RN documention for details Blood Pressure: 105/78 Heart Rate: 103 Respiratory Rate: 9 O2 Sat (%): 96 Height: 195.58 cm Weight: 92.986 kg ANE Physical Exam - Airway Neck exam: FROM Mallampati Score: Class 2 Mouth exam: poor dentition - Pulmonary Pulmonary: no respiratory distress - Cardiovascular Cardiovascular: regular rate and rhythym - ASA Status ASA Status: III ANE Anesthesia Plan Anesthesia Plan: general endotracheal anesthesia Total IV Anesthesia: No
[2017-07-24] MEDS ORDERED: fentaNYL 100 MCG/2 ML INJ ONE (13:34)
[2017-07-24] MEDS ORDERED: PROPOFOL 200 MG/20 ML VIAL ONE (13:35)
[2017-07-24] MEDS ORDERED: HYDROmorphONE/DILAUDID 1 MG/ML INJ IVP PRN (14:25)
[2017-07-24] MEDS ORDERED: LR 500 ML IV PRN (14:25)
[2017-07-24] MEDS ORDERED: NALOXONE HCL 0.4 MG/ML INJ IVP PRN (14:25)
[2017-07-24] MEDS ORDERED: ONDANSETRON 4 MG/2 ML VIAL IVP PRN (14:25)
[2017-07-24] MEDS ORDERED: fentaNYL 100 MCG/2 ML INJ IVP PRN (14:25)
--- NOTE | 2017-07-24 15:08 | POSTANESTH ---
Post Anesthetic Evaluation Cardiovascular Status: Normal, Stable, Similar to Pre-Op Cond Respiratory Status: Normal, Stable, Similar to Pre-op Cond. Level of Consciousness/Mental Status: Can Participate in Eval, Mildly Sleepy, Arousable Pain Control: Adequate, Prn Tx Ordered Nausea/Vomiting Control: Adequate, Prn Tx Ordered Complications Possibly Related to Anesthesia: None Noted
[2017-07-24] MEDS ORDERED: THROMBIN (BOVINE) 5,000 UNIT VIAL TP ONE (15:19)
--- NOTE | 2017-07-24 15:43 | ASMTCASEMG ---
Living Arrangements What is your living Answers: Alone arrangement? Who do you live with? Type Of Residence What kind of residence do Answers: [facility] Facility you live in? Type of Residence Facility Name Notes: [facility] Discharge Plan Comments Coordination Status Comments Notes: CM spoke w/ Roselyn, wound care nurse, Elle, director of case management and Mine, distributed generation project manager regarding discharge POC. Pt is a 61 y/o man admitted for decubitus ulcer. Pt will have a debridement today in the OR. Pt carries a schizoaffective disorder and lives at [facility]. CM made contact w/ his brother Toney [facility] (P#: [phone]) and introduced self as CM. Needs are TBD at this time. CM to follow. Plan: TBD Date Signed: 07/24/2017 03:43 PM Electronically Signed By:BALWINDER Darden
--- NOTE | 2017-07-24 18:13 | POSTOPPROG ---
Post Op Note Date of Operation: 07/24/17 Surgeon: Esa Natarajan Anesthesiologist: DANI Anesthesia: GET(General Endotracheal) Pre-op Diagnosis: PERIRECTAL ABSCESS Post-op Diagnosis: INFECTED SACRAL DECUBITUS Indication: INFECTION Procedure: INCISION AND DRAINAGE AND DEBRIDEMENT OF INFECTED RIGHT-SIDED SACRAL DECUBI Findings: OPEN DRAINING ABSCESS CAVITY TO THE RIGHT OF THE SACRUM ON ASSOCIATED WITH Inf/Abcess present in the surg proc area at time of surgery?: Yes Depth: Deep Incisional (Fascial) EBL: Minimal Complications: NONE Drains: Wound Vac Specimen(s): CULTURE
[2017-07-24] MEDS: oxyCODONE IR 5 MG TAB PO PRN (18:38)
--- NOTE | 2017-07-24 18:43 | HOSPPROG ---
Hospitalist Progress Note Assessment/Plan: DIAGNOSES: -acute sepsis -cellulitis of leg -deep abscess by chronic sacral wound, status post surgical debridement drainage -acute on chronic kidney disease, history of nephrotic syndrome; current pyuria of uncertain significance -multiple sacral and leg wounds, present on admission, chronic -hypokalemia -mild hyperglycemia, question development of diabetes or pre diabetes -chronic it relation rapid ventricular rate, currently rate controlled -chronic schizophrenia controlled on medication -history of DT, high risk for DVT here PLANS: -continue current antibiotics -continue aggressive wound care -may need increase in AFib rate control if faster heart rates persist, blood pressures tolerate may need to consider increasing beta-marimar or calcium marimar -nutritional supplements -DVT prophylaxis -follow renal function closely -check hemoglobin A1c follow sugars -continue usual psychiatric medications -follow heart rate closely with his history of AFib -careful potassium replacement particularly with his renal issues, will give 1 oral dose now recheck potassium level recheck renal function High risk scenario with hypotension, rapid AFib, significant infection, acute renal issues SUBJECTIVE: Patient feels well with little pain postoperatively No nausea eating well OBJECTIVE Vitals reviewed: Atrial fibrillation rate has been intermittent poorly controlled but better at this moment, blood pressures improved still intermittently mildly low, no fever at this time Personnel Records Clerk, my review: Rapid atrial fibrillation though mostly in upper 90s and low 100s at this time has been up as high as 140s overnight Exam: alert oriented skin warm dry color ok resps not labored lungs clear BSs heart regular abd soft nondistended nontender, bowel sounds present limbs warm, diffuse edema and cellulitis of both legs and buttocks area iv site ok Laboratory data reviewed in detail: Still still with mild hyperglycemia Renal function slightly better White blood cell count still elevated Cultures all pending at this time no growth to date Objective: Vital Signs Temp Pulse Resp BP Pulse Ox 36.4 C 117 H 17 101/63 92 07/24/17 15:20 07/24/17 15:47 07/24/17 15:47 07/24/17 15:47 07/24/17 15:47 Laboratory Results 07/24/17 04:39 07/24/17 04:39 07/23/17 07/24/17 07/25/17 06:59 06:59 06:59 Intake Total 2300 1100 Output Total 1000 1305 Balance 1300 -205 PT 17.3 SEC (12.0-15.0) H 07/23/17 15:00 INR 1.40 (0.83-1.16) H 07/23/17 15:00 - Time Spent With Patient Time Spent with Patient: greater than 35 minutes Time Spent with Patient: Greater than 35 minutes spent on this patients care, greater than 50% of time spent counseling, educating, and coordinating care regarding the above mentioned plan. ICD10 Worksheet Patient Problems: Problems Problem Status Onset Decubitus skin ulcer Acute Atrial fibrillation Acute CHF (congestive heart failure) Acute Carbapenem-resistant bacterial infection Acute ~03/26/17 Cellulitis and abscess of leg Acute Clostridium difficile infection Acute ~03/19/17 ESBL (extended spectrum beta-lactamase) producing bacteria infection Acute ~ Palliative care encounter Acute Peripheral edema Acute Peripheral edema Acute Sacral decubitus ulcer, stage III Acute Schizophrenia Acute VRE (vancomycin-resistant Enterococci) Acute ~03/26/17
[2017-07-24] MEDS ORDERED: POTASSIUM CL 20 MEQ/15 ML UDCUP PO ONE (19:26)
[2017-07-24] MEDS: SENNOSIDES 1 TAB PO SCH (20:49)
[2017-07-25] MEDS: FERROUS SULFATE 325 MG TAB PO SCH ×2 (08:59→20:50)
[2017-07-25] MEDS: morphINE SR 15 MG TAB PO SCH ×2 (08:59→20:50)
[2017-07-25] MEDS: DILTIAZEM CD 180 MG CAP PO SCH (08:59)
[2017-07-25] MEDS: PHENAZOPYRIDINE HCL 100 MG TAB PO SCH ×3 (08:59→20:49)
[2017-07-25] MEDS: risperiDONE 2 MG TAB PO SCH ×2 (08:59→20:50)
[2017-07-25] MEDS: OXYBUTYNIN 5 MG EXT REL TAB PO SCH (08:59)
[2017-07-25] MEDS: METOPROLOL SUCCINATE XR 25 MG TAB PO SCH ×2 (09:00→21:17)
[2017-07-25] MEDS: DAPTOmycin 540 MG in NS 100 ML IV SCH (09:07)
[2017-07-25 09:19] LABS: PLATELET COUNT 284 10^3/uL (150-400)
--- NOTE | 2017-07-25 11:10 | SOAPPROG ---
SOAP Progress Note Assessment/Plan: Assessment: 61-year-old male status post incision and drainage of infected sacral decubitus diet, drainage of abscess, wound VAC placement Patient reports his pain is well controlled Physical exam Comfortable, sitting on the edge of the bed responds appropriately Plan: Wound VAC change possibly Friday but most likely Friday, discussed with wound care 07/25/17 11:09 Objective: Vital Signs Temp Pulse Resp BP Pulse Ox 36.8 C 80 18 107/61 95 07/25/17 08:00 07/25/17 08:00 07/25/17 08:00 07/25/17 08:00 07/25/17 08:00 Microbiology 07/24/17 14:50 Gram Stain - Final Back - Eswab Laboratory Results 07/25/17 08:10 07/25/17 04:30 07/24/17 07/25/17 07/26/17 05:59 05:59 05:59 Intake Total 2300 2540 Output Total 1000 1855 Balance 1300 685 PT 17.3 SEC (12.0-15.0) H 07/23/17 15:00 INR 1.40 (0.83-1.16) H 07/23/17 15:00 ICD10 Worksheet Patient Problems: Problems Problem Status Onset Decubitus skin ulcer Acute Atrial fibrillation Acute CHF (congestive heart failure) Acute Carbapenem-resistant bacterial infection Acute ~03/26/17 Cellulitis and abscess of leg Acute Clostridium difficile infection Acute ~03/19/17 ESBL (extended spectrum beta-lactamase) producing bacteria infection Acute ~ Palliative care encounter Acute Peripheral edema Acute Peripheral edema Acute Sacral decubitus ulcer, stage III Acute Schizophrenia Acute VRE (vancomycin-resistant Enterococci) Acute ~03/26/17
--- NOTE | 2017-07-25 11:48 | PCMIDPN ---
Assessment/Plan: # Sepsis: improved. Unclear if positive Ucx reflect infection vs colonization - clinically improved w/o treatment GNR suggests colonization. Nursing does notes some purulence at penile meatus. WBC trending down. No fever --continue daptomycin 6mg/kg --monitor cultures --david changed yesterday #LLE cellulitis, recession of erythema but persistent pinkness may be mediated by arterial disease. Heal ulcer may have multifactorial cause pressure plus arterial disease --daptomycin as above; using daptomycin bc h/o VRE --may need heal debridement, check ABIs #Stage 4 pressure ulcer sacrum with one area tracking 12cm with purulent appearing material s/p debridement and wound vac placement. There was no associated cellulitis yesterday. Current wound did not go down to bone, hopeful can heal with wound vac --cx taken in OR #H/o MDR: VRE, ESBL E coli, MDR PsA --contact isolation # ARF: resolved meds daptomycin 540mg IV daily #2 s/p levofloxacin 750mg IV x 1 micro 07/23 blood cx (2) NGTD 07/23 ucx enterococcus, GNR NLF Subjective: patient c/o being cold does not want to extend L leg Objective: Vital Signs Temp Pulse Resp BP Pulse Ox 36.6 C 124 H 17 97/70 L 92 07/25/17 11:09 07/25/17 11:09 07/25/17 11:09 07/25/17 11:09 07/25/17 11:09 Microbiology 07/24/17 14:50 Gram Stain - Final Back - Eswab Laboratory Results 07/25/17 08:10 07/25/17 04:30 07/24/17 07/25/17 07/26/17 05:59 05:59 05:59 Intake Total 2300 2540 680 Output Total 1000 1855 Balance 1300 685 680 Gen: pleasant, no distress HEENT : poor dentition CV: irr irr Chest: shallow inspiratory effort, No crackles or wheezes Abd: ostomy LLQ ; soft NT +BS back: wound vac in place Ext: Left Heel eschar: 3.3x2.7x0.4 cm associated with erythema now just distal dorsal foot, still with edema Right Heel Pressure Injury: 5x4.5x0.4(eschar) Known LE paralysis No rash other than cellulitis - Time Spent With Patient Time Spent with Patient: greater than 35 minutes (care coordinated with Dr. Natarajan and Dr. Spencer) Time Spent with Patient: Greater than 35 minutes spent on this patients care, greater than 50% of time spent counseling, educating, and coordinating care regarding the above mentioned plan. ICD10 Worksheet Patient Problems: Problems Problem Status Onset Decubitus skin ulcer Acute Atrial fibrillation Acute CHF (congestive heart failure) Acute Carbapenem-resistant bacterial infection Acute ~03/26/17 Cellulitis and abscess of leg Acute Clostridium difficile infection Acute ~03/19/17 ESBL (extended spectrum beta-lactamase) producing bacteria infection Acute ~ Palliative care encounter Acute Peripheral edema Acute Peripheral edema Acute Sacral decubitus ulcer, stage III Acute Schizophrenia Acute VRE (vancomycin-resistant Enterococci) Acute ~03/26/17
--- NOTE | 2017-07-25 11:54 | HOSPPROG ---
Hospitalist Progress Note Assessment/Plan: Sepsis secondary to cellulitis LLE - Improving on dapto (h/o VRE). Discussed with ID. Chronic sacral wound with abscess s/p I&D - Cx's pending CKD - h/o nephrotic syndrome, persistent pyuria likely colonization Multiple LE wounds - left heel ulcer most concerning, ?arterial disease. Will d /w surgery regarding vascular status as heel wound likely needs debridement. Chronic A fib - currently rate controlled on Dilt and BB. Schizophrenia - controlled on current regiment H/O DVT DVT PPLX - high risk, start Lovenox Full code Dispo - cont inpt Subjective: Pt feels ok. Denies pain. NO fevers. No complaints. Notes he is mostly bedbound, occassionally transfers to chair. Objective: Vital Signs Temp Pulse Resp BP Pulse Ox 36.6 C 124 H 17 97/70 L 92 07/25/17 11:09 07/25/17 11:09 07/25/17 11:09 07/25/17 11:09 07/25/17 11:09 Microbiology 07/24/17 14:50 Gram Stain - Final Back - Eswab Laboratory Results 07/25/17 08:10 07/25/17 04:30 07/24/17 07/25/17 07/26/17 05:59 05:59 05:59 Intake Total 2300 2540 680 Output Total 1000 1855 Balance 1300 685 680 PT 17.3 SEC (12.0-15.0) H 07/23/17 15:00 INR 1.40 (0.83-1.16) H 07/23/17 15:00 - Physical Exam Constitutional: no apparent distress Eyes: PERRL Ears, Nose, Mouth, Throat: moist mucous membranes Cardiovascular: regular rate and rhythym Respiratory: no respiratory distress Gastrointestinal: normoactive bowel sounds, soft, non-tender abdomen Skin: other (LLE with decreased erythema, left heel ulcer with black eschar, + discoloration of distal LE's) Musculoskeletal: generalized weakness Neurologic: AAOx3 Psychiatric: interacting appropriately ICD10 Worksheet Patient Problems: Problems Problem Status Onset Decubitus skin ulcer Acute Severe sepsis Acute Atrial fibrillation Acute CHF (congestive heart failure) Acute Carbapenem-resistant bacterial infection Acute ~03/26/17 Cellulitis and abscess of leg Acute Clostridium difficile infection Acute ~03/19/17 ESBL (extended spectrum beta-lactamase) producing bacteria infection Acute ~ Palliative care encounter Acute Peripheral edema Acute Peripheral edema Acute Sacral decubitus ulcer, stage III Acute Schizophrenia Acute VRE (vancomycin-resistant Enterococci) Acute ~03/26/17
[2017-07-25] MEDS: ENOXAPARIN 40 MG/0.4 ML SYR SC SCH (18:32)
[2017-07-25] MEDS: SENNOSIDES 1 TAB PO SCH ×2 (19:38→19:43)
[2017-07-26] MEDS: oxyCODONE IR 5 MG TAB PO PRN (04:50)
[2017-07-26 05:14] LABS: PLATELET COUNT 319 10^3/uL (150-400)
[2017-07-26] MEDS: morphINE SR 15 MG TAB PO SCH ×2 (08:14→21:14)
[2017-07-26] MEDS: risperiDONE 2 MG TAB PO SCH ×2 (08:15→21:14)
[2017-07-26] MEDS: DILTIAZEM CD 180 MG CAP PO SCH (08:15)
[2017-07-26] MEDS: OXYBUTYNIN 5 MG EXT REL TAB PO SCH (08:16)
[2017-07-26] MEDS: METOPROLOL SUCCINATE XR 25 MG TAB PO SCH ×2 (08:16→21:13)
[2017-07-26] MEDS: FERROUS SULFATE 325 MG TAB PO SCH ×2 (08:17→21:14)
[2017-07-26] MEDS: PHENAZOPYRIDINE HCL 100 MG TAB PO SCH ×3 (08:17→21:13)
[2017-07-26] MEDS: ENOXAPARIN 40 MG/0.4 ML SYR SC SCH (08:18)
[2017-07-26] MEDS: DAPTOmycin 540 MG in NS 100 ML IV SCH (10:26)
--- NOTE | 2017-07-26 11:23 | PCMIDPN ---
Assessment/Plan: Assessment: Infected sacral decubitus ulcer-status post debridement. No exposed bone. Improving on daptomycin. Plan to continue this monotherapy and observe for wound healing. Plan: 1. Continue IV daptomycin. 2. Follow surgical plans for heel debridement. 07/26/17 11:20 Subjective: Patient is resting in his hospital bed. No significant 24 hr events. Objective: Daptomycin # 3 Vital Signs Temp Pulse Resp BP Pulse Ox 36.4 C 88 15 106/63 90 L 07/26/17 08:00 07/26/17 08:00 07/26/17 08:00 07/26/17 08:00 07/26/17 08:00 Microbiology 07/24/17 14:50 Gram Stain - Final Back - Eswab Laboratory Results 07/26/17 04:03 07/26/17 04:03 07/25/17 07/26/17 07/27/17 05:59 05:59 05:59 Intake Total 2540 2530 Output Total 1855 1600 Balance 685 930 - Physical Exam General Appearance: WD/WN, non-toxic Cardiac/Chest: regular rate, rhythm Extremities: other (Heel decubitus stable appearing) Skin: normal color, warm/dry ICD10 Worksheet Patient Problems: Problems Problem Status Onset Decubitus skin ulcer Acute Severe sepsis Acute Atrial fibrillation Acute CHF (congestive heart failure) Acute Carbapenem-resistant bacterial infection Acute ~03/26/17 Cellulitis and abscess of leg Acute Clostridium difficile infection Acute ~03/19/17 ESBL (extended spectrum beta-lactamase) producing bacteria infection Acute ~ Palliative care encounter Acute Peripheral edema Acute Peripheral edema Acute Sacral decubitus ulcer, stage III Acute Schizophrenia Acute VRE (vancomycin-resistant Enterococci) Acute ~03/26/17
--- NOTE | 2017-07-26 13:17 | HOSPPROG ---
Hospitalist Progress Note Assessment/Plan: Chronic sacral wound with abscess s/p I&D - Group A strep on wound Cx. Discussed with ID. -cont atbx per ID -wound vac exchange friday Sepsis secondary to cellulitis LLE - Improving on dapto (h/o VRE). -cont dapto Multiple LE wounds - left heel ulcer most concerning, ?arterial disease. -surgery following -KENA's done yesterday for vascular status CKD - h/o nephrotic syndrome, persistent pyuria likely colonization Chronic A fib - currently rate controlled on Dilt and BB. Schizophrenia - controlled on current regimen H/O DVT DVT PPLX - high risk, Lovenox Full code Dispo - cont inpt Subjective: Pt feels okay. Denies pain. Notes his colostomy bag is full. No fevers, chills, CP or SOB. Appetite good. Objective: Vital Signs Temp Pulse Resp BP Pulse Ox 36.4 C 88 15 106/63 90 L 07/26/17 08:00 07/26/17 08:00 07/26/17 08:00 07/26/17 08:00 07/26/17 08:00 Microbiology 07/24/17 14:50 Gram Stain - Final Back - Eswab Laboratory Results 07/26/17 04:03 07/26/17 04:03 07/25/17 07/26/17 07/27/17 05:59 05:59 05:59 Intake Total 2540 2530 Output Total 1855 1600 Balance 685 930 PT 17.3 SEC (12.0-15.0) H 07/23/17 15:00 INR 1.40 (0.83-1.16) H 07/23/17 15:00 - Physical Exam Constitutional: no apparent distress Eyes: PERRL Ears, Nose, Mouth, Throat: moist mucous membranes Cardiovascular: regular rate and rhythym Respiratory: no respiratory distress, clear to auscultation Gastrointestinal: normoactive bowel sounds, soft, non-tender abdomen Skin: other (LLE discoloration improved, no palpable pulses, but extremities warm, heel ulceration with necrosis) Musculoskeletal: generalized weakness Neurologic: AAOx3 Psychiatric: interacting appropriately ICD10 Worksheet Patient Problems: Problems Problem Status Onset Decubitus skin ulcer Acute Severe sepsis Acute Atrial fibrillation Acute CHF (congestive heart failure) Acute Carbapenem-resistant bacterial infection Acute ~03/26/17 Cellulitis and abscess of leg Acute Clostridium difficile infection Acute ~03/19/17 ESBL (extended spectrum beta-lactamase) producing bacteria infection Acute ~ Palliative care encounter Acute Peripheral edema Acute Peripheral edema Acute Sacral decubitus ulcer, stage III Acute Schizophrenia Acute VRE (vancomycin-resistant Enterococci) Acute ~03/26/17
[2017-07-26] MEDS: SENNOSIDES 1 TAB PO SCH (21:55)
[2017-07-27] MEDS: ENOXAPARIN 40 MG/0.4 ML SYR SC SCH (08:57)
[2017-07-27] MEDS: DAPTOmycin 540 MG in NS 100 ML IV SCH (09:02)
[2017-07-27] MEDS: risperiDONE 2 MG TAB PO SCH ×2 (09:07→20:29)
[2017-07-27] MEDS: OXYBUTYNIN 5 MG EXT REL TAB PO SCH (09:07)
[2017-07-27] MEDS: morphINE SR 15 MG TAB PO SCH ×2 (09:07→20:30)
[2017-07-27] MEDS: PHENAZOPYRIDINE HCL 100 MG TAB PO SCH ×3 (09:07→20:30)
[2017-07-27] MEDS: FERROUS SULFATE 325 MG TAB PO SCH ×2 (09:10→20:30)
[2017-07-27] MEDS: DILTIAZEM CD 180 MG CAP PO SCH (09:10)
[2017-07-27] MEDS: METOPROLOL SUCCINATE XR 25 MG TAB PO SCH ×2 (09:11→20:29)
--- NOTE | 2017-07-27 10:20 | PCMIDPN ---
Assessment/Plan: Assessment: Infected sacral decubitus ulcer-status post debridement. No exposed bone. Improving on daptomycin. Changed over the wet-to-dry from VAC dressing due to inability keep a seal. Plan to continue this monotherapy and observe for wound healing. Plan: 1. Continue IV daptomycin. 2. Follow surgical plans for heel debridement. Subjective: Patient resting in his hospital bed. States that he feels sleepy and tired. Wants to "meditate and read today." No fevers or chills. No rash. No itching. Objective: Daptomycin #4 Vital Signs Temp Pulse Resp BP Pulse Ox 36.7 C 102 H 15 116/71 92 07/27/17 08:00 07/27/17 09:11 07/27/17 08:00 07/27/17 09:11 07/27/17 08:00 Microbiology 07/24/17 14:50 Gram Stain - Final Back - Eswab Laboratory Results 07/27/17 03:34 07/26/17 04:03 07/26/17 07/27/17 07/28/17 05:59 05:59 05:59 Intake Total 2530 1000 Output Total 1600 1850 Balance 930 -850 - Physical Exam General Appearance: WD/WN, alert, no apparent distress, non-toxic Respiratory: lungs clear, normal breath sounds, No respiratory distress Cardiac/Chest: regular rate, rhythm, No tachycardia Skin: normal color, warm/dry, No rash Neuro/Psych: alert, normal mood/affect, oriented x 3 ICD10 Worksheet Patient Problems: Problems Problem Status Onset Decubitus skin ulcer Acute Severe sepsis Acute Atrial fibrillation Acute CHF (congestive heart failure) Acute Carbapenem-resistant bacterial infection Acute ~03/26/17 Cellulitis and abscess of leg Acute Clostridium difficile infection Acute ~03/19/17 ESBL (extended spectrum beta-lactamase) producing bacteria infection Acute ~ Palliative care encounter Acute Peripheral edema Acute Peripheral edema Acute Sacral decubitus ulcer, stage III Acute Schizophrenia Acute VRE (vancomycin-resistant Enterococci) Acute ~03/26/17
--- NOTE | 2017-07-27 11:26 | HOSPPROG ---
Hospitalist Progress Note Assessment/Plan: Chronic sacral wound with abscess s/p I&D - Group A strep on wound Cx. Discussed with ID. -cont atbx per ID -wound vac off, was leaking per RN, now with wet to dry -wound RN to see today, needs wound vac replaced Sepsis secondary to cellulitis LLE - Improving on dapto (h/o VRE). -cont dapto Multiple LE wounds - left heel ulcer most concerning, ?arterial disease. -surgery following -KENA's ordered by surgery for vascular status, will discuss with surg CKD - h/o nephrotic syndrome, persistent pyuria likely colonization Chronic A fib - currently rate controlled on Dilt and BB. Schizophrenia - controlled on current regimen H/O DVT DVT PPLX - high risk, Lovenox Full code Dispo - cont inpt. Difficult situation with poor pt compliance and recurrent wounds as he is mostly bed bound. Hospice is not an unreasonable consideration. Subjective: Pt has his head buried under the covers and shouts "leave me alone, I want to sleep". Won't interact today. Objective: Vital Signs Temp Pulse Resp BP Pulse Ox 36.7 C 102 H 15 116/71 92 07/27/17 08:00 07/27/17 09:11 07/27/17 08:00 07/27/17 09:11 07/27/17 08:00 Microbiology 07/24/17 14:50 Gram Stain - Final Back - Eswab Laboratory Results 07/27/17 03:34 07/26/17 04:03 07/26/17 07/27/17 07/28/17 05:59 05:59 05:59 Intake Total 2530 1000 Output Total 1600 1850 Balance 930 -850 PT 17.3 SEC (12.0-15.0) H 07/23/17 15:00 INR 1.40 (0.83-1.16) H 07/23/17 15:00 - Physical Exam Constitutional: no apparent distress Skin: other (decreased erythema and edema of LLE with persistent necrotic heel ulcer) Neurologic: AAOx3 ICD10 Worksheet Patient Problems: Problems Problem Status Onset Decubitus skin ulcer Acute Severe sepsis Acute Atrial fibrillation Acute CHF (congestive heart failure) Acute Carbapenem-resistant bacterial infection Acute ~03/26/17 Cellulitis and abscess of leg Acute Clostridium difficile infection Acute ~03/19/17 ESBL (extended spectrum beta-lactamase) producing bacteria infection Acute ~ Palliative care encounter Acute Peripheral edema Acute Peripheral edema Acute Sacral decubitus ulcer, stage III Acute Schizophrenia Acute VRE (vancomycin-resistant Enterococci) Acute ~03/26/17
--- NOTE | 2017-07-27 15:03 | ASMTCMCOM ---
CM Note CM Note Notes: Chart reviewed. Wound care following. They report they feel wounds due to care and patient is not cognizant to refuse interventions to promote wound healing. DC plan of care unclear. Needs SNF. CM to follow. Date Signed: 07/27/2017 03:02 PM Electronically Signed By:Saima Arriaga RN
--- NOTE | 2017-07-27 20:11 | SOAPPROG ---
SOAP Progress Note Assessment/Plan: Assessment: SEEN LAST PM, 61 MALE SCHIZOPHRENIC WITH INFECTED TUNNELLING SACRAL DECUB/ ALSO CELLULITIS LLE WITH BILAT CALCANEAL PRESSURE SORES ADMITTED WITH SEPSIS LEGS HEADED FOR AMPUTATION SINCE PT DOESNT AMBULATE Plan:I&D AND DEBRIDEMENT PERIRECTAL AREA/ ART STUDIES 07/24/17 09:34 07/27/17 20:10 AFEBRILE, ALERT, COMFORTABLE, WOUND VAC OFF BECAUSE OF VAC LEAKS/ CONTINUE VAC TREATMENT TOMORROW Objective: Vital Signs Temp Pulse Resp BP Pulse Ox 36.7 C 107 H 20 96/50 L 93 07/27/17 15:57 07/27/17 15:57 07/27/17 15:57 07/27/17 15:57 07/27/17 15:57 Microbiology 07/24/17 14:50 Gram Stain - Final Back - Eswab Laboratory Results 07/27/17 03:34 07/26/17 04:03 07/26/17 07/27/17 07/28/17 05:59 05:59 05:59 Intake Total 2530 1000 550 Output Total 1600 1850 700 Balance 930 -850 -150 PT 17.3 SEC (12.0-15.0) H 07/23/17 15:00 INR 1.40 (0.83-1.16) H 07/23/17 15:00 ICD10 Worksheet Patient Problems: Problems Problem Status Onset Decubitus skin ulcer Acute Severe sepsis Acute Atrial fibrillation Acute CHF (congestive heart failure) Acute Carbapenem-resistant bacterial infection Acute ~03/26/17 Cellulitis and abscess of leg Acute Clostridium difficile infection Acute ~03/19/17 ESBL (extended spectrum beta-lactamase) producing bacteria infection Acute ~ Palliative care encounter Acute Peripheral edema Acute Peripheral edema Acute Sacral decubitus ulcer, stage III Acute Schizophrenia Acute VRE (vancomycin-resistant Enterococci) Acute ~03/26/17
[2017-07-27] MEDS: SENNOSIDES 1 TAB PO SCH (20:31)
[2017-07-28] MEDS: oxyCODONE IR 5 MG TAB PO PRN ×3 (00:08→16:37)
[2017-07-28] MEDS ORDERED: NS 500 ML IV ONE ×2 (09:19)
--- NOTE | 2017-07-28 09:20 | HOSPPROG ---
Hospitalist Progress Note Assessment/Plan: Chronic sacral wound with abscess s/p I&D - Group A strep on wound Cx. Discussed with ID. -cont atbx per ID -wound vac to be replaced today Sepsis secondary to cellulitis LLE - Improving on dapto (h/o VRE). -cont dapto Multiple LE wounds - left heel ulcer most concerning, ?arterial disease. -surgery following -KENA's ordered by surgery for vascular status, per Dr. Natarajan' note, may wind up with amputations CKD - h/o nephrotic syndrome, persistent pyuria likely colonization Chronic A fib - poor rate control -increase dilt CD -cont BB -chads-vasc 1 for htn, start ASA Schizophrenia - controlled on current regimen H/O DVT DVT PPLX - high risk, Lovenox Full code Dispo - cont inpt. Difficult situation with poor pt compliance and recurrent wounds as he is mostly bed bound. Hospice is not an unreasonable consideration. Subjective: Pt up at side of bed, HR rapid (hasn't received am meds). Denies CP or SOB. c/o stomach ache. No fevers/chills. Objective: Vital Signs Temp Pulse Resp BP Pulse Ox 36.9 C 119 H 16 116/90 H 92 07/28/17 08:25 07/28/17 08:25 07/28/17 08:25 07/28/17 08:25 07/28/17 08:25 Microbiology 07/24/17 14:50 Gram Stain - Final Back - Eswab Laboratory Results 07/27/17 03:34 07/26/17 04:03 07/27/17 07/28/17 07/29/17 05:59 05:59 05:59 Intake Total 1000 550 Output Total 1850 1300 Balance -850 -750 PT 17.3 SEC (12.0-15.0) H 07/23/17 15:00 INR 1.40 (0.83-1.16) H 07/23/17 15:00 - Physical Exam Constitutional: no apparent distress Eyes: PERRL Ears, Nose, Mouth, Throat: moist mucous membranes Cardiovascular: regular rate and rhythym Respiratory: no respiratory distress, clear to auscultation Gastrointestinal: normoactive bowel sounds, soft, non-tender abdomen Skin: other (b/l LE's with multiple wounds, left calcaneal ulcer with necrotic changes and b/l discoloration) Musculoskeletal: generalized weakness Neurologic: AAOx3 Psychiatric: interacting appropriately ICD10 Worksheet Patient Problems: Problems Problem Status Onset Decubitus skin ulcer Acute Severe sepsis Acute Atrial fibrillation Acute CHF (congestive heart failure) Acute Carbapenem-resistant bacterial infection Acute ~03/26/17 Cellulitis and abscess of leg Acute Clostridium difficile infection Acute ~03/19/17 ESBL (extended spectrum beta-lactamase) producing bacteria infection Acute ~ Palliative care encounter Acute Peripheral edema Acute Peripheral edema Acute Sacral decubitus ulcer, stage III Acute Schizophrenia Acute VRE (vancomycin-resistant Enterococci) Acute ~03/26/17
[2017-07-28] MEDS ORDERED: DILTIAZEM CD 300 MG CAP PO SCH (09:30)
[2017-07-28] MEDS: morphINE SR 15 MG TAB PO SCH ×2 (10:13→21:04)
[2017-07-28] MEDS: PHENAZOPYRIDINE HCL 100 MG TAB PO SCH ×3 (10:13→21:04)
[2017-07-28] MEDS: METOPROLOL SUCCINATE XR 25 MG TAB PO SCH ×2 (10:13→21:04)
[2017-07-28] MEDS: OXYBUTYNIN 5 MG EXT REL TAB PO SCH (10:14)
[2017-07-28] MEDS: ENOXAPARIN 40 MG/0.4 ML SYR SC SCH (10:14)
[2017-07-28] MEDS: FERROUS SULFATE 325 MG TAB PO SCH ×2 (10:14→21:05)
[2017-07-28] MEDS: risperiDONE 2 MG TAB PO SCH ×2 (10:14→21:05)
[2017-07-28] MEDS: DAPTOmycin 540 MG in NS 100 ML IV SCH (10:15)
[2017-07-28] MEDS: ASPIRIN EC 81 MG TAB PO SCH (10:18)
[2017-07-28] MEDS: DILTIAZEM CD 180 MG CAP PO SCH (10:37)
--- NOTE | 2017-07-28 11:52 | WOCRNPDOC ---
WOCRN Advanced Assessment Note - Skin Integrity Problem, Advanced Assess Sacrum Pressure Injury Dressing Type: ABD Pad, Elen Dressing Description: Clean/Dry, Intact Exudate Amount: Minimal Exudate Characteristic(s): Serosanguinous Integumentary Issue Intervention: Dressing Changed Aria Wound Tissue: Erythema, Macerated, Weeping Wound Bed Constitution: Smooth Tissue, Tunneling (12 oclock 14 cm ) Site Measurement - Head-to-Toe Length X Width X Depth (cm): 2.9x2.1x6 wound measures 5.6 cm from 2 to 7 oclock. Pressure Injury Stage: Stage 4 Pressure Injury Present on Admit: Yes Skin Integrity Problem Comment: Large tunnel runs at 12 oclock from the wound mouth, toward patient's head. The tunnel is approximatly 3-4 cm in diameter. There is a large cavity past the tunnel approximatly the size of an orange or perhaps a little larger. The ends of the cavity cannot be felt as it is too large and the tunnel up to it is too small to go any further. The fascia over the sacrum can be felt in the cavity. The wound is basically a lollipop shape from the wound opening up to the cavity. The wound was packed with one piece of medium simplace black foam with the trac landing pad placed into the top of the lollipop (into the cavity) and then the rest of the simplace foam was fed into the cavity behind the landing pad and out to the mouth of the wound. A bridge was built to the patients left hip, although next time it would be much easier to position the patient on his left side and build a bride to the right. The skin and tissue going toward the left him has many creases and folds and it is difficult to obtain a good seal. Vac was restarted at -125 mm Hg continuous suction. After a few min of troubleshooting it was working well without leaks. Jalil GLEZ assisted with care. Patient tolerated proceedure well without pain medications. Reason for vac placement explained to patient as well as the extent of his wound, however patient doesnt seem to really understand his situation and the gravity of his wound. Report given to Keila PRUETT. Next change 07/30.
[2017-07-28] MEDS: SENNOSIDES 1 TAB PO SCH (21:05)
--- NOTE | 2017-07-28 22:51 | GOP ---
[f rep st] OPERATIVE REPORT DATE OF OPERATION: 07/24/2017 SURGEON: Esa Natarajan MD PERSONAL INJURY SPECIALIST: There was no rn first assistant. ANESTHESIOLOGIST: Dr. Chamberlain. PREOPERATIVE DIAGNOSIS: Perirectal abscess. POSTOPERATIVE DIAGNOSIS: Infected sacral decubitus. PROCEDURE PERFORMED: Incision and drainage and debridement of infected right-sided sacral decubitus. FINDINGS: Patient was found to have an open draining abscess cavity just to the right of the sacrum, which was associated with a previous sacral decubitus but not associated with the rectum. ESTIMATED BLOOD LOSS: Negligible. DESCRIPTION OF PROCEDURE: Patient taken to the operating room, received satisfactory general endotra cheal anesthesia by Dr. Chamberlain, placed in the prone oscar-knife position, prepped and draped in usual sterile fashion. A fluctuant draining area was identified. This was opened up for approximately 2 i nches and the contents were suctioned out and irrigated free. The cavity was then debrided of all ne crotic tissue. Bone was not exposed. The wound was irrigated. Hemostasis was assured. It was infi ltrated with 0.5% Marcaine and then a wound VAC dressing was fashioned for the defect and put it in p lace. He tolerated the procedure well. COMPLICATIONS: None. Taken recovery room in good condition. /[id number]/MODL
[2017-07-29] MEDS: PHENAZOPYRIDINE HCL 100 MG TAB PO SCH ×3 (10:15→21:10)
[2017-07-29] MEDS: DAPTOmycin 540 MG in NS 100 ML IV SCH (10:15)
[2017-07-29] MEDS: METOPROLOL SUCCINATE XR 25 MG TAB PO SCH ×2 (10:16→21:10)
[2017-07-29] MEDS: risperiDONE 2 MG TAB PO SCH ×2 (10:16→21:10)
[2017-07-29] MEDS: ASPIRIN EC 81 MG TAB PO SCH (10:16)
[2017-07-29] MEDS: OXYBUTYNIN 5 MG EXT REL TAB PO SCH (10:16)
[2017-07-29] MEDS: morphINE SR 15 MG TAB PO SCH ×2 (10:16→21:11)
[2017-07-29] MEDS: DILTIAZEM XR 240 MG CAP PO SCH (10:16)
[2017-07-29] MEDS: FERROUS SULFATE 325 MG TAB PO SCH ×2 (10:17→21:09)
[2017-07-29] MEDS: ENOXAPARIN 40 MG/0.4 ML SYR SC SCH (10:20)
--- NOTE | 2017-07-29 12:03 | HOSPPROG ---
Hospitalist Progress Note Assessment/Plan: 61 yo male with schizophrenia who resides at [facility] returns to hospital with severe pressure injury and non-compliance. Chronic sacral wound with abscess s/p I&D - Group A strep on wound Cx. Discussed with ID. -cont atbx per ID -wound vac replaced yesterday Sepsis secondary to cellulitis LLE - Improving on dapto (h/o VRE). -cont dapto Multiple LE wounds - left heel ulcer most concerning, ?arterial disease. -surgery following -KENA's ordered by surgery for vascular status, but pt has refused twice -he may require amputation per surgery notes CKD - h/o nephrotic syndrome, persistent pyuria likely colonization Chronic A fib - rate control improved -increased dilt yesterday to 240 daily -cont BB -chads-vasc 1 for htn, started ASA Schizophrenia - controlled on current regimen H/O DVT DVT PPLX - high risk, Lovenox Full code Dispo - cont inpt. Difficult situation with poor pt compliance and recurrent wounds as he is mostly bed bound. Palliative care and ethics consult requested to address alf care goals and decisional capacity. Subjective: Pt up at bedside. Denies pain. Says he is meditating. He has refused arterial studies. No fevers. Objective: Vital Signs Temp Pulse Resp BP Pulse Ox 36.9 C 91 18 114/73 90 L 07/29/17 09:34 07/29/17 10:16 07/29/17 09:34 07/29/17 09:34 07/29/17 09:34 Microbiology 07/24/17 14:50 Gram Stain - Final Back - Eswab Laboratory Results 07/27/17 03:34 07/29/17 04:22 07/28/17 07/29/17 07/30/17 05:59 05:59 05:59 Intake Total 550 500 110 Output Total 1300 850 Balance -750 -350 110 PT 17.3 SEC (12.0-15.0) H 07/23/17 15:00 INR 1.40 (0.83-1.16) H 07/23/17 15:00 - Physical Exam Constitutional: no apparent distress Eyes: PERRL Ears, Nose, Mouth, Throat: moist mucous membranes Cardiovascular: regular rate and rhythym Respiratory: no respiratory distress Gastrointestinal: normoactive bowel sounds Skin: warm, other (b/l LE's with brawny edema and multiple LE wounds, left calcaneal ulcer with necrosis) Musculoskeletal: generalized weakness Neurologic: AAOx3 Psychiatric: poor insight, poor judgement ICD10 Worksheet Patient Problems: Problems Problem Status Onset Decubitus skin ulcer Acute Severe sepsis Acute Atrial fibrillation Acute CHF (congestive heart failure) Acute Carbapenem-resistant bacterial infection Acute ~03/26/17 Cellulitis and abscess of leg Acute Clostridium difficile infection Acute ~03/19/17 ESBL (extended spectrum beta-lactamase) producing bacteria infection Acute ~ Palliative care encounter Acute Peripheral edema Acute Peripheral edema Acute Sacral decubitus ulcer, stage III Acute Schizophrenia Acute VRE (vancomycin-resistant Enterococci) Acute ~03/26/17
--- NOTE | 2017-07-29 14:48 | ASMTCMCOM ---
CM Note CM Note Notes: 07/29/2017 Case Management Note Discussed case with ethics technical sales representative Mary Ochoa [phone]. Mary to assess pt at 0900 on Friday07/30/2017. After consulting with Breann from Palliative, case management would like to suggest a team meeting for with wound care, Palliative, ethics, and hospitalist. Case Management will arrange meeting after consulting with various team members tomorrow. Case Management to follow. Date Signed: 07/29/2017 02:48 PM Electronically Signed By:Ana Castelan RN
--- NOTE | 2017-07-29 15:42 | PCMIDPN ---
Assessment/Plan: # Sepsis: Resolved #LLE cellulitis - Resolved erythema. Suspect underlying vascular insufficiency associated with heal ulcers but patient refusing vascular studies #h/p Stage 4 pressure ulcer sacrum with recurrent tissue damage and "wound abscess" s/p debridement 07/23 w cx showing GAS --dc daptomycin --start ceftriaxone based on cultures, selecting 2 gm dose due to lack of understanding of depth of infection at this point. --likely only needs short course, will try to examine wound with next VAC change. #H/o MDR: VRE, ESBL E coli, MDR PsA --contact isolation # ARF: resolved # Polymicrobial Ucx : suspect colonization, David changed. No directed therapy needed meds daptomycin 540mg IV daily #6 s/p levofloxacin 750mg IV x 1 micro 07/23 blood cx (2) NGTD 07/23 ucx enterococcus, proteus, PsA x2 07/24 wound cx : GAS Subjective: patient just wants to have "some regular days" intermittent abdominal discomfort Objective: Vital Signs Temp Pulse Resp BP Pulse Ox 36.9 C 80 18 81/63 L 92 07/29/17 12:00 07/29/17 12:00 07/29/17 12:00 07/29/17 12:00 07/29/17 12:00 Microbiology 07/24/17 14:50 Gram Stain - Final Back - Eswab Laboratory Results 07/27/17 03:34 07/29/17 04:22 07/28/17 07/29/17 07/30/17 05:59 05:59 05:59 Intake Total 550 500 110 Output Total 1300 850 Balance -750 -350 110 - Physical Exam General Appearance: alert EENT: poor dentition, No thrush Respiratory: other (decreased bs bases), No accessory muscle use Neck: supple Cardiac/Chest: regular rate, rhythm Extremities: pedal edema (increase since admit), other (no erythema remains LLE , multiple areas of skin breakdown) Abdomen: non-tender, soft, other (LLQ ostomy) Male Genitalia: david Skin: pallor, No rash Neuro/Psych: alert, depressed affect ICD10 Worksheet Patient Problems: Problems Problem Status Onset Decubitus skin ulcer Acute Severe sepsis Acute Atrial fibrillation Acute CHF (congestive heart failure) Acute Carbapenem-resistant bacterial infection Acute ~03/26/17 Cellulitis and abscess of leg Acute Clostridium difficile infection Acute ~03/19/17 ESBL (extended spectrum beta-lactamase) producing bacteria infection Acute ~ Palliative care encounter Acute Peripheral edema Acute Peripheral edema Acute Sacral decubitus ulcer, stage III Acute Schizophrenia Acute VRE (vancomycin-resistant Enterococci) Acute ~03/26/17
[2017-07-29] MEDS: oxyCODONE IR 5 MG TAB PO PRN (16:02)
[2017-07-29] MEDS: SENNOSIDES 1 TAB PO SCH (21:11)
[2017-07-30] MEDS: ENOXAPARIN 40 MG/0.4 ML SYR SC SCH (09:24)
[2017-07-30] MEDS: cefTRIAXone 2 GM in D5W 50 ML IV SCH (09:24)
[2017-07-30] MEDS: DILTIAZEM XR 240 MG CAP PO SCH (09:25)
[2017-07-30] MEDS: ASPIRIN EC 81 MG TAB PO SCH (09:25)
[2017-07-30] MEDS: risperiDONE 2 MG TAB PO SCH ×2 (09:25→21:07)
[2017-07-30] MEDS: OXYBUTYNIN 5 MG EXT REL TAB PO SCH (09:25)
[2017-07-30] MEDS: PHENAZOPYRIDINE HCL 100 MG TAB PO SCH ×3 (09:25→21:07)
[2017-07-30] MEDS: METOPROLOL SUCCINATE XR 25 MG TAB PO SCH ×2 (09:25→21:08)
[2017-07-30] MEDS: FERROUS SULFATE 325 MG TAB PO SCH ×2 (09:25→21:08)
[2017-07-30] MEDS: morphINE SR 15 MG TAB PO SCH ×2 (09:25→21:08)
--- NOTE | 2017-07-30 11:03 | ASMTCMCOM ---
CM Note CM Note Notes: 07/30/2017 Case Management Note Ethics to consult today. Team meeting arranged for 9:30 am tomorrow, , on 2W with Palliative, Wound Care, Case Management and Ethics. Will try to arrange for hospitalist to attend as well. Case Management to follow. Date Signed: 07/30/2017 11:02 AM Electronically Signed By:Ana Castelan RN
--- NOTE | 2017-07-30 11:04 | WOCRNPDOC ---
WOCRN Advanced Assessment Note - Skin Integrity Problem, Advanced Assess Sacrum Pressure Injury Dressing Type: Black Vac Foam (x2 including bridge), Wound Vac Dressing Description: Clean/Dry, Intact Exudate Amount: Minimal Exudate Characteristic(s): Serosanguinous Integumentary Issue Intervention: Dressing Changed Aria Wound Tissue: Erythema, Macerated, Denuded Aria Wound Swelling: None Site Odor: Moderate, Musky Pressure Injury Stage: Stage 4 Pressure Injury Present on Admit: Yes Skin Integrity Problem Comment: Removed foam and flushed with ns. Layed patient both on right and left side and did not feel any further dressing in wound bed. Aria wound skin was prepped with hydrocolloid and mastisol. Two large denuded areas that are full thickness are present on either side of the mouth of the wound. The bridge was extended over to patient's right upper thigh with one piece of medium black simplace foam. One other piece of foam was placed into wound cavity with the trac landing pad portion inserted first. Vac suction was restarted at -125 mm Hg continuous without leaks. Erika GLEZ and Sally VICE PRESIDENT EDUCATION in room for care. Keila PRUETT visualized wound as well.
--- NOTE | 2017-07-30 11:45 | SOAPPROG ---
SOAP Progress Note Assessment/Plan: Assessment/Plan: 61 Y M schizophrenia, afib, sacral decubitus and B calcaneal pressure ulcers. s/p OR debridement. Wound vac replaced bedside today by wound care. I personally examined wounds which are clean. Continue vac management. Refusing arterial studies--readdressed this again today. Discussed this again today. Could consider CTA but would defer this to after palliative care conference as this would not be helpful unless patient wishes for the most aggressive care, which could include revascularization surgery. Continue to offload pressure form heels. Could consider contracture boots but uncertain patient would be compliant with this. S: no complaints today. O: alert, nad wound clean. granulating. no odor. +severe undermining. heels painted c betadine, dry eschar 07/30/17 12:07 Objective: Vital Signs Temp Pulse Resp BP Pulse Ox 36.4 C 108 H 19 117/81 H 90 L 07/30/17 08:00 07/30/17 08:00 07/30/17 08:00 07/30/17 08:00 07/30/17 08:00 Microbiology 07/24/17 14:50 Gram Stain - Final Back - Eswab Laboratory Results 07/27/17 03:34 07/29/17 04:22 07/29/17 07/30/17 07/31/17 05:59 05:59 05:59 Intake Total 500 710 Output Total 850 1550 700 Balance -350 -840 -700 PT 17.3 SEC (12.0-15.0) H 07/23/17 15:00 INR 1.40 (0.83-1.16) H 07/23/17 15:00 ICD10 Worksheet Patient Problems: Problems Problem Status Onset Decubitus skin ulcer Acute Severe sepsis Acute Atrial fibrillation Acute CHF (congestive heart failure) Acute Carbapenem-resistant bacterial infection Acute ~03/26/17 Cellulitis and abscess of leg Acute Clostridium difficile infection Acute ~03/19/17 ESBL (extended spectrum beta-lactamase) producing bacteria infection Acute ~ Palliative care encounter Acute Peripheral edema Acute Peripheral edema Acute Sacral decubitus ulcer, stage III Acute Schizophrenia Acute VRE (vancomycin-resistant Enterococci) Acute ~03/26/17
--- NOTE | 2017-07-30 11:53 | HOSPPROG ---
Hospitalist Progress Note Assessment/Plan: New patient encounter during this hospitalization 61 yo male with schizophrenia who resides at [facility] returns to hospital with severe pressure injury and non-compliance. The patient is well known to me as I recently took care of him over several months at [facility]. At that time his MDPOA was his foster brother "Toney Wilcox". Per pt report, the patient found out that Toney is a felon and the pt decided that Toney would no longer act as his MDPOA. According to Mr. Wilcox, he has not yet designated another MDPOA but is considering assigning this to his foster sister Lindsey Wilcox. From a psych perspective, he is conversational and at baseline. While he can carry a conversation, he cannot make complex medical decisions. Chronic sacral wound with abscess s/p I&D - Group A strep on wound Cx. Discussed with ID. -cont Rocephin per ID -wound vac replaced yesterday Sepsis secondary to cellulitis LLE - Improving on dapto (h/o VRE). -cont dapto Multiple LE wounds - left heel ulcer most concerning, ?arterial disease. -surgery following -KENA's ordered by surgery for vascular status, but pt has refused twice -he may require amputation per surgery notes CKD - h/o nephrotic syndrome, persistent pyuria likely colonization Chronic A fib - rate control improved -increased dilt 07/30 to 240 daily -cont BB -chads-vasc 1 for htn, started ASA -He has a long hx of going intermittently into Afib Schizophrenia - controlled on current regimen H/O DVT DVT PPLX - high risk, Lovenox Full code Dispo - cont inpt. Difficult situation with poor pt compliance and recurrent wounds as he is mostly bed bound. 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 Subjective: feels good. Denies CP or SOB. No N/V. Denies pain Objective: Vital Signs Temp Pulse Resp BP Pulse Ox 36.4 C 108 H 19 117/81 H 90 L 07/30/17 08:00 07/30/17 08:00 07/30/17 08:00 07/30/17 08:00 07/30/17 08:00 Microbiology 07/24/17 14:50 Gram Stain - Final Back - Eswab Laboratory Results 07/27/17 03:34 07/29/17 04:22 07/29/17 07/30/17 07/31/17 05:59 05:59 05:59 Intake Total 500 710 Output Total 850 1550 700 Balance -350 -840 -700 PT 17.3 SEC (12.0-15.0) H 07/23/17 15:00 INR 1.40 (0.83-1.16) H 07/23/17 15:00 - Physical Exam Constitutional: no apparent distress Eyes: PERRL Ears, Nose, Mouth, Throat: moist mucous membranes, hearing normal Cardiovascular: irregularly irregular Respiratory: no respiratory distress, no rales or rhonchi, clear to auscultation Gastrointestinal: normoactive bowel sounds, soft, non-tender abdomen Skin: warm, normal color Psychiatric: interacting appropriately, not anxious Lymph, Heme, Immunologic: No petechiae ICD10 Worksheet Patient Problems: Problems Problem Status Onset Decubitus skin ulcer Acute Severe sepsis Acute Atrial fibrillation Acute CHF (congestive heart failure) Acute Carbapenem-resistant bacterial infection Acute ~03/26/17 Cellulitis and abscess of leg Acute Clostridium difficile infection Acute ~03/19/17 ESBL (extended spectrum beta-lactamase) producing bacteria infection Acute ~ Palliative care encounter Acute Peripheral edema Acute Peripheral edema Acute Sacral decubitus ulcer, stage III Acute Schizophrenia Acute VRE (vancomycin-resistant Enterococci) Acute ~03/26/17
--- NOTE | 2017-07-30 13:37 | PDPCPN ---
Palliative Care Progress Note Assessment/Plan: Referring provider: Dr Spencer Reason for consult: Complex medical decision making Symptom control HPI: Ralf Wilcox (Lenny) is a 61 yo with PMH Schizophrenia, a fib, CKD, HTN, DVT, and previous sacral ulcers admitted to the hospital from for worsening of his sacral ulcers. He was hospitalized 03/2017 for sacral ulcers, sent to [facility] and per reports the ulcers healed completely and was sent to where he is a long time resident. On admission s/p ID of sacral abscess with wound vac. Also with sepsis from LLE cellulitis ? arterial insuff. Patient has been refusing further work up or studies. He has a hx of being non compliant with care as well which has complicated his medical healing. Palliative care consulted for complex medical decision making. Spoke with Marco Antonio who believes the hospital staff is lying to him about how severe his wounds are. He believes he is healing very well and getting better therefore does not see the need for further studies or procedures. Also spoke with his health care social worker Jose from who states Marco Antonio appears to be at his baseline and his statements and reactions are consistent with his history and past conversations. Jose shared that his brother Toney was assigned as proxy when Dr Cyrus Houston (psychiatry) determined Marco Antonio to be non decisional. Also spoke with Toney over the phone who states he would like to procedure with further studies to determine if further procedures are needed. He understands Marco Antonio's reluctance for tests but states "he will agree eventually" and that we should "complete the tests with his permission even if it means having to knock him out". Toney feels they would have further discussions regarding surgery or other procedures as the decisions come up. He understands Marco Antonio may or may not choose surgery which could result in his if he does not want to proceed with the medical interventions. Toney would be fine with whatever Marco Antonio eventually chooses but feels for now we should continue with aggressive medical interventions. Assessment: Physical: - Pain: occasional pain - tylenol PRN - on MScontin 15 mg BID - oxy IR PRN - weakness - PT/OT as able - nursing support Emotional/psychological: Hx of schizophrenia - on scheduled risperidone Advanced Care Planning: Is patient decisional?: No Code Status: FULL MD POA: His brother Toney is assigned proxy Plan: Toney would like to proceed with studies regarding arterial supply. They would like to continue with aggressive medical interventions in hopes of improvement. Toney would like to continue discussions regarding if amputation vs surgery as needed. Subjective: I'm tired today Objective: Social History: Has a foster brother Toney and 2 foster sisters Lindsey and Lubna. Lives at [facility] for the past 30 years. Originally from [place] and moved up here to attend college. Enjoys reading about [employer] Medication list reviewed ROS: General: fatigue, weakness ENT: negative Resp: negative GI: negative : negative MS: some leg pain at times Skin: multiple areas of pressure ulcers Neuro: negative Psych: delusions Functional assessment: PPS: 50% Functional status: needs assistance with ADLs. Vital Signs Temp Pulse Resp BP Pulse Ox 36.7 C 79 18 109/64 92 07/30/17 12:00 07/30/17 12:00 07/30/17 12:00 07/30/17 12:00 07/30/17 12:00 Microbiology 07/24/17 14:50 Gram Stain - Final Back - Eswab Laboratory Results 07/27/17 03:34 07/29/17 04:22 07/29/17 07/30/17 07/31/17 05:59 05:59 05:59 Intake Total 500 710 Output Total 850 1550 700 Balance -350 -840 -700 PT 17.3 SEC (12.0-15.0) H 07/23/17 15:00 INR 1.40 (0.83-1.16) H 07/23/17 15:00 Physical Exam - Physical Exam General Appearance: alert, no apparent distress Respiratory: No respiratory distress, No accessory muscle use Skin: normal color, warm/dry Extremities: pedal edema Neuro/Psych: alert, oriented x 3, other (with delusions) ICD10 Worksheet Patient Problems: Problems Problem Status Onset Decubitus skin ulcer Acute Severe sepsis Acute Atrial fibrillation Acute CHF (congestive heart failure) Acute Carbapenem-resistant bacterial infection Acute ~03/26/17 Cellulitis and abscess of leg Acute Clostridium difficile infection Acute ~03/19/17 ESBL (extended spectrum beta-lactamase) producing bacteria infection Acute ~ Palliative care encounter Acute Peripheral edema Acute Peripheral edema Acute Sacral decubitus ulcer, stage III Acute Schizophrenia Acute VRE (vancomycin-resistant Enterococci) Acute ~03/26/17
--- NOTE | 2017-07-30 18:49 | PCMIDPN ---
Assessment/Plan: Assessment/Plan: * Left lower extremity cellulitis: Clinically cellulitis is resolving with antibiotic therapy. Continue ceftriaxone and elevation as feasible as well as continued local care for venous insufficiency * Sacral decubitus ulcer: Wound culture showing growth of group a Streptococcus. Wound dressing changed today by wound care team. Findings reviewed with them and photos of wound from Friday were reviewed. Do not anticipate prolonged course of antibiotic therapy for decubitus ulcer. * History of multidrug resistant pathogens previously including VRE, ESBL E coli , and MDR Pseudomonas: Continue contact precautions. 07/30/17 18:46 Subjective: Patient feels significantly improved. Wound dressing changed earlier by wound care today; dressing change completed prior to my visit. Objective: Vital Signs Temp Pulse Resp BP Pulse Ox 36.6 C 103 H 14 122/87 H 90 L 07/30/17 16:00 07/30/17 16:00 07/30/17 16:00 07/30/17 16:00 07/30/17 16:00 Microbiology 07/24/17 14:50 Gram Stain - Final Back - Eswab Laboratory Results 07/27/17 03:34 07/29/17 04:22 07/29/17 07/30/17 07/31/17 05:59 05:59 05:59 Intake Total 500 710 750 Output Total 850 1550 700 Balance -350 -840 50 Ceftriaxone # 2, antibiotics # 7 Blood cultures x2 no growth Sacral decubitus with growth of group a Streptococcus - Physical Exam General Appearance: alert, no apparent distress EENT: No scleral icterus, No thrush Extremities: inflammation (Left lower extremity with peeling skin over foot and decreased erythema; mild warmth and tenderness) Abdomen: non-tender, No distended Skin: other (Eschar present over left heel ulceration) ICD10 Worksheet Patient Problems: Problems Problem Status Onset Decubitus skin ulcer Acute Severe sepsis Acute Atrial fibrillation Acute CHF (congestive heart failure) Acute Carbapenem-resistant bacterial infection Acute ~03/26/17 Cellulitis and abscess of leg Acute Clostridium difficile infection Acute ~03/19/17 ESBL (extended spectrum beta-lactamase) producing bacteria infection Acute ~ Palliative care encounter Acute Peripheral edema Acute Peripheral edema Acute Sacral decubitus ulcer, stage III Acute Schizophrenia Acute VRE (vancomycin-resistant Enterococci) Acute ~03/26/17
[2017-07-30] MEDS: SENNOSIDES 1 TAB PO SCH (21:07)
[2017-07-31] MEDS: FERROUS SULFATE 325 MG TAB PO SCH ×2 (09:16→21:01)
[2017-07-31] MEDS: OXYBUTYNIN 5 MG EXT REL TAB PO SCH (09:16)
[2017-07-31] MEDS: DILTIAZEM XR 240 MG CAP PO SCH (09:16)
[2017-07-31] MEDS: morphINE SR 15 MG TAB PO SCH ×2 (09:16→21:01)
[2017-07-31] MEDS: cefTRIAXone 2 GM in D5W 50 ML IV SCH (09:16)
[2017-07-31] MEDS: risperiDONE 2 MG TAB PO SCH ×2 (09:16→21:01)
[2017-07-31] MEDS: ASPIRIN EC 81 MG TAB PO SCH (09:16)
[2017-07-31] MEDS: METOPROLOL SUCCINATE XR 25 MG TAB PO SCH ×2 (09:16→21:00)
[2017-07-31] MEDS: ENOXAPARIN 40 MG/0.4 ML SYR SC SCH (09:16)
[2017-07-31] MEDS: PHENAZOPYRIDINE HCL 100 MG TAB PO SCH ×3 (09:16→21:00)
--- NOTE | 2017-07-31 10:59 | PCMIDPN ---
Assessment/Plan: Assessment: Infected sacral decubitus ulcer-status post debridement. No exposed bone. Improving now on ceftriaxone. Changed over the wet-to-dry from VAC dressing due to inability keep a seal. Plan to continue this monotherapy and observe for wound healing. Plan: 1. Continue IV ceftriaxone. 2. Observe for wound healing. 07/31/17 14:32 Subjective: Patient is sitting up in his hospital bed. He states he is feeling better. Some GI discomfort. No nausea. No fevers or chills. Objective: Ceftriaxone # 3 Vital Signs Temp Pulse Resp BP Pulse Ox 36.8 C 93 16 116/86 H 90 L 07/31/17 08:00 07/31/17 08:00 07/31/17 08:00 07/31/17 08:00 07/31/17 08:00 Microbiology 07/24/17 14:50 Gram Stain - Final Back - Eswab Laboratory Results 07/27/17 03:34 07/29/17 04:22 07/30/17 07/31/17 08/01/17 05:59 05:59 05:59 Intake Total 710 1050 Output Total 1550 2100 550 Balance -840 -1050 -550 - Physical Exam General Appearance: WD/WN, alert, no apparent distress, non-toxic Respiratory: lungs clear, normal breath sounds, No respiratory distress Cardiac/Chest: regular rate, rhythm, No tachycardia Extremities: non-tender, No normal inspection Skin: normal color, warm/dry, No rash Neuro/Psych: alert ICD10 Worksheet Patient Problems: Problems Problem Status Onset Decubitus skin ulcer Acute Severe sepsis Acute Atrial fibrillation Acute CHF (congestive heart failure) Acute Carbapenem-resistant bacterial infection Acute ~03/26/17 Cellulitis and abscess of leg Acute Clostridium difficile infection Acute ~03/19/17 ESBL (extended spectrum beta-lactamase) producing bacteria infection Acute ~ Palliative care encounter Acute Peripheral edema Acute Peripheral edema Acute Sacral decubitus ulcer, stage III Acute Schizophrenia Acute VRE (vancomycin-resistant Enterococci) Acute ~03/26/17
--- NOTE | 2017-07-31 11:12 | PDPCPN ---
Palliative Care Progress Note Assessment/Plan: HPI: Ralf Wilcox (Lenny) is a 61 yo with PMH Schizophrenia, a fib, CKD, HTN, DVT, and previous sacral ulcers admitted to the hospital from for worsening of his sacral ulcers. He was hospitalized 03/2017 for sacral ulcers, sent to LT[facility] and per reports the ulcers healed completely and was sent to where he is a long time resident. On admission s/p ID of sacral abscess with wound vac. Also with sepsis from LLE cellulitis ? arterial insuff. Patient has been refusing further work up or studies. He has a hx of being non compliant with care as well which has complicated his medical healing. Palliative care consulted for complex medical decision making. Met as part of the care conference with Dr Hernandez, Case management, wound care , and ethics along with his brother Toney and Proxy over the phone. Discussed the medical overview of Marco Antonio's situation with likely poor vasculature complicating his ability to heal his chronic sacral and LE wounds. Toney agreed surgery would likely not be in Marco Antonio's best interest due to his hx of non compliance and inability to heal following directions. Discussed maximizing his medical status here with current infection and hopefully return back to [facility] when medically ready. Also discussed future decisions including hospice care as the wounds will likely never heal and continue to cause complications including infection and sepsis. Decided having palliative care follow as outpatient to help with continued conversations. Toney also agreed CPR and resuscitation would not be in Marco Antonio's best interest. We did attempt to have a conversation with Marco Antonio about these wishes but he was not wanting to talk about or poor health. He feels he will get better and be able to walk again in about 2-4 years. Assessment: Physical: - Pain: occasional pain - tylenol PRN - on MScontin 15 mg BID - oxy IR PRN - weakness - PT/OT as able - nursing support Emotional/psychological: Hx of schizophrenia - on scheduled risperidone Advanced Care Planning: Is patient decisional?: No Code Status: DNR/DNI- per proxy POA: His brother Toney is assigned proxy Plan: All in agreement not to proceed with further surgical interventions so therefore further studies are not needed. The family would like to maximize his medical status and wound healing with the understanding the wounds will likely never heal and cause further infections and complications. Will have palliative care follow up outpatient to continue with symptom management and goals of care as needed. Subjective: I'm doing better today Objective: Vital Signs Temp Pulse Resp BP Pulse Ox 36.8 C 93 16 116/86 H 90 L 07/31/17 08:00 07/31/17 08:00 07/31/17 08:00 07/31/17 08:00 07/31/17 08:00 Microbiology 07/24/17 14:50 Gram Stain - Final Back - Eswab Laboratory Results 07/27/17 03:34 07/29/17 04:22 07/30/17 07/31/17 08/01/17 05:59 05:59 05:59 Intake Total 710 1050 Output Total 1550 2100 550 Balance -840 -1050 -550 PT 17.3 SEC (12.0-15.0) H 07/23/17 15:00 INR 1.40 (0.83-1.16) H 07/23/17 15:00 Physical Exam - Physical Exam General Appearance: alert, no apparent distress Respiratory: No respiratory distress, No accessory muscle use Skin: normal color, warm/dry Extremities: pedal edema Neuro/Psych: alert, oriented x 3 ICD10 Worksheet Patient Problems: Problems Problem Status Onset Decubitus skin ulcer Acute Severe sepsis Acute Atrial fibrillation Acute CHF (congestive heart failure) Acute Carbapenem-resistant bacterial infection Acute ~03/26/17 Cellulitis and abscess of leg Acute Clostridium difficile infection Acute ~03/19/17 ESBL (extended spectrum beta-lactamase) producing bacteria infection Acute ~ Palliative care encounter Acute Peripheral edema Acute Peripheral edema Acute Sacral decubitus ulcer, stage III Acute Schizophrenia Acute VRE (vancomycin-resistant Enterococci) Acute ~03/26/17
--- NOTE | 2017-07-31 13:05 | HOSPPROG ---
Hospitalist Progress Note Assessment/Plan: 61 yo male with schizophrenia who resides at [facility] returns to hospital with severe pressure injury and non-compliance. From a psych perspective, he is conversational and at baseline. While he can carry a conversation, he cannot make complex medical decisions. Chronic sacral wound with abscess s/p I&D - Group A strep on wound Cx. Discussed with ID. -cont Rocephin per ID -wound vac replaced yesterday Sepsis secondary to cellulitis LLE - on Rocephine Multiple LE wounds - left heel ulcer most concerning, ?arterial disease. CKD - h/o nephrotic syndrome, persistent pyuria likely colonization Chronic A fib - rate control improved -increased dilt 07/30 to 240 daily -cont BB -chads-vasc 1 for htn, started ASA -He has a long hx of going intermittently into Afib Schizophrenia - controlled on current regimen H/O DVT DVT PPLX - high risk, Lovenox Full code Dispo - cont inpt. Plan: We had an extensive meeting today with MDPO, palliative care, Ethics, and have agreed that no surgical interventions will be planned at this time. Given his mobility and non compliance for offsetting pressure, he is a poor candidate for additional surgical closure or aggressive wound care. He and his MDPOA also agree to no KENA's. They opt for continued medical mgmt and no surgical procedure including amputation Cont [place], ID following, will likely need IV abx for a few more days Cont non aggressive wound care once medically ready he will go home with palliative care. (home is [place]) Subjective: denies pain. doing well. no cp or SOB. No N/V. Multidisciplinary meeting held. Objective: Vital Signs Temp Pulse Resp BP Pulse Ox 36.5 C 110 H 16 107/81 H 92 07/31/17 12:00 07/31/17 12:00 07/31/17 12:00 07/31/17 12:00 07/31/17 12:00 Microbiology 07/24/17 14:50 Gram Stain - Final Back - Eswab Laboratory Results 07/27/17 03:34 07/29/17 04:22 07/30/17 07/31/17 08/01/17 05:59 05:59 05:59 Intake Total 710 1050 Output Total 1550 2100 550 Balance -840 -1050 -550 PT 17.3 SEC (12.0-15.0) H 07/23/17 15:00 INR 1.40 (0.83-1.16) H 07/23/17 15:00 - Time Spent With Patient Time Spent with Patient: greater than 35 minutes Time Spent with Patient: Greater than 35 minutes spent on this patients care, greater than 50% of time spent counseling, educating, and coordinating care regarding the above mentioned plan. - Physical Exam Constitutional: no apparent distress Eyes: PERRL, EOMI Ears, Nose, Mouth, Throat: moist mucous membranes, hearing normal Cardiovascular: regular rate and rhythym, No edema Respiratory: no respiratory distress Gastrointestinal: normoactive bowel sounds, soft, non-tender abdomen Skin: warm Neurologic: sensation intact bilaterally Psychiatric: interacting appropriately, not anxious Lymph, Heme, Immunologic: No petechiae ICD10 Worksheet Patient Problems: Problems Problem Status Onset Decubitus skin ulcer Acute Severe sepsis Acute Atrial fibrillation Acute CHF (congestive heart failure) Acute Carbapenem-resistant bacterial infection Acute ~03/26/17 Cellulitis and abscess of leg Acute Clostridium difficile infection Acute ~03/19/17 ESBL (extended spectrum beta-lactamase) producing bacteria infection Acute ~ Palliative care encounter Acute Peripheral edema Acute Peripheral edema Acute Sacral decubitus ulcer, stage III Acute Schizophrenia Acute VRE (vancomycin-resistant Enterococci) Acute ~03/26/17
--- NOTE | 2017-07-31 16:45 | ASMTCMCOM ---
CM Note CM Note Notes: Team meeting held this morning w/ Dr. Hernandez, Stefanie and May from ethics, Louie and Breann from palliative, Mine reo asset manager and Jenelle wound care nurse. radha Zieglerer was conferenced in. Everybody was in agreement that the plan is to make pt a DNR and for pt to return back to [facility] w/ palliative care. CM spoke w/ Ji at [facility] and is in agreement w/ plan. The only criteria is that [facility] has a preferred list for palliative agencies ([facility], [facility] and [facility]). CM made referral to [facility]. CM spoke w/ Edith and Edith reports that Dr. Alba, the doctor would like to speak to Breann in palliative. CM provided Edith Crain's phone number. Additional referrals made to [facility] and [facility]. [facility] is unable to accept pt because they do not serve the [place] area. CM to follow. Plan: [facility] w/ palliative Date Signed: 07/31/2017 04:45 PM Electronically Signed By:BALWINDER Darden
--- NOTE | 2017-07-31 17:45 | WOCRNPDOC ---
WOCRN Advanced Assessment Note - Skin Integrity Problem, Advanced Assess Sacrum Pressure Injury Dressing Type: Black Vac Foam (x2 (one piece used for packing)), Wound Vac Dressing Description: Clean/Dry, Intact Exudate Amount: Minimal Exudate Characteristic(s): Serosanguinous Integumentary Issue Intervention: Dressing Changed, Dressing Initialed & Dated Aria Wound Tissue: Blanching, Erythema, Weeping, Denuded Aria Wound Swelling: None Pressure Injury Stage: Stage 4 Pressure Injury Present on Admit: Yes Skin Integrity Problem Comment: Wound vac dressing removed and D/C'd per palliative meeting earlier today. Moist to dry with kerlix placed into wound. Covered with gauze and ABD. Let patient know the plan of BID moist to dry dressings. Regina GLEZ aware.
[2017-07-31] MEDS: SENNOSIDES 1 TAB PO SCH (21:01)
[2017-08-01] MEDS ORDERED: oxyCODONE IR 5 MG TAB PO PRN (08:26)
[2017-08-01] MEDS: ENOXAPARIN 40 MG/0.4 ML SYR SC SCH (09:52)
[2017-08-01] MEDS: morphINE SR 15 MG TAB PO SCH ×2 (09:53→21:39)
[2017-08-01] MEDS: FERROUS SULFATE 325 MG TAB PO SCH ×2 (09:53→21:38)
[2017-08-01] MEDS: OXYBUTYNIN 5 MG EXT REL TAB PO SCH (09:53)
[2017-08-01] MEDS: PHENAZOPYRIDINE HCL 100 MG TAB PO SCH ×3 (09:53→21:38)
[2017-08-01] MEDS: risperiDONE 2 MG TAB PO SCH ×2 (09:53→21:38)
[2017-08-01] MEDS: ASPIRIN EC 81 MG TAB PO SCH (09:54)
[2017-08-01] MEDS: DILTIAZEM XR 240 MG CAP PO SCH (12:02)
[2017-08-01] MEDS: METOPROLOL SUCCINATE XR 25 MG TAB PO SCH (12:03)
--- NOTE | 2017-08-01 13:42 | PCMIDPN ---
Assessment/Plan: # Sepsis: Resolved #LLE cellulitis - Resolved erythema. #h/p Stage 4 pressure ulcer sacrum with recurrent tissue damage and "wound abscess" s/p debridement 07/23 w cx showing GAS. Reviewed palliative note. --plan 9 days antibiotics, last dose tomorrow --call ID for additional questions #H/o MDR: VRE, ESBL E coli, MDR PsA --contact isolation # Polymicrobial Ucx : suspect colonization, David changed. No directed therapy needed meds abx #8 ceftriaxone 2gm IV daily #3 s/p levofloxacin 750mg IV x 1 micro 07/23 blood cx (2) NGTD 07/23 ucx enterococcus, proteus, PsA x2 07/24 wound cx : GAS Subjective: I am going to take a nap, I just got back into bed Objective: Vital Signs Temp Pulse Resp BP Pulse Ox 36.7 C 88 18 113/75 93 08/01/17 09:43 08/01/17 12:00 08/01/17 09:43 08/01/17 09:43 08/01/17 12:00 Microbiology 07/24/17 14:50 Gram Stain - Final Back - Eswab Laboratory Results 07/27/17 03:34 07/29/17 04:22 07/31/17 08/01/17 08/02/17 05:59 05:59 05:59 Intake Total 1050 2220 Output Total 2100 2700 Balance -1050 -480 General Appearance: alert EENT: poor dentition, No thrush Respiratory: decreased bs bases, No accessory muscle use Neck: supple Cardiac/Chest: regular rate, rhythm Extremities: pedal edema, no erythema remains LLE, multiple areas of skin breakdown, and scaling skin LLE Abdomen: non-tender, soft, LLQ ostomy Male Genitalia: david Skin: pallor, No rash Neuro/Psych: alert, depressed affect ICD10 Worksheet Patient Problems: Problems Problem Status Onset Decubitus skin ulcer Acute Severe sepsis Acute Atrial fibrillation Acute CHF (congestive heart failure) Acute Carbapenem-resistant bacterial infection Acute ~03/26/17 Cellulitis and abscess of leg Acute Clostridium difficile infection Acute ~03/19/17 ESBL (extended spectrum beta-lactamase) producing bacteria infection Acute ~ Palliative care encounter Acute Peripheral edema Acute Peripheral edema Acute Sacral decubitus ulcer, stage III Acute Schizophrenia Acute VRE (vancomycin-resistant Enterococci) Acute ~03/26/17
[2017-08-01] MEDS ORDERED: PROTOCOL MAGNESIUM 1 DOSE IV PRN (15:05)
[2017-08-01] MEDS ORDERED: PROTOCOL POTASSIUM 1 DOSE MISC PRN (15:05)
--- NOTE | 2017-08-01 15:10 | HOSPPROG ---
Hospitalist Progress Note Assessment/Plan: 61 yo male with schizophrenia who resides at [facility] returns to hospital with severe pressure injury and non-compliance. From a psych perspective, he is conversational and at baseline. While he can carry a conversation, he cannot make complex medical decisions. will start palliative care. No aggressive care at this time Chronic sacral wound with abscess s/p I&D - Group A strep on wound Cx. -cont Rocephin per ID, last day tomorrow -wound vac removed -Wet to dry dressing Sepsis secondary to cellulitis LLE - on Rocephin Multiple LE wounds - left heel ulcer most concerning, Likely arterial disease. Will cont medical mgmt CKD - h/o nephrotic syndrome, persistent pyuria likely colonization Chronic A fib - rate control improved -increased dilt 07/30 to 240 daily -cont BB -chads-vasc 1 for htn, started ASA -He has a long hx of going intermittently into Afib Sinus pause: Cardizem was recently increased. Will hold cardizem and Metoprolol succinate today. Restart Metoprolol tartrate BID this evening. Can likely restart meds at lower doses tomorrow. Schizophrenia - controlled on current regimen H/O DVT DVT PPLX - high risk, Lovenox Full code Dispo - cont inpt. once medically ready he will go home with palliative care. (home is [place]) Subjective: No complaints. Had sacral dressing changes while in room. No resp sx 's. No CP. Afebrile. Objective: Vital Signs Temp Pulse Resp BP Pulse Ox 36.7 C 88 18 113/75 93 08/01/17 09:43 08/01/17 12:00 08/01/17 09:43 08/01/17 09:43 08/01/17 12:00 Microbiology 07/24/17 14:50 Gram Stain - Final Back - Eswab Laboratory Results 07/27/17 03:34 07/29/17 04:22 07/31/17 08/01/17 08/02/17 05:59 05:59 05:59 Intake Total 1050 2220 Output Total 2100 2700 Balance -1050 -480 PT 17.3 SEC (12.0-15.0) H 07/23/17 15:00 INR 1.40 (0.83-1.16) H 07/23/17 15:00 - Physical Exam Constitutional: no apparent distress Eyes: PERRL, EOMI Ears, Nose, Mouth, Throat: moist mucous membranes, hearing normal Cardiovascular: regular rate and rhythym Respiratory: no respiratory distress, no rales or rhonchi, clear to auscultation Gastrointestinal: normoactive bowel sounds, soft, non-tender abdomen Skin: warm Musculoskeletal: generalized weakness Psychiatric: interacting appropriately, not anxious Lymph, Heme, Immunologic: No petechiae ICD10 Worksheet Patient Problems: Problems Problem Status Onset Decubitus skin ulcer Acute Severe sepsis Acute Atrial fibrillation Acute CHF (congestive heart failure) Acute Carbapenem-resistant bacterial infection Acute ~03/26/17 Cellulitis and abscess of leg Acute Clostridium difficile infection Acute ~03/19/17 ESBL (extended spectrum beta-lactamase) producing bacteria infection Acute ~ Palliative care encounter Acute Peripheral edema Acute Peripheral edema Acute Sacral decubitus ulcer, stage III Acute Schizophrenia Acute VRE (vancomycin-resistant Enterococci) Acute ~03/26/17
[2017-08-01] MEDS: SENNOSIDES 1 TAB PO SCH (21:39)
[2017-08-01] MEDS: METOPROLOL TARTRATE 25 MG TAB PO SCH ×2 (21:40→22:00)
[2017-08-02 05:27] LABS: PLATELET COUNT 294 10^3/uL (150-400)
--- NOTE | 2017-08-02 10:17 | ASMTCMCOM ---
CM Note CM Note Notes: late entry from 08/01: DC plan remains for pt to dc to [facility] when medically ready. He will be followed by [facility] there; discussed this w/palliative care REFUELING RAMP SUPERVISOR, Breann Caballero who has spoken w/Dr Mora from [facility]. She said they will do consult once pt has returned to [facility] and they will follow him there. CM will follow. Date Signed: 08/02/2017 10:17 AM Electronically Signed By:Melissa Clements RN
[2017-08-02] MEDS: ENOXAPARIN 40 MG/0.4 ML SYR SC SCH (10:23)
[2017-08-02] MEDS: FERROUS SULFATE 325 MG TAB PO SCH ×2 (10:23→21:04)
[2017-08-02] MEDS: METOPROLOL TARTRATE 25 MG TAB PO SCH ×3 (10:23→21:05)
[2017-08-02] MEDS: PHENAZOPYRIDINE HCL 100 MG TAB PO SCH ×3 (10:23→21:09)
[2017-08-02] MEDS: OXYBUTYNIN 5 MG EXT REL TAB PO SCH (10:23)
[2017-08-02] MEDS: morphINE SR 15 MG TAB PO SCH ×2 (10:25→21:04)
[2017-08-02] MEDS: ASPIRIN EC 81 MG TAB PO SCH (10:25)
[2017-08-02] MEDS: risperiDONE 2 MG TAB PO SCH ×2 (10:30→21:06)
[2017-08-02] MEDS ORDERED: MAGNESIUM SULF 1 GM/DEXTROSE 100 ML IV ONE (14:00)
--- NOTE | 2017-08-02 15:55 | HOSPPROG ---
Hospitalist Progress Note Assessment/Plan: 61 yo male with schizophrenia who resides at [facility] returns to hospital with severe pressure injury and non-compliance. From a psych perspective, he is conversational and at baseline. While he can carry a conversation, he cannot make complex medical decisions. will start palliative care. No aggressive care at this time Chronic sacral wound with abscess s/p I&D - Group A strep on wound Cx. -Rocephin completed today -wound vac removed -Wet to dry dressing Sepsis secondary to cellulitis LLE - s/p Rocephin Multiple LE wounds - left heel ulcer most concerning, Likely arterial disease. Will cont medical mgmt CKD - h/o nephrotic syndrome, persistent pyuria likely colonization Chronic A fib - rate control improved -increased dilt 07/30 to 240 daily previously, this is on hold due to sinus pause -Long acting BB stopped due to sinus paus -Has tolerated Metoprolol Tartrate but HR is now in the 150's -chads-vasc 1 for htn, started ASA -He has a long hx of going intermittently into Afib Sinus pause: Cardizem was recently increased. cont to hold Cardizem and metoprolol succinate. Will increase Metoprolol tartrate to 50mg BID. Schizophrenia - controlled on current regimen H/O DVT DVT PPLX - high risk, Lovenox Full code Dispo - cont inpt. once medically ready he will go home with palliative care. (home is [place]) His CV meds need to be adjusted better prior to d/c Reviewed Telemetry with nurse d/w pt and nurse treatment plan at length at bedside Subjective: no cp or sob. no n/v. pleasant. denies pain. Objective: Vital Signs Temp Pulse Resp BP Pulse Ox 36.9 C 120 H 16 128/78 H 92 08/02/17 15:38 08/02/17 15:38 08/02/17 15:38 08/02/17 15:38 08/02/17 15:38 Microbiology 07/24/17 14:50 Gram Stain - Final Back - Eswab Laboratory Results 08/02/17 05:00 08/02/17 05:00 08/01/17 08/02/17 08/03/17 05:59 05:59 05:59 Intake Total 2220 240 Output Total 2700 2450 Balance -480 -2210 PT 17.3 SEC (12.0-15.0) H 07/23/17 15:00 INR 1.40 (0.83-1.16) H 07/23/17 15:00 - Physical Exam Constitutional: no apparent distress, appears nourished Eyes: PERRL, EOMI Ears, Nose, Mouth, Throat: moist mucous membranes, hearing normal Cardiovascular: regular rate and rhythym, edema (trace LE edema) Respiratory: no respiratory distress, no rales or rhonchi, clear to auscultation Gastrointestinal: normoactive bowel sounds, soft, non-tender abdomen, no palpable masses Skin: warm Psychiatric: interacting appropriately, not anxious, poor insight, poor judgement ICD10 Worksheet Patient Problems: Problems Problem Status Onset Decubitus skin ulcer Acute Severe sepsis Acute Atrial fibrillation Acute CHF (congestive heart failure) Acute Carbapenem-resistant bacterial infection Acute ~03/26/17 Cellulitis and abscess of leg Acute Clostridium difficile infection Acute ~03/19/17 ESBL (extended spectrum beta-lactamase) producing bacteria infection Acute ~ Palliative care encounter Acute Peripheral edema Acute Peripheral edema Acute Sacral decubitus ulcer, stage III Acute Schizophrenia Acute VRE (vancomycin-resistant Enterococci) Acute ~03/26/17
[2017-08-02] MEDS: SENNOSIDES 1 TAB PO SCH (21:05)
[2017-08-03] MEDS: ENOXAPARIN 40 MG/0.4 ML SYR SC SCH (09:09)
[2017-08-03] MEDS: FERROUS SULFATE 325 MG TAB PO SCH ×2 (09:10→21:06)
[2017-08-03] MEDS: OXYBUTYNIN 5 MG EXT REL TAB PO SCH (09:10)
[2017-08-03] MEDS: morphINE SR 15 MG TAB PO SCH ×2 (09:10→21:06)
[2017-08-03] MEDS: ASPIRIN EC 81 MG TAB PO SCH (09:10)
[2017-08-03] MEDS: risperiDONE 2 MG TAB PO SCH ×2 (09:10→21:06)
[2017-08-03] MEDS: METOPROLOL TARTRATE 25 MG TAB PO SCH ×2 (09:26→19:22)
[2017-08-03] MEDS: PHENAZOPYRIDINE HCL 100 MG TAB PO SCH ×3 (10:04→21:06)
--- NOTE | 2017-08-03 12:07 | HOSPPROG ---
Hospitalist Progress Note Assessment/Plan: 61 yo male with schizophrenia who resides at [facility] returns to hospital with severe pressure injury and non-compliance. From a psych perspective, he is conversational and at baseline. While he can carry a conversation, he cannot make complex medical decisions. A meeting was held with various members of our team (nursing, palliative, CM, Ethics) and the pt's power of naturalization examiner. The decision is is to start palliative care. No aggressive care at this time such as aggressive wound care or aggressive mgmt of the pt's likely vascular disease including PVD and the possibility of amputation. From an ID perspective, abx have been stopped today. He does not appear to have active infection His hospitalization has been complicated by tachycardia followed by bradycardia and sinus pause once medications were increased. He has a long hx of intermittent Afib and was previously stable on long acting Metoprolol and long acting Cardizem. Due to the tachycardia, the Cardizem was increased and this eventually led to bradycardia and sinus pauses. Meds were held and Metoprol tartrate has been restarted successfully, although his first dose at 50mg PO BID was last night. His BP is labile including some hypotension. Today he will cont to be monitored on tele on Metoprolol BID. If he is stable overnight he will be ready for d/c. Given hypotension and overall well controlled HR, would avoid CCB for now. I did discuss the case with [facility] but no formal consult has been obtained. Chronic sacral wound with abscess s/p I&D - Group A strep on wound Cx. -Rocephin completed. No further abx -wound vac removed -Wet to dry dressing Sepsis secondary to cellulitis LLE - s/p Rocephin Multiple LE wounds - left heel ulcer most concerning, Likely arterial disease. Will cont medical mgmt CKD - h/o nephrotic syndrome, persistent pyuria likely colonization Chronic A fib - rate control improved -Med mgt per above -chads-vasc 1 for htn, started ASA Sinus pause: Metoprolol tartrate to 50mg BID. Schizophrenia - controlled on current regimen H/O DVT DVT PPLX - high risk, Lovenox Full code Dispo - cont inpt. once medically ready he will go home with palliative care. (home is [place]) Reviewed telemetry reviewed case/progress with pt and nurse Subjective: some hypotension. HR overall controlled. No resp issues. Afebrile. Denies pain Objective: Vital Signs Temp Pulse Resp BP Pulse Ox 36.4 C 83 18 100/74 93 08/03/17 11:38 08/03/17 11:38 08/03/17 11:38 08/03/17 11:38 08/03/17 11:38 Microbiology 07/24/17 14:50 Gram Stain - Final Back - Eswab Laboratory Results 08/02/17 05:00 08/03/17 03:51 08/02/17 08/03/17 08/04/17 05:59 05:59 05:59 Intake Total 240 1600 Output Total 2450 2200 Balance -2210 -600 PT 17.3 SEC (12.0-15.0) H 07/23/17 15:00 INR 1.40 (0.83-1.16) H 07/23/17 15:00 - Physical Exam Constitutional: no apparent distress Eyes: PERRL, EOMI Ears, Nose, Mouth, Throat: moist mucous membranes, hearing normal Cardiovascular: regular rate and rhythym, no murmur, rub, or gallop, No edema Respiratory: no respiratory distress, no rales or rhonchi, clear to auscultation Gastrointestinal: normoactive bowel sounds, soft, non-tender abdomen Skin: warm Psychiatric: interacting appropriately, not anxious, not encephalopathic Lymph, Heme, Immunologic: No petechiae ICD10 Worksheet Patient Problems: Problems Problem Status Onset Decubitus skin ulcer Acute Severe sepsis Acute Atrial fibrillation Acute CHF (congestive heart failure) Acute Carbapenem-resistant bacterial infection Acute ~03/26/17 Cellulitis and abscess of leg Acute Clostridium difficile infection Acute ~03/19/17 ESBL (extended spectrum beta-lactamase) producing bacteria infection Acute ~ Palliative care encounter Acute Peripheral edema Acute Peripheral edema Acute Sacral decubitus ulcer, stage III Acute Schizophrenia Acute VRE (vancomycin-resistant Enterococci) Acute ~03/26/17
[2017-08-03] MEDS: SENNOSIDES 1 TAB PO SCH (21:06)
[2017-08-04] MEDS: ENOXAPARIN 40 MG/0.4 ML SYR SC SCH (11:40)
[2017-08-04] MEDS: OXYBUTYNIN 5 MG EXT REL TAB PO SCH (11:41)
[2017-08-04] MEDS: METOPROLOL TARTRATE 25 MG TAB PO SCH ×2 (11:41→21:07)
[2017-08-04] MEDS: PHENAZOPYRIDINE HCL 100 MG TAB PO SCH ×3 (11:41→21:07)
[2017-08-04] MEDS: risperiDONE 2 MG TAB PO SCH ×2 (11:42→21:06)
[2017-08-04] MEDS: ASPIRIN EC 81 MG TAB PO SCH (11:42)
[2017-08-04] MEDS: FERROUS SULFATE 325 MG TAB PO SCH ×2 (11:43→21:07)
[2017-08-04] MEDS: morphINE SR 15 MG TAB PO SCH ×2 (11:43→21:07)
--- NOTE | 2017-08-04 16:04 | ASMTCMCOM ---
CM Note CM Note Notes: Pt was ready for DC in late afternoon but [facility] did not answer phone os multiple attempts. Pt will DC tomorrow instaed. DC plan remains for pt to dc to [facility] when medically ready. He will be followed by [facility] there. Final orders will need to be faxed to both. CM will follow. Date Signed: 08/04/2017 04:05 PM Electronically Signed By:Rossy Davies LCSW
--- NOTE | 2017-08-04 17:59 | HOSPPROG ---
Hospitalist Progress Note Assessment/Plan: DIAGNOSES: -acute sepsis -cellulitis of leg -deep abscess by chronic sacral wound, status post surgical debridement drainage -acute on chronic kidney disease, history of nephrotic syndrome; back to baseline -multiple sacral and leg wounds, present on admission, chronic -hypokalemia -mild hyperglycemia, question development of diabetes or pre diabetes -chronic AFib rapid ventricular rate, currently rate controlled -chronic schizophrenia controlled on medication -history of DT, high risk for DVT here PLANS: -I reviewed all of the palliative discussions that occurred here, and the change in direction a his care plan. I reviewed this with the patient. Due to his limited ability to manage his wound issues, and his desire to avoid aggressive interventions, it is quite reasonable to take a somewhat more palliative approach to his care. Palliative consultation will continue in the outpatient setting after his discharge -at this time I feel he is stable for discharge from the hospital, however we are unable to make contact with the staff at his nursing care facility and will need to wait until tomorrow -continue current care at this point SUBJECTIVE: No pain No shortness of breath Eating well No fever symptoms OBJECTIVE Vitals reviewed: Heart rate now well controlled otherwise stable without fever Exam: alert oriented skin warm dry color ok resps not labored lungs clear BSs heart regular abd soft nondistended nontender, bowel sounds present limbs warm, diffuse edema and cellulitis of both legs and buttocks area iv site ok Objective: Vital Signs Temp Pulse Resp BP Pulse Ox 36.5 C 119 H 20 97/73 L 90 L 08/04/17 16:00 08/04/17 16:00 08/04/17 16:00 08/04/17 16:00 08/04/17 16:00 Microbiology 07/24/17 14:50 Gram Stain - Final Back - Eswab Laboratory Results 08/02/17 05:00 08/03/17 03:51 08/03/17 08/04/17 08/05/17 06:59 06:59 06:59 Intake Total 1600 2440 480 Output Total 2200 2926 1425 Balance -600 -486 -945 PT 17.3 SEC (12.0-15.0) H 07/23/17 15:00 INR 1.40 (0.83-1.16) H 07/23/17 15:00 ICD10 Worksheet Patient Problems: Problems Problem Status Onset Decubitus skin ulcer Acute Severe sepsis Acute Atrial fibrillation Acute CHF (congestive heart failure) Acute Carbapenem-resistant bacterial infection Acute ~03/26/17 Cellulitis and abscess of leg Acute Clostridium difficile infection Acute ~03/19/17 ESBL (extended spectrum beta-lactamase) producing bacteria infection Acute ~ Palliative care encounter Acute Peripheral edema Acute Peripheral edema Acute Sacral decubitus ulcer, stage III Acute Schizophrenia Acute VRE (vancomycin-resistant Enterococci) Acute ~03/26/17
[2017-08-04] MEDS: SENNOSIDES 1 TAB PO SCH (21:07)
[2017-08-05] MEDS: MAG HYDROX/AL HYDROX/SIMETH 30 ML UDCUP PO PRN ×2 (03:39→08:09)
[2017-08-05 07:38] VITALS: BP 137/93; RESP 18; TEMP 97.8; O2SAT 93
[2017-08-05] MEDS: ENOXAPARIN 40 MG/0.4 ML SYR SC SCH (08:10)
[2017-08-05] MEDS: morphINE SR 15 MG TAB PO SCH (08:10)
[2017-08-05] MEDS: PHENAZOPYRIDINE HCL 100 MG TAB PO SCH (08:10)
[2017-08-05] MEDS: ASPIRIN EC 81 MG TAB PO SCH (08:10)
[2017-08-05] MEDS: OXYBUTYNIN 5 MG EXT REL TAB PO SCH (08:10)
[2017-08-05] MEDS: FERROUS SULFATE 325 MG TAB PO SCH (08:11)
[2017-08-05] MEDS: risperiDONE 2 MG TAB PO SCH (08:11)
[2017-08-05] MEDS: METOPROLOL TARTRATE 25 MG TAB PO SCH (08:11)
[2017-08-05 08:29] VITALS: PULSE 198
--- NOTE | 2017-08-05 08:54 | SOAPPROG ---
SOAP Progress Note Assessment/Plan: Assessment: SEEN LAST PM, 61 MALE SCHIZOPHRENIC WITH INFECTED TUNNELLING SACRAL DECUB/ ALSO CELLULITIS LLE WITH BILAT CALCANEAL PRESSURE SORES ADMITTED WITH SEPSIS LEGS HEADED FOR AMPUTATION SINCE PT DOESNT AMBULATE Plan:I&D AND DEBRIDEMENT PERIRECTAL AREA/ ART STUDIES 07/24/17 09:34 07/27/17 20:10 AFEBRILE, ALERT, COMFORTABLE, WOUND VAC OFF BECAUSE OF VAC LEAKS/ CONTINUE VAC TREATMENT TOMORROW 08/05/17 08:53 alert/afebrile / stable vital signs/ refused to wound check this morning but agrees to have it checked later in the day / questionable disposition Objective: Vital Signs Temp Pulse Resp BP Pulse Ox 36.6 C 198 H 18 137/93 H 93 08/05/17 07:38 08/05/17 08:20 08/05/17 07:38 08/05/17 07:38 08/05/17 07:38 Microbiology 07/24/17 14:50 Gram Stain - Final Back - Eswab Laboratory Results 08/02/17 05:00 08/03/17 03:51 08/04/17 08/05/17 08/06/17 05:59 05:59 05:59 Intake Total 2440 780 Output Total 1016 2575 725 Balance -486 -1795 -725 PT 17.3 SEC (12.0-15.0) H 07/23/17 15:00 INR 1.40 (0.83-1.16) H 07/23/17 15:00 ICD10 Worksheet Patient Problems: Problems Problem Status Onset Decubitus skin ulcer Acute Severe sepsis Acute Atrial fibrillation Acute CHF (congestive heart failure) Acute Carbapenem-resistant bacterial infection Acute ~03/26/17 Cellulitis and abscess of leg Acute Clostridium difficile infection Acute ~03/19/17 ESBL (extended spectrum beta-lactamase) producing bacteria infection Acute ~ Palliative care encounter Acute Peripheral edema Acute Peripheral edema Acute Sacral decubitus ulcer, stage III Acute Schizophrenia Acute VRE (vancomycin-resistant Enterococci) Acute ~03/26/17
--- NOTE | 2017-08-05 10:06 | ASMTCMCOM ---
CM Note CM Note Notes: Note So message left with Ji at [facility] regarding plan for patient to return to that facility with [facility]. Referral sent in allscripts. Hopefully can arrange discharge today. Pt was ready for DC in late afternoon but [facility] did not answer phone os multiple attempts. Pt will DC tomorrow instaed. DC plan remains for pt to dc to [facility] when medically ready. He will be followed by [facility] there. Final orders will need to be faxed to both. CM will follow. Date Signed: 08/05/2017 10:06 AM Electronically Signed By:Saima Arriaga RN
--- NOTE | 2017-08-05 11:56 | PDIAF ---
- Diagnosis Diagnosis: decubitus wounds, cellulitis, afib rapid rate, bradycardia Code Status: Do Not Resuscitate - Medication Management Discharge Medications: Medications to Continue on Transfer Diltiazem Cd [Cardizem ER Q24hr] 180 mg PO DAILY cap 09/10/16 [Last Taken 07/23] Furosemide [Lasix 40 MG (*)] 40 mg PO BID 02/17/17 [Last Taken 07/23/17 09:00] Risperidone 2 mg PO DAILY 02/17/17 [Last Taken 07/23/17] Sennosides [Senokot] 2 tab PO HS 02/17/17 [Last Taken 02/16/17] morphINE SR [Ms Contin/Oramorph 15 mg (*)] 15 mg PO BID 02/17/17 [Last Taken 09:00] Acetaminophen [Tylenol 325mg (*)] 650 mg PO Q8 PRN 03/23/17 [Last Taken 14:00] Herbals/Supplements -Info Only 1 ea PO DAILY 03/23/17 [Last Taken Unknown] guaiFENesin/DEXTROMETHORPHAN [Robitussin Dm Oral Liquid (*)] 10 ml PO Q4 PRN [Last Taken Unknown] risperiDONE [Risperdal] 4 mg PO HS 03/23/17 [Last Taken 07/22/17] Ferrous Sulfate [Ferrous Sulf 325 MG (*)] 325 mg PO BID tab 04/02/17 [Last Taken 07/23/17 09:00] oxyCODONE IR [Oxycodone Ir (*)] 5 - 10 mg PO Q4HRS PRN #0 tab 04/02/17 [Last Taken Unknown] Docusate Sodium [Colace 100 MG (*)] 100 mg PO DAILY PRN 07/23/17 [Last Taken Unknown] Multivitamins [Multivitamin (*)] 1 each PO DAILY 07/23/17 [Last Taken Unknown] Oxybutynin Chloride [OXYBUTYNIN CHLORIDE ER] 5 mg PO DAILY 07/23/17 [Last Taken 07/23/17] Phenazopyridine HCl [Pyridium] 100 mg PO TID 07/23/17 [Last Taken Unknown] Diltiazem Xr [Dilacor Xr] 240 mg PO DAILY cap 08/05/17 [Last Taken Unknown] Metoprolol Tartrate [Lopressor 25 mg (*)] 50 mg PO BID tab 08/05/17 [Last Taken Unknown] Discharge Medications: Refer to the Discharge Home Medication list for PRN reason. - Orders Services needed: Registered Nurse, Certified Singing Waiter Or Waitress, Master Accounting Supervisor , Physical Therapy, Occupational Therapy Isolation Type: Contact Isolation Diet Recommendation: sodium restricted Diet Texture: Regular Texture Diet Wood: Yes Additional: Pt and POA have decided on a palliative care approach to his wound care and his atrial fibrillation, and have requested DNR - Follow Up Care Current Providers and Referrals: Patient,NotPresent [Unknown] - As per Instructions
--- NOTE | 2017-08-05 12:23 | ASMTCMCOM ---
CM Note CM Note Notes: [facility] called and confirmed patient able to return. Orders updated via allscripts to [facility] and [facility] as they are to follow up with patient there. His family has been notified of pending transfer and also his RN who has report number to call. [facility] transport arranged for pickup with stretcher, CM availbe if other needs arise. Date Signed: 08/05/2017 12:23 PM Electronically Signed By:Saima Arriaga RN
--- NOTE | 2017-08-05 13:09 | GCON ---
[f rep st] CONSULTATION DATE OF CONSULTATION: 07/23/2017 HISTORY OF PRESENT ILLNESS: Patient is a 61-year-old male, schizophrenic, who presents with an infec irving sacral decubitus. He has previously had this debrided and closed. He does live at a [facility] and is essentially bedridden. He will not get out of bed and walk. He does have pressure sores on both heels, as well, which were quite chronic in nature. He was brought in this time with a drainin g wound in his sacral area. PAST MEDICAL HISTORY: Includes chronic renal failure, hypertension, chronic lymphedema, schizophreni a, multiple bed induced decubitus ulcers, history of DVT and gout. MEDICATIONS: Listed in the chart. REVIEW OF SYSTEMS: Reveals no other major problems other than related to the HPI and the past histor y. He specifically does not smoke. Denies any cardiac issues. PHYSICAL EXAMINATION: GENERAL: An alert 61-year-old male, who is cooperative and pleasant, but kalpesh rly schizophrenic. VITALS: He is afebrile. HEENT: Reveals pupils to be normal, nonicteric, no randy nopathy and no oral lesions. NECK: Supple, nontender, without bruits. CHEST: Clear and symmetric. COR: Regular rhythm. ABDOMEN: Soft, nontender, without masses. He does have a colostomy in [facility]. EXTREMITIES: Reveal full pulses. He has decreased range of motion and he has bilateral heel chr onic ulcerations with chronic cranial granulation tissue and callus formation over the posterior heel ulcers. BACK: He has a well-healed sacral decubitus surgery, with an open draining portion. RECTA L: Intact, with sphincter tone. IMPRESSION: Infected sacral decubitus. RECOMMENDATION: Would be OR incision, drainage and debridement. /[id number]
--- NOTE | 2017-08-05 16:06 | ASDISCHSUM ---
Discharge Information Plan Status:Hospice-SNF Medically Cleared to Leave: Discharge Date:08/05/2017 01:44 PM D/C Disposition:Residential Facility ADT D/C Disposition:Residential Facility Projected Discharge Date:08/05/2017 01:00 PM Transportation at D/C:Medicaid Transportation Discharge Delay Reason: Follow-Up Date:08/05/2017 01:00 PM Discharge Slot: Final Diagnosis: Placement Information Referral Type:[facility] Referral ID:[id number] Provider Name: Address 1: Phone Number: Address 2: Fax Number: City: Selection Factors: State: Referral Type:Palliative Care Referral ID:[id number] Provider [facility] Address 1:[address] Address 2: City:[place] Selection Factors: State:[place] Referral Type:*Penitentiary/SNF Referral ID:[id number] Provider Name:[facility] [place] Address 1:[address] Address 2: City:[place] Selection Factors: State:[place] Patient Contact Information Contact Name:GIOVANI Relationship: Address:[address] Work Phone: City:[place] Alternate Phone: [facility]/Zip Code:[place] [address] Email: Financial Information Financial Class: Primary Plan Desc:MEDICARE INPATIENT Primary Plan Number:[id number] Secondary Plan Desc:MEDICAID [place] Secondary Plan Number:[id number] Assessment Information [facility] Initial CM Assessment Living Arrangements What is your living Answers: Alone arrangement? Who do you live with? Type Of Residence What kind of residence do Answers: Residential Facility you live in? Type of Residence Facility Name Notes: [facility] Discharge Plan Comments Coordination Status Comments Notes: TASHA spoke w/ Roselyn, wound care nurse, Elle, director of case management and Mine, biostatistics manager regarding discharge POC. Pt is a 61 y/o man admitted for decubitus ulcer. Pt will have a debridement today in the OR. Pt carries a schizoaffective disorder and lives at [facility]. CM made contact w/ his brother GEORGE Ziegler (P#: [phone]) and introduced self as CM. Needs are TBD at this time. CM to follow. Plan: TBD Date Signed: 07/24/2017 03:43 PM Electronically Signed By:BALWINDER Darden [facility] CM Progress Note CM Note CM Note Notes: Chart reviewed. Wound care following. They report they feel wounds due to care and patient is not cognizant to refuse interventions to promote wound healing. DC plan of care unclear. Needs SNF. CM to follow. Date Signed: 07/27/2017 03:02 PM Electronically Signed By:Saima Arriaga RN [facility] CM Progress Note CM Note CM Note Notes: 07/29/2017 Case Management Note Discussed case with ethics customer account representative Mary Ochoa [phone]. Mary to assess pt at 0900 on Friday07/30/2017. After consulting with Breann roa Palliative, case management would like to suggest a team meeting for with wound care, Palliative, ethics, and hospitalist. Case Management will arrange meeting after consulting with various team members tomorrow. Case Management to follow. Date Signed: 07/29/2017 02:48 PM Electronically Signed By:Ana Castelan RN [employer] Progress Note CM Note TASHA Note Notes: 07/30/2017 Case Management Note Ethics to consult today. Team meeting arranged for 9:30 am tomorrow, , on W with Palliative, Wound Care, Case Management and Ethics. Will try to arrange for hospitalist to attend as well. Case Management to follow. Date Signed: 07/30/2017 11:02 AM Electronically Signed By:Ana Castelan RN [facility] TASHA Progress Note TASHA Note TASHA Note Notes: Team meeting held this morning w/ Dr. Hernandez, Stefanie and May from ethics, Louie and Breann from palliative, Mine biostatistics manager and Jenelle wound care nurse. brother Ziegler was conferenced in. Everybody was in agreement that the plan is to make pt a DNR and for pt to return back to [facility] w/ palliative care. TASHA spoke w/ Ji at [facility] and is in agreement w/ plan. The only criteria is that [facility] has a preferred list for palliative agencies ([facility], [facility] and [facility]). CM made referral to [facility]. CM spoke w/ Edith and Edith reports that Dr. Alba, the doctor would like to speak to Breann in palliative. CM provided Edith Crain's phone number. Additional referrals made to [facility] and [facility]. [facility] is unable to accept pt because they do not serve the [place] area. CM to follow. Plan: [facility] w/ palliative Date Signed: 07/31/2017 04:45 PM Electronically Signed By:BALWINDER Darden [facility] CM Progress Note CM Note CM Note Notes: late entry from 08/01: DC plan remains for pt to dc to [facility] when medically ready. He will be followed by [facility] Palliative there; discussed this w/palliative care ESCROW SECRETARY, Breann Caballero who has spoken w/Dr Mora from [facility]. She said they will do consult once pt has returned to and they will follow him there. CM will follow. Date Signed: 08/02/2017 10:17 AM Electronically Signed By:Melissa Clements RN [facility] CM Progress Note CM Note CM Note Notes: Pt was ready for DC in late afternoon but [facility] did not answer phone os multiple attempts. Pt will DC tomorrow instaed. DC plan remains for pt to dc to [facility] when medically ready. He will be followed by [facility] Palliative there. Final orders will need to be faxed to both. CM will follow. Date Signed: 08/04/2017 04:05 PM Electronically Signed By:Rossy Davies LCSW [facility] CM Progress Note CM Note CM Note Notes: Note So message left with Ji at [facility] regarding plan for patient to [facility]. Referral sent in allscripts. Hopefully can arrange discharge today. Pt was ready for DC in late afternoon but [facility] did not answer phone os multiple attempts. Pt will DC tomorrow instaed. DC plan remains for pt to dc to [facility] when medically ready. He will be followed by [facility] Pall[facility] there. Final orders will need to be faxed to both. CM will follow. Date Signed: 08/05/2017 10:06 AM Electronically Signed By:Saima Arriaga RN [employer] Progress Note CM Note CM Note Notes: Ji FAGAN called and confirmed patient able to return. Orders updated via allscripts to [facility] as they are to follow up with patient there. His family has been notified of pending transfer and also his RN who has report number to call. [facility] transport arranged for pickup with stretcher, CM availbe if other needs arise. Date Signed: 08/05/2017 12:23 PM Electronically Signed By:Saima Arriaga RN Intervention Information Intervention Type:*Incorrect Registration Date of Service:07/24/2017 12:23 PM Patient Type:Observation Staff Member:AMARIS Dee Susan Hours: Discipline: Severity: Comment:
--- NOTE | 2017-08-08 09:26 | PQFORM ---
PHYSICIAN QUERY FORM Needs Your Response This query form is being sent to you to assure this patient record is coded properly. Please respond to the question below: CUSTOMER DATA TECHNICIAN QUESTION: Dr Natarajan Was the Debridement performed on the sacral decubitus ulcer ___ Excisional ___ Non Excisional ___ Other ( please specify ) Thank You Hyun THOMAS Electronic Engineering Technician INSTRUCTIONS FOR RESPONSE: Answer question by clicking on the "Edit Document" button. Move cursor to area below the stars. When complete, hit "Save." Click on the "Sign" button, then click "Sign" again. Type in your PIN and hit "Enter." EXCISIONAL MTDD
== END 2017-08-05 13:44 | DRG 853 ==
LOC: EDUNIT# → F2W 18:19 → OBSVTOIN 20:39
PROVIDERS: ADMIT Internal Medicine; ATTEND Internal Medicine
PROC: 0JB90ZZ Excision of Buttock Subcutaneous Tissue and Fascia, Open Approach (ICD-10-PCS; principal; 2017-07-24 15:30)
DX: A41.9 Sepsis, unspecified organism (principal); L89.154 Pressure ulcer of sacral region, stage 4; L89.610 Pressure ulcer of right heel, unstageable; L89.620 Pressure ulcer of left heel, unstageable; N17.9 Acute kidney failure, unspecified; E87.6 Hypokalemia; I48.2 Chronic atrial fibrillation; I12.9 Hypertensive chronic kidney disease with stage 1 through stage 4 chronic kidney disease, or unspecified chronic kidney disease; N18.9 Chronic kidney disease, unspecified; I89.0 Lymphedema, not elsewhere classified; F25.9 Schizoaffective disorder, unspecified; M10.9 Gout, unspecified; Z86.718 Personal history of other venous thrombosis and embolism; Z74.01 Bed confinement status; Z87.01 Personal history of pneumonia (recurrent); Z51.5 Encounter for palliative care; Z91.19 Patient's noncompliance with other medical treatment and regimen; Z93.3 Colostomy status; Z96.0 Presence of urogenital implants; Z79.01 Long term (current) use of anticoagulants; F17.210 Nicotine dependence, cigarettes, uncomplicated
CPT/HCPCS: 96365; 97165-GO; 97530-GO; G8987-GO-CL; G8988-GO-CL; J0696; J0878; J1650; J1956; J2704; J3010; J3475; Q9967